=== PATIENT | male | born 1965 | race African-American/Black ===

== ENCOUNTER 2022-04-09 17:16 | Inpatient (IN) | payer OTHER, SELFPAY ==
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
[2022-04-09 17:24] VITALS: BP 124/66; BP 132/88; PULSE 84; PULSE 94; RESP 17; TEMP 36.4; O2SAT 94; O2SAT 98; BMI 29.8
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
--- NOTE | 2022-04-09 17:33 | ECG_ITS ---
Test Reason : MEDICAL CLERANCE Blood Pressure : / mmHG Vent. Rate : 093 BPM Atrial Rate : 093 BPM P-R Int : 170 ms QRS Dur : 092 ms QT Int : 356 ms P-R-T Axes : 054 043 056 degrees QTc Int : 442 ms Normal sinus rhythm Minimal voltage criteria for LVH, may be normal variant ( Sokolow-Brownlee ) Nonspecific ST abnormality ST elevation in Septal leads Abnormal ECG No previous ECGs available Referred By: Katherine Aldrich Electronically Signed By:JEROME GAMEZ MD
[2022-04-09 17:42] LABS: Glucose, Whole Blood 341 mg/dL (60-115)
[2022-04-09] MEDS: Insulin Lispro 100 UNIT/ML 3 ML VIAL 6 UNIT SUBCUT (18:03)
[2022-04-09 18:13] LABS: Appearance Urine Clear; Color Urine Yellow; Glucose Urine UA >=1000 mg/dL (Negative); Leukocyte Esterase Urine Negative (Negative); Nitrite Urine Negative (Negative); PH 5.5 (5.0-9.0); Specific Gravity - Urine >= 1.030 (1.005-1.025); UMIC TRIGGER UACC YES; Urine Blood Negative (Negative); Urine Ketones Negative (Negative); Urine Protein Negative (Neg-Trace)
[2022-04-09 18:18] LABS: Bacteria Urine None Seen (None Seen); Hyaline Casts Urine 0-2 /LPF (0-2); RBC Urine 0-2 /HPF (0-2); Squamous Epithelial Cell Urine 0-2 /HPF (0-2); WBC Urine 0-5 /HPF (0-5)
[2022-04-09 18:24] LABS: COVID-19 Test Negative (Negative)
[2022-04-09 18:26] LABS: Amphetamine Screen Urine Not Detected (Not Detect); Barbiturates, Urine Not Detected (Not Detect); Benzodiazepines Screen Urine Not Detected (Not Detect); Cannabinoid Screen Urine POSITIVE (Not Detect); Cocaine Screen Urine POSITIVE (Not Detect); Fentanyl, urine Not Detected (Not Detect); Opiate Screen Urine Not Detected (Not Detect); Phencyclidine Screen Urine Not Detected (Not Detect)
[2022-04-09 19:25] LABS: MANUAL DIFF FLAG NO
[2022-04-09 19:30] LABS: Basophils Percent Auto 0.6 % (0-2); Eosinophils Absolute Auto 0.1 X10*3/uL (0.0-0.4); Eosinophils Percent Auto 1.7 % (0-4); Hemoglobin 13.9 g/dl (14.0-18.0); Imm Gran Abs Auto 0.01 X10*3/uL (0.00-0.03); Imm Gran Pct Auto 0.2 % (0.0-0.4); Lymphocytes Absolute Auto 2.9 X10*3/uL (1.2-4.9); Lymphocytes Percent Auto 44.9 % (20-40); Mean Corpuscular HGB Conc 33.9 g/dl (31.0-36.0); Mean Corpuscular Hemoglobin 32.8 pg (27.0-33.0); Mean Corpuscular Volume 96.7 fL (80.0-98.0); Mean Platelet Volume 9.7 fL (9.4-12.4); Monocytes Absolute Auto 0.8 X10*3/uL (0.1-1.2); Neutrophils Absolute Auto 2.6 x10*3/uL (2.0-8.3); Neutrophils Percent Auto 40.6 % (45-73); Platelet Count 255 X10*3/uL (160-400); Red Blood Count 4.24 X10*6/uL (4.60-5.80); Red Cell Distribution Width 12.8 % (11.0-16.0); White Blood Count 6.4 X10*3/uL (4.8-10.8)
[2022-04-09 19:43] LABS: Alanine Aminotransferase 23 U/L (0-40); Alkaline Phosphatase 91 U/L (39-117); Anion Gap 18 (12-20); Aspartate Amino Transferase 21 U/L (5-37); Bilirubin Total 0.5 mg/dL (0.0-1.0); Blood Urea Nitrogen 20 mg/dL (9-16); Carbon Dioxide 21 mmol/L (22-29); Creatinine Clr Calc Pharmacy 67.3; Estimated Glomerular Filt Rate > 60; Ethanol < 10 mg/dL; Total Protein 7.2 g/dL (6.5-8.0)
[2022-04-09 19:49] LABS: Troponin-I High Sensitivity 6.7 ng/L (<3.5-35.0)
[2022-04-09 21:36] LABS: Albumin Level 4.3 g/dL (3.5-5.0); Calcium 8.8 mg/dL (8.4-10.2); Chloride 100 mmol/L (96-108); Glucose Random 375 mg/dL (60-115); Potassium 4.5 mmol/L (3.3-5.1); Sodium 134 mmol/L (135-145)
[2022-04-09] MEDS: traZODone HCL 50 MG TABLET PO (22:52)
[2022-04-09] MEDS: Cyclobenzaprine HCl 10 MG TABLET PO (22:52)
[2022-04-09] MEDS: Gabapentin 300 MG CAPSULE PO (22:53)
[2022-04-09] MEDS: Divalproex Sodium ER 250 MG TAB.ER.24H 1250 MG PO (22:53)
[2022-04-09 22:54] LABS: Glucose, Whole Blood 353 mg/dL (60-115)
[2022-04-09] MEDS: metFORMIN HCl ER 750 MG TAB.ER.24H PO (23:15)
[2022-04-10] MEDS: Insulin Lispro 100 UNIT/ML 3 ML VIAL 10 UNIT SUBCUT (00:01)
[2022-04-10 00:48] LABS: Glucose, Whole Blood 226 mg/dL (60-115)
[2022-04-10 01:07] VITALS: BMI 28.9
--- NOTE | 2022-04-10 02:22 | PC.ADMIT ---
patient arrived to the unit after midnight. on arrival was tired as he has received his HS medications in the ER. did allow for a brief assessment, POC to be repeated (226) then requested to go to bed. declined one time doses of folic acid and thiamine. patient was a referral from the ER. nurse to nurse, collateral information obtained prior to admission. admission to M[facility] was briefly held off until insulin administered in the ER for a POC 353. admission assessment completed with brief assessment with patient, assessment by crisis team and ER physician documentation. pt is homeless, has outpatient providers but question compliance with treatment providers as well as medications. diabetes is not well controlled. medical issues include IDDM, HTN, GERD. reported pain in knees due to arthritis. crisis assessment identified patient as experiencing A/V hallucinations. No SI. + thoughts to harm others but no specific plan or persons. did report feeling safe in the hospital environment. reports long standing use of substances including alcohol-no s/s of w/d at this time, cocaine and marijuana. treatment plan and safety tool initiated. oriented to unit.
--- NOTE | 2022-04-10 03:49 | PC.NURSE ---
medication reconciliation was completed in ER. has prescription bottles in belongings that will be stored in pharmacy.
[2022-04-10 08:00] VITALS: BP 128/73; PULSE 90; RESP 18; TEMP 36.6; O2SAT 100
[2022-04-10 09:02] LABS: Glucose, Whole Blood 303 mg/dL (60-115)
[2022-04-10] MEDS: Insulin Lispro 100 UNIT/ML 3 ML VIAL SUBCUT ×4 (09:57→21:58)
[2022-04-10] MEDS: metFORMIN HCl ER 750 MG TAB.ER.24H PO ×2 (09:58→21:57)
[2022-04-10] MEDS: Acetaminophen 325 MG TABLET 650 MG PO (09:58)
[2022-04-10] MEDS: Cyclobenzaprine HCl 10 MG TABLET PO ×3 (09:59→21:57)
[2022-04-10] MEDS: Gabapentin 300 MG CAPSULE PO ×3 (09:59→21:57)
[2022-04-10] MEDS: Multivitamin TABLET 1 TAB PO (10:00)
[2022-04-10] MEDS: Omeprazole 40 MG CAPSULE.DR PO (10:01)
[2022-04-10] MEDS: Metoprolol Succinate ER 50 MG TAB.ER.24H PO (10:01)
[2022-04-10] MEDS: lisinopriL 10 MG TABLET PO (10:01)
[2022-04-10] MEDS: Folic Acid 1 MG TABLET PO (10:01)
[2022-04-10] MEDS: Escitalopram Oxalate 10 MG TABLET PO (10:02)
[2022-04-10] MEDS: Empagliflozin 25 MG TABLET PO (10:02)
[2022-04-10] MEDS: Thiamine HCL 100 MG TABLET PO (10:02)
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
[2022-04-10 12:27] LABS: Glucose, Whole Blood 296 mg/dL (60-115)
[2022-04-10] MEDS: LORazepam 1 MG TABLET 2 MG PO (13:55)
[2022-04-10] MEDS: diphenhydrAMINE HCL 25 MG CAPSULE 50 MG PO (13:55)
[2022-04-10] MEDS: HaloperidoL 5 MG TABLET PO (13:56)
--- NOTE | 2022-04-10 14:01 | PC.NURSE ---
Pt crying with head in his hands. He reports that he was not hones honest with psychiatrist, regarding how he is feeling. He states he hearing voices telling him good and Bad things. He said in the ER voices were telling him to grab someone and that he feels like he is losing his mind. Benadryl Haldol Ativan combo given. [place] notified.
[2022-04-10 17:34] LABS: Glucose, Whole Blood 200 mg/dL (60-115)
[2022-04-10 19:25] VITALS: RESP 16
[2022-04-10] MEDS: Divalproex Sodium ER 250 MG TAB.ER.24H 1250 MG PO (21:56)
[2022-04-10] MEDS: Atorvastatin Calcium 80 MG TABLET PO (21:57)
[2022-04-10] MEDS: traZODone HCL 50 MG TABLET PO (22:03)
[2022-04-11 00:30] LABS: Glucose, Whole Blood 248 mg/dL (60-115)
--- NOTE | 2022-04-11 05:46 | PC.NURSE ---
At 0400 Nurse went into [facility]'s room to observe patient. Patient was resting comfortably with no signs of sweating or agitation. RR-16. Patient did not fidget or move on observation. Nurse did not wake patient for full CIWA assessment. If patient awakes, nurse will re-evaluate. Patient remains on CIWA protocol q4h.
[2022-04-11 08:00] VITALS: BP 143/73; PULSE 76; RESP 18; TEMP 36.6; O2SAT 98
[2022-04-11 08:46] LABS: Glucose, Whole Blood 211 mg/dL (60-115)
[2022-04-11] MEDS: Thiamine HCL 100 MG TABLET PO (09:50)
[2022-04-11] MEDS: Metoprolol Succinate ER 50 MG TAB.ER.24H PO (09:50)
[2022-04-11] MEDS: Cyclobenzaprine HCl 10 MG TABLET PO ×3 (09:51→21:21)
[2022-04-11] MEDS: Omeprazole 40 MG CAPSULE.DR PO (09:51)
[2022-04-11] MEDS: lisinopriL 10 MG TABLET PO (09:51)
[2022-04-11] MEDS: Escitalopram Oxalate 10 MG TABLET PO (09:52)
[2022-04-11] MEDS: Gabapentin 300 MG CAPSULE PO ×3 (09:53→21:15)
[2022-04-11] MEDS: metFORMIN HCl ER 750 MG TAB.ER.24H PO ×2 (09:53→21:15)
[2022-04-11] MEDS: Multivitamin TABLET 1 TAB PO (09:53)
[2022-04-11] MEDS: Empagliflozin 25 MG TABLET PO (09:54)
[2022-04-11] MEDS: Folic Acid 1 MG TABLET PO (09:54)
[2022-04-11 12:09] LABS: Glucose, Whole Blood 293 mg/dL (60-115)
[2022-04-11] MEDS: LORazepam 1 MG TABLET PO (13:08)
[2022-04-11] MEDS: ARIPiprazole 5 MG TABLET PO (13:08)
[2022-04-11] MEDS: Insulin Lispro 100 UNIT/ML 3 ML VIAL SUBCUT ×3 (13:09→21:23)
[2022-04-11 17:16] LABS: Glucose, Whole Blood 354 mg/dL (60-115)
--- NOTE | 2022-04-11 18:52 | P.PNPSI_ITS ---
Subjective Subjective Date of Service: 04/11/22 Reason For Visit: AH/HI Interim History: pt came to staff two times distressed, crying and reporting auditory hallucinations to kill people. He accepted PO haldol, benadryl and ativa with good effect. today is willing to talk more; states he ahs had auditory hallucinations but stopped telling people because nno one believed him. states he never told [facility] psychiatrist. reports seroquel was stopped because overdosed on it. he was not able to tell me when this happened. he does want meds for AH Medication Compliance: Yes Side effects from medications: No Attending Groups: No Review of Systems Acute medical concerns: Yes unstable blood sugars stared on sliding scale also on metformin and jardiance Medical Review of Systems: unchanged Review of Systems Review of Systems Yes all other systems are reviewed and are negative and Unobtainable due to mental status Mental Status Exam Mental Status Exam Narrative: In bed, able to participate in interview today but limited. breathing regular and steady, no acute distress noted; ptreports auditory hallucinations telling him to kill people. feels very distressed by these. We discussed medicaiton for psychosis. states seroqule stopped in past due to he overdosed on it- he wasunable to say hwen this happened or circumstances. denies SI now. wants help and willing to try new med- discussed abilify as has lowest potential to alter blood sugars which re already unstable Patient Appearance: Disheveled Patient Orientation: Place and Situation Level of Consciousness: Drowsy and Follows Commands Patient Behavior: Appropriate Mood Description: Anxious and Sad Affect Description: Flat Patient Cognition Impaired: No Ability to Follow Directions: Fair Speech Pattern: Clear Hallucinations: Auditory and Command Thought Process: Distracted Thought Content: positive for Preoccupation Judgement: Fair Judgement and Insight: understand and wants help/treatment Diagnostics Vital Signs (24Hr): Vital Signs - 24 hr 04/11/22 08:00 Temperature 97.8 F Pulse Rate 76 Respiratory Rate 18 Blood Pressure 143/73 H Pulse Oximetry 98 Oxygen Delivery Method Room Air BMI result Body Mass Index 28.9 Labs Results: 04/09/22 19:16 04/09/22 19:16 Labs: Laboratory Results - last 48 hr 04/09/22 04/09/22 04/10/22 19:16 22:51 00:37 Sodium 134 L Potassium 4.5 Chloride 100 POC Glucose 353 H* 226 H Random Glucose 375 H* Calcium 8.8 Albumin 4.3 04/10/22 04/10/22 04/10/22 08:55 12:13 17:23 Sodium Potassium Chloride POC Glucose 303 H 296 H 200 H Random Glucose Calcium Albumin 04/10/22 04/11/22 04/11/22 21:48 08:35 12:05 Sodium Potassium Chloride POC Glucose 248 H 211 H 293 H Random Glucose Calcium Albumin 04/11/22 17:08 Sodium Potassium Chloride POC Glucose 354 H* Random Glucose Calcium Albumin Imaging Radiology Impressions: ITS Impressions Head CT 04/09/22 18:25 IMPRESSION: Nonspecific calcification involving the melissa. Comparison with prior imaging is recommended if available. Alternatively a brain MRI without and with contrast can be obtained for better anatomic characterization. Otherwise normal CT scan of the head. Medications Medications Current Medications Acetaminophen (Acetaminophen 325 Mg Tablet) 650 mg PO Q6H PRN PRN Reason: Headache/Pain Mild Scale (1-3) Last Admin: 04/10/22 09:58 Dose: 650 mg Al Hydroxide/Mg Hydroxide (Magnesium Hydrox/Alum Hydrox 30 Ml Oral.Susp) 30 ml PO Q6H PRN PRN Reason: Heartburn/Nausea Aripiprazole (Aripiprazole 5 Mg Tablet) 5 mg PO DAILY [facility] Last Admin: 04/11/22 13:08 Dose: 5 mg Atorvastatin Calcium (Atorvastatin Calcium 80 Mg Tablet) 80 mg PO BEDTIME [facility] Last Admin: 04/10/22 21:57 Dose: 80 mg Cyclobenzaprine HCl (Cyclobenzaprine Hcl 10 Mg Tablet) 10 mg PO TID [facility] Last Admin: 04/11/22 15:03 Dose: 10 mg Diphenhydramine HCl (Diphenhydramine Hcl 25 Mg Capsule) 50 mg PO Q4H PRN PRN Reason: agitation Last Admin: 04/10/22 13:55 Dose: 50 mg Divalproex Sodium (Divalproex Sodium Er 250 Mg Tab.Er.24h) 1,250 mg PO BEDTIME [facility] Last Admin: 04/10/22 21:56 Dose: 1,250 mg Empagliflozin (Empagliflozin 25 Mg Tablet) 25 mg PO DAILY [facility] Last Admin: 04/11/22 09:54 Dose: 25 mg Escitalopram Oxalate (Escitalopram Oxalate 10 Mg Tablet) 10 mg PO DAILY [facility] Last Admin: 04/11/22 09:52 Dose: 10 mg Folic Acid (Folic Acid 1 Mg Tablet) 1 mg PO DAILY [facility] Last Admin: 04/11/22 09:54 Dose: 1 mg Gabapentin (Gabapentin 300 Mg Capsule) 300 mg PO TID [facility] Last Admin: 04/11/22 15:02 Dose: 300 mg Glucose (Glucose Gel 15 Gm Gel..Gram.) 15 gm PO Q15M PRN; Protocol PRN Reason: per Hypoglycemia Standing Ord. Haloperidol (Haloperidol 5 Mg Tablet) 5 mg PO Q4H PRN PRN Reason: agitation Last Admin: 04/10/22 13:56 Dose: 5 mg Hydroxyzine HCl (Hydroxyzine Hcl 25 Mg Tablet) 25 mg PO Q6H PRN PRN Reason: Anxiety Insulin Human Lispro (Insulin Lispro 100 Unit/Ml 3 Ml Vial) 0 unit SUBCUT [facility]; Protocol Last Admin: 04/11/22 17:48 Dose: 10 unit Lisinopril (Lisinopril 10 Mg Tablet) 10 mg PO DAILY [facility]; Protocol Last Admin: 04/11/22 09:51 Dose: 10 mg Lorazepam (Lorazepam 1 Mg Tablet) 2 mg PO Q4H PRN PRN Reason: agitation Last Admin: 04/10/22 13:55 Dose: 2 mg Lorazepam (Lorazepam 1 Mg Tablet) 2 mg PO Q2H PRN PRN Reason: CIWA 13+ Lorazepam (Lorazepam 1 Mg Tablet) 1 mg PO Q2H PRN PRN Reason: CIWA 6-12 Lorazepam (Lorazepam 1 Mg Tablet) 1 mg PO DAILY [facility] Last Admin: 04/11/22 13:08 Dose: 1 mg Magnesium Hydroxide (Milk Of Magnesia 30 Ml Oral.Susp) 30 ml PO DAILY PRN PRN Reason: Constipation Metformin HCl (Metformin Hcl Er 750 Mg Tab.Er.24h) 750 mg PO BID [facility] Last Admin: 04/11/22 09:53 Dose: 750 mg Metoprolol Succinate (Metoprolol Succinate Er 50 Mg Tab.Er.24h) 50 mg PO DAILY [facility]; Protocol Last Admin: 04/11/22 09:50 Dose: 50 mg Multivitamins/Vitamin C (Multivitamin Tablet) 1 tab PO DAILY [facility] Last Admin: 04/11/22 09:53 Dose: 1 tab Nicotine Polacrilex (Nicotine Polacrilex 2 Mg Gum) 4 mg BUCCAL Q2H PRN PRN Reason: Nicotine Cravings Omeprazole (Omeprazole 40 Mg Capsule.Dr) 40 mg PO DAILY@0630 [facility] Last Admin: 04/11/22 09:51 Dose: 40 mg Thiamine HCl (Thiamine Hcl 100 Mg Tablet) 100 mg PO DAILY [facility] Last Admin: 04/11/22 09:50 Dose: 100 mg Trazodone HCl (Trazodone Hcl 50 Mg Tablet) 50 mg PO BEDTIME [facility] Last Admin: 04/10/22 22:03 Dose: 50 mg Trazodone HCl (Trazodone Hcl 50 Mg Tablet) 50 mg PO BEDTIME PRN PRN Reason: Insomnia Allergies Allergies Allergy/AdvReac Type Severity Reaction Status Date / Time No Known Allergies Allergy Verified 04/09/22 17:32 Assessment & Plan Assessment & Plan (1) Acute psychosis: Status: Acute Code(s): F23 - Brief psychotic disorder Plan 56 year old male with acute psychosis and depression with SI and HI admitted from Ed on section 12. pt signed conditional voluntary upon admission and accepting treatment Plan: 1. start abilify 5 mg PO - titrate as tolerated 2. give 1 mg ativan with abilify daily in am and may taper as he adjusts to abilify 2. continue prn haldol, ativan and benadryl. 3. CIWA scale 4. POC QID 5.15 min checks 6. collect collateral I spent minutes with the patient and/or on the patient floor today, greater than?50% of which was spent counseling/coordinating care. Reason for contiued inpatient stay Substantial Risk for: harm to self, harm to others, inability to function and rapid decompensation
[2022-04-11 19:35] VITALS: BP 105/56; PULSE 82; RESP 16; TEMP 36.3; O2SAT 93
[2022-04-11 21:10] LABS: Glucose, Whole Blood 216 mg/dL (60-115)
[2022-04-11] MEDS: Atorvastatin Calcium 80 MG TABLET PO (21:15)
[2022-04-11] MEDS: Divalproex Sodium ER 250 MG TAB.ER.24H 1250 MG PO (21:22)
[2022-04-11] MEDS: traZODone HCL 50 MG TABLET PO (21:22)
[2022-04-12 08:46] LABS: Glucose, Whole Blood 208 mg/dL (60-115)
[2022-04-12] MEDS: Insulin Lispro 100 UNIT/ML 3 ML VIAL SUBCUT ×4 (09:05→21:21)
[2022-04-12] MEDS: Folic Acid 1 MG TABLET PO (09:06)
[2022-04-12] MEDS: Cyclobenzaprine HCl 10 MG TABLET PO ×3 (09:06→21:23)
[2022-04-12] MEDS: Multivitamin TABLET 1 TAB PO (09:06)
[2022-04-12] MEDS: Empagliflozin 25 MG TABLET PO (09:06)
[2022-04-12] MEDS: Escitalopram Oxalate 10 MG TABLET PO (09:06)
[2022-04-12] MEDS: lisinopriL 10 MG TABLET PO (09:06)
[2022-04-12] MEDS: ARIPiprazole 5 MG TABLET PO ×2 (09:06→21:24)
[2022-04-12] MEDS: metFORMIN HCl ER 750 MG TAB.ER.24H PO ×2 (09:06→21:23)
[2022-04-12] MEDS: Omeprazole 40 MG CAPSULE.DR PO (09:06)
[2022-04-12] MEDS: Gabapentin 300 MG CAPSULE PO ×3 (09:06→21:24)
[2022-04-12] MEDS: Metoprolol Succinate ER 50 MG TAB.ER.24H PO (09:07)
[2022-04-12] MEDS: Thiamine HCL 100 MG TABLET PO (09:07)
[2022-04-12] MEDS: LORazepam 1 MG TABLET PO (09:07)
[2022-04-12 09:36] VITALS: BP 138/70; PULSE 96; RESP 15; TEMP 36.8; O2SAT 96
[2022-04-12 12:30] LABS: Glucose, Whole Blood 284 mg/dL (60-115)
[2022-04-12 17:15] LABS: Glucose, Whole Blood 270 mg/dL (60-115)
[2022-04-12 21:09] LABS: Glucose, Whole Blood 359 mg/dL (60-115)
[2022-04-12] MEDS: Atorvastatin Calcium 80 MG TABLET PO (21:23)
[2022-04-12] MEDS: Divalproex Sodium ER 250 MG TAB.ER.24H 1250 MG PO (21:23)
[2022-04-12] MEDS: traZODone HCL 50 MG TABLET PO (21:24)
--- NOTE | 2022-04-12 21:27 | HO.PSYCHPN ---
Subjective Subjective Date of Service: 04/12/22 Reason For Visit: AH/HI Interim History: calm, cooperative. i'm losing my mind. angels outside my window. states he spent the past two months spending $6,000 on crack cocaine in order to avoid hearing voices. interested in changing abilify to HS. no other changes, states he is working with SW on housing. per staff, isolative. not attending groups. better but not by much, per his report. c/o AVH. slept well. on CIWA, not scoring. Mental Status Exam Mental Status Exam Narrative: adequately dressed and groomed. calm, cooperative. speech nml in rate and amount, latency. decreased tonality. thoughts linear and logical without delusions or paranoia. affect constricted, hypo-intense, non-labile. mood not assessed. +AVH, no SI/HI expressed. Diagnostics Vital Signs (24Hr): Vital Signs - 24 hr 04/12/22 09:36 Temperature 98.3 F Pulse Rate 96 Respiratory Rate 15 Blood Pressure 138/70 Pulse Oximetry 96 Oxygen Delivery Method Room Air BMI result Body Mass Index 28.9 Labs Results: 04/09/22 19:16 04/09/22 19:16 Labs: Laboratory Results - last 48 hr 04/10/22 04/11/22 04/11/22 21:48 08:35 12:05 POC Glucose 248 H 211 H 293 H 04/11/22 04/11/22 04/12/22 17:08 21:05 08:37 POC Glucose 354 H* 216 H 208 H 04/12/22 04/12/22 04/12/22 12:24 17:11 21:05 POC Glucose 284 H 270 H 359 H* Imaging Radiology Impressions: ITS Impressions Head CT 04/09/22 18:25 IMPRESSION: Nonspecific calcification involving the melissa. Comparison with prior imaging is recommended if available. Alternatively a brain MRI without and with contrast can be obtained for better anatomic characterization. Otherwise normal CT scan of the head. Medications Medications Current Medications Acetaminophen (Acetaminophen 325 Mg Tablet) 650 mg PO Q6H PRN PRN Reason: Headache/Pain Mild Scale (1-3) Last Admin: 04/10/22 09:58 Dose: 650 mg Al Hydroxide/Mg Hydroxide (Magnesium Hydrox/Alum Hydrox 30 Ml Oral.Susp) 30 ml PO Q6H PRN PRN Reason: Heartburn/Nausea Aripiprazole (Aripiprazole 5 Mg Tablet) 5 mg PO BEDTIME [facility] Last Admin: 04/12/22 21:24 Dose: 5 mg Atorvastatin Calcium (Atorvastatin Calcium 80 Mg Tablet) 80 mg PO BEDTIME [facility] Last Admin: 04/12/22 21:23 Dose: 80 mg Cyclobenzaprine HCl (Cyclobenzaprine Hcl 10 Mg Tablet) 10 mg PO TID [facility] Last Admin: 04/12/22 21:23 Dose: 10 mg Diphenhydramine HCl (Diphenhydramine Hcl 25 Mg Capsule) 50 mg PO Q4H PRN PRN Reason: agitation Last Admin: 04/10/22 13:55 Dose: 50 mg Divalproex Sodium (Divalproex Sodium Er 250 Mg Tab.Er.24h) 1,250 mg PO BEDTIME [facility] Last Admin: 04/12/22 21:23 Dose: 1,250 mg Empagliflozin (Empagliflozin 25 Mg Tablet) 25 mg PO DAILY [facility] Last Admin: 04/12/22 09:06 Dose: 25 mg Escitalopram Oxalate (Escitalopram Oxalate 10 Mg Tablet) 10 mg PO DAILY [facility] Last Admin: 04/12/22 09:06 Dose: 10 mg Folic Acid (Folic Acid 1 Mg Tablet) 1 mg PO DAILY [facility] Last Admin: 04/12/22 09:06 Dose: 1 mg Gabapentin (Gabapentin 300 Mg Capsule) 300 mg PO TID [facility] Last Admin: 04/12/22 21:24 Dose: 300 mg Glucose (Glucose Gel 15 Gm Gel..Gram.) 15 gm PO Q15M PRN; Protocol PRN Reason: per Hypoglycemia Standing Ord. Haloperidol (Haloperidol 5 Mg Tablet) 5 mg PO Q4H PRN PRN Reason: agitation Last Admin: 04/10/22 13:56 Dose: 5 mg Hydroxyzine HCl (Hydroxyzine Hcl 25 Mg Tablet) 25 mg PO Q6H PRN PRN Reason: Anxiety Insulin Human Lispro (Insulin Lispro 100 Unit/Ml 3 Ml Vial) 0 unit SUBCUT QIDACHS [facility]; Protocol Last Admin: 04/12/22 21:21 Dose: 10 unit Lisinopril (Lisinopril 10 Mg Tablet) 10 mg PO DAILY [facility]; Protocol Last Admin: 04/12/22 09:06 Dose: 10 mg Lorazepam (Lorazepam 1 Mg Tablet) 2 mg PO Q4H PRN PRN Reason: agitation Last Admin: 04/10/22 13:55 Dose: 2 mg Lorazepam (Lorazepam 1 Mg Tablet) 2 mg PO Q2H PRN PRN Reason: CIWA 13+ Lorazepam (Lorazepam 1 Mg Tablet) 1 mg PO Q2H PRN PRN Reason: CIWA 6-12 Lorazepam (Lorazepam 1 Mg Tablet) 1 mg PO DAILY [facility] Last Admin: 04/12/22 09:07 Dose: 1 mg Magnesium Hydroxide (Milk Of Magnesia 30 Ml Oral.Susp) 30 ml PO DAILY PRN PRN Reason: Constipation Metformin HCl (Metformin Hcl Er 750 Mg Tab.Er.24h) 750 mg PO BID [facility] Last Admin: 04/12/22 21:23 Dose: 750 mg Metoprolol Succinate (Metoprolol Succinate Er 50 Mg Tab.Er.24h) 50 mg PO DAILY [facility]; Protocol Last Admin: 04/12/22 09:07 Dose: 50 mg Multivitamins/Vitamin C (Multivitamin Tablet) 1 tab PO DAILY [facility] Last Admin: 04/12/22 09:06 Dose: 1 tab Nicotine Polacrilex (Nicotine Polacrilex 2 Mg Gum) 4 mg BUCCAL Q2H PRN PRN Reason: Nicotine Cravings Omeprazole (Omeprazole 40 Mg Capsule.Dr) 40 mg PO DAILY@0630 [facility] Last Admin: 04/12/22 09:06 Dose: 40 mg Thiamine HCl (Thiamine Hcl 100 Mg Tablet) 100 mg PO DAILY [facility] Last Admin: 04/12/22 09:07 Dose: 100 mg Trazodone HCl (Trazodone Hcl 50 Mg Tablet) 50 mg PO BEDTIME [facility] Last Admin: 04/12/22 21:24 Dose: 50 mg Trazodone HCl (Trazodone Hcl 50 Mg Tablet) 50 mg PO BEDTIME PRN PRN Reason: Insomnia Allergies Allergies Allergy/AdvReac Type Severity Reaction Status Date / Time No Known Allergies Allergy Verified 04/09/22 17:32 Assessment & Plan Assessment & Plan (1) Acute psychosis: Status: Acute Code(s): F23 - Brief psychotic disorder Plan 56 year old male with acute psychosis and depression with SI and HI admitted from Ed on section 12. pt signed conditional voluntary upon admission and accepting treatment Plan: 1. start abilify 5 mg PO - titrate as tolerated 2. give 1 mg ativan with abilify daily in am and may taper as he adjusts to abilify 2. continue prn haldol, ativan and benadryl. 3. CIWA scale 4. POC QID 5.15 min checks 6. collect collateral 04/12: change abilify to HS. plan to titrate up on abilify as tolerated and clinically indicated. pt is linear and logical and aware that his delusions or hallucinations are pathological. I spent ___25___ minutes with the patient and/or on the patient floor today, greater than?50% of which was spent counseling/coordinating care. Reason for contiued inpatient stay Substantial Risk for: inability to function and med/psych decompensation
[2022-04-13 08:10] VITALS: BP 136/75; PULSE 80; RESP 18; TEMP 36.6; O2SAT 98
[2022-04-13 08:45] LABS: Glucose, Whole Blood 252 mg/dL (60-115)
[2022-04-13] MEDS: metFORMIN HCl ER 750 MG TAB.ER.24H PO ×2 (10:05→21:52)
[2022-04-13] MEDS: Omeprazole 40 MG CAPSULE.DR PO (10:05)
[2022-04-13] MEDS: lisinopriL 10 MG TABLET PO (10:06)
[2022-04-13] MEDS: Empagliflozin 25 MG TABLET PO (10:06)
[2022-04-13] MEDS: LORazepam 1 MG TABLET PO (10:06)
[2022-04-13] MEDS: Thiamine HCL 100 MG TABLET PO (10:07)
[2022-04-13] MEDS: Multivitamin TABLET 1 TAB PO (10:07)
[2022-04-13] MEDS: Folic Acid 1 MG TABLET PO (10:07)
[2022-04-13] MEDS: Cyclobenzaprine HCl 10 MG TABLET PO ×3 (10:08→21:53)
[2022-04-13] MEDS: Escitalopram Oxalate 10 MG TABLET PO (10:08)
[2022-04-13] MEDS: Metoprolol Succinate ER 50 MG TAB.ER.24H PO (10:09)
[2022-04-13] MEDS: Gabapentin 300 MG CAPSULE PO ×3 (10:09→21:54)
[2022-04-13] MEDS: Insulin Lispro 100 UNIT/ML 3 ML VIAL SUBCUT ×4 (10:09→21:55)
[2022-04-13 12:36] LABS: Glucose, Whole Blood 361 mg/dL (60-115)
[2022-04-13 17:38] LABS: Glucose, Whole Blood 277 mg/dL (60-115)
[2022-04-13 20:30] VITALS: BP 150/73; PULSE 80; RESP 18; TEMP 36.2; O2SAT 99
--- NOTE | 2022-04-13 20:31 | HO.PSYCHPN ---
Subjective Subjective Date of Service: 04/13/22 Reason For Visit: AH/HI Interim History: calm, cooperative. ambulates slowly and stiffly. states he has been staying away from the windows. why? he reports he is seeing things outside. c/o disrupted sleep. agrees to increase abilify to 7 mg QHS for now. per staff, pt presents as tense, angry. states his goal here is to get housing from the hospital. Mental Status Exam Mental Status Exam Narrative: adequately dressed and groomed. calm, cooperative. speech nml in rate and amount, latency. decreased tonality. thoughts linear and logical without delusions or paranoia. affect constricted, hypo-intense, non-labile. mood not assessed. +AVH, no SI/HI expressed. Diagnostics Vital Signs (24Hr): Vital Signs - 24 hr 04/13/22 08:10 Temperature 97.8 F Pulse Rate 80 Respiratory Rate 18 Blood Pressure 136/75 Pulse Oximetry 98 Oxygen Delivery Method Room Air BMI result Body Mass Index 28.9 Labs Results: 04/09/22 19:16 04/09/22 19:16 Labs: Laboratory Results - last 48 hr 04/11/22 04/12/22 04/12/22 21:05 08:37 12:24 POC Glucose 216 H 208 H 284 H 04/12/22 04/12/22 04/13/22 17:11 21:05 08:40 POC Glucose 270 H 359 H* 252 H 04/13/22 04/13/22 12:30 17:35 POC Glucose 361 H* 277 H Imaging Radiology Impressions: ITS Impressions Head CT 04/09/22 18:25 IMPRESSION: Nonspecific calcification involving the melissa. Comparison with prior imaging is recommended if available. Alternatively a brain MRI without and with contrast can be obtained for better anatomic characterization. Otherwise normal CT scan of the head. Medications Medications Current Medications Acetaminophen (Acetaminophen 325 Mg Tablet) 650 mg PO Q6H PRN PRN Reason: Headache/Pain Mild Scale (1-3) Last Admin: 04/10/22 09:58 Dose: 650 mg Al Hydroxide/Mg Hydroxide (Magnesium Hydrox/Alum Hydrox 30 Ml Oral.Susp) 30 ml PO Q6H PRN PRN Reason: Heartburn/Nausea Aripiprazole (Aripiprazole 2 Mg Tablet) 2 mg PO BEDTIME [facility] Aripiprazole (Aripiprazole 5 Mg Tablet) 5 mg PO BEDTIME [facility] Atorvastatin Calcium (Atorvastatin Calcium 80 Mg Tablet) 80 mg PO BEDTIME [facility] Last Admin: 04/12/22 21:23 Dose: 80 mg Cyclobenzaprine HCl (Cyclobenzaprine Hcl 10 Mg Tablet) 10 mg PO TID [facility] Last Admin: 04/13/22 15:05 Dose: 10 mg Diphenhydramine HCl (Diphenhydramine Hcl 25 Mg Capsule) 50 mg PO Q4H PRN PRN Reason: agitation Last Admin: 04/10/22 13:55 Dose: 50 mg Divalproex Sodium (Divalproex Sodium Er 250 Mg Tab.Er.24h) 1,250 mg PO BEDTIME [facility] Last Admin: 04/12/22 21:23 Dose: 1,250 mg Empagliflozin (Empagliflozin 25 Mg Tablet) 25 mg PO DAILY [facility] Last Admin: 04/13/22 10:06 Dose: 25 mg Escitalopram Oxalate (Escitalopram Oxalate 10 Mg Tablet) 10 mg PO DAILY [facility] Last Admin: 04/13/22 10:08 Dose: 10 mg Folic Acid (Folic Acid 1 Mg Tablet) 1 mg PO DAILY [facility] Last Admin: 04/13/22 10:07 Dose: 1 mg Gabapentin (Gabapentin 300 Mg Capsule) 300 mg PO TID [facility] Last Admin: 04/13/22 15:06 Dose: 300 mg Glucose (Glucose Gel 15 Gm Gel..Gram.) 15 gm PO Q15M PRN; Protocol PRN Reason: per Hypoglycemia Standing Ord. Haloperidol (Haloperidol 5 Mg Tablet) 5 mg PO Q4H PRN PRN Reason: agitation Last Admin: 04/10/22 13:56 Dose: 5 mg Hydroxyzine HCl (Hydroxyzine Hcl 25 Mg Tablet) 25 mg PO Q6H PRN PRN Reason: Anxiety Insulin Human Lispro (Insulin Lispro 100 Unit/Ml 3 Ml Vial) 0 unit SUBCUT QIDACHS [facility]; Protocol Last Admin: 04/13/22 18:14 Dose: 6 unit Lisinopril (Lisinopril 10 Mg Tablet) 10 mg PO DAILY [facility]; Protocol Last Admin: 04/13/22 10:06 Dose: 10 mg Lorazepam (Lorazepam 1 Mg Tablet) 2 mg PO Q4H PRN PRN Reason: agitation Last Admin: 04/10/22 13:55 Dose: 2 mg Lorazepam (Lorazepam 1 Mg Tablet) 2 mg PO Q2H PRN PRN Reason: CIWA 13+ Lorazepam (Lorazepam 1 Mg Tablet) 1 mg PO Q2H PRN PRN Reason: CIWA 6-12 Lorazepam (Lorazepam 1 Mg Tablet) 1 mg PO DAILY [facility] Last Admin: 04/13/22 10:06 Dose: 1 mg Magnesium Hydroxide (Milk Of Magnesia 30 Ml Oral.Susp) 30 ml PO DAILY PRN PRN Reason: Constipation Metformin HCl (Metformin Hcl Er 750 Mg Tab.Er.24h) 750 mg PO BID [facility] Last Admin: 04/13/22 10:05 Dose: 750 mg Metoprolol Succinate (Metoprolol Succinate Er 50 Mg Tab.Er.24h) 50 mg PO DAILY [facility]; Protocol Last Admin: 04/13/22 10:09 Dose: 50 mg Multivitamins/Vitamin C (Multivitamin Tablet) 1 tab PO DAILY [facility] Last Admin: 04/13/22 10:07 Dose: 1 tab Nicotine Polacrilex (Nicotine Polacrilex 2 Mg Gum) 4 mg BUCCAL Q2H PRN PRN Reason: Nicotine Cravings Omeprazole (Omeprazole 40 Mg Capsule.Dr) 40 mg PO DAILY@0630 [facility] Last Admin: 04/13/22 10:05 Dose: 40 mg Thiamine HCl (Thiamine Hcl 100 Mg Tablet) 100 mg PO DAILY [facility] Last Admin: 04/13/22 10:07 Dose: 100 mg Trazodone HCl (Trazodone Hcl 50 Mg Tablet) 50 mg PO BEDTIME [facility] Last Admin: 04/12/22 21:24 Dose: 50 mg Trazodone HCl (Trazodone Hcl 50 Mg Tablet) 50 mg PO BEDTIME PRN PRN Reason: Insomnia Allergies Allergies Allergy/AdvReac Type Severity Reaction Status Date / Time No Known Allergies Allergy Verified 04/09/22 17:32 Assessment & Plan Assessment & Plan (1) Acute psychosis: Status: Acute Code(s): F23 - Brief psychotic disorder Plan 56 year old male with acute psychosis and depression with SI and HI admitted from [facility] on section 12. pt signed conditional voluntary upon admission and accepting treatment Plan: 1. start abilify 5 mg PO - titrate as tolerated 2. give 1 mg ativan with abilify daily in am and may taper as he adjusts to abilify 2. continue prn haldol, ativan and benadryl. 3. CIWA scale 4. POC QID 5.15 min checks 6. collect collateral 04/12: change abilify to HS. plan to titrate up on abilify as tolerated and clinically indicated. pt is linear and logical and aware that his delusions or hallucinations are pathological. 04/13: reporting seeing things outside. increase abilify to 7 mg QHS. reported to staff his goal is to get housing from the hospital. I spent ___20___ minutes with the patient and/or on the patient floor today, greater than?50% of which was spent counseling/coordinating care. Reason for contiued inpatient stay Substantial Risk for: harm to self, inability to function and rapid decompensation
[2022-04-13 21:43] LABS: Glucose, Whole Blood 323 mg/dL (60-115)
[2022-04-13] MEDS: Atorvastatin Calcium 80 MG TABLET PO (21:53)
[2022-04-13] MEDS: ARIPiprazole 5 MG TABLET PO (21:53)
[2022-04-13] MEDS: traZODone HCL 50 MG TABLET PO (21:53)
[2022-04-13] MEDS: ARIPiprazole 2 MG TABLET PO (21:54)
[2022-04-13] MEDS: Divalproex Sodium ER 250 MG TAB.ER.24H 1250 MG PO (21:55)
--- NOTE | 2022-04-14 00:09 | PC.NURSE ---
AT 0000, patient resting in bed asleep. Patient rr-16. No signs of distress. Nurse did not awake patient for full CIWA assessment. Nurse will continue to monitor.
--- NOTE | 2022-04-14 03:54 | PC.NURSE ---
Waylon has not been scoring on his CIWA. Observed patient, no signs of distress. RR-16. Nurse will continue to monitor.
[2022-04-14 08:15] VITALS: BP 117/71; PULSE 82; RESP 18; TEMP 36.6; O2SAT 99
[2022-04-14 08:55] LABS: Glucose, Whole Blood 252 mg/dL (60-115)
[2022-04-14] MEDS: Insulin Lispro 100 UNIT/ML 3 ML VIAL SUBCUT ×4 (09:36→20:52)
[2022-04-14] MEDS: Omeprazole 40 MG CAPSULE.DR PO (09:37)
[2022-04-14] MEDS: Folic Acid 1 MG TABLET PO (09:37)
[2022-04-14] MEDS: Metoprolol Succinate ER 50 MG TAB.ER.24H PO (09:37)
[2022-04-14] MEDS: LORazepam 1 MG TABLET PO (09:37)
[2022-04-14] MEDS: Cyclobenzaprine HCl 10 MG TABLET PO ×3 (09:38→20:28)
[2022-04-14] MEDS: Escitalopram Oxalate 10 MG TABLET PO (09:38)
[2022-04-14] MEDS: lisinopriL 10 MG TABLET PO (09:38)
[2022-04-14] MEDS: Empagliflozin 25 MG TABLET PO (09:38)
[2022-04-14] MEDS: Thiamine HCL 100 MG TABLET PO (09:39)
[2022-04-14] MEDS: Gabapentin 300 MG CAPSULE PO ×3 (09:39→20:30)
[2022-04-14] MEDS: Multivitamin TABLET 1 TAB PO (09:39)
[2022-04-14] MEDS: metFORMIN HCl ER 750 MG TAB.ER.24H PO ×2 (09:40→20:29)
[2022-04-14 12:51] LABS: Glucose, Whole Blood 434 mg/dL (60-115)
--- NOTE | 2022-04-14 15:54 | P.PNPSI_ITS ---
Subjective Subjective Date of Service: 04/14/22 Reason For Visit: AH/HI Interim History: calm, cooperative. seen in his bedroom late morning. pt reports he is feeling much better, no CAH since last night. attributes his recent psychotic Sx to the lingering effects of his month-long cocaine binge, saying he hadn't slept to speak of for 30 days and he has been catching up here and was having strange experiences because he was tired. denies SI/HI/AVH currently. per staff, yesterday dep, CAH to hurt people. active and appropriate in the afternoon. irritable. eating and sleeping well. Mental Status Exam Mental Status Exam Narrative: adequately dressed and groomed. calm, cooperative. speech nml in rate and amount, latency. decreased tonality. thoughts linear and logical without delusions or paranoia. affect constricted, hypo-intense, non-labile. mood not assessed. no SI/HI/AVH. Diagnostics Vital Signs (24Hr): Vital Signs - 24 hr 04/13/22 20:30 04/14/22 08:15 Temperature 97.2 F 97.9 F Pulse Rate 80 82 Respiratory Rate 18 18 Blood Pressure 150/73 H 117/71 Pulse Oximetry 99 99 Oxygen Delivery Method Room Air Room Air BMI result Body Mass Index 28.9 Labs Results: 04/09/22 19:16 04/09/22 19:16 Labs: Laboratory Results - last 48 hr 04/12/22 04/12/22 04/13/22 17:11 21:05 08:40 POC Glucose 270 H 359 H* 252 H 04/13/22 04/13/22 04/13/22 12:30 17:35 21:38 POC Glucose 361 H* 277 H 323 H 04/14/22 04/14/22 08:48 12:03 POC Glucose 252 H 434 H* Imaging Radiology Impressions: ITS Impressions Head CT 04/09/22 18:25 IMPRESSION: Nonspecific calcification involving the melissa. Comparison with prior imaging is recommended if available. Alternatively a brain MRI without and with contrast can be obtained for better anatomic characterization. Otherwise normal CT scan of the head. Medications Medications Current Medications Acetaminophen (Acetaminophen 325 Mg Tablet) 650 mg PO Q6H PRN PRN Reason: Headache/Pain Mild Scale (1-3) Last Admin: 04/10/22 09:58 Dose: 650 mg Al Hydroxide/Mg Hydroxide (Magnesium Hydrox/Alum Hydrox 30 Ml Oral.Susp) 30 ml PO Q6H PRN PRN Reason: Heartburn/Nausea Aripiprazole (Aripiprazole 2 Mg Tablet) 2 mg PO BEDTIME [facility] Last Admin: 04/13/22 21:54 Dose: 2 mg Aripiprazole (Aripiprazole 5 Mg Tablet) 5 mg PO BEDTIME [facility] Last Admin: 04/13/22 21:53 Dose: 5 mg Atorvastatin Calcium (Atorvastatin Calcium 80 Mg Tablet) 80 mg PO BEDTIME [facility] Last Admin: 04/13/22 21:53 Dose: 80 mg Cyclobenzaprine HCl (Cyclobenzaprine Hcl 10 Mg Tablet) 10 mg PO TID [facility] Last Admin: 04/14/22 14:24 Dose: 10 mg Diphenhydramine HCl (Diphenhydramine Hcl 25 Mg Capsule) 50 mg PO Q4H PRN PRN Reason: agitation Last Admin: 04/10/22 13:55 Dose: 50 mg Divalproex Sodium (Divalproex Sodium Er 250 Mg Tab.Er.24h) 1,250 mg PO BEDTIME [facility] Last Admin: 04/13/22 21:55 Dose: 1,250 mg Empagliflozin (Empagliflozin 25 Mg Tablet) 25 mg PO DAILY [facility] Last Admin: 04/14/22 09:38 Dose: 25 mg Escitalopram Oxalate (Escitalopram Oxalate 10 Mg Tablet) 10 mg PO DAILY [facility] Last Admin: 04/14/22 09:38 Dose: 10 mg Folic Acid (Folic Acid 1 Mg Tablet) 1 mg PO DAILY [facility] Last Admin: 04/14/22 09:37 Dose: 1 mg Gabapentin (Gabapentin 300 Mg Capsule) 300 mg PO TID [facility] Last Admin: 04/14/22 14:24 Dose: 300 mg Glucose (Glucose Gel 15 Gm Gel..Gram.) 15 gm PO Q15M PRN; Protocol PRN Reason: per Hypoglycemia Standing Ord. Haloperidol (Haloperidol 5 Mg Tablet) 5 mg PO Q4H PRN PRN Reason: agitation Last Admin: 04/10/22 13:56 Dose: 5 mg Hydroxyzine HCl (Hydroxyzine Hcl 25 Mg Tablet) 25 mg PO Q6H PRN PRN Reason: Anxiety Insulin Human Lispro (Insulin Lispro 100 Unit/Ml 3 Ml Vial) 0 unit SUBCUT QIDACHS [facility]; Protocol Last Admin: 04/14/22 12:57 Dose: 10 unit Lisinopril (Lisinopril 10 Mg Tablet) 10 mg PO DAILY [facility]; Protocol Last Admin: 04/14/22 09:38 Dose: 10 mg Lorazepam (Lorazepam 1 Mg Tablet) 2 mg PO Q4H PRN PRN Reason: agitation Last Admin: 04/10/22 13:55 Dose: 2 mg Lorazepam (Lorazepam 1 Mg Tablet) 2 mg PO Q2H PRN PRN Reason: CIWA 13+ Lorazepam (Lorazepam 1 Mg Tablet) 1 mg PO Q2H PRN PRN Reason: CIWA 6-12 Lorazepam (Lorazepam 1 Mg Tablet) 1 mg PO DAILY [facility] Last Admin: 04/14/22 09:37 Dose: 1 mg Magnesium Hydroxide (Milk Of Magnesia 30 Ml Oral.Susp) 30 ml PO DAILY PRN PRN Reason: Constipation Metformin HCl (Metformin Hcl Er 750 Mg Tab.Er.24h) 750 mg PO BID [facility] Last Admin: 04/14/22 09:40 Dose: 750 mg Metoprolol Succinate (Metoprolol Succinate Er 50 Mg Tab.Er.24h) 50 mg PO DAILY [facility]; Protocol Last Admin: 04/14/22 09:37 Dose: 50 mg Multivitamins/Vitamin C (Multivitamin Tablet) 1 tab PO DAILY [facility] Last Admin: 04/14/22 09:39 Dose: 1 tab Nicotine Polacrilex (Nicotine Polacrilex 2 Mg Gum) 4 mg BUCCAL Q2H PRN PRN Reason: Nicotine Cravings Omeprazole (Omeprazole 40 Mg Capsule.Dr) 40 mg PO DAILY@0630 [facility] Last Admin: 04/14/22 09:37 Dose: 40 mg Thiamine HCl (Thiamine Hcl 100 Mg Tablet) 100 mg PO DAILY [facility] Last Admin: 04/14/22 09:39 Dose: 100 mg Trazodone HCl (Trazodone Hcl 50 Mg Tablet) 50 mg PO BEDTIME [facility] Last Admin: 04/13/22 21:53 Dose: 50 mg Trazodone HCl (Trazodone Hcl 50 Mg Tablet) 50 mg PO BEDTIME PRN PRN Reason: Insomnia Allergies Allergies Allergy/AdvReac Type Severity Reaction Status Date / Time No Known Allergies Allergy Verified 04/09/22 17:32 Assessment & Plan Assessment & Plan (1) Acute psychosis: Status: Acute Code(s): F23 - Brief psychotic disorder Plan 56 year old male with acute psychosis and depression with SI and HI admitted from [facility] on section 12. pt signed conditional voluntary upon admission and accepting treatment Plan: 1. start abilify 5 mg PO - titrate as tolerated 2. give 1 mg ativan with abilify daily in am and may taper as he adjusts to abilify 2. continue prn haldol, ativan and benadryl. 3. CIWA scale 4. POC QID 5.15 min checks 6. collect collateral 04/12: change abilify to HS. plan to titrate up on abilify as tolerated and clinically indicated. pt is linear and logical and aware that his delusions or hallucinations are pathological. 04/13: reporting seeing things outside. increase abilify to 7 mg QHS. reported to staff his goal is to get housing from the hospital. 04/14: AVH resolving/resolved as of today. attributed to month-long cocaine binge and time to recover. [facility]. continue current mgmt. I spent ___25___ minutes with the patient and/or on the patient floor today, greater than?50% of which was spent counseling/coordinating care. Reason for contiued inpatient stay Substantial Risk for: inability to function and rapid decompensation
[2022-04-14 17:12] LABS: Glucose, Whole Blood 332 mg/dL (60-115)
[2022-04-14 18:00] VITALS: BP 127/71; PULSE 83; RESP 16; TEMP 36.3; O2SAT 98
[2022-04-14] MEDS: Divalproex Sodium ER 250 MG TAB.ER.24H 1250 MG PO (20:28)
[2022-04-14] MEDS: Atorvastatin Calcium 80 MG TABLET PO (20:29)
[2022-04-14] MEDS: traZODone HCL 50 MG TABLET PO (20:29)
[2022-04-14] MEDS: ARIPiprazole 2 MG TABLET PO (20:29)
[2022-04-14] MEDS: ARIPiprazole 5 MG TABLET PO (20:29)
[2022-04-14 20:44] LABS: Glucose, Whole Blood 269 mg/dL (60-115)
--- NOTE | 2022-04-15 04:25 | PC.NURSE ---
At 0400, patient appears to be resting in bed with no signs of discomfort. Patient has not been scoring on earlier CIWA assessments. Nurse did not wake patient for full CIWA, but will continue to monitor.
[2022-04-15 07:00] VITALS: BMI 27.6
[2022-04-15 08:01] VITALS: BP 124/71; PULSE 81; RESP 16; TEMP 36.4; O2SAT 98
[2022-04-15 08:24] LABS: Glucose, Whole Blood 174 mg/dL (60-115)
[2022-04-15] MEDS: Insulin Lispro 100 UNIT/ML 3 ML VIAL SUBCUT ×3 (09:16→17:17)
[2022-04-15] MEDS: LORazepam 1 MG TABLET PO (09:17)
[2022-04-15] MEDS: metFORMIN HCl ER 750 MG TAB.ER.24H PO ×2 (09:17→20:19)
[2022-04-15] MEDS: lisinopriL 10 MG TABLET PO (09:17)
[2022-04-15] MEDS: Cyclobenzaprine HCl 10 MG TABLET PO ×3 (09:17→20:20)
[2022-04-15] MEDS: Folic Acid 1 MG TABLET PO (09:17)
[2022-04-15] MEDS: Escitalopram Oxalate 10 MG TABLET PO (09:17)
[2022-04-15] MEDS: Multivitamin TABLET 1 TAB PO (09:17)
[2022-04-15] MEDS: Metoprolol Succinate ER 50 MG TAB.ER.24H PO (09:18)
[2022-04-15] MEDS: Gabapentin 300 MG CAPSULE PO ×3 (09:18→20:19)
[2022-04-15] MEDS: Empagliflozin 25 MG TABLET PO (09:18)
[2022-04-15] MEDS: Omeprazole 40 MG CAPSULE.DR PO (09:18)
[2022-04-15] MEDS: Thiamine HCL 100 MG TABLET PO (09:18)
[2022-04-15 13:21] LABS: Glucose, Whole Blood 222 mg/dL (60-115)
--- NOTE | 2022-04-15 15:22 | P.PNPSI_ITS ---
Subjective Subjective Date of Service: 04/15/22 Reason For Visit: AH/HI Interim History: calm, cooperative. somewhat irritable at length and complication of referral process to [facility], saying he has been to the [facility] more than once previously and they are familiar with his behaviors and capabilities. considering discharge today versus continuing to wait for acceptance by [facility]. 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. per staff, sen by PT re knee brace, and it was recommended he wear it. flat/anxious. denies Sx. feeling safe. sleeping well. med and meal compliant. Mental Status Exam Mental Status Exam Narrative: adequately dressed and groomed. calm, cooperative. speech nml in rate and amount, latency. decreased tonality. thoughts linear and logical without del usions or paranoia. affect constricted, normo-intense, non-labile. mood not assessed. no SI/HI/AVH. Diagnostics Vital Signs (24Hr): Vital Signs - 24 hr 04/14/22 18:00 04/15/22 08:01 Temperature 97.4 F 97.6 F Pulse Rate 83 81 Respiratory Rate 16 16 Blood Pressure 127/71 124/71 Pulse Oximetry 98 98 Oxygen Delivery Method Room Air Room Air BMI result Body Mass Index 27.6 Labs Results: 04/09/22 19:16 04/09/22 19:16 Labs: Laboratory Results - last 48 hr 04/13/22 04/13/22 04/14/22 17:35 21:38 08:48 POC Glucose 277 H 323 H 252 H 04/14/22 04/14/22 04/14/22 12:03 17:06 20:40 POC Glucose 434 H* 332 H 269 H 04/15/22 04/15/22 08:17 13:09 POC Glucose 174 H 222 H Imaging Radiology Impressions: ITS Impressions Head CT 04/09/22 18:25 IMPRESSION: Nonspecific calcification involving the melissa. Comparison with prior imaging is recommended if available. Alternatively a brain MRI without and with contrast can be obtained for better anatomic characterization. Otherwise normal CT scan of the head. Medications Medications Current Medications Acetaminophen (Acetaminophen 325 Mg Tablet) 650 mg PO Q6H PRN PRN Reason: Headache/Pain Mild Scale (1-3) Last Admin: 04/10/22 09:58 Dose: 650 mg Al Hydroxide/Mg Hydroxide (Magnesium Hydrox/Alum Hydrox 30 Ml Oral.Susp) 30 ml PO Q6H PRN PRN Reason: Heartburn/Nausea Aripiprazole (Aripiprazole 2 Mg Tablet) 2 mg PO BEDTIME [facility] Last Admin: 04/14/22 20:29 Dose: 2 mg Aripiprazole (Aripiprazole 5 Mg Tablet) 5 mg PO BEDTIME [facility] Last Admin: 04/14/22 20:29 Dose: 5 mg Atorvastatin Calcium (Atorvastatin Calcium 80 Mg Tablet) 80 mg PO BEDTIME [facility] Last Admin: 04/14/22 20:29 Dose: 80 mg Cyclobenzaprine HCl (Cyclobenzaprine Hcl 10 Mg Tablet) 10 mg PO TID [facility] Last Admin: 04/15/22 14:16 Dose: 10 mg Diphenhydramine HCl (Diphenhydramine Hcl 25 Mg Capsule) 50 mg PO Q4H PRN PRN Reason: agitation Last Admin: 04/10/22 13:55 Dose: 50 mg Divalproex Sodium (Divalproex Sodium Er 250 Mg Tab.Er.24h) 1,250 mg PO BEDTIME [facility] Last Admin: 04/14/22 20:28 Dose: 1,250 mg Empagliflozin (Empagliflozin 25 Mg Tablet) 25 mg PO DAILY [facility] Last Admin: 04/15/22 09:18 Dose: 25 mg Escitalopram Oxalate (Escitalopram Oxalate 10 Mg Tablet) 10 mg PO DAILY [facility] Last Admin: 04/15/22 09:17 Dose: 10 mg Folic Acid (Folic Acid 1 Mg Tablet) 1 mg PO DAILY [facility] Last Admin: 04/15/22 09:17 Dose: 1 mg Gabapentin (Gabapentin 300 Mg Capsule) 300 mg PO TID [facility] Last Admin: 04/15/22 14:16 Dose: 300 mg Glucose (Glucose Gel 15 Gm Gel..Gram.) 15 gm PO Q15M PRN; Protocol PRN Reason: per Hypoglycemia Standing Ord. Haloperidol (Haloperidol 5 Mg Tablet) 5 mg PO Q4H PRN PRN Reason: agitation Last Admin: 04/10/22 13:56 Dose: 5 mg Hydroxyzine HCl (Hydroxyzine Hcl 25 Mg Tablet) 25 mg PO Q6H PRN PRN Reason: Anxiety Insulin Human Lispro (Insulin Lispro 100 Unit/Ml 3 Ml Vial) 0 unit SUBCUT QIDACHS [facility]; Protocol Last Admin: 04/15/22 13:27 Dose: 4 unit Lisinopril (Lisinopril 10 Mg Tablet) 10 mg PO DAILY [facility]; Protocol Last Admin: 04/15/22 09:17 Dose: 10 mg Magnesium Hydroxide (Milk Of Magnesia 30 Ml Oral.Susp) 30 ml PO DAILY PRN PRN Reason: Constipation Metformin HCl (Metformin Hcl Er 750 Mg Tab.Er.24h) 750 mg PO BID [facility] Last Admin: 04/15/22 09:17 Dose: 750 mg Metoprolol Succinate (Metoprolol Succinate Er 50 Mg Tab.Er.24h) 50 mg PO DAILY [facility]; Protocol Last Admin: 04/15/22 09:18 Dose: 50 mg Multivitamins/Vitamin C (Multivitamin Tablet) 1 tab PO DAILY [facility] Last Admin: 04/15/22 09:17 Dose: 1 tab Nicotine Polacrilex (Nicotine Polacrilex 2 Mg Gum) 4 mg BUCCAL Q2H PRN PRN Reason: Nicotine Cravings Omeprazole (Omeprazole 40 Mg Capsule.Dr) 40 mg PO DAILY@0630 [facility] Last Admin: 04/15/22 09:18 Dose: 40 mg Thiamine HCl (Thiamine Hcl 100 Mg Tablet) 100 mg PO DAILY [facility] Last Admin: 04/15/22 09:18 Dose: 100 mg Trazodone HCl (Trazodone Hcl 50 Mg Tablet) 50 mg PO BEDTIME [facility] Last Admin: 04/14/22 20:29 Dose: 50 mg Trazodone HCl (Trazodone Hcl 50 Mg Tablet) 50 mg PO BEDTIME PRN PRN Reason: Insomnia Allergies Allergies Allergy/AdvReac Type Severity Reaction Status Date / Time No Known Allergies Allergy Verified 04/09/22 17:32 Assessment & Plan Assessment & Plan (1) Acute psychosis: Status: Acute Code(s): F23 - Brief psychotic disorder Plan 56 year old male with acute psychosis and depression with SI and HI admitted from [facility] on section 12. pt signed conditional voluntary upon admission and accepting treatment Plan: 1. start abilify 5 mg PO - titrate as tolerated 2. give 1 mg ativan with abilify daily in am and may taper as he adjusts to abilify 2. continue prn haldol, ativan and benadryl. 3. CIWA scale 4. POC QID 5.15 min checks 6. collect collateral 04/12: change abilify to HS. plan to titrate up on abilify as tolerated and clinically indicated. pt is linear and logical and aware that his delusions or hallucinations are pathological. 04/13: reporting seeing things outside. increase abilify to 7 mg QHS. reported to staff his goal is to get housing from the hospital. 04/14: AVH resolving/resolved as of today. attributed to month-long cocaine binge and time to recover. may have bed at [facility]. continue current mgmt. 04/15: continues improved. no safety concerns, no psychotic Sx. discussion with [facility] continues. I spent ___25___ minutes with the patient and/or on the patient floor today, greater than?50% of which was spent counseling/coordinating care. Reason for contiued inpatient stay Substantial Risk for: inability to function and rapid decompensation
[2022-04-15 17:12] LABS: Glucose, Whole Blood 189 mg/dL (60-115)
[2022-04-15 19:10] VITALS: BP 153/67; PULSE 93; RESP 16; TEMP 36.4; O2SAT 96
[2022-04-15] MEDS: ARIPiprazole 5 MG TABLET PO (20:19)
[2022-04-15] MEDS: Divalproex Sodium ER 250 MG TAB.ER.24H 1250 MG PO (20:19)
[2022-04-15] MEDS: Atorvastatin Calcium 80 MG TABLET PO (20:19)
[2022-04-15] MEDS: Prazosin HCL 1 MG CAPSULE PO (20:20)
[2022-04-15] MEDS: traZODone HCL 50 MG TABLET PO (20:20)
[2022-04-15] MEDS: ARIPiprazole 2 MG TABLET PO (20:20)
[2022-04-16 06:00] VITALS: BP 127/72; PULSE 80; RESP 18; TEMP 36.4; O2SAT 99
[2022-04-16 08:28] LABS: Glucose, Whole Blood 225 mg/dL (60-115)
[2022-04-16] MEDS: metFORMIN HCl ER 750 MG TAB.ER.24H PO (08:33)
[2022-04-16] MEDS: lisinopriL 10 MG TABLET PO (08:33)
[2022-04-16] MEDS: Metoprolol Succinate ER 50 MG TAB.ER.24H PO (08:33)
[2022-04-16] MEDS: Omeprazole 40 MG CAPSULE.DR PO (08:33)
[2022-04-16] MEDS: Insulin Lispro 100 UNIT/ML 3 ML VIAL SUBCUT ×4 (08:33→22:30)
[2022-04-16] MEDS: Escitalopram Oxalate 10 MG TABLET PO (08:34)
[2022-04-16] MEDS: Cyclobenzaprine HCl 10 MG TABLET PO ×2 (08:34→14:06)
[2022-04-16] MEDS: Gabapentin 300 MG CAPSULE PO ×2 (08:34→14:06)
[2022-04-16] MEDS: Thiamine HCL 100 MG TABLET PO (08:34)
[2022-04-16] MEDS: Folic Acid 1 MG TABLET PO (08:34)
[2022-04-16] MEDS: Multivitamin TABLET 1 TAB PO (08:34)
[2022-04-16] MEDS: Empagliflozin 25 MG TABLET PO (08:34)
[2022-04-16 09:21] LABS: Creatinine Clr Calc Pharmacy 83.5; Estimated Glomerular Filt Rate > 60
[2022-04-16 12:21] LABS: Glucose, Whole Blood 373 mg/dL (60-115)
--- NOTE | 2022-04-16 13:58 | P.PNPSI_ITS ---
Subjective Subjective Date of Service: 04/16/22 Reason For Visit: AH/HI Interim History: calm, cooperative. relentlessly negative, help-rejecting. awaiting word from [facility] on possibly going there next week. ambivalent, without psychiatric complaints currently. per staff, pleasant in morning 1:1. sleeping well. anxious. anoon - denies anxiety, depression. reports feeling safe. using knee brace. Mental Status Exam Mental Status Exam Narrative: adequately dressed and groomed. calm, cooperative. speech nml in rate and amount, latency. decreased tonality. thoughts linear and logical without delusions or paranoia. affect constricted, hyper-intense, non-labile. mood not assessed. no SI/HI/AVH expressed. Diagnostics Vital Signs (24Hr): Vital Signs - 24 hr 04/15/22 19:10 04/16/22 06:00 Temperature 97.6 F 97.6 F Pulse Rate 93 80 Respiratory Rate 16 18 Blood Pressure 153/67 H 127/72 Pulse Oximetry 96 99 Oxygen Delivery Method Room Air Room Air BMI result Body Mass Index 27.6 Labs Results: 04/09/22 19:16 04/16/22 08:30 Labs: Laboratory Results - last 48 hr 04/14/22 04/14/22 04/15/22 17:06 20:40 08:17 Creatinine Estim Creat Clear Calc Estimated GFR POC Glucose 332 H 269 H 174 H 04/15/22 04/15/22 04/16/22 13:09 17:08 08:23 Creatinine Estim Creat Clear Calc Estimated GFR POC Glucose 222 H 189 H 225 H 04/16/22 04/16/22 08:30 12:17 Creatinine 1.02 Estim Creat Clear Calc 83.5 Estimated GFR > 60 POC Glucose 373 H* Imaging Radiology Impressions: ITS Impressions Head CT 04/09/22 18:25 IMPRESSION: Nonspecific calcification involving the melissa. Comparison with prior imaging is recommended if available. Alternatively a brain MRI without and with contrast can be obtained for better anatomic characterization. Otherwise normal CT scan of the head. Medications Medications Current Medications Acetaminophen (Acetaminophen 325 Mg Tablet) 650 mg PO Q6H PRN PRN Reason: Headache/Pain Mild Scale (1-3) Last Admin: 04/10/22 09:58 Dose: 650 mg Al Hydroxide/Mg Hydroxide (Magnesium Hydrox/Alum Hydrox 30 Ml Oral.Susp) 30 ml PO Q6H PRN PRN Reason: Heartburn/Nausea Aripiprazole (Aripiprazole 2 Mg Tablet) 2 mg PO BEDTIME [facility] Last Admin: 04/15/22 20:20 Dose: 2 mg Aripiprazole (Aripiprazole 5 Mg Tablet) 5 mg PO BEDTIME [facility] Last Admin: 04/15/22 20:19 Dose: 5 mg Atorvastatin Calcium (Atorvastatin Calcium 80 Mg Tablet) 80 mg PO BEDTIME [facility] Last Admin: 04/15/22 20:19 Dose: 80 mg Cyclobenzaprine HCl (Cyclobenzaprine Hcl 10 Mg Tablet) 10 mg PO TID [facility] Last Admin: 04/16/22 08:34 Dose: 10 mg Diphenhydramine HCl (Diphenhydramine Hcl 25 Mg Capsule) 50 mg PO Q4H PRN PRN Reason: agitation Last Admin: 04/10/22 13:55 Dose: 50 mg Divalproex Sodium (Divalproex Sodium Er 250 Mg Tab.Er.24h) 1,250 mg PO BEDTIME [facility] Last Admin: 04/15/22 20:19 Dose: 1,250 mg Empagliflozin (Empagliflozin 25 Mg Tablet) 25 mg PO DAILY [facility] Last Admin: 04/16/22 08:34 Dose: 25 mg Escitalopram Oxalate (Escitalopram Oxalate 10 Mg Tablet) 10 mg PO DAILY [facility] Last Admin: 04/16/22 08:34 Dose: 10 mg Folic Acid (Folic Acid 1 Mg Tablet) 1 mg PO DAILY [facility] Last Admin: 04/16/22 08:34 Dose: 1 mg Gabapentin (Gabapentin 300 Mg Capsule) 300 mg PO TID [facility] Last Admin: 04/16/22 08:34 Dose: 300 mg Glucose (Glucose Gel 15 Gm Gel..Gram.) 15 gm PO Q15M PRN; Protocol PRN Reason: per Hypoglycemia Standing Ord. Haloperidol (Haloperidol 5 Mg Tablet) 5 mg PO Q4H PRN PRN Reason: agitation Last Admin: 04/10/22 13:56 Dose: 5 mg Hydroxyzine HCl (Hydroxyzine Hcl 25 Mg Tablet) 25 mg PO Q6H PRN PRN Reason: Anxiety Insulin Human Lispro (Insulin Lispro 100 Unit/Ml 3 Ml Vial) 0 unit SUBCUT Q IDACHS [facility]; Protocol Last Admin: 04/16/22 08:33 Dose: 4 unit Lisinopril (Lisinopril 10 Mg Tablet) 10 mg PO DAILY [facility]; Protocol Last Admin: 04/16/22 08:33 Dose: 10 mg Magnesium Hydroxide (Milk Of Magnesia 30 Ml Oral.Susp) 30 ml PO DAILY PRN PRN Reason: Constipation Metformin HCl (Metformin Hcl Er 750 Mg Tab.Er.24h) 750 mg PO BID [facility] Last Admin: 04/16/22 08:33 Dose: 750 mg Metoprolol Succinate (Metoprolol Succinate Er 50 Mg Tab.Er.24h) 50 mg PO DAILY [facility]; Protocol Last Admin: 04/16/22 08:33 Dose: 50 mg Multivitamins/Vitamin C (Multivitamin Tablet) 1 tab PO DAILY [facility] Last Admin: 04/16/22 08:34 Dose: 1 tab Nicotine Polacrilex (Nicotine Polacrilex 2 Mg Gum) 4 mg BUCCAL Q2H PRN PRN Reason: Nicotine Cravings Omeprazole (Omeprazole 40 Mg Capsule.Dr) 40 mg PO DAILY@0630 [facility] Last Admin: 04/16/22 08:33 Dose: 40 mg Prazosin HCl (Prazosin Hcl 1 Mg Capsule) 1 mg PO BEDTIME [facility]; Protocol Last Admin: 04/15/22 20:20 Dose: 1 mg Thiamine HCl (Thiamine Hcl 100 Mg Tablet) 100 mg PO DAILY [facility] Last Admin: 04/16/22 08:34 Dose: 100 mg Trazodone HCl (Trazodone Hcl 50 Mg Tablet) 50 mg PO BEDTIME [facility] Last Admin: 04/15/22 20:20 Dose: 50 mg Trazodone HCl (Trazodone Hcl 50 Mg Tablet) 50 mg PO BEDTIME PRN PRN Reason: Insomnia Allergies Allergies Allergy/AdvReac Type Severity Reaction Status Date / Time No Known Allergies Allergy Verified 04/09/22 17:32 Assessment & Plan Assessment & Plan (1) Acute psychosis: Status: Acute Code(s): F23 - Brief psychotic disorder Plan 56 year old male with acute psychosis and depression with SI and HI admitted from [facility] on section 12. pt signed conditional voluntary upon admission and accepting treatment Plan: 1. start abilify 5 mg PO - titrate as tolerated 2. give 1 mg ativan with abilify daily in am and may taper as he adjusts to abilify 2. continue prn haldol, ativan and benadryl. 3. CIWA scale 4. POC QID 5.15 min checks 6. collect collateral 04/12: change abilify to HS. plan to titrate up on abilify as tolerated and clinically indicated. pt is linear and logical and aware that his delusions or hallucinations are pathological. 04/13: reporting seeing things outside. increase abilify to 7 mg QHS. reported to staff his goal is to get housing from the hospital. 04/14: AVH resolving/resolved as of today. attributed to month-long cocaine binge and time to recover. may have bed at [facility]. continue current mgmt. 04/15: continues improved. no safety concerns, no psychotic Sx. discussion with [facility] continues. 04/16: continues improved. no safety concerns. continue current mgmt. I spent __25____ minutes with the patient and/or on the patient floor today, greater than?50% of which was spent counseling/coordinating care. Reason for contiued inpatient stay Substantial Risk for: inability to function and rapid decompensation
--- NOTE | 2022-04-16 15:32 | PM.EVENT ---
Event Note Date of Service: 04/16/22 Event Note: Metformin increased to 1000 bid, SSI parameters increased
[2022-04-16 17:51] LABS: Glucose, Whole Blood 154 mg/dL (60-115)
[2022-04-16 22:30] VITALS: BP 144/75; PULSE 84; RESP 18; TEMP 36.7; O2SAT 96
[2022-04-16 22:33] LABS: Glucose, Whole Blood 252 mg/dL (60-115)
[2022-04-17 08:30] VITALS: BP 129/77; PULSE 77; RESP 20; TEMP 36.2; O2SAT 99
[2022-04-17 08:34] LABS: Glucose, Whole Blood 199 mg/dL (60-115)
[2022-04-17] MEDS: Cyclobenzaprine HCl 10 MG TABLET PO ×3 (08:36→21:45)
[2022-04-17] MEDS: Escitalopram Oxalate 10 MG TABLET PO (08:37)
[2022-04-17] MEDS: Gabapentin 300 MG CAPSULE PO ×3 (08:37→21:45)
[2022-04-17] MEDS: metFORMIN HCl ER 500 MG TAB.ER.24H 1000 MG PO ×2 (08:37→21:45)
[2022-04-17] MEDS: Multivitamin TABLET 1 TAB PO (08:38)
[2022-04-17] MEDS: Empagliflozin 25 MG TABLET PO (08:38)
[2022-04-17] MEDS: Omeprazole 40 MG CAPSULE.DR PO (08:38)
[2022-04-17] MEDS: Folic Acid 1 MG TABLET PO (08:38)
[2022-04-17] MEDS: Metoprolol Succinate ER 50 MG TAB.ER.24H PO (08:38)
[2022-04-17] MEDS: Thiamine HCL 100 MG TABLET PO (08:38)
[2022-04-17] MEDS: lisinopriL 10 MG TABLET PO (08:39)
[2022-04-17] MEDS: Insulin Lispro 100 UNIT/ML 3 ML VIAL SUBCUT ×4 (09:22→21:44)
[2022-04-17 12:46] LABS: Glucose, Whole Blood 223 mg/dL (60-115)
--- NOTE | 2022-04-17 17:29 | HO.PSYCHPN ---
Subjective Subjective Date of Service: 04/17/22 Reason For Visit: AH/HI Interim History: calm, cooperative. inquisitive re his medications and what they are for. full medications list reviewed and each med discussed in detail. pt expresses gratitude and says he would like to try to come off of some medications and plans further discussion with his outpt provider. he declined to make any changes today. he states he declined medication last night bcse of his desire to depend less on medications, but then he tossed and turned for 3 hours, so he plans to take them tonight. otherwise reports he is feeling generally well. per staff, flippant re drug use. pleasant with peers. sleeping well. anxiety re going to [facility]. reported CAH to harm others. no SI/HI. refused meds last night. Mental Status Exam Mental Status Exam Narrative: adequately dressed and groomed. calm, cooperative. speech nml in rate and amount, latency, tonality. thoughts linear and logical without delusions or paranoia. affect more flexible, normo-intense, non-labile. mood improved. no SI/HI/AVH expressed. Diagnostics Vital Signs (24Hr): Vital Signs - 24 hr 04/16/22 22:30 04/17/22 08:30 Temperature 98.1 F 97.2 F Pulse Rate 84 77 Respiratory Rate 18 20 Blood Pressure 144/75 H 129/77 Pulse Oximetry 96 99 Oxygen Delivery Method Room Air Room Air BMI result Body Mass Index 27.6 Labs Results: 04/09/22 19:16 04/16/22 08:30 Labs: Laboratory Results - last 48 hr 04/16/22 04/16/22 04/16/22 08:23 08:30 12:17 Creatinine 1.02 Estim Creat Clear Calc 83.5 Estimated GFR > 60 POC Glucose 225 H 373 H* 04/16/22 04/16/22 04/17/22 17:43 22:26 08:28 Creatinine Estim Creat Clear Calc Estimated GFR POC Glucose 154 H 252 H 199 H 04/17/22 12:42 Creatinine Estim Creat Clear Calc Estimated GFR POC Glucose 223 H Imaging Radiology Impressions: ITS Impressions Head CT 04/09/22 18:25 IMPRESSION: Nonspecific calcification involving the melissa. Comparison with prior imaging is recommended if available. Alternatively a brain MRI without and with contrast can be obtained for better anatomic characterization. Otherwise normal CT scan of the head. Medications Medications Current Medications Acetaminophen (Acetaminophen 325 Mg Tablet) 650 mg PO Q6H PRN PRN Reason: Headache/Pain Mild Scale (1-3) Last Admin: 04/10/22 09:58 Dose: 650 mg Al Hydroxide/Mg Hydroxide (Magnesium Hydrox/Alum Hydrox 30 Ml Oral.Susp) 30 ml PO Q6H PRN PRN Reason: Heartburn/Nausea Aripiprazole (Aripiprazole 2 Mg Tablet) 2 mg PO BEDTIME [facility] Last Admin: 04/16/22 22:30 Dose: Not Given Aripiprazole (Aripiprazole 5 Mg Tablet) 5 mg PO BEDTIME [facility] Last Admin: 04/16/22 22:30 Dose: Not Given Atorvastatin Calcium (Atorvastatin Calcium 80 Mg Tablet) 80 mg PO BEDTIME [facility] Last Admin: 04/16/22 22:30 Dose: Not Given Cyclobenzaprine HCl (Cyclobenzaprine Hcl 10 Mg Tablet) 10 mg PO TID [facility] Last Admin: 04/17/22 14:56 Dose: 10 mg Diphenhydramine HCl (Diphenhydramine Hcl 25 Mg Capsule) 50 mg PO Q4H PRN PRN Reason: agitation Last Admin: 04/10/22 13:55 Dose: 50 mg Divalproex Sodium (Divalproex Sodium Er 250 Mg Tab.Er.24h) 1,250 mg PO BEDTIME [facility] Last Admin: 04/16/22 22:30 Dose: Not Given Empagliflozin (Empagliflozin 25 Mg Tablet) 25 mg PO DAILY [facility] Last Admin: 04/17/22 08:38 Dose: 25 mg Escitalopram Oxalate (Escitalopram Oxalate 10 Mg Tablet) 10 mg PO DAILY [facility] Last Admin: 04/17/22 08:37 Dose: 10 mg Folic Acid (Folic Acid 1 Mg Tablet) 1 mg PO DAILY [facility] Last Admin: 04/17/22 08:38 Dose: 1 mg Gabapentin (Gabapentin 300 Mg Capsule) 300 mg PO TID [facility] Last Admin: 04/17/22 14:56 Dose: 300 mg Glucose (Glucose Gel 15 Gm Gel..Gram.) 15 gm PO Q15M PRN; Protocol PRN Reason: per Hypoglycemia Standing Ord. Haloperidol (Haloperidol 5 Mg Tablet) 5 mg PO Q4H PRN PRN Reason: agitation Last Admin: 04/10/22 13:56 Dose: 5 mg Hydroxyzine HCl (Hydroxyzine Hcl 25 Mg Tablet) 25 mg PO Q6H PRN PRN Reason: Anxiety Insulin Human Lispro (Insulin Lispro 100 Unit/Ml 3 Ml Vial) 0 unit SUBCUT QIDACHS [facility]; Protocol Last Admin: 04/17/22 13:11 Dose: 5 unit Lisinopril (Lisinopril 10 Mg Tablet) 10 mg PO DAILY [facility]; Protocol Last Admin: 04/17/22 08:39 Dose: 10 mg Magnesium Hydroxide (Milk Of Magnesia 30 Ml Oral.Susp) 30 ml PO DAILY PRN PRN Reason: Constipation Metformin HCl (Metformin Hcl Er 500 Mg Tab.Er.24h) 1,000 mg PO BID [facility] Last Admin: 04/17/22 08:37 Dose: 1,000 mg Metoprolol Succinate (Metoprolol Succinate Er 50 Mg Tab.Er.24h) 50 mg PO DAILY [facility]; Protocol Last Admin: 04/17/22 08:38 Dose: 50 mg Multivitamins/Vitamin C (Multivitamin Tablet) 1 tab PO DAILY [facility] Last Admin: 04/17/22 08:38 Dose: 1 tab Nicotine Polacrilex (Nicotine Polacrilex 2 Mg Gum) 4 mg BUCCAL Q2H PRN PRN Reason: Nicotine Cravings Omeprazole (Omeprazole 40 Mg Capsule.Dr) 40 mg PO DAILY@0630 [facility] Last Admin: 04/17/22 08:38 Dose: 40 mg Prazosin HCl (Prazosin Hcl 1 Mg Capsule) 1 mg PO BEDTIME [facility]; Protocol Last Admin: 04/16/22 22:36 Dose: Not Given Thiamine HCl (Thiamine Hcl 100 Mg Tablet) 100 mg PO DAILY [facility] Last Admin: 04/17/22 08:38 Dose: 100 mg Trazodone HCl (Trazodone Hcl 50 Mg Tablet) 50 mg PO BEDTIME [facility] Last Admin: 04/16/22 22:30 Dose: Not Given Trazodone HCl (Trazodone Hcl 50 Mg Tablet) 50 mg PO BEDTIME PRN PRN Reason: Insomnia Allergies Allergies Allergy/AdvReac Type Severity Reaction Status Date / Time No Known Allergies Allergy Verified 04/09/22 17:32 Assessment & Plan Assessment & Plan (1) Acute psychosis: Status: Acute Code(s): F23 - Brief psychotic disorder Plan 56 year old male with acute psychosis and depression with SI and HI admitted from [facility] on section 12. pt signed conditional voluntary upon admission and accepting treatment Plan: 1. start abilify 5 mg PO - titrate as tolerated 2. give 1 mg ativan with abilify daily in am and may taper as he adjusts to abilify 2. continue prn haldol, ativan and benadryl. 3. CIWA scale 4. POC QID 5.15 min checks 6. collect collateral 04/12: change abilify to HS. plan to titrate up on abilify as tolerated and clinically indicated. pt is linear and logical and aware that his delusions or hallucinations are pathological. 04/13: reporting seeing things outside. increase abilify to 7 mg QHS. reported to staff his goal is to get housing from the hospital. 04/14: AVH resolving/resolved as of today. attributed to month-long cocaine binge and time to recover. may have bed at [facility]. continue current mgmt. 04/15: continues improved. no safety concerns, no psychotic Sx. discussion with [facility] continues. 04/16: continues improved. no safety concerns. continue current mgmt. 04/17: continues improved. no safety concerns. continue current mgmt. I spent ___25___ minutes with the patient and/or on the patient floor today, greater than?50% of which was spent counseling/coordinating care. Patient educated on: medication risk/benefits Reason for contiued inpatient stay Substantial Risk for: inability to function and med/psych decompensation
[2022-04-17 17:32] LABS: Glucose, Whole Blood 353 mg/dL (60-115)
--- NOTE | 2022-04-17 19:35 | PM.EVENT ---
Event Note Date of Service: 04/17/22 Event Note: Patient reports using 40 units of Lantus twice daily at home and Humalog 25 units 3 times daily with meals. Does have a history of hypoglycemia. Would recommend initiating Lantus at 15 units twice daily and continue Humalog on sliding scale as well as metformin 1000 mg twice daily and Jardiance 25 mg daily. Recommend diabetic diet. Can titrate Lantus as appropriate for hyperglycemia but recommend monitoring for hypoglycemia with POC glucose. D50 and glucose gel prn for hypoglycemia per protocol.
[2022-04-17 21:36] VITALS: BP 128/63; PULSE 82; RESP 18; TEMP 36.3; O2SAT 96
[2022-04-17 21:43] LABS: Glucose, Whole Blood 426 mg/dL (60-115)
[2022-04-17] MEDS: Insulin Glargine,Hum.rec.anlog 100 UNIT/ML 10 ML VIAL 15 UNIT SUBCUT (21:44)
[2022-04-17] MEDS: Atorvastatin Calcium 80 MG TABLET PO (21:45)
[2022-04-17] MEDS: ARIPiprazole 5 MG TABLET PO (21:45)
[2022-04-17] MEDS: Divalproex Sodium ER 250 MG TAB.ER.24H 1250 MG PO (21:45)
[2022-04-17] MEDS: ARIPiprazole 2 MG TABLET PO (21:46)
[2022-04-17] MEDS: Prazosin HCL 1 MG CAPSULE PO ×2 (21:46→21:51)
[2022-04-17] MEDS: traZODone HCL 50 MG TABLET PO (21:46)
[2022-04-18 08:20] VITALS: BP 117/74; PULSE 77; RESP 18; TEMP 36.5; O2SAT 97
[2022-04-18] MEDS: metFORMIN HCl ER 500 MG TAB.ER.24H 1000 MG PO ×2 (08:31→22:11)
[2022-04-18 08:32] LABS: Glucose, Whole Blood 182 mg/dL (60-115)
[2022-04-18] MEDS: Multivitamin TABLET 1 TAB PO (08:32)
[2022-04-18] MEDS: Folic Acid 1 MG TABLET PO (08:32)
[2022-04-18] MEDS: Metoprolol Succinate ER 50 MG TAB.ER.24H PO (08:32)
[2022-04-18] MEDS: Escitalopram Oxalate 10 MG TABLET PO (08:33)
[2022-04-18] MEDS: Thiamine HCL 100 MG TABLET PO (08:33)
[2022-04-18] MEDS: lisinopriL 10 MG TABLET PO (08:34)
[2022-04-18] MEDS: Empagliflozin 25 MG TABLET PO (08:34)
[2022-04-18] MEDS: Omeprazole 40 MG CAPSULE.DR PO (08:34)
[2022-04-18] MEDS: Cyclobenzaprine HCl 10 MG TABLET PO ×3 (08:34→22:11)
[2022-04-18] MEDS: Gabapentin 300 MG CAPSULE PO ×3 (08:35→22:12)
[2022-04-18] MEDS: Insulin Lispro 100 UNIT/ML 3 ML VIAL SUBCUT ×3 (10:03→18:39)
[2022-04-18] MEDS: Insulin Glargine,Hum.rec.anlog 100 UNIT/ML 10 ML VIAL 15 UNIT SUBCUT ×2 (10:04→22:09)
[2022-04-18 12:17] LABS: Glucose, Whole Blood 306 mg/dL (60-115)
[2022-04-18 17:13] LABS: Glucose, Whole Blood 257 mg/dL (60-115)
--- NOTE | 2022-04-18 17:54 | P.PNPSI_ITS ---
Subjective Subjective Date of Service: 04/18/22 Reason For Visit: AH/HI Interim History: calm, cooperative. chatty today. expresses strong desire to [facility], seems to say he has had a negative attitude about it to keep his hopes under control and to not get disappointed. i really want to get into this program. i'm going to if i go out there. happy he picked up on the wrong lantus dose and got it corrected. spoke with his mother yesterday. per staff, visible. took HS meds last night. Mental Status Exam Mental Status Exam Narrative: adequately dressed and groomed. calm, cooperative. speech nml in rate, incr amount. nml latency, tonality. thoughts linear and logical without delusions or paranoia. affect more flexible, normo-intense, non-labile. mood doing great. no SI/HI/AVH expressed. Diagnostics Vital Signs (24Hr): Vital Signs - 24 hr 04/17/22 21:36 04/18/22 08:20 Temperature 97.3 F 97.7 F Pulse Rate 82 77 Respiratory Rate 18 18 Blood Pressure 128/63 117/74 Pulse Oximetry 96 97 Oxygen Delivery Method Room Air Room Air BMI result Body Mass Index 27.6 Labs Results: 04/09/22 19:16 04/16/22 08:30 Labs: Laboratory Results - last 48 hr 04/16/22 04/17/22 04/17/22 22:26 08:28 12:42 POC Glucose 252 H 199 H 223 H 04/17/22 04/17/22 04/18/22 17:24 21:30 08:27 POC Glucose 353 H* 426 H* 182 H 04/18/22 04/18/22 12:13 17:09 POC Glucose 306 H 257 H Imaging Radiology Impressions: ITS Impressions Head CT 04/09/22 18:25 IMPRESSION: Nonspecific calcification involving the melissa. Comparison with prior imaging is recommended if available. Alternatively a brain MRI without and with contrast can be obtained for better anatomic characterization. Otherwise normal CT scan of the head. Medications Medications Current Medications Acetaminophen (Acetaminophen 325 Mg Tablet) 650 mg PO Q6H PRN PRN Reason: Headache/Pain Mild Scale (1-3) Last Admin: 04/10/22 09:58 Dose: 650 mg Al Hydroxide/Mg Hydroxide (Magnesium Hydrox/Alum Hydrox 30 Ml Oral.Susp) 30 ml PO Q6H PRN PRN Reason: Heartburn/Nausea Aripiprazole (Aripiprazole 2 Mg Tablet) 2 mg PO BEDTIME [facility] Last Admin: 04/17/22 21:46 Dose: 2 mg Aripiprazole (Aripiprazole 5 Mg Tablet) 5 mg PO BEDTIME [facility] Last Admin: 04/17/22 21:45 Dose: 5 mg Atorvastatin Calcium (Atorvastatin Calcium 80 Mg Tablet) 80 mg PO BEDTIME [facility] Last Admin: 04/17/22 21:45 Dose: 80 mg Cyclobenzaprine HCl (Cyclobenzaprine Hcl 10 Mg Tablet) 10 mg PO TID [facility] Last Admin: 04/18/22 15:25 Dose: 10 mg Dextrose (Dextrose 50 % 25 Gm/50 Ml Syringe) 25 gm IVPUSH Q15M PRN; Protocol PRN Reason: per Hypoglycemia Standing Ord. Diphenhydramine HCl (Diphenhydramine Hcl 25 Mg Capsule) 50 mg PO Q4H PRN PRN Reason: agitation Last Admin: 04/10/22 13:55 Dose: 50 mg Divalproex Sodium (Divalproex Sodium Er 250 Mg Tab.Er.24h) 1,250 mg PO BEDTIME [facility] Last Admin: 04/17/22 21:45 Dose: 1,250 mg Empagliflozin (Empagliflozin 25 Mg Tablet) 25 mg PO DAILY [facility] Last Admin: 04/18/22 08:34 Dose: 25 mg Escitalopram Oxalate (Escitalopram Oxalate 10 Mg Tablet) 10 mg PO DAILY [facility] Last Admin: 04/18/22 08:33 Dose: 10 mg Folic Acid (Folic Acid 1 Mg Tablet) 1 mg PO DAILY [facility] Last Admin: 04/18/22 08:32 Dose: 1 mg Gabapentin (Gabapentin 300 Mg Capsule) 300 mg PO TID [facility] Last Admin: 04/18/22 15:25 Dose: 300 mg Glucose (Glucose Gel 15 Gm Gel..Gram.) 15 gm PO Q15M PRN; Protocol PRN Reason: per Hypoglycemia Standing Ord. Glucose (Glucose Gel 15 Gm Gel..Gram.) 15 gm PO Q15M PRN; Protocol PRN Reason: per Hypoglycemia Standing Ord. Haloperidol (Haloperidol 5 Mg Tablet) 5 mg PO Q4H PRN PRN Reason: agitation Last Admin: 04/10/22 13:56 Dose: 5 mg Hydroxyzine HCl (Hydroxyzine Hcl 25 Mg Tablet) 25 mg PO Q6H PRN PRN Reason: Anxiety Insulin Glargine (Insulin Glargine,Hum.Rec.Anlog 100 Unit/Ml 10 Ml Vial) 15 unit SUBCUT BID@0830,2029 [facility] Last Admin: 04/18/22 10:04 Dose: 15 unit Insulin Human Lispro (Insulin Lispro 100 Unit/Ml 3 Ml Vial) 0 unit SUBCUT QIDACHS [facility]; Protocol Last Admin: 04/18/22 13:57 Dose: 10 unit Lisinopril (Lisinopril 10 Mg Tablet) 10 mg PO DAILY [facility]; Protocol Last Admin: 04/18/22 08:34 Dose: 10 mg Magnesium Hydroxide (Milk Of Magnesia 30 Ml Oral.Susp) 30 ml PO DAILY PRN PRN Reason: Constipation Metformin HCl (Metformin Hcl Er 500 Mg Tab.Er.24h) 1,000 mg PO BID [facility] Last Admin: 04/18/22 08:31 Dose: 1,000 mg Metoprolol Succinate (Metoprolol Succinate Er 50 Mg Tab.Er.24h) 50 mg PO DAILY [facility]; Protocol Last Admin: 04/18/22 08:32 Dose: 50 mg Multivitamins/Vitamin C (Multivitamin Tablet) 1 tab PO DAILY [facility] Last Admin: 04/18/22 08:32 Dose: 1 tab Nicotine Polacrilex (Nicotine Polacrilex 2 Mg Gum) 4 mg BUCCAL Q2H PRN PRN Reason: Nicotine Cravings Omeprazole (Omeprazole 40 Mg Capsule.Dr) 40 mg PO DAILY@0630 [facility] Last Admin: 04/18/22 08:34 Dose: 40 mg Prazosin HCl (Prazosin Hcl 1 Mg Capsule) 1 mg PO BEDTIME [facility]; Protocol Last Admin: 04/17/22 21:51 Dose: 1 mg Thiamine HCl (Thiamine Hcl 100 Mg Tablet) 100 mg PO DAILY [facility] Last Admin: 04/18/22 08:33 Dose: 100 mg Trazodone HCl (Trazodone Hcl 50 Mg Tablet) 50 mg PO BEDTIME [facility] Last Admin: 04/17/22 21:46 Dose: 50 mg Trazodone HCl (Trazodone Hcl 50 Mg Tablet) 50 mg PO BEDTIME PRN PRN Reason: Insomnia Allergies Allergies Allergy/AdvReac Type Severity Reaction Status Date / Time No Known Allergies Allergy Verified 04/09/22 17:32 Assessment & Plan Assessment & Plan (1) Acute psychosis: Status: Acute Code(s): F23 - Brief psychotic disorder Plan 56 year old male with acute psychosis and depression with SI and HI admitted from [facility] on section 12. pt signed conditional voluntary upon admission and accepting treatment Plan: 1. start abilify 5 mg PO - titrate as tolerated 2. give 1 mg ativan with abilify daily in am and may taper as he adjusts to abilify 2. continue prn haldol, ativan and benadryl. 3. CIWA scale 4. POC QID 5.15 min checks 6. collect collateral 04/12: change abilify to HS. plan to titrate up on abilify as tolerated and clinically indicated. pt is linear and logical and aware that his delusions or hallucinations are pathological. 04/13: reporting seeing things outside. increase abilify to 7 mg QHS. reported to staff his goal is to get housing from the hospital. 04/14: AVH resolving/resolved as of today. attributed to month-long cocaine binge and time to recover. may have bed at [facility]. continue current mgmt. 04/15: continues improved. no safety concerns, no psychotic Sx. discussion with [facility] continues. 04/16: continues improved. no safety concerns. continue current mgmt. 04/17: continues improved. no safety concerns. continue current mgmt. 04/18: continues improved. no safety concerns. continue current mgmt. more positive affect and hopefulness displayed today. I spent ___25___ minutes with the patient and/or on the patient floor today, greater than?50% of which was spent counseling/coordinating care. Reason for contiued inpatient stay Substantial Risk for: inability to function and med/psych decompensation
[2022-04-18 18:00] VITALS: BP 128/68; PULSE 92; RESP 16; TEMP 36.6; O2SAT 98
[2022-04-18 21:41] LABS: Glucose, Whole Blood 358 mg/dL (60-115)
[2022-04-18] MEDS: ARIPiprazole 2 MG TABLET PO (22:11)
[2022-04-18] MEDS: Prazosin HCL 1 MG CAPSULE PO (22:11)
[2022-04-18] MEDS: ARIPiprazole 5 MG TABLET PO (22:12)
[2022-04-18] MEDS: Divalproex Sodium ER 250 MG TAB.ER.24H 1250 MG PO (22:12)
[2022-04-18] MEDS: Atorvastatin Calcium 80 MG TABLET PO (22:12)
[2022-04-18] MEDS: traZODone HCL 50 MG TABLET PO (22:15)
[2022-04-19] MEDS: Gabapentin 300 MG CAPSULE PO (07:59)
[2022-04-19] MEDS: Metoprolol Succinate ER 50 MG TAB.ER.24H PO (07:59)
[2022-04-19] MEDS: metFORMIN HCl ER 500 MG TAB.ER.24H 1000 MG PO (07:59)
[2022-04-19] MEDS: Multivitamin TABLET 1 TAB PO (07:59)
[2022-04-19 08:00] VITALS: BP 136/73; PULSE 90; RESP 17; TEMP 36.2; O2SAT 95
[2022-04-19] MEDS: Cyclobenzaprine HCl 10 MG TABLET PO (08:00)
[2022-04-19] MEDS: Thiamine HCL 100 MG TABLET PO (08:00)
[2022-04-19] MEDS: Omeprazole 40 MG CAPSULE.DR PO (08:00)
[2022-04-19] MEDS: Escitalopram Oxalate 10 MG TABLET PO (08:00)
[2022-04-19] MEDS: Folic Acid 1 MG TABLET PO (08:00)
[2022-04-19] MEDS: Empagliflozin 25 MG TABLET PO (08:01)
[2022-04-19] MEDS: lisinopriL 10 MG TABLET PO (08:01)
[2022-04-19 09:12] LABS: Glucose, Whole Blood 210 mg/dL (60-115)
[2022-04-19] MEDS: Insulin Lispro 100 UNIT/ML 3 ML VIAL SUBCUT (09:15)
[2022-04-19] MEDS: Insulin Glargine,Hum.rec.anlog 100 UNIT/ML 10 ML VIAL 15 UNIT SUBCUT (09:15)
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
--- NOTE | 2022-04-19 12:57 | PC.NURSE ---
Patient is alert and oriented x4. Patient denies SI/HI/AH/VH. Patient reports that he is looking forward to going to the [facility]. Patient denies acute complaints at this time.
== END 2022-04-19 12:51 | disposition home or self-care (01) | DRG 751 ==
LOC: HO.ED 18:50 → HO.PADLT16 04-10 00:02
PROVIDERS: Nurse Practitioner Family; Admitting Provider Psychiatry & Neurology Psychiatry; Emergency Provider Student in an Organized Health Care Education/Training Program; Visit Provider Psychiatry & Neurology Psychiatry
DX: F23 Brief psychotic disorder (principal); R45.850 Homicidal ideations; R45.851 Suicidal ideations; F43.10 Post-traumatic stress disorder, unspecified; I10 Essential (primary) hypertension; K21.9 Gastro-esophageal reflux disease without esophagitis; E11.9 Type 2 diabetes mellitus without complications; F17.210 Nicotine dependence, cigarettes, uncomplicated; Z20.822 Contact with and (suspected) exposure to COVID-19; Z91.14 Patient's other noncompliance with medication regimen; Z71.6 Tobacco abuse counseling; Z79.84 Long term (current) use of oral hypoglycemic drugs; Z79.899 Other long term (current) drug therapy
CPT/HCPCS: 36415; 70450; 80053; 80307; 81001; 82077; 82565; 82947; 84484; 85025; 87635; 90792; 93005; 97161; 99285

== ENCOUNTER 2022-05-13 19:44 | Inpatient (IN) | payer OTHER, SELFPAY ==
--- NOTE | ~2022-05-13 | CT_ITS ---
EXAMINATION: CT HEAD WITHOUT CONTRAST CLINICAL INFORMATION: Head, right temporal area. Acute mental status change COMPARISON: Head CT 04/09/2022 TECHNIQUE: Imaging was performed from the skull base to vertex without intravenous administration of contrast. This CT examination was performed using dose optimization techniques as appropriate, variously including the following: *Automated exposure control *Adjustment of mA and/or kV according to patient size (this includes techniques or standardized protocols for targeted exams where dose is matched to indication/reason for exam; i.e. extremities or head) *Use of iterative reconstruction technique Total exam dose length product: 832 mGy-cm FINDINGS: No intra or extra-axial fluid collection, hemorrhage, or mass. No ventriculomegaly. No midline shift or herniation. Basal cisterns are patent. Altman-white matter differentiation is maintained. No territorial encephalomalacia. Unchanged curvilinear calcifications in the melissa, nonspecific. No significant volume loss. There is no abnormal attenuation within the brain parenchyma. No calvarial fracture or soft tissue abnormality. The mastoid air cells and visualized portions of the paranasal sinuses are well aerated. CT/CT head/brain wo IV con IMPRESSION: 1. No acute intracranial pathology. 2. Unchanged curvilinear calcification of the melissa, nonspecific possibly due to underlying vascular anomaly. Consider nonemergent brain MRI as previously suggested in the absence of earlier priors.
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
[2022-05-13 20:15] LABS: Glucose, Whole Blood 498 mg/dL (60-115)
[2022-05-13 20:18] VITALS: BP 134/65; BP 150/80; PULSE 100; PULSE 90; RESP 20; TEMP 36.9; O2SAT 96; BMI 27.0
[2022-05-13 21:16] LABS: MANUAL DIFF FLAG NO
[2022-05-13] MEDS: 0.9 % Sodium Chloride 1,000 ML 999 ML IVCONT ×2 (21:16→23:38)
[2022-05-13 21:20] LABS: Basophils Percent Auto 0.6 % (0-2); Eosinophils Absolute Auto 0.1 X10*3/uL (0.0-0.4); Eosinophils Percent Auto 1.3 % (0-4); Hematocrit 39.9 % (42.0-52.0); Hemoglobin 13.8 g/dl (14.0-18.0); Imm Gran Abs Auto 0.01 X10*3/uL (0.00-0.03); Imm Gran Pct Auto 0.1 % (0.0-0.4); Lymphocytes Absolute Auto 3.2 X10*3/uL (1.2-4.9); Mean Corpuscular HGB Conc 34.6 g/dl (31.0-36.0); Mean Corpuscular Hemoglobin 33.2 pg (27.0-33.0); Mean Corpuscular Volume 95.9 fL (80.0-98.0); Mean Platelet Volume 9.4 fL (9.4-12.4); Monocytes Absolute Auto 0.4 X10*3/uL (0.1-1.2); Monocytes Percent Auto 5.7 % (2-11); Neutrophils Absolute Auto 3.1 x10*3/uL (2.0-8.3); Neutrophils Percent Auto 45.3 % (45-73); Platelet Count 340 X10*3/uL (160-400); Red Blood Count 4.16 X10*6/uL (4.60-5.80); Red Cell Distribution Width 12.7 % (11.0-16.0); White Blood Count 6.9 X10*3/uL (4.8-10.8)
[2022-05-13] MEDS: Insulin Glargine,Hum.rec.anlog 100 UNIT/ML 10 ML VIAL 20 UNIT SUBCUT (21:22)
[2022-05-13] MEDS: Insulin Lispro 100 UNIT/ML 3 ML VIAL 10 UNIT SUBCUT (21:22)
[2022-05-13 21:34] LABS: Ethanol < 10 mg/dL
[2022-05-13 21:45] LABS: Anion Gap 17 (12-20); Blood Urea Nitrogen 17 mg/dL (9-16); Carbon Dioxide 24 mmol/L (22-29); Chloride 98 mmol/L (96-108); Creatinine Clr Calc Pharmacy 46.3; Estimated Glomerular Filt Rate 42; Glucose Random 465 mg/dL (60-115); Potassium 4.8 mmol/L (3.3-5.1); Sodium 134 mmol/L (135-145)
--- OUTSIDE RECORDS SUMMARY | 2022-05-13 21:45 | XMS_ITS | Continuity of Care Document ---
:1965 Author Organization [facility] Address [address] [place] [address]- Care Team Providers Name Role Phone Avani Duarte Primary Care Physician Encounter [facility] [place] Date(s): 12/23/21 - 01/22/22 [facility] [address] [place] [id number] Allergies, Adverse Reactions, Alerts Substance Reaction Severity Status Bee Stings anaphalyxis Active Immunizations Given and Recorded Vaccine Date Status Refusal Reason influenza virus vaccine, inactivated 04/13/21 Given zoster vaccine, inactivated 12/25/20 Recorded SARS-CoV-2 (COVID-19) Ad26 vaccine 12/01/20 Recorded pneumococcal 23-valent vaccine 01/10/19 Recorded tetanus/diphtheria/pertussis, acel(Tdap) 01/10/19 Recorde d hepatitis B adult vaccine 10/12/16 Recorded hepatitis B adult vaccine 05/17/16 Recorded hepatitis B adult vaccine 04/15/16 Recorded Hepatitis A Adult Vaccine 10/12/16 Recorded Hepatitis A Adult Vaccine 04/15/16 Recorded tetanus-diphtheria toxoids (Td) 04/10/16 Recorded Measles/Mumps/Rubella Virus Vaccine 04/08/16 Recorded Not Given Vaccine Date Status Refusal Reason influenza virus vaccine, inactivated1 05/02/20 Not Given Patient Refuses SARS-CoV-2 mRNA ([id number]) 01/15/22 Not Given Parent Or Guardian Refuses vax 1Result Comment: pt does not ever get flu shot Medications Alcohol Wipes See Instructions, # 90 each, Maintenance, Any, 04/14/21 10:22:00 EST, Supply, 172, cm, 04/14/21 5:19:00 EST, Height, 80, kg, 04/13/21 0:09:00 EST, Dry Weight Start Date: 04/14/21 Status: Orderedaspirin 81 mg oral delayed release tablet 81 mg, By Mouth, Daily, # 30 tablet, Refills 0, Tot. Refills 0, Maintenance, 08/10/21 12:02:00 EST, Route to Pharmacy Electronically, [facility], Partial fill upon patient request if the prescription is for a schedule II opioid drug., 17... Start Date: 08/10/21 Stop Date: 09/09/21 Status: Orderedatorvastatin 80 mg oral tablet 1 tablet = 80 mg, By Mouth, Daily at bedtime, # 30 tablet, 0 Refills, Maintenance, 04/14/21 10:20:00EST, Tablet, [facility] 3, Partial fill upon patient request if the prescription is for a schedule II opioid drug., 172, cm, 04/14/21 5:19... Start Date: 04/14/21 Status: OrderedcarBAMazepine 200 mg oral tablet 200 mg, 1, tablet, By Mouth, 2 times a day, TAKE 1 TABLET BY MOUTH TWICE A DAY Start Date: 12/07/21 Status: Orderedcitalopram 20 mg oral tablet 1 tablet = 20 mg, By Mouth, Daily, # 30 tablet, 0 Refills, Maintenance, 01/19/22 9:34:00 EDT, Tablet, Partial fill upon patient request if the prescription is for a schedule II opioid drug. Start Date: 01/19/22 Status: Orderedcyclobenzaprine 10 mg oral tablet 10 mg, 1, tablet, By Mouth, 3 times a day, PRN, # 30 tablet, Refills 0, Maintenance, for spasm, 01/19/22 9:34:00 EDT, Partial fill upon patient request if the prescription is for a schedule II opioid drug. Start Date: 01/19/22 Status: Ordereddivalproex sodium 250 mg oral tablet, extended release 5 tablet = 1,250 mg, By Mouth, Daily at bedtime, # 150 tablet, 0 Refills, Maintenance, 07/21/21 11:19:00 EST, ER Tablet, [facility] 3, Partial fill upon patient request if the prescription is for a schedule II opioid drug., 173, cm, ... Start Date: 07/21/21 Status: OrderedFreestyle lite test strips Freestyle lite test strips, See Instructions, # 100 each, Refills 4, Tot. Refills 4, Maintenance, Used to check BG 3x/day DX E11.9, 08/26/21 9:32:00 EDT, Supply, 174, cm, 08/10/21 14:00:00 EST, Height,77.4, kg, 08/06/21 0:55:00 EST, Dry Weight Start Date: 08/26/21 Status: Orderedgabapentin 300 mg oral capsule 300 mg, 1, capsule, By Mouth, 3 times a day, PRN, Refills 0, Maintenance, Pain , Moderate, 04/12/21 21:03:00 EST, Partial fill upon patient request if the prescription is for a schedule II opioid drug. Start Date: 04/12/21 Status: OrderedGlucose Monitor See Instructions, # 1 each, Maintenance, Any model, 04/14/21 10:22:00 EST, Supply, 172, cm, :19:00 EST, Height, 80, kg, 04/13/21 0:09:00 EST, Dry Weight Start Date: 04/14/21 Status: OrderedGlucose Test Strips See Instructions, # 90 each, Maintenance, Freestyle if possible, 04/14/21 10:22:00 EST, Supply, 172,cm, 04/14/21 5:19:00 EST, Height, 80, kg, 04/13/21 0:09:00 EST, Dry Weight Start Date: 04/14/21 Status: OrderedInsulin Glargine Inj = 30 units, Subcutaneous Injection, 2 times a day, 0 Refills, Maintenance, 01/11/22 9:00:00 EDT, Injection, Partial fill upon patient request if the prescription is for a schedule II opioid drug. Start Date: 01/11/22 Status: OrderedInsulin Lispro = 25 units, Subcutaneous Injection, 3 times a day before meals, 0 Refills, Maintenance, 01/11/22 9:00:00 EDT, Injection, Partial fill upon patient request if the prescription is for a schedule II opioid drug. Start Date: 01/11/22 Status: OrderedInsulin Syringes See Instructions, # 90 each, Maintenance, Freestyle if possible, 04/14/21 10:22:00 EST, Supply, 172,cm, 04/14/21 5:19:00 EST, Height, 80, kg, 04/13/21 0:09:00 EST, Dry Weight Start Date: 04/14/21 Status: OrderedJardiance 25 mg oral tablet 1 tablet = 25 mg, By Mouth, Daily in AM, # 30 tablet, 6 Refills, Maintenance, 08/27/21 10:53:00 EDT,Tablet, [facility], Partial fill upon patient request if the prescription is for a schedule II opioid drug., 174, cm, 08/27/21 10:40:00... Start Date: 08/27/21 Stop Date: 03/25/22 Status: OrderedLancets See Instructions, # 90 each, Maintenance, Any, 04/14/21 10:22:00 EST, Supply, 172, cm, 04/14/21 5:19:00 EST, Height, 80, kg, 04/13/21 0:09:00 EST, Dry Weight Start Date: 04/14/21 Status: Orderedlisinopril 10 mg oral tablet 10 mg, 1, tablet, By Mouth, Daily, # 30 tablet, Refills 0, Tot. Refills 0, Maintenance, 04/14/21 10:21:00 EST, Route to Pharmacy Electronically, [facility], Partial fill upon patient request if the prescription is for a schedule II opioi... Start Date: 04/14/21 Status: OrderedmetFORMIN 750 mg oral tablet, extended release 1 tablet = 750 mg, By Mouth, 2 times a day, # 60 tablet, 0 Refills, Maintenance, 04/14/21 10:21:00 EST, ER Tablet, [facility], Partial fill upon patient request if the prescription is fora schedule II opioid drug., 172, cm, 04/14/21 5:1... Start Date: 04/14/21 Status: Orderedmetoprolol succinate 50 mg oral capsule, extended release 1 capsule = 50 mg, By Mouth, Daily, # 30 capsule, 0 Refills, Maintenance, 12/31/21 23:10:00 EDT, ER Capsule, Partial fill upon patient request if the prescription is for a schedule II opioid drug. Start Date: 12/31/21 Status: Orderedmultivitamin with minerals Multiple Vitamins with Minerals oral capsule 1 tablet, By Mouth, Daily, # 30 tablet, 0 Refills, Maintenance, 07/21/21 11:19:00 EST, Capsule, [facility], Partial fill upon patient request if the prescription is for a schedule II opioid drug., 1 tablet By Mouth Daily, 173, cm, ... Start Date: 07/21/21 Status: Orderedomeprazole 40 mg oral enteric coated capsule 1 capsule = 40 mg, By Mouth, Daily, Maintenance, 04/13/21 17:12:00 EST, EC Capsule Start Date: 04/13/21 Status: OrderedPen needles 31x4 mm Pen needles 31x4 mm, See Instructions, # 200 each, Refills 6, Tot. Refills 6, Maintenance, Please dispense pen needles to be used6 times a day , 30 days supply, 12/23/21 12:47:00 EDT, Supply, 174, cm, 08/27/21 10:40:00 EDT, Height, 77.4, kg, 08/06/21... Start Date: 12/23/21 Status: Orderedprazosin 1 mg oral capsule 1 mg, 1, capsule, By Mouth, Daily at bedtime, # 30 tablet, Refills 0, Maintenance, 12/07/21 10:51:00EDT, Partial fill upon patient request if the prescription is for a schedule II opioid drug. Start Date: 12/07/21 Status: OrderedSEROquel 50 mg oral tablet 1 tablet = 50 mg, By Mouth, Daily at bedtime, PRN Other, Take 1 tablet as needed for anxiety or insomnia, # 1 tablet, 0 Refills, Maintenance, 08/10/21 10:53:00 EST, Tablet, [facility], Partial fill upon patient request if the prescriptio... Start Date: 08/10/21 Stop Date: 09/09/21 Status: Orderedthiamine 100 mg oral tablet 100 mg, 1, tablet, By Mouth, Daily, # 30 tablet, Refills 0, Tot. Refills 0, Maintenance, 07/21/21 11:19:00 EST, Route to Pharmacy Electronically, [facility], Partial fill upon patient request if the prescription is for a schedule II opio... Start Date: 07/21/21 Status: OrderedtraZODone 50 mg oral tablet 50 mg, 1, tablet, By Mouth, Daily at bedtime, PRN, # 30 tablet, Refills 0, Tot. Refills 0, Maintenance, Insomnia, 07/21/21 11:20:00 EST, Route to Pharmacy Electronically, [facility], Partial fill upon patient request if the prescription... Start Date: 07/21/21 Status: OrderedTrelegy Ellipta 200 mcg-62.5 mcg-25 mcg/inh inhalation powder 1 puffs, Inhalation, Daily, at the same time every day, # 1 each, 0 Refills, Maintenance, 04/14/21 10:19:00 EST, Powder, [facility], Partial fill upon patient request if the prescription is for a schedule II opioid drug., 1 puffs Inhalat... Start Date: 04/14/21 Status: Ordered Problem List Condition Effective Dates Status Health Status Informant CVA (cerebrovascular Active accident)(Confirmed) CAD (coronary artery Active disease)(Confirmed) HTN (hypertension)(Confirmed) Active Polysubstance abuse(Confirmed) Active Type 2 diabetes mellitus(Confirmed) Active Social History Social History Type Response Smoking Status Smoker, current status unkno wn entered on: 07/31/21 Sex
--- OUTSIDE RECORDS SUMMARY | 2022-05-13 21:45 | XMS_ITS | Continuity of Care Document ---
:1965 Author Organization [facility] Address [address] [place] [id number]- Care Team Providers Name Role Phone Mike Lees NP [id number] Date(s): 07/09/19 - 07/19/19 [facility] [address] [address] Attending Physician: Barbara Zacarias Admitting Physician: Barbara Zacarias Referring Physician: AdmtrBarbara Allergies, Adverse Reactions, Alerts Substance Reaction Severity Status Bee Stings anaphalyxis Active Medications Percocet-5/325 325 mg-5 mg oral tablet See Instructions, 1-2 tablet By Mouth Every 4 hours, # 30 tablet, 0 Refills Start Date: 01/11/09 Stop Date: 01/18/09 Status: Ordered
--- OUTSIDE RECORDS SUMMARY | 2022-05-13 21:45 | XMS_ITS | Continuity of Care Document ---
:1965 Author Organization [facility] Address [address] [place] [address]- Care Team Providers Name Role Phone Avani Duarte Primary Care Physician Encounter [facility] Date(s): 02/23/22 - 03/25/22 [facility] [address] [place] [id number] Attending Physician: AdmBarbara valenzueal Admitting Physician: Admtr, Barbara Referring Physician: Admtr, Ar8 Allergies, Adverse Reactions, Alerts Substance Reaction Severity Status Bee Stings anaphalyxis Active Immunizations Given and Recorded Vaccine Date Status Refusal Reason SARS-CoV-2 mRNA ([id number]) vax 11/11/21 Recorde d influenza virus vaccine, inactivated 04/13/21 Given zoster [...] Not Given Vaccine Date Status Refusal Reason SARS-CoV-2 mRNA ([id number]) 01/15/22 Not Given Parent Or Guardian Refuses vax influenza virus vaccine, inactivated1 05/02/20 Not Given Patient Refuses 1Result Comment: pt does not ever get flu shot Medications Alcohol Wipes See Instructions, # 90 each, Maintenance, Any, 04/14/21 10:22:00 EST, Supply, 172, cm, 04/14/21 5:19:00 EST, Height, 80, kg, 04/13/21 0:09:00 EST, Dry Weight Start Date: 04/14/21 Status: Orderedaspirin 81 mg oral delayed release tablet 81 mg, By Mouth, Daily, # 30 tablet, Refills 0, Tot. Refills 0, Maintenance, 02/09/22 9:53:00 EDT, Route to Pharmacy Electronically, [facility], Partial fill upon patient request if the prescription is for a schedule II opioid drug., 173... Start Date: 02/09/22 Stop Date: 03/11/22 Status: Orderedatorvastatin 80 mg oral tablet 1 tablet = 80 mg, By Mouth, Daily at bedtime, # 30 tablet, 0 Refills, Maintenance, 02/09/22 9:53:00 EDT, [facility], Partial fill upon patient request if the prescription is for aschedule II opioid drug., 173, cm, 02/08/22 19:40... Start Date: 02/09/22 Status: Orderedcitalopram 20 mg oral tablet 1 tablet = 20 mg, By Mouth, Daily, # 30 tablet, 0 Refills, Maintenance, 02/09/22 9:53:00 EDT, Tablet, [facility], Partial fill upon patient request if the prescription is for a schedule II opioid drug., 173, cm, 02/08/22 19:40:00 EDT, He... Start Date: 02/09/22 Status: Orderedcyclobenzaprine 10 mg oral tablet 10 mg, 1, tablet, By Mouth, 3 times a day, PRN, # 30 tablet, Refills 1, Tot. Refills 1, Maintenance,for spasm, 02/09/22 9:53:00 EDT, Route to Pharmacy Electronically, [facility], Partialfill upon patient request if the prescription is... Start Date: 02/09/22 Status: Ordereddivalproex sodium 250 mg oral tablet, extended release 5 tablet = 1,250 mg, By Mouth, Daily at bedtime, # 150 tablet, 0 Refills, Maintenance, 02/09/22 9:54:00 EDT, ER Tablet, [facility] 3, Partial fill upon patient request if the prescription is for a schedule II opioid drug., 173, cm, ... Start Date: 02/09/22 Status: Orderedfolic acid 1 mg oral tablet 1 mg, 1, tablet, By Mouth, Daily, # 30 tablet, Refills 0, Tot. Refills 0, Maintenance, 02/09/22 9:54:00 EDT, Route to Pharmacy Electronically, [facility] 3, Partial fill upon patient request if the prescription is for a schedule II opioid... Start Date: 02/09/22 Status: OrderedFreestyle lite test strips Freestyle lite test strips, See Instructions, # 150 each, Refills 11, Tot. Refills 11, Maintenance, Used to check BG 4x/day DX E11.9, 30 day supply, 02/24/22 12:19:00 EDT, Supply, 173, cm, 02/23/22 8:56:00 EDT, Height, 89.2, kg, 02/04/22 16:08:00 ED... Start Date: 02/24/22 Status: Orderedgabapentin 300 mg oral capsule 300 mg, 1, capsule, By Mouth, 3 times a day, # 90 capsule, Refills 0, Tot. Refills 0, Maintenance, 02/09/22 9:54:00 EDT, Route to Pharmacy Electronically, [facility] 3, Partial fill upon patient request if the prescription is for a schedul... Start Date: 02/09/22 Status: OrderedGlucose Monitor See Instructions, # 1 each, Maintenance, Any model, 04/14/21 10:22:00 EST, Supply, 172, cm, :19:00 EST, Height, 80, kg, 04/13/21 0:09:00 EST, Dry Weight Start Date: 04/14/21 Status: OrderedGlucose Test Strips See Instructions, # 90 each, Maintenance, Freestyle if possible, 04/14/21 10:22:00 EST, Supply, 172,cm, 04/14/21 5:19:00 EST, Height, 80, kg, 04/13/21 0:09:00 EST, Dry Weight Start Date: 04/14/21 Status: Orderedinsulin glargine 100 u/ml subcutaneous solution = 34 units, Subcutaneous Injection, 2 times a day, # 10 mL, 0 Refills, Maintenance, 02/09/22 9:54:00EDT, Injection, [facility], Partial fill upon patient request if the prescription is for a schedule II opioid drug., 173, cm, 02/08/22 1... Start Date: 02/09/22 Status: OrderedInsulin Syringes See Instructions, # 90 each, Maintenance, Freestyle if possible, 04/14/21 10:22:00 EST, Supply, 172,cm, 04/14/21 5:19:00 EST, Height, 80, kg, 04/13/21 0:09:00 EST, Dry Weight Start Date: 04/14/21 Status: OrderedJardiance 25 mg oral tablet 1 tablet = 25 mg, By Mouth, Daily in AM, # 30 tablet, 11 Refills, Maintenance, 02/23/22 9:24:00 EDT,Tablet, [facility], Partial fill upon patient request if the prescription is for a schedule II opioid drug., 173, cm, 02/23/22 8:56:00 E... Start Date: 02/23/22 Stop Date: 02/18/23 Status: OrderedLancets See Instructions, # 90 each, Maintenance, Any, 04/14/21 10:22:00 EST, Supply, 172, cm, 04/14/21 5:19:00 EST, Height, 80, kg, 04/13/21 0:09:00 EST, Dry Weight Start Date: 04/14/21 Status: Orderedlisinopril 10 mg oral tablet 10 mg, 1, tablet, By Mouth, Daily, # 30 tablet, Refills 0, Tot. Refills 0, Maintenance, 02/09/22 9:54:00 EDT, Route to Pharmacy Electronically, [facility], Partial fill upon patient request if the prescription is for a schedule II opioid... Start Date: 02/09/22 Status: OrderedmetFORMIN 500 mg oral tablet 2 tablet = 1,000 mg, By Mouth, 2 times a day, # 120 tablet, 0 Refills, Maintenance, 02/09/22 9:54:00EDT, Tablet, [facility], Partial fill upon patient request if the prescription is for a schedule II opioid drug., 173, cm, 02/08/22 19:4... Start Date: 02/09/22 Status: Orderedmetoprolol 50 mg oral tablet, extended release 50 mg, 1, tablet, By Mouth, Daily, # 30 tablet, Refills 0, Tot. Refills 0, Maintenance, 02/09/22 9:54:00 EDT, Route to Pharmacy Electronically, [facility], Partial fill upon patient request if the prescription is for a schedule II opioid... Start Date: 02/09/22 Status: Orderedmultivitamin with minerals Multiple Vitamins with Minerals oral capsule 1 tablet, By Mouth, Daily, # 30 tablet, 0 Refills, Maintenance, 02/09/22 9:56:00 EDT, Capsule, [facility], Partial fill upon patient request if the prescription is for a schedule II opioid drug., 1 tablet By Mouth Daily, 173, cm, ... Start Date: 02/09/22 Status: OrderedNicoderm C-Q Clear 21 mg/24 hr transdermal film, extended release 1 patch, Topically, Daily, # 30 patch, 0 Refills, Maintenance, 02/09/22 9:55:00 EDT, Patch, [facility], Partial fill upon patient request if the prescription is for a schedule II opioid drug., 173, cm, 02/08/22 19:40:00 EDT, Height, 89.2... Start Date: 02/09/22 Status: Orderednicotine 4 mg oral transmucosal gum = 4 mg, Chew, Every hour, PRN Other, Nicotine Withdrawal Symptoms (NOT to exceed 24 pieces per day),# 160 each, 0 Refills, Maintenance, 02/09/22 9:55:00 EDT, [facility]um, [facility], Partial fill upon patient request if the prescription is for... Start Date: 02/09/22 Status: Orderedomeprazole 40 mg oral enteric coated capsule 1 capsule = 40 mg, By Mouth, Daily, # 30 capsule, 0 Refills, Maintenance, 02/09/22 9:53:00 EDT, Suspension, [facility], Partial fill upon patient request if the prescription is for a schedule II opioid drug., 173, cm, 02/08/22 19:40:00 E... Start Date: 02/09/22 Status: OrderedPen needles 31x4 mm Pen needles [...] By Mouth, Daily at bedtime, # 30 capsule, Refills 0, Tot. Refills 0, Maintenance, 02/09/22 9:54:00 EDT, Route to Pharmacy Electronically, [facility], Partial fill upon patient request if the prescription is for a schedu... Start Date: 02/09/22 Status: Orderedpyridoxine 50 mg oral tablet 50 mg, 1, tablet, By Mouth, Daily, # 30 tablet, Refills 0, Tot. Refills 0, Maintenance, 02/09/22 9:54:00 EDT, Route to Pharmacy Electronically, [facility], Partial fill upon patient request if the prescription is for a schedule II opioid... Start Date: 02/09/22 Status: Orderedthiamine 100 mg oral tablet 100 mg, 1, tablet, By Mouth, Daily, # 30 tablet, Refills 0, Tot. Refills 0, Maintenance, 02/09/22 9:54:00 EDT, Route to Pharmacy Electronically, [facility], Partial fill upon patient request if the prescription is for a schedule II opioi... Start Date: 02/09/22 Status: OrderedtraZODone 50 mg oral tablet 50 mg, 1, tablet, By Mouth, Daily at bedtime, # 30 tablet, Refills 0, Tot. Refills 0, Maintenance, 02/09/22 9:55:00 EDT, [facility], Partial fill upon patient request if the prescription is for a schedul... Start Date: 02/09/22 Status: OrderedTrelegy Ellipta 200 mcg-62.5 mcg-25 mcg/inh inhalation powder 1 puffs, Inhalation, Daily, at the same time every day, # 1 each, 0 Refills, Maintenance, 02/09/22 9:56:00 EDT, Powder, [facility], Partial fill upon patient request if the prescription is for a schedule II opioid drug., 1 puffs Inhalati... Start Date: 02/09/22 Status: Ordered Problem List Condition Confirmation Course Effective Dates Status Health I nformant Status CVA (cerebrovascular Confirmed Active accident) CAD (coronary artery Confirmed Active disease) HTN (hypertension) Confirmed Active Polysubstance abuse Confirmed Active Type 2 diabetes Confirmed Active mellitus Social History Social History Type Response Smoking Status 10 or more cigarettes (1/2 p ack or more)/day in last 30 days; Interested in cessation: No; Patient wants NRT during admission Yes entered on: 02/04/22 Sex Patient Care team information PersonnelName: Avani Duarte Address: Address: [address] [place] [address]
--- OUTSIDE RECORDS SUMMARY | 2022-05-13 21:45 | XMS_ITS | Continuity of Care Document ---
:1965 Author Organization [facility] Address [address] [place] [address]- Care Team Providers Name Role Phone Avani Duarte Primary Care Physician Encounter [facility] [place] Date(s): 03/26/22 - 03/26/[address] [address]- Discharge Disposition: A-D/C Home Attending Physician: Oanh Ayala MD Admitting Physician: Oanh Ayala MD Referring Physician: Not on Staff, Referring MD Allergies, Adverse Reactions, Alerts Substance Reaction Severity Status Bee Stings anaphalyxis Active Immunizations Given and Recorded Vaccine Date Status Refusal Reason SARS-CoV-2 mRNA ([id number]) vax 11/11/21 Recorde d influenza virus vaccine, [...] Vaccine Date Status Refusal Reason SARS-CoV-2 mRNA ([id number]) 01/15/22 Not Given Parent Or Guardian Refuses [...] 02/09/22 9:53:00 EDT, Route to Pharmacy Electronically, [facility], Partial fill upon patient request if the prescription is for a schedule II opioid drug., 173... Start Date: 02/09/22 Stop Date: 03/11/22 Status: Orderedatorvastatin 80 mg oral tablet 1 tablet = 80 mg, By Mouth, Daily at bedtime, # 30 tablet, 0 Refills, Maintenance, 02/09/22 9:53:00 EDT, Tablet, [facility], Partial fill upon patient request if the prescription is for aschedule II opioid drug., 173, cm, 02/08/22 19:40... Start Date: 02/09/22 Status: Orderedcitalopram 20 mg oral tablet 1 tablet = 20 mg, By Mouth, Daily, # 30 tablet, 0 Refills, Maintenance, 02/09/22 9:53:00 EDT, Tablet, [facility], Partial fill upon patient request if the prescription is for a schedule II opioid drug., 173, cm, 02/08/22 19:40:00 EDT, He... Start Date: 02/09/22 Status: Orderedcyclobenzaprine 10 mg oral tablet 10 mg, 1, tablet, By Mouth, 3 times a day, PRN, # 30 tablet, Refills 1, Tot. Refills 1, Maintenance,for spasm, 02/09/22 9:53:00 EDT, Route to Pharmacy Electronically, [facility], Partialfill upon patient request if the prescription is... Start Date: 02/09/22 Status: Ordereddivalproex sodium 250 mg oral tablet, extended release 5 tablet = 1,250 mg, By Mouth, Daily at bedtime, # 150 tablet, 0 Refills, Maintenance, 02/09/22 9:54:00 EDT, ER Tablet, [facility], Partial fill upon patient request if the prescription is for a schedule II opioid drug., 173, cm, ... Start Date: 02/09/22 Status: Orderedfolic acid 1 mg oral tablet 1 mg, 1, tablet, By Mouth, Daily, # 30 tablet, Refills 0, Tot. Refills 0, Maintenance, 02/09/22 9:54:00 EDT, Route to Pharmacy Electronically, [facility], Partial fill upon patient request [...] 9:54:00 EDT, Route to Pharmacy Electronically, [facility], Partial fill upon patient request [...] mL, 0 Refills, Maintenance, 02/09/22 9:54:00EDT, Injection, [facility], Partial fill upon patient request [...] 11 Refills, Maintenance, 02/23/22 9:24:00 EDT,Tablet, [facility], Partial fill upon patient request if [...] 9:54:00 EDT, Route to Pharmacy Electronically, [facility], Partial fill upon patient request if the prescription is for a schedule II opioid... Start Date: 02/09/22 Status: OrderedmetFORMIN 500 mg oral tablet 2 tablet = 1,000 mg, By Mouth, 2 times a day, # 120 tablet, 0 Refills, Maintenance, 02/09/22 9:54:00EDT, Tablet, [facility], Partial fill upon patient request if the prescription is for a schedule II opioid drug., 173, cm, 02/08/22 19:4... Start Date: 02/09/22 Status: Orderedmetoprolol 50 mg oral tablet, extended release 50 mg, 1, tablet, By Mouth, Daily, # 30 tablet, Refills 0, Tot. Refills 0, Maintenance, 02/09/22 9:54:00 EDT, Route to Pharmacy Electronically, [facility], Partial fill upon patient request if the prescription is for a schedule II opioid... Start Date: 02/09/22 Status: Orderedmultivitamin with minerals Multiple Vitamins with Minerals oral capsule 1 tablet, By Mouth, Daily, # 30 tablet, 0 Refills, Maintenance, 02/09/22 9:56:00 EDT, Capsule, [facility], Partial fill upon patient request if the prescription is for a schedule II opioid drug., 1 tablet By Mouth Daily, 173, cm, ... Start Date: 02/09/22 Status: OrderedNicoderm C-Q Clear 21 mg/24 hr transdermal film, extended release 1 patch, Topically, Daily, # 30 patch, 0 Refills, Maintenance, 02/09/22 9:55:00 EDT, Patch, [facility], Partial fill upon patient request if the prescription is for a schedule II opioid drug., 173, cm, 02/08/22 19:40:00 EDT, Height, 89.2... Start Date: 02/09/22 Status: Orderednicotine 4 mg oral transmucosal gum = 4 mg, Chew, Every hour, PRN Other, Nicotine Withdrawal Symptoms (NOT to exceed 24 pieces per day),# 160 each, 0 Refills, Maintenance, 02/09/22 9:55:00 EDT, Gum, [facility], Partial fill upon patient request if the prescription is for... Start Date: 02/09/22 Status: Orderedomeprazole 40 mg oral enteric coated capsule 1 capsule = 40 mg, By Mouth, Daily, # 30 capsule, 0 Refills, Maintenance, 02/09/22 9:53:00 EDT, Suspension, [facility], Partial fill upon patient request if [...] 9:54:00 EDT, Route to Pharmacy Electronically, [facility], Partial fill upon patient request if the prescription is for a schedu... Start Date: 02/09/22 Status: Orderedpyridoxine 50 mg oral tablet 50 mg, 1, tablet, By Mouth, Daily, # 30 tablet, Refills 0, Tot. Refills 0, Maintenance, 02/09/22 9:54:00 EDT, Route to Pharmacy Electronically, [facility], Partial fill upon patient request if the prescription is for a schedule II opioid... Start Date: 02/09/22 Status: Orderedthiamine 100 mg oral tablet 100 mg, 1, tablet, By Mouth, Daily, # 30 tablet, Refills 0, Tot. Refills 0, Maintenance, 02/09/22 9:54:00 EDT, Route to Pharmacy Electronically, [facility], Partial fill upon patient request if the prescription is for a schedule II opioi... Start Date: 02/09/22 Status: OrderedtraZODone 50 mg oral tablet 50 mg, 1, tablet, By Mouth, Daily at bedtime, # 30 tablet, Refills 0, Tot. Refills 0, Maintenance, 02/09/22 9:55:00 EDT, Route to Pharmacy Electronically, [facility], Partial fill upon patient request if the prescription is for a schedul... Start Date: 02/09/22 Status: OrderedTrelegy Ellipta 200 mcg-62.5 mcg-25 mcg/inh inhalation powder 1 puffs, Inhalation, Daily, at the same time every day, # 1 each, 0 Refills, Maintenance, 02/09/22 9:56:00 EDT, Powder, [facility], Partial fill upon patient request if the prescription is for a schedule II opioid drug., 1 puffs Inhalati... Start Date: 02/09/22 Status: Ordered Problem List Condition Confirmation Course Effective Dates Status Health I nformant Status CVA (cerebrovascular Confirmed Active accident) CAD (coronary artery Confirmed Active disease) HTN (hypertension) Confirmed Active Polysubstance abuse Confirmed Active Type 2 diabetes Confirmed Active mellitus Vital Signs Most recent to oldest 1 2 3 [Reference Range]: Height 172 cm 172 cm (03/26/22 6:09 PM) (03/26/22 12:30 PM) Weight 81.7 kg 81.7 kg (03/26/22 6:09 PM) (03/26/22 12:30 PM) Oxygen Saturation [94-100 97 % 96 % 99 % %] (03/26/22 6:09 PM) (03/26/22 1:30 PM) (03/26/22 12:30 PM) Pulse Rate [55-90 bpm] 64 bpm 74 bpm 77 bpm (03/26/22 6:09 PM) (03/26/22 1:30 PM) (03/26/22 12:30 PM) Body Mass Index [18.5-24.99 27.62 kg/m2 27.62 kg/m2 kg/m2] *H* *H* (03/26/22 6:09 PM) (03/26/22 12:30 PM) Blood Pressure 122/71 mm Hg 117/67 mm Hg 125/88 mm Hg [90-138/55-84 mm Hg] (03/26/22 6:09 PM) (03/26/22 1:30 PM) (03/07 06/27 12:30 PM) Respiratory Rate [16-30 16 br/min 18 br/min 16 br/mi n br/min] (03/26/22 6:09 PM) (03/26/22 1:30 PM) (03/26/22 12:30 PM) Temperature [96.8-100.4 98.1 DegF 98.7 DegF 97.3 Deg F DegF] (03/26/22 6:09 PM) (03/26/22 1:30 PM) (03/26/22 12:30 PM) Mode of Delivery (Oxygen) Room air Room air Room a ir (03/26/22 6:09 PM) (03/26/22 1:30 PM) (03/26/22 12:30 PM) Blood pressure sites Arm, right (03/26/22 12:30 PM) Temperature Route Oral Oral Oral (03/26/22 6:09 PM) (03/26/22 1:30 PM) (03/26/22 12:30 PM) Weight Obtained Via Standing scale (03/26/22 12:30 PM) Social History Social History Type Response Smoking Status 10 or more cigarettes (1/2 p ack or more)/day in last 30 days; Interested in cessation: No; Patient wants NRT during admission Yes entered on: 02/04/22 Sex Patient Care team information PersonnelName: Avani Duarte Address: Address: [address] [place] [address]
--- OUTSIDE RECORDS SUMMARY | 2022-05-13 21:45 | XMS_ITS | Continuity of Care Document ---
:1965 Author Organization [facility] Address [address] [place] [address]- Care Team Providers Name Role Phone Avani Duarte Primary Care Physician Encounter [facility] Date(s): 05/08/22 - 05/09/[address] [address]- Discharge Disposition: A-D/C Home Attending Physician: Jazmyne Garrison MD Admitting Physician: Jazmyne Garrison MD Referring Physician: Not on Staff, Referring MD Allergies, Adverse Reactions, Alerts Substance Reaction Severity Status Bee Stings anaphalyxis Active Immunizations Given and Recorded Vaccine Date Status Refusal Reason SARS-CoV-2 mRNA ([id number]) vax 11/11/21 Recorde d influenza virus vaccine, [...] Vaccine Date Status Refusal Reason SARS-CoV-2 mRNA ([id number]) 01/15/22 Not Given Parent Or Guardian Refuses [...] 02/09/22 9:53:00 EDT, Route to Pharmacy Electronically, [facility], Partial fill upon patient request if the prescription is for a schedule II opioid drug., 173... Start Date: 02/09/22 Stop Date: 03/11/22 Status: Orderedatorvastatin 80 mg oral tablet 1 tablet = 80 mg, By Mouth, Daily at bedtime, # 30 tablet, 0 Refills, Maintenance, 02/09/22 9:53:00 EDT, Tablet, [facility], Partial fill upon patient request if the prescription is for aschedule II opioid drug., 173, cm, 02/08/22 19:40... Start Date: 02/09/22 Status: Orderedatorvastatin 80 mg oral tablet 1 tablet = 80 mg, By Mouth, Daily at bedtime, # 30 tablet, 5 Refills, Maintenance, 05/06/22 6:02:00 EST, Tablet, [facility], Partial fill upon patient request if the prescription is for aschedule II opioid drug., 172, cm, 03/26/22 18:09... Start Date: 05/06/22 Status: Orderedcitalopram 20 mg oral tablet 1 tablet = 20 mg, By Mouth, Daily, # 30 tablet, 0 Refills, Maintenance, 02/09/22 9:53:00 EDT, Tablet, [facility], Partial fill upon patient request if the prescription is for a schedule II opioid drug., 173, cm, 02/08/22 19:40:00 EDT, He... Start Date: 02/09/22 Status: Orderedcitalopram 20 mg oral tablet 20 mg, 1, tablet, By Mouth, Daily, # 30 tablet, Refills 0, Tot. Refills 0, Maintenance, 05/06/22 6:03:00 EST, Route to Pharmacy Electronically, [facility], Partial fill upon patient request if the prescription is for a schedule II opioid... Start Date: 05/06/22 Status: Orderedcyclobenzaprine 10 mg oral tablet 10 mg, 1, tablet, By Mouth, 3 times a day, PRN, # 30 tablet, Refills 1, Tot. Refills 1, Maintenance,for spasm, 02/09/22 9:53:00 EDT, Route to Pharmacy Electronically, [facility], Partialfill upon patient request if the prescription is... Start Date: 02/09/22 Status: Ordereddivalproex sodium 250 mg oral tablet, extended release 5 tablet = 1,250 mg, By Mouth, Daily at bedtime, # 150 tablet, 0 Refills, Maintenance, 02/09/22 9:54:00 EDT, ER Tablet, [facility], Partial fill upon patient request if the prescription is for a schedule II opioid drug., 173, cm, ... Start Date: 02/09/22 Status: Ordereddivalproex sodium 250 mg oral tablet, extended release 5 tablet = 1,250 mg, By Mouth, Daily at bedtime, # 150 tablet, 0 Refills, Maintenance, 05/06/22 6:03:00 EST, ER Tablet, [facility], Partial fill upon patient request if the prescription is for a schedule II opioid drug., 172, cm, 2... Start Date: 05/06/22 Stop Date: 06/05/22 Status: Orderedfolic acid 1 mg oral tablet 1 mg, 1, tablet, By Mouth, Daily, # 30 tablet, Refills 0, Tot. Refills 0, Maintenance, 02/09/22 9:54:00 EDT, Route to Pharmacy Electronically, [facility], Partial fill upon patient [...] 02/09/22 9:54:00 EDT, Route to Pharmacy Electronically, [facility], Partial fill upon patient request if the prescription is for a schedul... Start Date: 02/09/22 Status: Orderedgabapentin 300 mg oral capsule 300 mg, 1, capsule, By Mouth, 3 times a day, # 90 capsule, Refills 5, Tot. Refills 5, Maintenance, 05/06/22 6:04:00 EST, Route to Pharmacy Electronically, [facility], Partial fill upon patient request if the prescription is for a schedul... Start Date: 05/06/22 Status: OrderedGlucose Monitor See Instructions, # 1 [...] mL, 0 Refills, Maintenance, 02/09/22 9:54:00EDT, Injection, [facility], Partial fill upon [...] tablet, 11 Refills, Maintenance, 02/23/22 9:24:00 EDT,Tablet, [facility], Partial fill upon [...] 02/09/22 9:54:00 EDT, Route to Pharmacy Electronically, [facility], Partial fill upon patient request if the prescription is for a schedule II opioid... Start Date: 02/09/22 Status: Orderedlisinopril 10 mg oral tablet 10 mg, 1, tablet, By Mouth, Daily at bedtime, # 30 tablet, Refills 0, Tot. Refills 0, Maintenance, 05/06/22 6:05:00 EST, Route to Pharmacy Electronically, [facility], Partial fill upon patient request if the prescription is for a schedul... Start Date: 05/06/22 Status: OrderedmetFORMIN 500 mg oral tablet 2 tablet = 1,000 mg, By Mouth, 2 times a day, # 120 tablet, 0 Refills, Maintenance, 02/09/22 9:54:00EDT, Tablet, [facility], Partial fill upon patient request if the prescription is for a schedule II opioid drug., 173, cm, 02/08/22 19:4... Start Date: 02/09/22 Status: Orderedmetoprolol 50 mg oral tablet, extended release 50 mg, 1, tablet, By Mouth, Daily, # 30 tablet, Refills 0, Tot. Refills 0, Maintenance, 02/09/22 9:54:00 EDT, Route to Pharmacy Electronically, [facility], Partial fill upon patient request if the prescription is for a schedule II opioid... Start Date: 02/09/22 Status: Orderedmetoprolol 50 mg oral tablet, extended release 50 mg, 1, tablet, By Mouth, Daily, # 30 tablet, Refills 0, Tot. Refills 0, Maintenance, 05/06/22 6:05:00 EST, Route to Pharmacy Electronically, [facility], Partial fill upon patient request if the prescription is for a schedule II opioid... Start Date: 05/06/22 Status: Orderedmultivitamin with minerals Multiple Vitamins with Minerals oral capsule 1 tablet, By Mouth, Daily, # 30 tablet, 0 Refills, Maintenance, 02/09/22 9:56:00 EDT, Capsule, [facility], Partial fill upon patient request if the prescription is for a schedule II opioid drug., 1 tablet By Mouth Daily, 173, cm, 2... Start Date: 02/09/22 Status: OrderedNicoderm C-Q Clear 21 mg/24 hr transdermal film, extended release 1 patch, Topically, Daily, # 30 patch, 0 Refills, Maintenance, 02/09/22 9:55:00 EDT, Patch, [facility], Partial fill upon patient request if the prescription is for a schedule II opioid drug., 173, cm, 02/08/22 19:40:00 EDT, Height, 89.2... Start Date: 02/09/22 Status: Orderednicotine 4 mg oral transmucosal gum = 4 mg, Chew, Every hour, PRN Other, Nicotine Withdrawal Symptoms (NOT to exceed 24 pieces per day),# 160 each, 0 Refills, Maintenance, 02/09/22 9:55:00 EDT, [facility] Partial fill upon patient request if the prescription is for... Start Date: 02/09/22 Status: Orderedomeprazole 40 mg oral enteric coated capsule 1 capsule = 40 mg, By Mouth, Daily, # 30 capsule, 0 Refills, Maintenance, 02/09/22 9:53:00 EDT, Suspension, [facility], Partial fill upon patient request if the prescription is for a schedule II opioid drug., 173, cm, 02/08/22 19:40:00 E... Start Date: 02/09/22 Status: Orderedpantoprazole 20 mg oral delayed release tablet 1 tablet = 20 mg, By Mouth, Daily, # 30 tablet, 0 Refills, Maintenance, 05/06/22 6:06:00 EST, CR Tablet, 172, cm, 03/26/22 18:09:00 EDT, Height, 89.2, kg, 02/04/22 16:08:00 EDT, Dry Weight Start Date: 05/06/22 Status: OrderedPen needles 31x4 mm Pen needles [...] 02/09/22 9:54:00 EDT, Route to Pharmacy Electronically, [facility], Partial fill upon patient request if the prescription is for a schedu... Start Date: 02/09/22 Status: Orderedpyridoxine 50 mg oral tablet 50 mg, 1, tablet, By Mouth, Daily, # 30 tablet, Refills 0, Tot. Refills 0, Maintenance, 02/09/22 9:54:00 EDT, Route to Pharmacy Electronically, [facility], Partial fill upon patient request if the prescription is for a schedule II opioid... Start Date: 02/09/22 Status: Orderedthiamine 100 mg oral tablet 100 mg, 1, tablet, By Mouth, Daily, # 30 tablet, Refills 0, Tot. Refills 0, Maintenance, 02/09/22 9:54:00 EDT, Route to Pharmacy Electronically, [facility], Partial fill upon patient request if the prescription is for a schedule II opioi... Start Date: 02/09/22 Status: OrderedtraZODone 50 mg oral tablet 50 mg, 1, tablet, By Mouth, Daily at bedtime, # 30 tablet, Refills 0, Tot. Refills 0, Maintenance, 02/09/22 9:55:00 EDT, Route to Pharmacy Electronically, [facility], Partial fill upon patient request if the prescription is for a schedul... Start Date: 02/09/22 Status: OrderedtraZODone 50 mg oral tablet 50 mg, 1, tablet, By Mouth, Daily at bedtime, # 30 tablet, Refills 0, Tot. Refills 0, Maintenance, 05/06/22 6:06:00 EST, Route to Pharmacy Electronically, [facility], Partial fill upon patient request if the prescription is for a schedul... Start Date: 05/06/22 Status: OrderedTrelegy Ellipta 200 mcg-62.5 mcg-25 mcg/inh inhalation powder 1 puffs, Inhalation, Daily, at the same time every day, # 1 each, 0 Refills, Maintenance, 02/09/22 9:56:00 EDT, Powder, [facility], Partial fill upon patient request if the prescription is for a schedule II opioid drug., 1 puffs Inhalati... Start Date: 02/09/22 Status: Ordered Problem List Condition Confirmation Course Effective Dates Status Health I nformant Status CVA (cerebrovascular Confirmed Active accident) CAD (coronary artery Confirmed Active disease) HTN (hypertension) Confirmed Active Polysubstance abuse Confirmed Active Type 2 diabetes Confirmed Active mellitus Results Radiology Reports Exam Date Time Procedure Performing Provider Status 05/09/22 1:[address] Lumbar Spine W/ Contrast Auth (Verified) Notes:(CT Lumbar Spine W/ Contrast) Reason For Exam: Spine fracture, lumbar, traumatic;Other:RESULT: CT Lumbar Spine W/ Contrast CT Chest W/ Contrast, CT Abd/Pelvis W/ IV Contrast Only, CT Thoracic Spine W/ Contrast, CT Lumbar Spine W/ Contrast INDICATION: Reason: Chest trauma, blunt; Clinical Question(s): Aortic hilar injury Other: TECHNIQUE: Helical CT scan of the chest, abdomen, and pelvis with IV contrast, formatted in 3 planes. The original dataset was reconstructed with a small field of view around the thoracic and lumbar spine utilizing soft tissue and bone algorithm reconstructions in 3 planes. 100 cc of Omnipaque 350 wasadministered intravenously. This study was performed without oral contrast. Weight-based protocol was performed using automatic exposure control. Weight-based protocol using automatic tube modulation was used to optimize exposure parameters. CTDIvol Body: 9.00 mGy, DLP Body: 614 mGy*cm. COMPARISON: None FINDINGS: Trachea and Airways: Patent without evidence of tracheal or endobronchial lesion. Lungs and Pleura: There are dependent subsegmental atelectatic changes in the lungs. There are extensive subpleural blebs in the upper symphysis is slightly right lung field. Thoracic aorta: No evidence of aortic injury or aneurysm. Mediastinum and Lymph nodes: There are mild coronary artery calcifications. The heart is within normal limits in size. There is no evidence of mediastinal or hilar adenopathy. There is no evidence of a mediastinal mass or hematoma. Chest wall and Soft tissues: Unremarkable. Liver: There is a subcentimeter calcification in the lateral right lobe of the liver compatible witha granuloma. Gallbladder: Cholelithiasis without acute cholecystitis. Bile ducts: No biliary ductal dilation. Spleen: Unremarkable. Pancreas: Unremarkable. Adrenal Glands: Unremarkable. Kidneys and Ureters: Unremarkable. Bladder: Mildly distended. Stomach, Small Bowel, and Large Bowel: Unremarkable. Appendix: Normal appendix. Omentum, peritoneum and mesentery: There is no evidence of free air or free fluid in the abdomen or pelvis. Discussed Lymph nodes: No pathologically enlarged lymph nodes. Abdominal blood Vessels: Moderate atherosclerotic vascular calcification. No aortic aneurysm. Abdominal wall: Moderate fat-containing umbilical hernia. Pelvic Organs: Unremarkable. Bones: No acute fracture. Minimal degenerative changes of the spine. IMPRESSION: 1. No evidence of aortic injury, hemorrhage, free air nor solid organ injury. 2. No evidence of acute bony fracture or dislocation. 3. Incidental findings as above. Results were relayed via [employer] by Dr. Blanco to Yaron MEREDITH on 05/09/2022 1:52 AM . Wet read provided via [facility] by Dr. Blanco on 05/09/2022 1:52 AM. I have personally reviewed the images and I agree with this report. WSN: [id number] Ordering Physician: Yaron Newton Dictated By: Paolo Blanco DO Dictated Date/Time: 05/09/22 7:32 am Reviewed By: Eloise Forrester MD Signed By: Eloise Forrester MD Signed Date/Time: 05/09/22 7:37 am Transcribed By: JASON Transcribed Date/Time: 05/09/22 2:34 am Exam Date Time Procedure Performing Provider Status 05/09/22 1:[address] Thoracic Spine W/ Contrast Au th (Verified) Notes:(CT Thoracic Spine W/ Contrast) Reason For Exam: Spine fracture, thoracic, traumatic;Other:RESULT: CT Thoracic Spine W/ Contrast CT Chest W/ Contrast, CT Abd/Pelvis W/ IV Contrast Only, CT Thoracic Spine W/ Contrast, CT Lumbar Spine W/ Contrast INDICATION: Reason: Chest trauma, blunt; Clinical Question(s): Aortic hilar injury Other: TECHNIQUE: Helical CT scan of the chest, abdomen, and pelvis with IV contrast, formatted in 3 planes. The original dataset was reconstructed with a small field of view around the thoracic and lumbar spine utilizing soft tissue and bone algorithm reconstructions in 3 planes. 100 cc of Omnipaque 350 wasadministered intravenously. This study was performed without oral contrast. Weight-based protocol was performed using automatic exposure control. Weight-based protocol using automatic tube modulation was used to optimize exposure parameters. CTDIvol Body: 9.00 mGy, DLP Body: 614 mGy*cm. COMPARISON: None FINDINGS: Trachea and Airways: Patent without evidence of tracheal or endobronchial lesion. Lungs and Pleura: There are dependent subsegmental atelectatic changes in the lungs. There are extensive subpleural blebs in the upper symphysis is slightly right lung field. Thoracic aorta: No evidence of aortic injury or aneurysm. Mediastinum and Lymph nodes: There are mild coronary artery calcifications. The heart is within normal limits in size. There is no evidence of mediastinal or hilar adenopathy. There is no evidence of a mediastinal mass or hematoma. Chest wall and Soft tissues: Unremarkable. Liver: There is a subcentimeter calcification in the lateral right lobe of the liver compatible witha granuloma. Gallbladder: Cholelithiasis without acute cholecystitis. Bile ducts: No biliary ductal dilation. Spleen: Unremarkable. Pancreas: Unremarkable. Adrenal Glands: Unremarkable. Kidneys and Ureters: Unremarkable. Bladder: Mildly distended. Stomach, Small Bowel, and Large Bowel: Unremarkable. Appendix: Normal appendix. Omentum, peritoneum and mesentery: There is no evidence of free air or free fluid in the abdomen or pelvis. Discussed Lymph nodes: No pathologically enlarged lymph nodes. Abdominal blood Vessels: Moderate atherosclerotic vascular calcification. No aortic aneurysm. Abdominal wall: Moderate fat-containing umbilical hernia. Pelvic Organs: Unremarkable. Bones: No acute fracture. Minimal degenerative changes of the spine. IMPRESSION: 1. No evidence of aortic injury, hemorrhage, free air nor solid organ injury. 2. No evidence of acute bony fracture or dislocation. 3. Incidental findings as above. Results were relayed via [employer] by Dr. Blanco to Yaron MEREDITH on 05/09/2022 1:52 AM . Wet read provided via [facility] by Dr. Blanco on 05/09/2022 1:52 AM. I have personally reviewed the images and I agree with this report. WSN: [id number] Ordering Physician: Yaron Newton Dictated By: Paolo Blanco DO Dictated Date/Time: 05/09/22 7:32 am Reviewed By: Eloise Forrester MD Signed By: Eloise Forrester MD Signed Date/Time: 05/09/22 7:37 am Transcribed By: JASON Transcribed Date/Time: 05/09/22 2:34 am Exam Date Time Procedure Performing Provider Status 05/09/22 1:[address] Abd/Pelvis W/ IV Contrast Only Auth (Verified) Notes:(CT Abd/Pelvis W/ IV Contrast Only) Reason For Exam: Abd trauma, blunt;Other:RESULT: CT Abd/Pelvis W/ IV Contrast Only CT Chest W/ Contrast, CT Abd/Pelvis W/ IV Contrast Only, CT Thoracic Spine W/ Contrast, CT Lumbar Spine W/ Contrast INDICATION: Reason: Chest trauma, blunt; Clinical Question(s): Aortic hilar injury Other: TECHNIQUE: Helical CT scan of the chest, abdomen, and pelvis with IV contrast, formatted in 3 planes. The original dataset was reconstructed with a small field of view around the thoracic and lumbar spine utilizing soft tissue and bone algorithm reconstructions in 3 planes. 100 cc of Omnipaque 350 wasadministered intravenously. This study was performed without oral contrast. Weight-based protocol was performed using automatic exposure control. Weight-based protocol using automatic tube modulation was used to optimize exposure parameters. CTDIvol Body: 9.00 mGy, DLP Body: 614 mGy*cm. COMPARISON: None FINDINGS: Trachea and Airways: Patent without evidence of tracheal or endobronchial lesion. Lungs and Pleura: There are dependent subsegmental atelectatic changes in the lungs. There are extensive subpleural blebs in the upper symphysis is slightly right lung field. Thoracic aorta: No evidence of aortic injury or aneurysm. Mediastinum and Lymph nodes: There are mild coronary artery calcifications. The heart is within normal limits in size. There is no evidence of mediastinal or hilar adenopathy. There is no evidence of a mediastinal mass or hematoma. Chest wall and Soft tissues: Unremarkable. Liver: There is a subcentimeter calcification in the lateral right lobe of the liver compatible witha granuloma. Gallbladder: Cholelithiasis without acute cholecystitis. Bile ducts: No biliary ductal dilation. Spleen: Unremarkable. Pancreas: Unremarkable. Adrenal Glands: Unremarkable. Kidneys and Ureters: Unremarkable. Bladder: Mildly distended. Stomach, Small Bowel, and Large Bowel: Unremarkable. Appendix: Normal appendix. Omentum, peritoneum and mesentery: There is no evidence of free air or free fluid in the abdomen or pelvis. Discussed Lymph nodes: No pathologically enlarged lymph nodes. Abdominal blood Vessels: Moderate atherosclerotic vascular calcification. No aortic aneurysm. Abdominal wall: Moderate fat-containing umbilical hernia. Pelvic Organs: Unremarkable. Bones: No acute fracture. Minimal degenerative changes of the spine. IMPRESSION: 1. No evidence of aortic injury, hemorrhage, free air nor solid organ injury. 2. No evidence of acute bony fracture or dislocation. 3. Incidental findings as above. Results were relayed via [employer] by Dr. Blanco to Yaron MEREDITH on 05/09/2022 1:52 AM . Wet read provided via [facility] by Dr. Blanco on 05/09/2022 1:52 AM. I have personally reviewed the images and I agree with this report. WSN: [id number] Ordering Physician: Yaron Newton Dictated By: Paolo Blanco DO Dictated Date/Time: 05/09/22 7:32 am Reviewed By: Eloise Forrester MD Signed By: Eloise Forrester MD Signed Date/Time: 05/09/22 7:37 am Transcribed By: JASON Transcribed Date/Time: 05/09/22 2:34 am Exam Date Time Procedure Performing Provider Status 05/09/22 1:[address] Chest W/ Contrast Auth (Verif ied) Notes:(CT Chest W/ Contrast) Reason For Exam: Chest trauma, blunt;Other:RESULT: CT Chest W/ Contrast CT Chest W/ Contrast, CT Abd/Pelvis W/ IV Contrast Only, CT Thoracic Spine W/ Contrast, CT Lumbar Spine W/ Contrast INDICATION: Reason: Chest trauma, blunt; Clinical Question(s): Aortic hilar injury Other: TECHNIQUE: Helical CT scan of the chest, abdomen, and pelvis with IV contrast, formatted in 3 planes. The original dataset was reconstructed with a small field of view around the thoracic and lumbar spine utilizing soft tissue and bone algorithm reconstructions in 3 planes. 100 cc of Omnipaque 350 wasadministered intravenously. This study was performed without oral contrast. Weight-based protocol was performed using automatic exposure control. Weight-based protocol using automatic tube modulation was used to optimize exposure parameters. CTDIvol Body: 9.00 mGy, DLP Body: 614 mGy*cm. COMPARISON: None FINDINGS: Trachea and Airways: Patent without evidence of tracheal or endobronchial lesion. Lungs and Pleura: There are dependent subsegmental atelectatic changes in the lungs. There are extensive subpleural blebs in the upper symphysis is slightly right lung field. Thoracic aorta: No evidence of aortic injury or aneurysm. Mediastinum and Lymph nodes: There are mild coronary artery calcifications. The heart is within normal limits in size. There is no evidence of mediastinal or hilar adenopathy. There is no evidence of a mediastinal mass or hematoma. Chest wall and Soft tissues: Unremarkable. Liver: There is a subcentimeter calcification in the lateral right lobe of the liver compatible witha granuloma. Gallbladder: Cholelithiasis without acute cholecystitis. Bile ducts: No biliary ductal dilation. Spleen: Unremarkable. Pancreas: Unremarkable. Adrenal Glands: Unremarkable. Kidneys and Ureters: Unremarkable. Bladder: Mildly distended. Stomach, Small Bowel, and Large Bowel: Unremarkable. Appendix: Normal appendix. Omentum, peritoneum and mesentery: There is no evidence of free air or free fluid in the abdomen or pelvis. Discussed Lymph nodes: No pathologically enlarged lymph nodes. Abdominal blood Vessels: Moderate atherosclerotic vascular calcification. No aortic aneurysm. Abdominal wall: Moderate fat-containing umbilical hernia. Pelvic Organs: Unremarkable. Bones: No acute fracture. Minimal degenerative changes of the spine. IMPRESSION: 1. No evidence of aortic injury, hemorrhage, free air nor solid organ injury. 2. No evidence of acute bony fracture or dislocation. 3. Incidental findings as above. Results were relayed via [facility] by Dr. Blanco to Yaron MEREDITH on 05/09/2022 1:52 AM . Wet read provided via [facility] by Dr. Blanco on 05/09/2022 1:52 AM. I have personally reviewed the images and I agree with this report. WSN: [id number] Ordering Physician: Yaron Newton Dictated By: Paolo Blanco DO Dictated Date/Time: 05/09/22 7:32 am Reviewed By: Eloise Forrester MD Signed By: Eloise Forrester MD Signed Date/Time: 05/09/22 7:37 am Transcribed By: JASON Transcribed Date/Time: 05/09/22 2:34 am Exam Date Time Procedure Performing Provider Status 05/09/22 1:[address] Maxilloface W/O Contrast Auth (Verified) Notes:(CT Maxilloface W/O Contrast) Reason For Exam: TraumaRESULT: CT Maxilloface W/O Contrast CT Head/Brain W/O Contrast, CT Cervical Spine W/O Contrast, CT Maxilloface W/O Contrast Reason: Fall, facial trauma; Clinical Question(s): Hematoma COMPARISON: CT head 01/10/2022 TECHNIQUE: Incremental CT scan through the head and spiral CT through the face and cervical spine without contrast, formatted in multiple planes. The cervical and facial portions of the exam were performed with automatic exposure control. CTDIvol Body: 10.00 mGy, DLP Body: 315 mGy*cm. CTDIvol Head: 39.40 mGy, DLP Head: 671 mGy*cm. FINDINGS: [employer] View Findings, Lines and Tubes: None. HEAD: BRAIN and EXTRA-AXIAL SPACES: No parenchymal hemorrhage, midline shift or mass effect. Altman-white matter differentiation is well preserved. No acute infarct. Negative insular ribbon sign. Atherosclerotic vascular calcification of the carotid arteries but negative hyperdense vessel sign. Ventricles, sulci and basilar cisterns are normal. Mild periventricular and subcortical low-density white matter changes. No subarachnoid hemorrhage, subdural or epidural collections. CALVARIUM, SKULL BASE AND SOFT TISSUES: No fractures or suspicious bony lesions. Extensive mucosal thickening of the maxillary sinuses and ethmoid air cells. Visualized orbits and globes are intact. No significant extracranial soft tissue injury. CERVICAL SPINE: CERVICO-OCCIPITAL JUNCTION: Intact. ODONTOID PROCESS: Intact. SPINE: No fracture or malalignment. Mild facet arthropathy. OTHER BONES: The portions of the clavicles, scapulas and upper ribs included on the exam subpleural blebs at the imaged right lung apex. SOFT TISSUES AND LUNG APICES: No pneumothorax. MAXILLOFACIAL: Paranasal sinuses: No fracture Zygomatic arches: No fracture Pterygoid plates. No fracture Mandible: No fracture Orbits: No fracture. No orbital injury. IMPRESSION: 1. No acute intracranial abnormality. 2. No evidence of acute cervical spine or maxillofacial fracture. 3. No significant soft tissue hematoma. Wet read provided via [facility] by Dr. Blanco on 05/09/2022 1:42 AM. I have personally reviewed the images and I agree with this report. WSN: [id number] Ordering Physician: Yaron Newton Dictated By: Paolo Blanco DO Dictated Date/Time: 05/09/22 7:10 am Reviewed By: Eloise Forrester MD Signed By: Eloise Forrester MD Signed Date/Time: 05/09/22 7:15 am Transcribed By: JASON Transcribed Date/Time: 05/09/22 2:33 am Exam Date Time Procedure Performing Provider Status 05/09/22 1:[address] Cervical Spine W/O Contrast A [facility] (Verified) Notes:(CT Cervical Spine W/O Contrast) Reason For Exam: Neck trauma, dangerous injury mechanism;Other:RESULT: CT Cervical Spine W/O Contrast CT Head/Brain W/O Contrast, CT Cervical Spine W/O Contrast, CT Maxilloface W/O Contrast Reason: Fall, facial trauma; Clinical Question(s): Hematoma COMPARISON: CT head 01/10/2022 TECHNIQUE: Incremental CT scan through the head and spiral CT through the face and cervical spine without contrast, formatted in multiple planes. The cervical and facial portions of the exam were performed with automatic exposure control. CTDIvol Body: 10.00 mGy, DLP Body: 315 mGy*cm. CTDIvol Head: 39.40 mGy, DLP Head: 671 mGy*cm. FINDINGS: Jet Mechanic View Findings, Lines and Tubes: None. HEAD: BRAIN and EXTRA-AXIAL SPACES: No parenchymal hemorrhage, midline shift or mass effect. Altman-white matter differentiation is well preserved. No acute infarct. Negative insular ribbon sign. Atherosclerotic vascular calcification of the carotid arteries but negative hyperdense vessel sign. Ventricles, sulci and basilar cisterns are normal. Mild periventricular and subcortical low-density white matter changes. No subarachnoid hemorrhage, subdural or epidural collections. CALVARIUM, SKULL BASE AND SOFT TISSUES: No fractures or suspicious bony lesions. Extensive mucosal thickening of the maxillary sinuses and ethmoid air cells. Visualized orbits and globes are intact. No significant extracranial soft tissue injury. CERVICAL SPINE: CERVICO-OCCIPITAL JUNCTION: Intact. ODONTOID PROCESS: Intact. SPINE: No fracture or malalignment. Mild facet arthropathy. OTHER BONES: The portions of the clavicles, scapulas and upper ribs included on the exam subpleural blebs at the imaged right lung apex. SOFT TISSUES AND LUNG APICES: No pneumothorax. MAXILLOFACIAL: Paranasal sinuses: No fracture Zygomatic arches: No fracture Pterygoid plates. No fracture Mandible: No fracture Orbits: No fracture. No orbital injury. IMPRESSION: 1. No acute intracranial abnormality. 2. No evidence of acute cervical spine or maxillofacial fracture. 3. No significant soft tissue hematoma. Wet read provided via [facility] by Dr. Blanco on 05/09/2022 1:42 AM. I have personally reviewed the images and I agree with this report. WSN: [id number] Ordering Physician: Yaron Newton Dictated By: Paolo Blanco DO Dictated Date/Time: 05/09/22 7:10 am Reviewed By: Eloise Forrester MD Signed By: Eloise Forrester MD Signed Date/Time: 05/09/22 7:15 am Transcribed By: JASON Transcribed Date/Time: 05/09/22 2:33 am Exam Date Time Procedure Performing Provider Status 05/09/22 1:[address] Head/Brain W/O Contrast Auth (Verified) Notes:(CT Head/Brain W/O Contrast) Reason For Exam: TraumaRESULT: CT Head/Brain W/O Contrast CT Head/Brain W/O Contrast, CT Cervical Spine W/O Contrast, CT Maxilloface W/O Contrast Reason: Fall, facial trauma; Clinical Question(s): Hematoma COMPARISON: CT head 01/10/2022 TECHNIQUE: Incremental CT scan through the head and spiral CT through the face and cervical spine without contrast, formatted in multiple planes. The cervical and facial portions of the exam were performed with automatic exposure control. CTDIvol Body: 10.00 mGy, DLP Body: 315 mGy*cm. CTDIvol Head: 39.40 mGy, DLP Head: 671 mGy*cm. FINDINGS: Jet Mechanic View Findings, Lines and Tubes: None. HEAD: BRAIN and EXTRA-AXIAL SPACES: No parenchymal hemorrhage, midline shift or mass effect. Altman-white matter differentiation is well preserved. No acute infarct. Negative insular ribbon sign. Atherosclerotic vascular calcification of the carotid arteries but negative hyperdense vessel sign. Ventricles, sulci and basilar cisterns are normal. Mild periventricular and subcortical low-density white matter changes. No subarachnoid hemorrhage, subdural or epidural collections. CALVARIUM, SKULL BASE AND SOFT TISSUES: No fractures or suspicious bony lesions. Extensive mucosal thickening of the maxillary sinuses and ethmoid air cells. Visualized orbits and globes are intact. No significant extracranial soft tissue injury. CERVICAL SPINE: CERVICO-OCCIPITAL JUNCTION: Intact. ODONTOID PROCESS: Intact. SPINE: No fracture or malalignment. Mild facet arthropathy. OTHER BONES: The portions of the clavicles, scapulas and upper ribs included on the exam subpleural blebs at the imaged right lung apex. SOFT TISSUES AND LUNG APICES: No pneumothorax. MAXILLOFACIAL: Paranasal sinuses: No fracture Zygomatic arches: No fracture Pterygoid plates. No fracture Mandible: No fracture Orbits: No fracture. No orbital injury. IMPRESSION: 1. No acute intracranial abnormality. 2. No evidence of acute cervical spine or maxillofacial fracture. 3. No significant soft tissue hematoma. Wet read provided via [facility] by Dr. Blanco on 05/09/2022 1:42 AM. I have personally reviewed the images and I agree with this report. WSN: [id number] Ordering Physician: Yaron Newton Dictated By: Paolo Blanco DO Dictated Date/Time: 05/09/22 7:10 am Reviewed By: Eloise Forrester MD Signed By: Eloise Forrester MD Signed Date/Time: 05/09/22 7:15 am Transcribed By: JASON Transcribed Date/Time: 05/09/22 2:33 am Vital Signs Most recent to oldest 1 2 3 [Reference Range]: Oxygen Saturation [94-100 %] 100 % 96 % 90 % (05/09/22 5:42 AM) (05/09/22 2:48 AM) *L* (05/09/22 12:36 A M) Pulse Rate [55-90 bpm] 88 bpm 78 bpm 85 bpm (05/09/22 5:42 AM) (05/09/22 2:48 AM) (05/09/22 12: 36 AM) Blood Pressure [90-138/55-84 124/45 mm Hg 128/73 mm Hg 128 /69 mm Hg mm Hg] (05/09/22 5:42 AM) (05/09/22 2:48 AM) (05/09/22 12: 36 AM) Respiratory Rate [16-30 16 br/min 16 br/min 21 br/mi n br/min] (05/09/22 5:42 AM) (05/09/22 2:48 AM) (05/09/22 12: 36 AM) Mode of Delivery (Oxygen) Room air Room air Room a ir (05/09/22 5:42 AM) (05/09/22 2:48 AM) (05/09/22 12: 36 AM) Blood pressure sites Arm, right Arm, right Arm, right (05/09/22 5:42 AM) (05/09/22 2:48 AM) (05/09/22 12: 36 AM) Social History Social History Type Response Smoking Status 10 or more cigarettes (1/2 p ack or more)/day in last 30 days; Interested in cessation: No; Patient wants NRT during admission Yes entered on: 02/04/22 Sex EKG study Event Display: ECG 12-Lead Authored Date: Please click on pdf link to open report Event Display: ECG 12-Lead Authored Date: Ventricular Rate: 84 BPM Atrial Rate: 84 BPM P-R Interval: 178 ms QRS Duration: 98 ms Q-T Interval: 376 ms QTC Calculation(Bazett): 444 ms P [place]: 56 degrees R [place]: 8 degrees T [place]: 52 degrees Normal sinus rhythm Normal ECG When compared with ECG of 05-MAY-2022 02:50, No significant change was found Confirmed by ALIYA JACKSON MD ([id number]) on 05/09/2022 8:03:38 AM Sherman: ALIYA JACKSON MD, Drew Holland: PERFORM Event Display: Patient Education Leaflets Authored Date: After a Fall ?? [id number] After a Fall You have had a fall today. That means that you slipped, tripped, or lost your balance. If your fallhad been because of fainting or a seizure,??you might need other??tests. It is normal to feel sore and tight in your muscles and back the next day, and not just the musclesyou injured. Remember, all the parts of your body are connected, so while one area hurts now, the next day another may hurt. Also, when you injure yourself, it causes inflammation. This then causes themuscles to tighten up and hurt more. After the initial worsening, it should slowly improve over the next few days. Tell your healthcare provider if you have more severe pain. Even without a definite head injury, you can still get a concussion from your head suddenly jerkingforward, backward, or sideways when you fall. Concussions and even bleeding can still happen, especially if you have had a recent injury or take blood thinner medicine. It is not unusual to have a mildheadache and feel tired and even nauseous or dizzy.?? Home care ??? Rest today and go back to your normal activities when you are feeling back to normal.??? If you were injured during the fall, follow the advice from your healthcare provider about how to care for your injury. ??? At first, don't try to stretch out the sore spots. If there is a strain, stretching may make it worse. Massage may help relax the muscles without stretching them. ??? Use an ice pack or cold compress on and off at the sore spots 10 to 20 minutes at a time, as often as you feel comfortable. This may help reduce the inflammation, swelling, and pain. ??? Know that if you have any scrapes (abrasions), they often heal within??10 days. Keep the scrapes clean while they start to heal. But an infection may happen even with correct care. So watch for early signs of infection (suchas warmth, redness, or swelling). ?? Medicines ??? Talk with your healthcare provider before taking new medicines, especially if you have other health problems or are taking other medicines. ??? If you need anything for pain, use acetaminophen or ibuprofen, unless you were given a different pain medicine to use.??Talk with your healthcare provider before using these medicines if you: o Have chronic liver or kidney disease o Ever had a stomach ulcer or??gastrointestinal bleeding o Are taking blood- thinner medicines ??? Be careful if you are given prescription pain medicines, narcotics, or medicine for muscle spasm. They can make you sleepy and dizzy. And they can affect your coordination, reflexes, and judgment. Don't drive or do work where you can hurt yourself when taking them. ?? Fall prevention ??? Fix, remove, or replace anything that caused your fall. ??? Make your home safeby keeping walkways clear of objects you may trip over. ??? Use nonslip pads under rugs. Don't use small??area rugs or throw rugs. ??? Don't walk in poorly lit areas. ??? Don't stand on chairs or wobbly ladders. ??? Be careful when reaching overhead or looking upward. This position can cause a loss ofbalance. ??? Be sure your shoes fit correctly, have nonslip bottoms, and are in good condition. ??? Be careful when going up and down curbs, and walking on uneven sidewalks. ??? If your balance is poor, think about using a cane or walker. ??? Stay as active as you can. Balance, flexibility, strength, and endurance all come from exercise. They all play a role in preventing falls. ??? If you have pets,know where they are before you stand up or walk so you don't trip over them. ??? Limit alcohol intake. Alcohol can cause balance problems and increase the risk for falls. ??? Use night lights. ??? Haveyour eyes tested to be sure you are seeing well, even if you already wear glasses.? Follow-up Follow up with your healthcare provider, or as advised. If X-rays or CT scans were done, you will be told if there is a change in the reading, especially if it affects treatment. ?? Call 911 Call 911 if any of these happen: ??? Trouble breathing ??? Confusion ??? Trouble waking up ??? Fainting or loss of consciousness ??? Fast or very slow heart rate ??? Seizure ??? Trouble with speech orvision, weakness of an arm or leg ??? Trouble walking or talking, loss of balance, numbness or weakness in one side of your body, or facial droop ?? When to get medical advice Call your healthcare provider right away if any of these happen: ??? Repeated falls, including falls that don't seem to happen for no reason ??? Dizziness ??? Severe headache ??? Blood in vomit or stools (look black or red in color) ?? Last Reviewed Date: 2019 ?? 7180-2157 [employer]. All rights reserved. This information is not intended as a substitute for professional medical care. Always follow your healthcare professional's instructions. ?? CT Maxillofacial region WO contrast [facility] , [facility] S: TRANSCRIBE Paolo Blanco DO: MEHDI Forrester MD, [facility] O: VERIFY Event Display: Result: Authored Date: [id number] CT Head/Brain W/O Contrast, CT Cervical Spine W/O Contrast, CT Maxilloface W/O Contrast Reason: Fall, facial trauma; Clinical Question(s): Hematoma COMPARISON: CT head 01/10/2022 TECHNIQUE: Incremental CT scan through the head and spiral CT through the face and cervical spine without contrast, formatted in multiple planes. The cervical and facial portions of the exam were performed with automatic exposure control. CTDIvol Body: 10.00 mGy, DLP Body: 315 mGy*cm. CTDIvol Head: 39.40 mGy, DLP Head: 671 mGy*cm. FINDINGS: Jet Mechanic View Findings, Lines and Tubes: None. HEAD: BRAIN and EXTRA-AXIAL SPACES: No parenchymal hemorrhage, midline shift or mass effect. Altman-white matter differentiation is well preserved. No acute infarct. Negative insular ribbon sign. Atherosclerotic vascular calcification of the carotid arteries but negative hyperdense vessel sign. Ventricles, sulci and basilar cisterns are normal. Mild periventricular and subcortical low-density white matter changes. No subarachnoid hemorrhage, subdural or epidural collections. CALVARIUM, SKULL BASE AND SOFT TISSUES: No fractures or suspicious bony lesions. Extensive mucosal thickening of the maxillary sinuses and ethmoid air cells. Visualized orbits and globes are intact. No significant extracranial soft tissue injury. CERVICAL SPINE: CERVICO-OCCIPITAL JUNCTION: Intact. ODONTOID PROCESS: Intact. SPINE: No fracture or malalignment. Mild facet arthropathy. OTHER BONES: The portions of the clavicles, scapulas and upper ribs included on the exam subpleural blebs at the imaged right lung apex. SOFT TISSUES AND LUNG APICES: No pneumothorax. MAXILLOFACIAL: Paranasal sinuses: No fracture Zygomatic arches: No fracture Pterygoid plates. No fracture Mandible: No fracture Orbits: No fracture. No orbital injury. IMPRESSION: 1. No acute intracranial abnormality. 2. No evidence of acute cervical spine or maxillofacial fracture. 3. No significant soft tissue hematoma. Wet read provided via CIS by Dr. Blanco on 05/09/2022 1:42 AM. I have personally reviewed the images and I agree with this report. WSN: [id number] Ordering Physician: Yaron Newton Dictated By: Paolo Blanco DO Dictated Date/Time: 05/09/22 7:10 am Reviewed By: Eloise Forrester MD Signed By: Eloise Forrester MD Signed Date/Time: 05/09/22 7:15 am Transcribed By: JASON Transcribed Date/Time: 05/09/22 2:[address] Cervical spine WO contrast [facility] , [facility] S: TRANSCRIBE Paolo Blanco DO: SIGN Eloise Forrester MD: VERIFY Event Display: Result: Authored Date: [id number] CT Head/Brain W/O Contrast, CT Cervical Spine W/O Contrast, CT Maxilloface W/O Contrast Reason: Fall, facial trauma; Clinical Question(s): Hematoma COMPARISON: CT head 01/10/2022 TECHNIQUE: Incremental CT scan through the head and spiral CT through the face and cervical spine without contrast, formatted in multiple planes. The cervical and facial portions of the exam were performed with automatic exposure control. CTDIvol Body: 10.00 mGy, DLP Body: 315 mGy*cm. CTDIvol Head: 39.40 mGy, DLP Head: 671 mGy*cm. FINDINGS: Jet Mechanic View Findings, Lines and Tubes: None. HEAD: BRAIN and EXTRA-AXIAL SPACES: No parenchymal hemorrhage, midline shift or mass effect. Altman-white matter differentiation is well preserved. No acute infarct. Negative insular ribbon sign. Atherosclerotic vascular calcification of the carotid arteries but negative hyperdense vessel sign. Ventricles, sulci and basilar cisterns are normal. Mild periventricular and subcortical low-density white matter changes. No subarachnoid hemorrhage, subdural or epidural collections. CALVARIUM, SKULL BASE AND SOFT TISSUES: No fractures or suspicious bony lesions. Extensive mucosal thickening of the maxillary sinuses and ethmoid air cells. Visualized orbits and globes are intact. No significant extracranial soft tissue injury. CERVICAL SPINE: CERVICO-OCCIPITAL JUNCTION: Intact. ODONTOID PROCESS: Intact. SPINE: No fracture or malalignment. Mild facet arthropathy. OTHER BONES: The portions of the clavicles, scapulas and upper ribs included on the exam subpleural blebs at the imaged right lung apex. SOFT TISSUES AND LUNG APICES: No pneumothorax. MAXILLOFACIAL: Paranasal sinuses: No fracture Zygomatic arches: No fracture Pterygoid plates. No fracture Mandible: No fracture Orbits: No fracture. No orbital injury. IMPRESSION: 1. No acute intracranial abnormality. 2. No evidence of acute cervical spine or maxillofacial fracture. 3. No significant soft tissue hematoma. Wet read provided via CIS by Dr. Blanco on 05/09/2022 1:42 AM. I have personally reviewed the images and I agree with this report. WSN: [id number] Ordering Physician: Yaron Newton Dictated By: Paolo Blanco DO Dictated Date/Time: 05/09/22 7:10 am Reviewed By: Eloise Forrester MD Signed By: Eloise Forrester MD Signed Date/Time: 05/09/22 7:15 am Transcribed By: JASON Transcribed Date/Time: 05/09/22 2:[address] Head WO contrast [facility] , [facility] S: TRANSCRIBE Paolo Blanco DO: Eloise Castaneda MD O: VERIFY Event Display: Result: Authored Date: [id number] CT Head/Brain W/O Contrast, CT Cervical Spine W/O Contrast, CT Maxilloface W/O Contrast Reason: Fall, facial trauma; Clinical Question(s): Hematoma COMPARISON: CT head 01/10/2022 TECHNIQUE: Incremental CT scan through the head and spiral CT through the face and cervical spine without contrast, formatted in multiple planes. The cervical and facial portions of the exam were performed with automatic exposure control. CTDIvol Body: 10.00 mGy, DLP Body: 315 mGy*cm. CTDIvol Head: 39.40 mGy, DLP Head: 671 mGy*cm. FINDINGS: Jet Mechanic View Findings, Lines and Tubes: None. HEAD: BRAIN and EXTRA-AXIAL SPACES: No parenchymal hemorrhage, midline shift or mass effect. Altman-white matter differentiation is well preserved. No acute infarct. Negative insular ribbon sign. Atherosclerotic vascular calcification of the carotid arteries but negative hyperdense vessel sign. Ventricles, sulci and basilar cisterns are normal. Mild periventricular and subcortical low-density white matter changes. No subarachnoid hemorrhage, subdural or epidural collections. CALVARIUM, SKULL BASE AND SOFT TISSUES: No fractures or suspicious bony lesions. Extensive mucosal thickening of the maxillary sinuses and ethmoid air cells. Visualized orbits and globes are intact. No significant extracranial soft tissue injury. CERVICAL SPINE: CERVICO-OCCIPITAL JUNCTION: Intact. ODONTOID PROCESS: Intact. SPINE: No fracture or malalignment. Mild facet arthropathy. OTHER BONES: The portions of the clavicles, scapulas and upper ribs included on the exam subpleural blebs at the imaged right lung apex. SOFT TISSUES AND LUNG APICES: No pneumothorax. MAXILLOFACIAL: Paranasal sinuses: No fracture Zygomatic arches: No fracture Pterygoid plates. No fracture Mandible: No fracture Orbits: No fracture. No orbital injury. IMPRESSION: 1. No acute intracranial abnormality. 2. No evidence of acute cervical spine or maxillofacial fracture. 3. No significant soft tissue hematoma. Wet read provided via CIS by Dr. Blanco on 05/09/2022 1:42 AM. I have personally reviewed the images and I agree with this report. WSN: [id number] Ordering Physician: Yaron Newton Dictated By: Paolo Blanco DO Dictated Date/Time: 05/09/22 7:10 am Reviewed By: Eloise Forrester MD Signed By: Eloise Forrester MD Signed Date/Time: 05/09/22 7:15 am Transcribed By: JASON Transcribed Date/Time: 05/09/22 2:[address] Lumbar spine W contrast IV [facility] , [facility]IS S: TRANSCRIBE Paolo Blanco DO: SIGN Eloise Forrester MD: VERIFY Event Display: Result: Authored Date: [id number] CT Chest W/ Contrast, CT Abd/Pelvis W/ IV Contrast Only, CT Thoracic Spine W/ Contrast, CT Lumbar Spine W/ Contrast INDICATION: Reason: Chest trauma, blunt; Clinical Question(s): Aortic hilar injury Other: TECHNIQUE: Helical CT scan of the chest, abdomen, and pelvis with IV contrast, formatted in 3 planes. The original dataset was reconstructed with a small field of view around the thoracic and lumbar spine utilizing soft tissue and bone algorithm reconstructions in 3 planes. 100 cc of Omnipaque 350 wasadministered intravenously. This study was performed without oral contrast. Weight-based protocol was performed using automatic exposure control. Weight-based protocol using automatic tube modulation was used to optimize exposure parameters. CTDIvol Body: 9.00 mGy, DLP Body: 614 mGy*cm. COMPARISON: None FINDINGS: Trachea and Airways: Patent without evidence of tracheal or endobronchial lesion. Lungs and Pleura: There are dependent subsegmental atelectatic changes in the lungs. There are extensive subpleural blebs in the upper symphysis is slightly right lung field. Thoracic aorta: No evidence of aortic injury or aneurysm. Mediastinum and Lymph nodes: There are mild coronary artery calcifications. The heart is within normal limits in size. There is no evidence of mediastinal or hilar adenopathy. There is no evidence of a mediastinal mass or hematoma. Chest wall and Soft tissues: Unremarkable. Liver: There is a subcentimeter calcification in the lateral right lobe of the liver compatible witha granuloma. Gallbladder: Cholelithiasis without acute cholecystitis. Bile ducts: No biliary ductal dilation. Spleen: Unremarkable. Pancreas: Unremarkable. Adrenal Glands: Unremarkable. Kidneys and Ureters: Unremarkable. Bladder: Mildly distended. Stomach, Small Bowel, and Large Bowel: Unremarkable. Appendix: Normal appendix. Omentum, peritoneum and mesentery: There is no evidence of free air or free fluid in the abdomen or pelvis. Discussed Lymph nodes: No pathologically enlarged lymph nodes. Abdominal blood Vessels: Moderate atherosclerotic vascular calcification. No aortic aneurysm. Abdominal wall: Moderate fat-containing umbilical hernia. Pelvic Organs: Unremarkable. Bones: No acute fracture. Minimal degenerative changes of the spine. IMPRESSION: 1. No evidence of aortic injury, hemorrhage, free air nor solid organ injury. 2. No evidence of acute bony fracture or dislocation. 3. Incidental findings as above. Results were relayed via [facility] by Dr. Blanco to Yaron MEREDITH on 05/09/2022 1:52 AM . Wet read provided via CIS by Dr. Blanco on 05/09/2022 1:52 AM. I have personally reviewed the images and I agree with this report. WSN: [id number] Ordering Physician: Yaron Newton Dictated By: Paolo Blanco DO Dictated Date/Time: 05/09/22 7:32 am Reviewed By: Eloise Forrester MD Signed By: Eloise Forrester MD Signed Date/Time: 05/09/22 7:37 am Transcribed By: JASON Transcribed Date/Time: 05/09/22 2:[address] Thoracic spine W contrast [facility] , [facility] S: TRANSCRIBE Paolo Blanco DO: SIGN Eloise Forrester MD O: VERIFY Event Display: Result: Authored Date: [id number] CT Chest W/ Contrast, CT Abd/Pelvis W/ IV Contrast Only, CT Thoracic Spine W/ Contrast, CT Lumbar Spine W/ Contrast INDICATION: Reason: Chest trauma, blunt; Clinical Question(s): Aortic hilar injury Other: TECHNIQUE: Helical CT scan of the chest, abdomen, and pelvis with IV contrast, formatted in 3 planes. The original dataset was reconstructed with a small field of view around the thoracic and lumbar spine utilizing soft tissue and bone algorithm reconstructions in 3 planes. 100 cc of Omnipaque 350 wasadministered intravenously. This study was performed without oral contrast. Weight-based protocol was performed using automatic exposure control. Weight-based protocol using automatic tube modulation was used to optimize exposure parameters. CTDIvol Body: 9.00 mGy, DLP Body: 614 mGy*cm. COMPARISON: None FINDINGS: Trachea and Airways: Patent without evidence of tracheal or endobronchial lesion. Lungs and Pleura: There are dependent subsegmental atelectatic changes in the lungs. There are extensive subpleural blebs in the upper symphysis is slightly right lung field. Thoracic aorta: No evidence of aortic injury or aneurysm. Mediastinum and Lymph nodes: There are mild coronary artery calcifications. The heart is within normal limits in size. There is no evidence of mediastinal or hilar adenopathy. There is no evidence of a mediastinal mass or hematoma. Chest wall and Soft tissues: Unremarkable. Liver: There is a subcentimeter calcification in the lateral right lobe of the liver compatible witha granuloma. Gallbladder: Cholelithiasis without acute cholecystitis. Bile ducts: No biliary ductal dilation. Spleen: Unremarkable. Pancreas: Unremarkable. Adrenal Glands: Unremarkable. Kidneys and Ureters: Unremarkable. Bladder: Mildly distended. Stomach, Small Bowel, and Large Bowel: Unremarkable. Appendix: Normal appendix. Omentum, peritoneum and mesentery: There is no evidence of free air or free fluid in the abdomen or pelvis. Discussed Lymph nodes: No pathologically enlarged lymph nodes. Abdominal blood Vessels: Moderate atherosclerotic vascular calcification. No aortic aneurysm. Abdominal wall: Moderate fat-containing umbilical hernia. Pelvic Organs: Unremarkable. Bones: No acute fracture. Minimal degenerative changes of the spine. IMPRESSION: 1. No evidence of aortic injury, hemorrhage, free air nor solid organ injury. 2. No evidence of acute bony fracture or dislocation. 3. Incidental findings as above. Results were relayed via CORTEXT by Dr. Blanco to Yaron MEREDITH on 05/09/2022 1:52 AM . Wet read provided via CIS by Dr. Blanco on 05/09/2022 1:52 AM. I have personally reviewed the images and I agree with this report. WSN: [id number] Ordering Physician: Yaron Newton Dictated By: Paolo Blanco DO Dictated Date/Time: 05/09/22 7:32 am Reviewed By: Eloise Forrester MD Signed By: Eloise Forrester MD Signed Date/Time: 05/09/22 7:37 am Transcribed By: JASON Transcribed Date/Time: 05/09/22 2:[address] Abdomen and Pelvis W contrast IV [facility] , [facility] S: TRANSCRIBE Francis STEVE Paolo: SIGN Eloise Forrester MD O: VERIFY Event Display: Result: Authored Date: [id number] CT Chest W/ Contrast, CT Abd/Pelvis W/ IV Contrast Only, CT Thoracic Spine W/ Contrast, CT Lumbar Spine W/ Contrast INDICATION: Reason: Chest trauma, blunt; Clinical Question(s): Aortic hilar injury Other: TECHNIQUE: Helical CT scan of the chest, abdomen, and pelvis with IV contrast, formatted in 3 planes. The original dataset was reconstructed with a small field of view around the thoracic and lumbar spine utilizing soft tissue and bone algorithm reconstructions in 3 planes. 100 cc of Omnipaque 350 wasadministered intravenously. This study was performed without oral contrast. Weight-based protocol was performed using automatic exposure control. Weight-based protocol using automatic tube modulation was used to optimize exposure parameters. CTDIvol Body: 9.00 mGy, DLP Body: 614 mGy*cm. COMPARISON: None FINDINGS: Trachea and Airways: Patent without evidence of tracheal or endobronchial lesion. Lungs and Pleura: There are dependent subsegmental atelectatic changes in the lungs. There are extensive subpleural blebs in the upper symphysis is slightly right lung field. Thoracic aorta: No evidence of aortic injury or aneurysm. Mediastinum and Lymph nodes: There are mild coronary artery calcifications. The heart is within normal limits in size. There is no evidence of mediastinal or hilar adenopathy. There is no evidence of a mediastinal mass or hematoma. Chest wall and Soft tissues: Unremarkable. Liver: There is a subcentimeter calcification in the lateral right lobe of the liver compatible witha granuloma. Gallbladder: Cholelithiasis without acute cholecystitis. Bile ducts: No biliary ductal dilation. Spleen: Unremarkable. Pancreas: Unremarkable. Adrenal Glands: Unremarkable. Kidneys and Ureters: Unremarkable. Bladder: Mildly distended. Stomach, Small Bowel, and Large Bowel: Unremarkable. Appendix: Normal appendix. Omentum, peritoneum and mesentery: There is no evidence of free air or free fluid in the abdomen or pelvis. Discussed Lymph nodes: No pathologically enlarged lymph nodes. Abdominal blood Vessels: Moderate atherosclerotic vascular calcification. No aortic aneurysm. Abdominal wall: Moderate fat-containing umbilical hernia. Pelvic Organs: Unremarkable. Bones: No acute fracture. Minimal degenerative changes of the spine. IMPRESSION: 1. No evidence of aortic injury, hemorrhage, free air nor solid organ injury. 2. No evidence of acute bony fracture or dislocation. 3. Incidental findings as above. Results were relayed via CORTEXT by Dr. Blanco to Yaron MEREDITH on 05/09/2022 1:52 AM . Wet read provided via CIS by Dr. Blanco on 05/09/2022 1:52 AM. I have personally reviewed the images and I agree with this report. WSN: [id number] Ordering Physician: Yaron Newton Dictated By: Paolo Blanco DO Dictated Date/Time: 05/09/22 7:32 am Reviewed By: Eloise Forrester MD Signed By: Eloise Forrester MD Signed Date/Time: 05/09/22 7:37 am Transcribed By: JASON Transcribed Date/Time: 05/09/22 2:[address] Chest W contrast IV [facility] , [facility] S: TRANSCRIBE Paolo Blanco DO: SIGN Eloise Forrester MD: VERIFY Event Display: Result: Authored Date: [id number] CT Chest W/ Contrast, CT Abd/Pelvis W/ IV Contrast Only, CT Thoracic Spine W/ Contrast, CT Lumbar Spine W/ Contrast INDICATION: Reason: Chest trauma, blunt; Clinical Question(s): Aortic hilar injury Other: TECHNIQUE: Helical CT scan of the chest, abdomen, and pelvis with IV contrast, formatted in 3 planes. The original dataset was reconstructed with a small field of view around the thoracic and lumbar spine utilizing soft tissue and bone algorithm reconstructions in 3 planes. 100 cc of Omnipaque 350 wasadministered intravenously. This study was performed without oral contrast. Weight-based protocol was performed using automatic exposure control. Weight-based protocol using automatic tube modulation was used to optimize exposure parameters. CTDIvol Body: 9.00 mGy, DLP Body: 614 mGy*cm. COMPARISON: None FINDINGS: Trachea and Airways: Patent without evidence of tracheal or endobronchial lesion. Lungs and Pleura: There are dependent subsegmental atelectatic changes in the lungs. There are extensive subpleural blebs in the upper symphysis is slightly right lung field. Thoracic aorta: No evidence of aortic injury or aneurysm. Mediastinum and Lymph nodes: There are mild coronary artery calcifications. The heart is within normal limits in size. There is no evidence of mediastinal or hilar adenopathy. There is no evidence of a mediastinal mass or hematoma. Chest wall and Soft tissues: Unremarkable. Liver: There is a subcentimeter calcification in the lateral right lobe of the liver compatible witha granuloma. Gallbladder: Cholelithiasis without acute cholecystitis. Bile ducts: No biliary ductal dilation. Spleen: Unremarkable. Pancreas: Unremarkable. Adrenal Glands: Unremarkable. Kidneys and Ureters: Unremarkable. Bladder: Mildly distended. Stomach, Small Bowel, and Large Bowel: Unremarkable. Appendix: Normal appendix. Omentum, peritoneum and mesentery: There is no evidence of free air or free fluid in the abdomen or pelvis. Discussed Lymph nodes: No pathologically enlarged lymph nodes. Abdominal blood Vessels: Moderate atherosclerotic vascular calcification. No aortic aneurysm. Abdominal wall: Moderate fat-containing umbilical hernia. Pelvic Organs: Unremarkable. Bones: No acute fracture. Minimal degenerative changes of the spine. IMPRESSION: 1. No evidence of aortic injury, hemorrhage, free air nor solid organ injury. 2. No evidence of acute bony fracture or dislocation. 3. Incidental findings as above. Results were relayed via CORTEXT by Dr. Blanco to Yaron MEREDITH on 05/09/2022 1:52 AM . Wet read provided via CIS by Dr. Blanco on 05/09/2022 1:52 AM. I have personally reviewed the images and I agree with this report. WSN: [id number] Ordering Physician: Yaron Newton Dictated By: Paolo Blanco DO Dictated Date/Time: 05/09/22 7:32 am Reviewed By: Eloise Forrester MD Signed By: Eloise Forrester MD Signed Date/Time: 05/09/22 7:37 am Transcribed By: JASON Transcribed Date/Time: 05/09/22 2:34 am Patient Care team information Care Team PersonnelName: Avani Duarte Position: [facility] Outreach Member Role: PCP Address: Address: [address] [place] [address]- Name: Sri Garcia Position: [facility] RN Member Role: Primary Care Nurse Name: Aissatou Steiner RN Position: [facility] RN Member Role: Primary Care Nurse Name: Lexie Mercer RN Position: [facility] RN Member Role: Primary Care Nurse Name: Sylvia Barrios RN Position: [facility] RN Member Role: Primary Care Nurse Name: Felisha Dougherty Position: [facility] RN Member Role: Primary Care Nurse Name: Ailyn Mendoza Position: [facility] RN Member Role: Primary Care Nurse Name: Patric Stearns RN Position: [facility] RN Member Role: Primary Care Nurse Name: Rosie Bray Position: [facility] RN Member Role: Primary Care Nurse Name: Rina Mckeon RN Position: [facility] RN Member Role: Primary Care Nurse Name: Salinas Fulton RN Position: [facility] RN Member Role: Primary Care Nurse Name: Elvi Shah RN Position: [facility] RN Member Role: Primary Care Nurse Name: Clare Ayers RN Position: [facility] RN Member Role: Primary Care Nurse Name: Emeka Childs RN Position: [facility] RN Member Role: Primary Care Nurse Name: Nathalie Mcneal RN Position: [facility] RN Member Role: Primary Care Nurse Name: Josefina Jesus RN Position: [facility] RN Member Role: Primary Care Nurse Name: Virginia Campbell RN Position: [facility] RN Member Role: Primary Care Nurse Name: Concha Childs RN Position: [facility] RN Member Role: Primary Care Nurse Name: Carly Lester RN Position: [facility] RN Member Role: Primary Care Nurse Name: Yaron Licona Position: [facility] Associate Professional Member Role: ED Physician Rewinder Operator Helper Address: Address: [address] [place] [address]- Name: Jazmyne Garrison MD Position: [facility] ED Medicine MD Member Role: ED Attending Physician Address: Address: [address] [place] [address]- Name: Myrna English Position: [facility] ED RN W/OE and Tasks Member Role: Patient Care Provider Care Team Related PersonsName: ORI SOSA Address: home [address] [place] [address] Name: [facility] Address: home [address] [place] [id number]
--- OUTSIDE RECORDS SUMMARY | 2022-05-13 21:45 | XMS_ITS | Continuity of Care Document ---
:1965 Author Organization [facility] Address [address] [place] [address]- Care Team Providers Name Role Phone Avani Duarte Primary Care Physician [place] [facility] [place](s): 07/07/21 - 07/07/[address] [address]- Discharge Disposition: A-D/C Walkout Attending Physician: Not on Staff, Attending MD Admitting Physician: Not on Staff, Admitting MD Referring Physician: Not on Staff, Referring [...] Dry Weight Start Date: 04/14/21 Status: Orderedaspirin (OP) = 81 mg, Daily, 0 Refills, Maintenance, 2 Start Date: 05/01/20 Status: Orderedatorvastatin 80 mg oral tablet 1 tablet = 80 mg, By Mouth, Daily, # 30 tablet, 0 Refills, Maintenance, 04/14/21 10:20:00 EST, Tablet, [facility], Partial fill upon patient request if the prescription is for a schedule II opioid drug., 172, cm, 04/14/21 5:19:00 EST, He... Start Date: 04/14/21 Status: Orderedcyclobenzaprine 10 mg oral tablet 10 mg, 1, tablet, By Mouth, Daily at bedtime, # 14 tablet, Refills 5, Maintenance, 04/12/21 21:05:00EST, Partial fill upon patient request if the prescription is for a schedule II opioid drug. Start Date: 04/12/21 Status: Orderedgabapentin 300 mg oral capsule 300 mg, 1, capsule, By Mouth, 2 times a day, PRN, Refills 0, Maintenance, [...] Start Date: 04/14/21 Status: Orderedinsulin glargine 100 units/mL subcutaneous solution = 65 units, Subcutaneous Injection, Daily in AM, # 12 mL, 6 Refills, Maintenance, 05/27/21 11:36:00 EST, Injection, [facility], Partial fill upon patient request if the prescription is for a schedule II opioid drug., 172, cm, 05/27/21 11... Start Date: 05/27/21 Stop Date: 12/23/21 Status: Orderedinsulin lispro 100 u/ml subcutaneous injection 24-36 units, Subcutaneous Injection, 3 times a day before meals, << Sliding Scale Comments >> 100 - 149 24 units 150 - 199 26 units 200 - 249 28 units 250 - 299 30 units 300 - 349 32 units 350 - 399 34 units > 400 : 36 units, #... Start Date: 05/27/21 Stop Date: 12/23/21 Status: OrderedInsulin Syringes See Instructions, # 90 each, Maintenance, Freestyle if possible, 04/14/21 10:22:00 EST, Supply, 172,cm, 04/14/21 5:19:00 EST, Height, 80, kg, 04/13/21 0:09:00 EST, Dry Weight Start Date: 04/14/21 Status: OrderedJardiance 25 mg oral tablet 1 tablet = 25 mg, By Mouth, Daily in AM, # 30 tablet, 6 Refills, Maintenance, 05/27/21 11:39:00 EST,Tablet, [facility], Partial fill upon patient request if the prescription is for a schedule II opioid drug., 172, cm, 05/27/21 11:06:00... Start Date: 05/27/21 Stop Date: 12/23/21 Status: OrderedLancets See Instructions, # 90 each, Maintenance, Any, 04/14/21 10:22:00 EST, Supply, 172, cm, 04/14/21 5:19:00 EST, Height, 80, kg, 04/13/21 0:09:00 EST, Dry Weight Start Date: 04/14/21 Status: Orderedlisinopril 10 mg oral tablet 10 mg, 1, tablet, By Mouth, Daily, # 30 tablet, Refills 0, Tot. Refills 0, Maintenance, 04/14/21 10:21:00 EST, Route to Pharmacy Electronically, [facility], Partial fill upon patient request if the prescription is for a schedule II opioi... Start Date: 04/14/21 Status: OrderedmetFORMIN 750 mg oral tablet, extended release 1 tablet = 750 mg, By Mouth, 2 times a day, # 60 tablet, 0 Refills, Maintenance, 04/14/21 10:21:00 EST, ER Tablet, [facility], Partial fill upon patient request if the prescription is fora schedule II opioid drug., 172, cm, 04/14/21 5:1... Start Date: 04/14/21 Status: Orderedmetoprolol succinate 50 mg oral capsule, extended release 1 capsule = 50 mg, By Mouth, Daily, # 30 capsule, 0 Refills, Maintenance, 04/14/21 10:20:00 EST, ER Capsule, [facility], Partial fill upon patient request, 172, cm, 04/14/21 5:19:00 EST, Height, 80, kg, 04/13/21 0:09:00 EST, Dry Weight Start Date: 04/14/21 Status: Orderedomeprazole 40 mg oral enteric coated capsule 1 capsule = 40 mg, By Mouth, Daily, Maintenance, 04/13/21 17:12:00 EST, EC Capsule Start Date: 04/13/21 Status: OrderedPen needles 32x4 mm Pen needles 32x4 mm, See Instructions, # 1 pack/packet, Refills 6, Tot. Refills 6, Maintenance, Please dispense pen needles to be used 4 times a day , 30 days supply, 05/28/21 8:24:00 EST, Supply, 172,cm, 05/27/21 11:06:00 EST, Height, 80, kg, ... Start Date: 05/28/21 Status: OrderedTrelegy Ellipta 200 mcg-62.5 mcg-25 mcg/inh inhalation powder 1 puffs, Inhalation, Daily, at the same time every day, # 1 each, 0 Refills, Maintenance, 04/14/21 10:19:00 EST, Powder, [facility], Partial fill upon patient request if the prescription is for a schedule II opioid drug., 1 puffs Inhalat... Start Date: 04/14/21 Status: Ordered Vital Signs Most recent to oldest [Reference Range]: 1 Height 173 cm (07/07/21 6:07 PM) Weight 80.6 kg (07/07/21 6:07 PM) Oxygen Saturation [94-100 %] 100 % (07/07/21 6:07 PM) Pulse Rate [55-90 bpm] 82 bpm (07/07/21 6:07 PM) Body Mass Index [18.5-24.99] 26.93 *H* (07/07/21 6:07 PM) Blood Pressure [90-138/55-84 mm Hg] 146/68 mm Hg *H* (07/07/21 6:07 PM) Respiratory Rate [16-30 br/min] 16 br/min (07/07/21 6:07 PM) Temperature [96.8-100.4 DegF] 98.4 DegF (07/07/21 6:07 PM) Mode of Delivery (Oxygen) Room air (07/07/21 6:07 PM) Blood pressure sites Arm, right (07/07/21 6:07 PM) Temperature Route Oral (07/07/21 6:07 PM) Dry Weight 80.6 kg (07/07/21 6:07 PM) Weight Obtained Via Standing scale (07/07/21 6:07 PM) Dry Weight Obtained Via Standing scale (07/07/21 6:07 PM)
--- OUTSIDE RECORDS SUMMARY | 2022-05-13 21:45 | XMS_ITS | Continuity of Care Document ---
:1965 Author Organization [facility] Address [address] [place] [id number]- Care Team Providers Name Role Phone Yoana PRICE, Mike Primary Care Physician Encounter [facility] [place] Date(s): 04/12/21 - 04/14/[address] [address] Encounter Diagnosis Hyperosmolar hyperglycemic state (HHS) (Final) - 04/12/21 Discharge Disposition: A-D/C Home Attending Physician: Nelia Buchanan MD Admitting Physician: Jorge Cobos MD Referring Physician: Not on Staff, Referring [...] 0 Refills, Maintenance, 04/14/21 10:20:00 EST, Tablet, [facility], Partial fill upon patient [...] Orderedinsulin glargine 100 units/mL subcutaneous solution = 55 units, Subcutaneous Injection, Daily in AM, # 12 mL, 0 Refills, Maintenance, 04/14/21 10:19:00 EST, Injection, [facility], Partial fill upon patient request if the prescription is for a schedule II opioid drug., 172, cm, 04/14/21 5:... Start Date: 04/14/21 Stop Date: 05/14/21 Status: Orderedinsulin lispro 100 u/ml subcutaneous injection 14-20 units, Subcutaneous Injection, Daily before lunch, << Sliding Scale Comments >> 100 - 149 14 units 150 - 199 16 units 200 - 249 18 units 250 - 299 20 units 300 - 349 20 units 350 - 399 20 units, # 15 mL, 0 Refills, Mainten... Start Date: 04/14/21 Stop Date: 05/14/21 Status: OrderedInsulin Syringes See Instructions, # 90 each, Maintenance, Freestyle if possible, 04/14/21 10:22:00 EST, Supply, 172,cm, 04/14/21 5:19:00 EST, Height, 80, kg, 04/13/21 0:09:00 EST, Dry Weight Start Date: 04/14/21 Status: OrderedLancets See Instructions, # 90 each, Maintenance, Any, 04/14/21 10:22:00 EST, Supply, 172, cm, 04/14/21 5:19:00 EST, Height, 80, kg, 04/13/21 0:09:00 EST, Dry Weight Start Date: 04/14/21 Status: Orderedlisinopril 10 mg oral tablet 10 mg, 1, tablet, By Mouth, Daily, # 30 tablet, Refills 0, Tot. Refills 0, Maintenance, 04/14/21 10:21:00 EST, Route to Pharmacy Electronically, [facility], Partial fill upon patient request if the prescription is for a schedule II opioi... Start Date: 04/14/21 Status: OrderedmetFORMIN 750 mg oral tablet, extended release 1 tablet = 750 mg, By Mouth, 2 times a day, # 60 tablet, 0 Refills, Maintenance, 04/14/21 10:21:00 EST, ER Tablet, [facility], Partial fill upon patient request if the prescription is fora schedule II opioid drug., 172, cm, 04/14/21 5:1... Start Date: 04/14/21 Status: Orderedmetoprolol succinate 50 mg oral capsule, extended release 1 capsule = 50 mg, By Mouth, Daily, # 30 capsule, 0 Refills, Maintenance, 04/14/21 10:20:00 EST, ER Capsule, [facility], Partial fill upon patient request, 172, cm, 04/14/21 5:19:00 EST, Height, 80, kg, 04/13/21 0:09:00 EST, Dry Weight Start Date: 04/14/21 Status: Orderednicotine 4 mg oral transmucosal lozenge 1 lozenge = 4 mg, By Mouth, Every hour, PRN Other, for 6 week(s), Nicotine Withdrawal Symptoms (not to exceed 20 lozenges per day), # 132 lozenge, 0 Refills, Acute 05/26/21 10:21:00 EST, 04/14/21 10:21:00 EST, Lozenge, [facility], Partia... Start Date: 04/14/21 Stop Date: 05/26/21 Status: Orderedomeprazole 40 mg oral enteric coated capsule 1 capsule = 40 mg, By Mouth, Daily, Maintenance, 04/13/21 17:12:00 EST, EC Capsule Start Date: 04/13/21 Status: Orderedthiamine 100 mg oral tablet 100 mg, 1, tablet, By Mouth, Daily, for 30 days, # 30 tablet, Refills 0, Tot. Refills 0, Acute 05/14/21 10:18:00 EST, 04/14/21 10:18:00 EST, Route to Pharmacy Electronically, [facility], Partial fill upon patient request if the prescript... Start Date: 04/14/21 Stop Date: 05/14/21 Status: OrderedTrelegy Ellipta 200 mcg-62.5 mcg-25 mcg/inh inhalation powder 1 puffs, Inhalation, Daily, at the same time every day, # 1 each, 0 Refills, Maintenance, 04/14/21 10:19:00 EST, Powder, [facility], Partial fill upon patient request if the prescription is for a schedule II opioid drug., 1 puffs Inhalat... Start Date: 04/14/21 Status: Ordered Results Radiology Reports Exam Date Time Procedure Performing Provider Status 04/12/21 1:23 PM Chest Portable Moisés Stauffer (Verified ) Notes:(Chest Portable) Reason For Exam: Other:RESULT: Chest Portable Chest Portable INDICATION/CLINICAL QUESTION: Weakness. Hyperglycemia. Concern is pneumonia. TECHNIQUE: AP chest at 1304 hours 04/12/2021. COMPARISON: 05/01/2021. FINDINGS: LINES AND TUBES: Absent. LUNGS AND PLEURA: RIGHT CHEST: The lung is clear with no effusion. LEFT CHEST: The lung is clear with no effusion. HEART AND MEDIASTINAL CONTOURS: . BONES AND SOFT TISSUES: No acute abnormality.. IMPRESSION: 1. No abnormality seen. WSN: [id number] Ordering Physician: Stephanie Padilla Dictated By: Cameron Castrejon MD Dictated Date/Time: 04/12/21 1:46 pm Reviewed By: Cameron Castrejon MD Signed By: Cameron Castrejon MD Signed Date/Time: 04/12/21 1:46 pm Transcribed By: JASON Transcribed Date/Time: 04/12/21 1:46 pm Vital Signs Most recent to oldest 1 2 3 [Reference Range]: Height 172 cm 172 cm 172 cm (04/14/21 5:19 AM) (04/13/21 8:13 PM) (04/13/21 4:4 7 PM) Weight 80 kg (04/12/21 10:02 PM) Oxygen Saturation [94-100 93 % 100 % 97 % %] *L* (04/13/21 8:13 PM) (04/13/21 4:47 PM) (04/14/21 5:19 AM) Pulse Rate [55-90 bpm] 77 bpm 76 bpm 70 bpm (04/14/21 5:19 AM) (04/13/21 8:13 PM) (04/13/21 4:4 7 PM) Body Mass Index 27.04 [18.5-24.99] *H* (04/12/21 10:02 PM) Blood Pressure 116/51 mm Hg 114/64 mm Hg 106/66 mm Hg [90-138/55-84 mm Hg] (04/14/21 5:19 AM) (04/13/21 8:13 PM) ( 1 4:47 PM) Respiratory Rate [16-30 20 br/min 18 br/min 18 br/mi n br/min] (04/14/21 5:19 AM) (04/13/21 8:13 PM) (04/13/21 4:4 7 PM) Temperature [96.8-100.4 98.0 DegF 98.0 DegF 98.6 Deg F DegF] (04/14/21 5:19 AM) (04/13/21 8:13 PM) (04/13/21 4:4 7 PM) Mode of Delivery (Oxygen) Room air Room air Room a ir (04/14/21 5:19 AM) (04/13/21 8:13 PM) (04/13/21 4:4 7 PM) Blood pressure sites Arm, right Arm, left Leg, left (04/14/21 5:19 AM) (04/13/21 8:13 PM) (04/13/21 4:4 7 PM) Temperature Route Oral Temporal Oral (04/14/21 5:19 AM) (04/13/21 8:13 PM) (04/13/21 4:4 7 PM) Dry Weight 80 kg (04/12/21 10:02 PM) Weight Obtained Via Patient/family stated (04/12/21 10:02 PM)
--- OUTSIDE RECORDS SUMMARY | 2022-05-13 21:45 | XMS_ITS | Continuity of Care Document ---
:1965 Author Organization [facility] Address [address] [place] [address]- Care Team Providers Name Role Phone Avani Duarte Primary Care Physician [place] [facility] [place]s): 02/24/22 - 03/26/22 [facility] [address] [place] [id number] Allergies, Adverse Reactions, Alerts Substance Reaction Severity Status Bee Stings anaphalyxis Active Immunizations Given and Recorded Vaccine Date Status Refusal Reason SARS-CoV-2 mRNA ([id number]) vax 11/11/21 Recorde d influenza virus vaccine, [...] Vaccine Date Status Refusal Reason SARS-CoV-2 mRNA ([id number]) 01/15/22 Not Given Parent Or Guardian Refuses [...] 02/09/22 9:53:00 EDT, Route to Pharmacy Electronically, [facility], Partial fill upon patient request if the prescription is for a schedule II opioid drug., 173... Start Date: 02/09/22 Stop Date: 03/11/22 Status: Orderedatorvastatin 80 mg oral tablet 1 tablet = 80 mg, By Mouth, Daily at bedtime, # 30 tablet, 0 Refills, Maintenance, 02/09/22 9:53:00 EDT, Tablet, [facility], Partial fill upon patient request if the prescription is for aschedule II opioid drug., mari Chowdhury, 02/08/22 19:40... Start Date: 02/09/22 Status: Orderedcitalopram 20 mg oral tablet 1 tablet = 20 mg, By Mouth, Daily, # 30 tablet, 0 Refills, Maintenance, 02/09/22 9:53:00 EDT, Tablet, [facility], Partial fill upon patient request if the prescription is for a schedule II opioid drug., mari Chowdhury, 02/08/22 19:40:00 EDT, He... Start Date: 02/09/22 Status: Orderedcyclobenzaprine 10 mg oral tablet 10 mg, 1, tablet, By Mouth, 3 times a day, PRN, # 30 tablet, Refills 1, Tot. Refills 1, Maintenance,for spasm, 02/09/22 9:53:00 EDT, Route to Pharmacy Electronically, [facility], Partialfill upon patient request if the prescription is... Start Date: 02/09/22 Status: Ordereddivalproex sodium 250 mg oral tablet, extended release 5 tablet = 1,250 mg, By Mouth, Daily at bedtime, # 150 tablet, 0 Refills, Maintenance, 02/09/22 9:54:00 EDT, ER Tablet, [facility], Partial fill upon patient request if the prescription is for a schedule II opioid drug., mari Chowdhury, ... Start Date: 02/09/22 Status: Orderedfolic acid 1 mg oral tablet 1 mg, 1, tablet, By Mouth, Daily, # 30 tablet, Refills 0, Tot. Refills 0, Maintenance, 02/09/22 9:54:00 EDT, Route to Pharmacy Electronically, [facility], Partial fill upon patient request if [...] 02/09/22 9:54:00 EDT, Route to Pharmacy Electronically, [facility], Partial fill upon patient request if [...] mL, 0 Refills, Maintenance, 02/09/22 9:54:00EDT, Injection, [facility], Partial fill upon patient [...] tablet, 11 Refills, Maintenance, 02/23/22 9:24:00 EDT,Tablet, [facility], Partial fill upon patient [...] 02/09/22 9:54:00 EDT, Route to Pharmacy Electronically, [facility], Partial fill upon patient request if the prescription is for a schedule II opioid... Start Date: 02/09/22 Status: OrderedmetFORMIN 500 mg oral tablet 2 tablet = 1,000 mg, By Mouth, 2 times a day, # 120 tablet, 0 Refills, Maintenance, 02/09/22 9:54:00EDT, Tablet, [facility], Partial fill upon patient request if the prescription is for a schedule II opioid drug., 173, cm, 02/08/22 19:4... Start Date: 02/09/22 Status: Orderedmetoprolol 50 mg oral tablet, extended release 50 mg, 1, tablet, By Mouth, Daily, # 30 tablet, Refills 0, Tot. Refills 0, Maintenance, 02/09/22 9:54:00 EDT, Route to Pharmacy Electronically, [facility], Partial fill upon patient request if the prescription is for a schedule II opioid... Start Date: 02/09/22 Status: Orderedmultivitamin with minerals Multiple Vitamins with Minerals oral capsule 1 tablet, By Mouth, Daily, # 30 tablet, 0 Refills, Maintenance, 02/09/22 9:56:00 EDT, Capsule, [facility], Partial fill upon patient request if the prescription is for a schedule II opioid drug., 1 tablet By Mouth Daily, 173, cm, ... Start Date: 02/09/22 Status: OrderedNicoderm C-Q Clear 21 mg/24 hr transdermal film, extended release 1 patch, Topically, Daily, # 30 patch, 0 Refills, Maintenance, 02/09/22 9:55:00 EDT, [facility], Partial fill upon patient request if the prescription is for a schedule II opioid drug., 173, cm, 02/08/22 19:40:00 EDT, Height, 89.2... Start Date: 02/09/22 Status: Orderednicotine 4 mg oral transmucosal gum = 4 mg, Chew, Every hour, PRN Other, Nicotine Withdrawal Symptoms (NOT to exceed 24 pieces per day),# 160 each, 0 Refills, Maintenance, 02/09/22 9:55:00 EDT, Gum, [facility], Partial fill upon patient request if the prescription is for... Start Date: 02/09/22 Status: Orderedomeprazole 40 mg oral enteric coated capsule 1 capsule = 40 mg, By Mouth, Daily, # 30 capsule, 0 Refills, Maintenance, 02/09/22 9:53:00 EDT, Suspension, [facility], Partial fill upon patient [...] 02/09/22 9:54:00 EDT, Route to Pharmacy Electronically, [facility], Partial fill upon patient request if the prescription is for a schedu... Start Date: 02/09/22 Status: Orderedpyridoxine 50 mg oral tablet 50 mg, 1, tablet, By Mouth, Daily, # 30 tablet, Refills 0, Tot. Refills 0, Maintenance, 02/09/22 9:54:00 EDT, Route to Pharmacy Electronically, [facility], Partial fill upon patient request if the prescription is for a schedule II opioid... Start Date: 02/09/22 Status: Orderedthiamine 100 mg oral tablet 100 mg, 1, tablet, By Mouth, Daily, # 30 tablet, Refills 0, Tot. Refills 0, Maintenance, 02/09/22 9:54:00 EDT, Route to Pharmacy Electronically, [facility], Partial fill upon patient request if the prescription is for a schedule II opioi... Start Date: 02/09/22 Status: OrderedtraZODone 50 mg oral tablet 50 mg, 1, tablet, By Mouth, Daily at bedtime, # 30 tablet, Refills 0, Tot. Refills 0, Maintenance, 02/09/22 9:55:00 EDT, Route to Pharmacy Electronically, [facility], Partial fill upon patient request if the prescription is for a schedul... Start Date: 02/09/22 Status: OrderedTrelegy Ellipta 200 mcg-62.5 mcg-25 mcg/inh inhalation powder 1 puffs, Inhalation, Daily, at the same time every day, # 1 each, 0 Refills, Maintenance, 02/09/22 9:56:00 EDT, Powder, [facility], Partial fill upon patient [...] team information PersonnelName: Avani Duarte Address: Address: [address] [place] [address]
--- OUTSIDE RECORDS SUMMARY | 2022-05-13 21:45 | XMS_ITS | Continuity of Care Document ---
:1965 Author Organization [facility] Address [address] [place] [id number]- Care Team Providers Name Role Phone Yoana PRICE, Mike Primary Care Physician [place] [facility] [place]17[place] 01/02/21 [facility] [address] [place] [id number] Attending Physician: Boy Street MD Admitting Physician: Boy Street MD Referring Physician: Aylin Chu MD Allergies, Adverse Reactions, Alerts Substance Reaction Severity Status Bee Stings anaphalyxis Active Immunizations Not Given Vaccine Date Status Refusal Reason influenza virus vaccine, inactivated1 05/02/20 Not Given Patient Refuses 1Result Comment: pt does not ever get flu shot Medications aspirin (OP) = 81 mg, Daily, 0 Refills, Maintenance, 2 Start Date: 05/01/20 Status: Orderedatorvastatin 80 mg oral tablet 1 tablet = 80 mg, By Mouth, Daily, # 30 tablet, 0 Refills, Maintenance, 05/01/20 21:57:00 EST, Tablet, Partial fill upon patient request Start Date: 05/01/20 Status: OrderedGabapentin By Mouth, 0 Refills, Maintenance, 05/01/20 21:57:00 EST, Partial fill upon patient request Start Date: 05/01/20 Status: OrderedJardiance By Mouth, Daily in AM, 0 Refills, Maintenance, 05/01/20 21:57:00 EST, Partial fill upon patient request Start Date: 05/01/20 Status: OrderedLantus Inj See Instructions, 40 units in morning, 60 units in evening, 0 Refills, Maintenance, 05/01/20 18:10:00 EST, Partial fill upon patient request Start Date: 05/01/20 Status: Orderedlisinopril 10 mg oral tablet 10 mg, 1, tablet, By Mouth, Daily, Refills 0, Maintenance, 05/02/20 15:09:00 EST, Partial fill upon patient request Start Date: 05/02/20 Status: Orderedmetoprolol succinate 50 mg oral capsule, extended release 1 capsule = 50 mg, By Mouth, Daily, # 30 capsule, 0 Refills, Maintenance, 05/02/20 15:10:00 EST, ER Capsule, Partial fill upon patient request Start Date: 05/02/20 Status: OrderedPrilosec OTC = 20 mg, By Mouth, Daily, 0 Refills, Maintenance, 05/01/20 21:58:00 EST, Partial fill upon patient request Start Date: 05/01/20 Status: Ordered
--- OUTSIDE RECORDS SUMMARY | 2022-05-13 21:45 | XMS_ITS | Continuity of Care Document ---
:1965 Author Organization [facility] Address [address] [place] [address]- Care Team Providers Name Role Phone Avani Duarte Primary Care Physician Encounter [facility] Date(s): 06/26/21 - 07/26/21 [facility] [address] [place] [id number] Attending Physician: AdmBarbara valenzuela Admitting Physician: Admtr, [id number] Referring Physician: Admtr, [id number] Allergies, Adverse Reactions, [...] 0 Refills, Maintenance, 04/14/21 10:20:00 EST, Tablet, [facility], Partial fill upon patient request if the prescription is for a schedule II opioid drug., 172, cm, 04/14/21 5:19:00 EST, He... Start Date: 04/14/21 Status: Orderedcitalopram 40 mg oral tablet 40 mg, 1, tablet, By Mouth, Daily, # 30 tablet, Refills 0, Tot. Refills 0, Maintenance, 07/21/21 11:41:00 EST, Route to Pharmacy Electronically, [facility], Partial fill upon patient request if the prescription is for a schedule II opioi... Start Date: 07/21/21 Status: Orderedcyclobenzaprine 10 mg oral tablet 10 mg, 1, tablet, By Mouth, Daily at bedtime, # 14 tablet, Refills 5, Maintenance, 04/12/21 21:05:00EST, Partial fill upon patient request if the prescription is for a schedule II opioid drug. Start Date: 04/12/21 Status: Ordereddivalproex sodium 250 mg oral tablet, extended release 5 tablet = 1,250 mg, By Mouth, Daily at bedtime, # 150 tablet, 0 Refills, Maintenance, 07/21/21 11:19:00 EST, ER Tablet, [facility], Partial fill upon patient request if the prescription is for a schedule II opioid drug., 173, cm, ... Start Date: 07/21/21 Status: Orderedfolic acid 1 mg oral tablet 1 mg, 1, tablet, By Mouth, Daily, # 30 tablet, Refills 0, Tot. Refills 0, Maintenance, 07/21/21 11:19:00 EST, Route to Pharmacy Electronically, [facility], Partial fill upon patient request if the prescription is for a schedule II opioid... Start Date: 07/21/21 Status: Orderedgabapentin 300 mg oral capsule 300 [...] Date: 04/14/21 Status: OrderedInsulin Glargine Inj = 35 units, Subcutaneous Injection, Daily at bedtime, 0 Refills, Maintenance, 07/21/21 11:40:00 EST,Injection, Partial fill upon patient request if the prescription is for a schedule II opioid drug. Start Date: 07/21/21 Status: OrderedInsulin Glargine Inj = 20 units, Subcutaneous Injection, Daily in AM, 0 Refills, Maintenance, 07/21/21 11:40:00 EST, Injection, Partial fill upon patient request if the prescription is for a schedule II opioid drug. Start Date: 07/21/21 Status: OrderedInsulin Lispro 14-22 units, Subcutaneous Injection, 3 times a day before meals, << Sliding Scale Comments >> 100 - 149 14 units Call if less than 70 150 - 199 16 units 200 - 249 18 units 250 - 299 20 units 300 - 349 22 units Call if greater than 40... Start Date: 07/21/21 Status: OrderedInsulin Syringes See Instructions, # 90 each, Maintenance, Freestyle if possible, 04/14/21 10:22:00 EST, Supply, 172,cm, 04/14/21 5:19:00 EST, Height, 80, kg, 04/13/21 0:09:00 EST, Dry Weight Start Date: 04/14/21 Status: OrderedJardiance 25 mg oral tablet 1 tablet = 25 mg, By Mouth, Daily in AM, # 30 tablet, 6 Refills, Maintenance, 05/27/21 11:39:00 EST,Tablet, [facility], Partial fill upon patient [...] 04/14/21 10:21:00 EST, Route to Pharmacy Electronically, [facility], Partial fill upon patient request if the prescription is for a schedule II opioi... Start Date: 04/14/21 Status: OrderedmetFORMIN 750 mg oral tablet, extended release 1 tablet = 750 mg, By Mouth, 2 times a day, # 60 tablet, 0 Refills, Maintenance, 04/14/21 10:21:00 EST, ER Tablet, [facility], Partial fill upon patient request if the prescription is fora schedule II opioid drug., 172, cm, 04/14/21 5:1... Start Date: 04/14/21 Status: Orderedmetoprolol succinate 50 mg oral capsule, extended release 1 capsule = 50 mg, By Mouth, Daily, # 30 capsule, 0 Refills, Maintenance, 04/14/21 10:20:00 EST, ER Capsule, [facility], Partial fill upon patient request, 172, cm, 04/14/21 5:19:00 EST, Height, 80, kg, 04/13/21 0:09:00 EST, Dry Weight Start Date: 04/14/21 Status: Orderedmultivitamin with minerals Multiple Vitamins with Minerals oral capsule 1 tablet, By Mouth, Daily, # 30 tablet, 0 Refills, Maintenance, 07/21/21 11:19:00 EST, Capsule, [facility], Partial fill upon patient [...] 80, kg, ... Start Date: 05/28/21 Status: OrderedSEROquel 50 mg oral tablet 1 tablet = 50 mg, By Mouth, 2 times a day, PRN Other, Take 1 tablet as needed for anxiety or insomnia, # 60 tablet, 0 Refills, Maintenance, 07/21/21 11:21:00 EST, Tablet, [facility], Partial fill upon patient request if the prescription... Start Date: 07/21/21 Status: Orderedthiamine 100 mg oral tablet 100 mg, 1, tablet, By Mouth, Daily, # 30 tablet, Refills 0, Tot. Refills 0, Maintenance, 07/21/21 11:19:00 EST, Route to Pharmacy Electronically, [facility], Partial fill upon patient request if the prescription is for a schedule II opio... Start Date: 07/21/21 Status: OrderedtraZODone 50 mg oral tablet 50 mg, 1, tablet, By Mouth, Daily at bedtime, PRN, # 30 tablet, Refills 0, Tot. Refills 0, Maintenance, Insomnia, 07/21/21 11:20:00 EST, Route to Pharmacy Electronically, [facility], Partial fill upon patient request if the prescription... Start Date: 07/21/21 Status: OrderedTrelegy Ellipta 200 mcg-62.5 mcg-25 mcg/inh inhalation powder 1 puffs, Inhalation, Daily, at the same time every day, # 1 each, 0 Refills, Maintenance, 04/14/21 10:19:00 Sudheer DIAMOND, [facility], Partial fill upon patient request if the prescription is for a schedule II opioid drug., 1 puffs Inhalat... Start Date: 04/14/21 Status: Ordered
--- OUTSIDE RECORDS SUMMARY | 2022-05-13 21:45 | XMS_ITS | Continuity of Care Document ---
:1965 Author Organization [facility] Address [address] [place] [address]- Care Team Providers Name Role Phone Avani Duarte Primary Care Physician Encounter [facility] [place] Date(s[place] 01/10/22 - 01/11/[address] [address]- Encounter Diagnosis Depression (Final) - 01/10/22 Suicide attempt (Final) - 01/10/22 Discharge Disposition: A-D/C Home Attending Physician: Aakash Arellano MD Admitting Physician: Cameron Guo MD Referring Physician: Not on Staff, Referring [...] 12:02:00 EST, Route to Pharmacy Electronically, [facility], Partial fill upon patient request if the prescription is for a schedule II opioid drug., 17... Start Date: 08/10/21 Stop Date: 09/09/21 Status: Orderedatorvastatin 80 mg oral tablet 1 tablet = 80 mg, By Mouth, Daily, # 30 tablet, 0 Refills, Maintenance, 04/14/21 10:20:00 EST, Tablet, [facility], Partial fill upon patient request if the prescription is for a schedule II opioid drug., 172, cm, 04/14/21 5:19:00 EST, He... Start Date: 04/14/21 Status: OrderedcarBAMazepine 200 mg oral tablet TAKE 1 TABLET BY MOUTH TWICE A DAY Start Date: 12/07/21 Status: Ordereddivalproex sodium 250 mg oral tablet, extended release 5 tablet = 1,250 mg, By Mouth, Daily at bedtime, # 150 tablet, 0 Refills, Maintenance, 07/21/21 11:19:00 EST, ER Tablet, [facility], Partial fill upon patient request if [...] drug. Start Date: 01/11/22 Status: OrderedInsulin Lispro 2-10 units, Subcutaneous Injection, 3 times a day before meals, << Sliding Scale Comments >> 150 - 199 2 units Call if less than 70 200 - 249 4 units 250 - 299 6 units 300 - 349 8 units 350- 399 10 units Call if greater than 400 <<... Start Date: 01/11/22 Status: OrderedInsulin Syringes See Instructions, # 90 each, Maintenance, Freestyle if possible, 04/14/21 10:22:00 EST, Supply, 172,cm, 04/14/21 5:19:00 EST, Height, 80, kg, 04/13/21 0:09:00 EST, Dry Weight Start Date: 04/14/21 Status: OrderedJardiance 25 mg oral tablet 1 tablet = 25 mg, By Mouth, Daily in AM, # 30 tablet, 6 Refills, Maintenance, 08/27/21 10:53:00 EDT,Tablet, [facility], Partial fill upon patient request if [...] 04/14/21 10:21:00 EST, Route to Pharmacy Electronically, [facility], Partial fill upon patient request if the prescription is for a schedule II opioi... Start Date: 04/14/21 Status: Orderedlisinopril 10 mg oral tablet 10 mg, Tablet, By Mouth, 01/11/22 9:00:00 EDT Start Date: 01/11/22 Stop Date: 01/11/22 Status: CompletedmetFORMIN 750 mg oral tablet, extended release 1 tablet = 750 mg, By Mouth, 2 times a day, # 60 tablet, 0 Refills, Maintenance, 04/14/21 10:21:00 EST, ER Tablet, [facility], Partial fill upon patient request if the prescription is fora schedule II opioid drug., 172, cm, 04/14/21 5:1... Start Date: 04/14/21 Status: Orderedmetoprolol 50 mg oral tablet, extended release 50 mg, XL Tablet, By Mouth, 01/11/22 9:00:00 EDT Start Date: 01/11/22 Stop Date: 01/11/22 Status: Completedmetoprolol succinate 50 mg oral capsule, extended release [...] 0 Refills, Maintenance, 07/21/21 11:19:00 EST, Capsule, [facility], Partial fill upon patient [...] 1 tablet = 50 mg, By Mouth, Daily, PRN Other, Take 1 tablet as needed for anxiety or insomnia, # 30 tablet, 0 Refills, Maintenance, 08/10/21 10:53:00 EST, Tablet, [facility], Partial fillupon patient request if the prescription is for a... Start Date: 08/10/21 Stop Date: 09/09/21 Status: Orderedthiamine 100 mg oral tablet 100 mg, 1, tablet, By Mouth, Daily, # 30 tablet, Refills 0, Tot. Refills 0, Maintenance, 07/21/21 11:19:00 EST, Route to Pharmacy Electronically, [facility], Partial fill upon patient request if the prescription is for a schedule II opio... Start Date: 07/21/21 Status: OrderedtraZODone 50 mg oral tablet 50 mg, 1, tablet, By Mouth, Daily at bedtime, PRN, # 30 tablet, Refills 0, Tot. Refills 0, Maintenance, Insomnia, 07/21/21 11:20:00 EST, Route to Pharmacy Electronically, [facility], Partial fill upon patient request if the prescription... Start Date: 07/21/21 Status: OrderedTrelegy Ellipta 200 mcg-62.5 mcg-25 mcg/inh inhalation powder 1 puffs, Inhalation, Daily, at the same time every day, # 1 each, 0 Refills, Maintenance, 04/14/21 10:19:00 EST, Powder, [facility], Partial fill upon patient request if the prescription is for a schedule II opioid drug., 1 puffs Inhalat... Start Date: 04/14/21 Status: Ordered Problem List Condition Effective Dates Status Health Status Informant CVA (cerebrovascular Active accident)(Confirmed) CAD (coronary artery Active disease)(Confirmed) HTN (hypertension)(Confirmed) Active Polysubstance abuse(Confirmed) Active Type 2 diabetes mellitus(Confirmed) Active Vital Signs Most recent to oldest [Reference 1 2 3 Range]: Oxygen Saturation [94-100 %] 97 % 96 % 96 % (01/11/22 10:45 AM) (01/11/22 9:56 AM) (01/11/22 7:55 AM) Pulse Rate [55-90 bpm] 75 bpm 77 bpm 75 bpm (01/11/22 10:45 AM) (01/11/22 9:56 AM) (01/11/22 8:23 AM) Blood Pressure [90-138/55-84 mm 126/66 mm Hg 126/75 mm Hg 126/65 mm Hg Hg] (01/11/22 10:45 AM) (01/11/22 10:00 AM) (01/11/22 9:56 AM) Respiratory Rate [16-30 br/min] 18 br/min 18 br/min 16 br/min (01/11/22 10:45 AM) (01/11/22 9:56 AM) (01/11/22 7:55 AM) Temperature [96.8-100.4 DegF] 98.1 DegF 98.3 DegF 98 .3 DegF (01/11/22 9:56 AM) (01/11/22 5:25 AM) (01/11/22 2:20 A M) Mode of Delivery (Oxygen) Room air Room air Room a ir (01/11/22 10:45 AM) (01/11/22 9:56 AM) (01/11/22 7:55 AM) Blood pressure sites Arm, right Arm, right Arm, right (01/11/22 10:45 AM) (01/11/22 9:56 AM) (01/11/22 7:55 AM) Temperature Route Oral Oral Oral (01/11/22 9:56 AM) (01/11/22 5:25 AM) (01/11/22 2:20 A M) Social History Social History Type Response Smoking Status Smoker, current status unkno wn entered on: 07/31/21 Sex
--- OUTSIDE RECORDS SUMMARY | 2022-05-13 21:45 | XMS_ITS | Continuity of Care Document ---
:1965 Author Organization [facility] Address [address] [place] [address]- Care Team Providers Name Role Phone Avani Duarte Primary Care Physician Encounter [facility] [place](s[place] 02/19/22 - 03/21/22 [facility] [address] [place] [id number] Allergies, Adverse Reactions, Alerts Substance Reaction Severity Status Bee Stings anaphalyxis Active Immunizations Given and Recorded Vaccine Date Status Refusal Reason SARS-CoV-2 mRNA ([id number]) vax 11/11/21 Recorde d influenza virus vaccine, [...] Vaccine Date Status Refusal Reason SARS-CoV-2 mRNA ([id number]) 01/15/22 Not Given Parent Or Guardian Refuses [...] 02/09/22 9:53:00 EDT, Route to Pharmacy Electronically, [facility], Partial fill upon patient request if the prescription is for a schedule II opioid drug., 173... Start Date: 02/09/22 Stop Date: 03/11/22 Status: Orderedatorvastatin 80 mg oral tablet 1 tablet = 80 mg, By Mouth, Daily at bedtime, # 30 tablet, 0 Refills, Maintenance, 02/09/22 9:53:00 EDT, Tablet, [facility], Partial fill upon patient request if the prescription is for aschedule II opioid drug., 173, cm, 02/08/22 19:40... Start Date: 02/09/22 Status: Orderedcitalopram 20 mg oral tablet 1 tablet = 20 mg, By Mouth, Daily, # 30 tablet, 0 Refills, Maintenance, 02/09/22 9:53:00 EDT, Tablet, [facility], Partial fill upon patient request if the prescription is for a schedule II opioid drug., 173 cm, 02/08/22 19:40:00 EDT, He... Start Date: 02/09/22 Status: Orderedcyclobenzaprine 10 mg oral tablet 10 mg, 1, tablet, By Mouth, 3 times a day, PRN, # 30 tablet, Refills 1, Tot. Refills 1, Maintenance,for spasm, 02/09/22 9:53:00 EDT, Route to Pharmacy Electronically, [facility], Partialfill upon patient request if the prescription is... Start Date: 02/09/22 Status: Ordereddivalproex sodium 250 mg oral tablet, extended release 5 tablet = 1,250 mg, By Mouth, Daily at bedtime, # 150 tablet, 0 Refills, Maintenance, 02/09/22 9:54:00 EDT, ER Tablet, [facility], Partial fill upon patient request if the prescription is for a schedule II opioid drug., 173, cm, ... Start Date: 02/09/22 Status: Orderedfolic acid 1 mg oral tablet 1 mg, 1, tablet, By Mouth, Daily, # 30 tablet, Refills 0, Tot. Refills 0, Maintenance, 02/09/22 9:54:00 EDT, Route to Pharmacy Electronically, [facility], Partial fill upon patient request [...] 02/09/22 9:54:00 EDT, Route to Pharmacy Electronically, [facility], Partial fill upon patient request [...] mL, 0 Refills, Maintenance, 02/09/22 9:54:00EDT, Injection, [facility], Partial fill upon patient request [...] tablet, 11 Refills, Maintenance, 02/23/22 9:24:00 EDT,Tablet, [facility], Partial fill upon patient request [...] 02/09/22 9:54:00 EDT, Route to Pharmacy Electronically, [facility], Partial fill upon patient request if the prescription is for a schedule II opioid... Start Date: 02/09/22 Status: OrderedmetFORMIN 500 mg oral tablet 2 tablet = 1,000 mg, By Mouth, 2 times a day, # 120 tablet, 0 Refills, Maintenance, 02/09/22 9:54:00EDT, Tablet, [facility], Partial fill upon patient request if the prescription is for a schedule II opioid drug., 173, cm, 02/08/22 19:4... Start Date: 02/09/22 Status: Orderedmetoprolol 50 mg oral tablet, extended release 50 mg, 1, tablet, By Mouth, Daily, # 30 tablet, Refills 0, Tot. Refills 0, Maintenance, 02/09/22 9:54:00 EDT, Route to Pharmacy Electronically, [facility], Partial fill upon patient request if the prescription is for a schedule II opioid... Start Date: 02/09/22 Status: Orderedmultivitamin with minerals Multiple Vitamins with Minerals oral capsule 1 tablet, By Mouth, Daily, # 30 tablet, 0 Refills, Maintenance, 02/09/22 9:56:00 EDT, Capsule, [facility], Partial fill upon patient request if the prescription is for a schedule II opioid drug., 1 tablet By Mouth Daily, 173, cm, ... Start Date: 02/09/22 Status: OrderedNicoderm C-Q Clear 21 mg/24 hr transdermal film, extended release 1 patch, Topically, Daily, # 30 patch, 0 Refills, Maintenance, 02/09/22 9:55:00 EDT, Patch, [facility], Partial fill upon patient request if the prescription is for a schedule II opioid drug., 173, cm, 02/08/22 19:40:00 EDT, Height, 89.2... Start Date: 02/09/22 Status: Orderednicotine 4 mg oral transmucosal gum = 4 mg, Chew, Every hour, PRN Other, Nicotine Withdrawal Symptoms (NOT to exceed 24 pieces per day),# 160 each, 0 Refills, Maintenance, 02/09/22 9:55:00 EDT, Gum, [facility], Partial fill upon patient request if the prescription is for... Start Date: 02/09/22 Status: Orderedomeprazole 40 mg oral enteric coated capsule 1 capsule = 40 mg, By Mouth, Daily, # 30 capsule, 0 Refills, Maintenance, 02/09/22 9:53:00 EDT, Suspension, [facility], Partial fill upon patient request [...] 02/09/22 9:54:00 EDT, Route to Pharmacy Electronically, [facility], Partial fill upon patient request if the prescription is for a schedu... Start Date: 02/09/22 Status: Orderedpyridoxine 50 mg oral tablet 50 mg, 1, tablet, By Mouth, Daily, # 30 tablet, Refills 0, Tot. Refills 0, Maintenance, 02/09/22 9:54:00 EDT, Route to Pharmacy Electronically, [facility], Partial fill upon patient request if the prescription is for a schedule II opioid... Start Date: 02/09/22 Status: Orderedthiamine 100 mg oral tablet 100 mg, 1, tablet, By Mouth, Daily, # 30 tablet, Refills 0, Tot. Refills 0, Maintenance, 02/09/22 9:54:00 EDT, Route to Pharmacy Electronically, [facility], Partial fill upon patient request if the prescription is for a schedule II opioi... Start Date: 02/09/22 Status: OrderedtraZODone 50 mg oral tablet 50 mg, 1, tablet, By Mouth, Daily at bedtime, # 30 tablet, Refills 0, Tot. Refills 0, Maintenance, 02/09/22 9:55:00 EDT, [facility] fill upon patient request if the prescription is for a schedul... Start Date: 02/09/22 Status: OrderedTrelegy Ellipta 200 mcg-62.5 mcg-25 mcg/inh inhalation powder 1 puffs, Inhalation, Daily, at the same time every day, # 1 each, 0 Refills, Maintenance, 02/09/22 9:56:00 EDT, Powder, [facility], Partial fill upon patient request [...] information PersonnelName: Avani Duarte Address: Address: [address] [place] [address]
--- OUTSIDE RECORDS SUMMARY | 2022-05-13 21:45 | XMS_ITS | Continuity of Care Document ---
:1965 Author Organization [facility] Address [address] [place] [address]- Care Team Providers Name Role Phone Avani Duarte Primary Care Physician [place] [facility] [place]22 - 02/04/[address] [address]- Encounter Diagnosis Overdose (Final) - 01/31/22 Discharge Disposition: Transfer to Psych Facility Attending Physician: Ruben PRABHAKAR, Priya Villareal Admitting Physician: Papito Jones MD Referring Physician: Not on Staff, Referring MD Allergies, Adverse Reactions, Alerts Substance Reaction Severity Status Bee Stings anaphalyxis Active Immunizations Given and Recorded Vaccine Date Status Refusal Reason SARS-CoV-2 mRNA ([id number]) vax 11/11/21 Recorde d influenza virus vaccine, [...] Vaccine Date Status Refusal Reason SARS-CoV-2 mRNA ([id number]) 01/15/22 Not Given Parent Or Guardian Refuses [...] 08/10/21 12:02:00 EST, Route to Pharmacy Electronically, [facility], Partial fill upon patient request if the prescription is for a schedule II opioid drug., 17... Start Date: 08/10/21 Stop Date: 09/09/21 Status: Orderedatorvastatin 80 mg oral tablet 1 tablet = 80 mg, By Mouth, Daily at bedtime, # 30 tablet, 0 Refills, Maintenance, 04/14/21 10:20:00EST, Tablet, [facility], Partial fill upon patient request if [...] Refills, Maintenance, 07/21/21 11:19:00 EST, ER Tablet, [facility], Partial fill upon patient request if the prescription is for a schedule II opioid drug., 173, cm, ... Start Date: 07/21/21 Status: Orderedfolic acid 1 mg oral tablet 1 mg, 1, tablet, By Mouth, Daily, Refills 0, Maintenance, 02/03/22 11:54:00 EDT, Partial fill upon patient request if the prescription is for a schedule II opioid drug. Start Date: 02/03/22 Status: OrderedFreestyle lite test strips Freestyle lite [...] Start Date: 04/14/21 Status: OrderedInsulin Glargine Inj 0.26 mL = 26 units, Subcutaneous Injection, 2 times a day, 0 Refills, Maintenance, 02/03/22 11:54:00EDT, Injection, Partial fill upon patient request if the prescription is for a schedule II opioid drug. Start Date: 02/03/22 Status: Orderedinsulin lispro 100 u/ml subcutaneous injection 3-11 units, Subcutaneous Injection, 3 times a day before meals, 0 Refills, Maintenance, 02/03/22 11:54:00 EDT, Injection, Partial fill upon patient request if the prescription is for a schedule II opioid drug. Start Date: 02/03/22 Status: OrderedInsulin Syringes See Instructions, # 90 each, Maintenance, Freestyle if possible, 04/14/21 10:22:00 EST, Supply, 172,cm, 04/14/21 5:19:00 EST, Height, 80, kg, 04/13/21 0:09:00 EST, Dry Weight Start Date: 04/14/21 Status: OrderedJardiance 25 mg oral tablet 1 tablet = 25 mg, By Mouth, Daily in AM, # 30 tablet, 6 Refills, Maintenance, 08/27/21 10:53:00 EDT,Tablet, [facility], Partial fill upon patient [...] 04/14/21 10:21:00 EST, Route to Pharmacy Electronically, [facility], Partial fill upon patient request if the prescription is for a schedule II opioi... Start Date: 04/14/21 Status: Orderedlisinopril 10 mg oral tablet 10 mg, Tablet, By Mouth, 02/04/22 9:00:00 EDT Start Date: 02/04/22 Stop Date: 02/04/22 Status: CompletedLORazepam 1 mg oral tablet 1 tablet = 1 mg, By Mouth, Every 2 hours, PRN Other, CIWA-AR Score 9-11, 0 Refills, Maintenance, 02/03/22 11:54:00 EDT, Tablet, Partial fill upon patient request if the prescription is for a schedule II opioid drug. Start Date: 02/03/22 Status: OrderedmetFORMIN 750 mg oral tablet, extended release 1 tablet = 750 mg, By Mouth, 2 times a day, # 60 tablet, 0 Refills, Maintenance, 04/14/21 10:21:00 EST, ER Tablet, [facility], Partial fill upon patient request if the prescription is fora schedule II opioid drug., 172, cm, 04/14/21 5:1... Start Date: 04/14/21 Status: Orderedmetoprolol 50 mg oral tablet, extended release 50 mg, XL Tablet, By Mouth, 02/04/22 9:00:00 EDT Start Date: 02/04/22 Stop Date: 02/04/22 Status: Completedmetoprolol succinate 50 mg oral capsule, [...] 0 Refills, Maintenance, 07/21/21 11:19:00 EST, Capsule, [facility], Partial fill upon patient request if the prescription is for a schedule II opioid drug., 1 tablet By Mouth Daily, 173, cm, 07/20/... Start Date: 07/21/21 Status: Orderedomeprazole 40 mg [...] II opioid drug. Start Date: 12/07/21 Status: OrderedPyridoxine Tablet 50 mg, By Mouth, Daily, Refills 0, Maintenance, 02/03/22 11:55:00 EDT, Partial fill upon patient request if the prescription is for a schedule II opioid drug. Start Date: 02/03/22 Status: OrderedSEROquel 50 mg oral tablet 1 tablet = 50 mg, By Mouth, Daily at bedtime, PRN Other, Take 1 tablet as needed for anxiety or insomnia, # 1 tablet, 0 Refills, Maintenance, 08/10/21 10:53:00 EST, Tablet, [facility], Partial fill upon patient request if the prescriptio... Start Date: 08/10/21 Stop Date: 09/09/21 Status: Orderedsimethicone 80 mg oral tablet, chewable 80 mg, Chew, 3 times a day, PRN, Refills 0, Maintenance, Gas, 02/03/22 11:55:00 EDT, Partial fill upon patient request if the prescription is for a schedule II opioid drug. Start Date: 02/03/22 Status: Orderedthiamine 100 mg oral tablet 100 mg, 1, tablet, By Mouth, Daily, # 30 tablet, Refills 0, Tot. Refills 0, Maintenance, 07/21/21 11:19:00 EST, Route to Pharmacy Electronically, [facility], Partial fill upon patient request if the prescription is for a schedule II opio... Start Date: 07/21/21 Status: OrderedtraZODone 50 mg oral tablet 50 mg, 1, tablet, By Mouth, Daily at bedtime, PRN, # 30 tablet, Refills 0, Tot. Refills 0, Maintenance, Insomnia, 07/21/21 11:20:00 EST, Route to Pharmacy Electronically, [facility], Partial fill upon patient request if the prescription... Start Date: 07/21/21 Status: OrderedTrelegy Ellipta 200 mcg-62.5 mcg-25 mcg/inh inhalation powder 1 puffs, Inhalation, Daily, at the same time every day, # 1 each, 0 Refills, Maintenance, 04/14/21 10:19:00 EST, Powder, [facility], Partial fill upon patient request if the prescription is for a schedule II opioid drug., 1 puffs Inhalat... Start Date: 04/14/21 Status: Ordered Problem List Condition Effective Dates Status Health Status Informant CVA (cerebrovascular Active accident)(Confirmed) CAD (coronary artery Active disease)(Confirmed) HTN (hypertension)(Confirmed) Active Polysubstance abuse(Confirmed) Active Type 2 diabetes mellitus(Confirmed) Active Results Radiology Reports Exam Date Time Procedure Performing Provider Status 01/31/22 4:20 AM Chest 2 Views Frontal and Lat Amandeep Carmona (Verified) Notes:(Chest 2 Views Frontal and Lat) Reason For Exam: overdose;Other:RESULT: Chest 2 Views Frontal and Lat Chest 2 Views Frontal and Lat Hx of Present Illness: Reports overdosed tonight around 1a on trazadone 50mg, seroquel 50mg, metoprolol, and beers in an attempt to end it all . cas has no interest in living. [place] found sitting up on a bench by police.; Reason: Other:; overdose; Clinical Question(s): Aspiration / Aspiration COMPARISON: 01/06/2022 FINDINGS: LINES AND TUBES: None. LUNGS AND PLEURA: Low lung volumes with mild basilar atelectasis. Lungs are otherwise clear with no definite consolidation. No pleural effusion. No pneumothorax. HEART, MEDIASTINUM AND SINDY: Heart is normal in size. Normal mediastinal and hilar contour. BONES AND SOFT TISSUES: No acute abnormality. IMPRESSION: Low lung volumes but no definite acute abnormality. WSN: [id number] Ordering Physician: Yvette Stoner Dictated By: Siddhartha Hdz MD Dictated Date/Time: 01/31/22 7:43 am Reviewed By: Siddhartha Hdz MD Signed By: Siddhartha Hdz MD Signed Date/Time: 01/31/22 7:43 am Transcribed By: JASON Transcribed Date/Time: 01/31/22 7:42 am Vital Signs Most recent to oldest 1 2 3 [Reference Range]: Height 172 cm 172 cm 172 cm (02/03/22 11:51 PM) (02/03/22 8:45 PM) (02/03/22 12 :13 AM) Weight 89 kg 89 kg 89 kg (01/31/22 2:16 PM) (01/31/22 4:37 AM) (01/31/22 2:3 9 AM) Oxygen Saturation [94-100 %] 97 % 95 % 100 % (02/04/22 7:00 AM) (02/03/22 11:51 PM) (02/03/22 8:4 5 PM) Pulse Rate [55-90 bpm] 69 bpm 69 bpm 74 bpm (02/04/22 8:10 AM) (02/04/22 7:00 AM) (02/03/22 11:51 PM) Body Mass Index [18.5-24.99] 30.08 30.08 *>HHI* *>HHI* (01/31/22 2:16 PM) (01/31/22 4:37 AM) Blood Pressure [90-138/55-84 130/68 mm Hg 130/68 mm Hg 130 /68 mm Hg mm Hg] (02/04/22 8:10 AM) (02/04/22 8:10 AM) (02/04/22 7:00 A M) Respiratory Rate [16-30 18 br/min 20 br/min 19 br/mi n br/min] (02/04/22 7:00 AM) (02/03/22 11:51 PM) (02/03/22 8:4 5 PM) Temperature [96.8-100.4 97.7 DegF 98.2 DegF 97.5 Deg F DegF] (02/04/22 7:00 AM) (02/03/22 11:51 PM) (02/03/22 8:4 5 PM) Mode of Delivery (Oxygen) Room air Room air Room a ir (02/04/22 7:00 AM) (02/03/22 11:51 PM) (02/03/22 8:4 5 PM) Blood pressure sites Arm, left Arm, left Arm, left (02/04/22 7:00 AM) (02/03/22 11:51 PM) (02/03/22 8:4 5 PM) Temperature Route Oral Oral Oral (02/04/22 7:00 AM) (02/03/22 11:51 PM) (02/03/22 8:4 5 PM) Dry Weight 89 kg 89 kg 89 kg (01/31/22 2:16 PM) (01/31/22 4:37 AM) (01/31/22 2:3 9 AM) Social History Social History Type Response Smoking Status 10 or more cigarettes (1/2 p ack or more)/day in last 30 days; Interested in cessation: No; Patient wants NRT during admission Yes entered on: 02/04/22 Sex Note BHSPowerscribe , CIS S: TRANSCRIBE Siddhartha Hdz MD: VERIFY Event Display: Result: Authored Date: [id number] Chest 2 Views Frontal and Lat Hx of Present Illness: Reports overdosed tonight around 1a on trazadone 50mg, seroquel 50mg, metoprolol, and beers in an attempt to end it all . cas has no interest in living. [place] found sitting up on a bench by police.; Reason: Other:; overdose; Clinical Question(s): Aspiration / Aspiration COMPARISON: 01/06/2022 FINDINGS: LINES AND TUBES: None. LUNGS AND PLEURA: Low lung volumes with mild basilar atelectasis. Lungs are otherwise clear with no definite consolidation. No pleural effusion. No pneumothorax. HEART, MEDIASTINUM AND SINDY: Heart is normal in size. Normal mediastinal and hilar contour. BONES AND SOFT TISSUES: No acute abnormality. IMPRESSION: Low lung volumes but no definite acute abnormality. WSN: [id number] Ordering Physician: Yvette Stoner Dictated By: Siddhartha Hdz MD Dictated Date/Time: 01/31/22 7:43 am Reviewed By: Siddhartha Hdz MD Signed By: Siddhartha Hdz MD Signed Date/Time: 01/31/22 7:43 am Transcribed By: JASON Transcribed Date/Time: 08/28/22 7:42 am Care Team PersonnelName: Avani Duarte Address: [address] [place] [id number]
--- OUTSIDE RECORDS SUMMARY | 2022-05-13 21:46 | XMS_ITS | Continuity of Care Document ---
:1965 Author Organization [facility] Address [address] [place] [address]- Care Team Providers Name Role Phone Avani Duarte Primary Care Physician Encounter [facility] [place] Date(s): 01/06/22 - 01/09/[address] [address]- Encounter Diagnosis Crack cocaine use (Final) - 01/06/22 Suicidal ideation (Final) - 01/06/22 Discharge Disposition: A-D/C Home Attending Physician: Siddhartha Pandey MD Admitting Physician: Ld Sandhu MD Referring Physician: Not on Staff, Referring [...] 08/10/21 12:02:00 EST, Route to Pharmacy Electronically, [facility], Partial fill upon patient request if the prescription is for a schedule II opioid drug., 17... Start Date: 08/10/21 Stop Date: 09/09/21 Status: Orderedatorvastatin 80 mg oral tablet 1 tablet = 80 mg, By Mouth, Daily, # 30 tablet, 0 Refills, Maintenance, 04/14/21 10:20:00 EST, Tablet, [facility], Partial fill upon patient request if the prescription is for a schedule II opioid drug., 172, cm, 04/14/21 5:19:00 EST, He... Start Date: 04/14/21 Status: OrderedcarBAMazepine 200 mg oral tablet TAKE 1 TABLET BY MOUTH TWICE A DAY Start Date: 12/07/21 Status: Orderedcyclobenzaprine 10 mg oral tablet 10 mg, 1, tablet, By Mouth, 3 times a day, PRN, # 30 tablet, Refills 0, Maintenance, for spasm, 12/07/21 10:45:00 EDT, Partial fill upon patient request if the prescription is for a schedule II opioid drug. Start Date: 12/07/21 Status: Ordereddivalproex sodium 250 mg oral tablet, extended release 5 tablet = 1,250 mg, By Mouth, Daily at bedtime, # 150 tablet, 0 Refills, Maintenance, 07/21/21 11:19:00 EST, ER Tablet, [facility] 3, Partial fill upon patient [...] Dry Weight Start Date: 04/14/21 Status: OrderedInsulin Lispro KwikPen 100 units/mL injectable solution = 25 units, Subcutaneous Injection, 3 times a day before meals, rotate injection sites, # 30 mL, 5 Refills, Maintenance, 12/23/21 12:46:00 EDT, [facility] 3, Partial fill upon patient request if the prescription is for a schedule II opioid... Start Date: 12/23/21 Status: OrderedInsulin Syringes See Instructions, # 90 each, Maintenance, Freestyle if possible, 04/14/21 10:22:00 EST, Supply, 172,cm, 04/14/21 5:19:00 EST, Height, 80, kg, 04/13/21 0:09:00 EST, Dry Weight Start Date: 04/14/21 Status: OrderedJardiance 25 mg oral tablet 1 tablet = 25 mg, By Mouth, Daily in AM, # 30 tablet, 6 Refills, Maintenance, 08/27/21 10:53:00 EDT,Tablet, [facility] 3, Partial fill upon patient request if the prescription is for a schedule II opioid drug., 174, cm, 08/27/21 10:40:00... Start Date: 08/27/21 Stop Date: 03/25/22 Status: OrderedLancets See Instructions, # 90 each, Maintenance, Any, 04/14/21 10:22:00 EST, Supply, 172, cm, 04/14/21 5:19:00 EST, Height, 80, kg, 04/13/21 0:09:00 EST, Dry Weight Start Date: 04/14/21 Status: OrderedLantus Solostar Pen 100 units/mL subcutaneous solution = 40 units, Subcutaneous Injection, 2 times a day, # 75 mL, 6 Refills, Maintenance, 08/27/21 10:51:00 EDT, [facility], Partial fill upon patient request if the prescription is for a schedule II opioid drug., 174, cm, 08/27/21 10:40:00 ED... Start Date: 08/27/21 Stop Date: 03/25/22 Status: Orderedlisinopril 10 mg oral tablet 10 mg, 1, tablet, By Mouth, Daily, # 30 tablet, Refills 0, Tot. Refills 0, Maintenance, 04/14/21 10:21:00 EST, Route to Pharmacy Electronically, [facility], Partial fill upon patient request if the prescription is for a schedule II opioi... Start Date: 04/14/21 Status: OrderedmetFORMIN 750 mg oral tablet, extended release 1 tablet = 750 mg, By Mouth, 2 times a day, # 60 tablet, 0 Refills, Maintenance, 04/14/21 10:21:00 EST, ER Tablet, [facility], Partial fill upon patient [...] 0 Refills, Maintenance, 07/21/21 11:19:00 EST, Capsule, [facility], Partial fill upon patient [...] Orderedprazosin 1 mg oral capsule 1 mg, Capsule, By Mouth, 01/08/22 21:00:00 EDT Start Date: 01/08/22 Stop Date: 01/08/22 Status: Completedprazosin 1 mg oral capsule 1 mg, 1, [...] 0 Refills, Maintenance, 08/10/21 10:53:00 EST, Tablet, [facility], Partial fillupon patient request if the prescription is for a... Start Date: 08/10/21 Stop Date: 09/09/21 Status: Orderedthiamine 100 mg oral tablet 100 mg, 1, tablet, By Mouth, Daily, # 30 tablet, Refills 0, Tot. Refills 0, Maintenance, 07/21/21 11:19:00 EST, Route to Pharmacy Electronically, [facility], Partial fill upon patient request if the prescription is for a schedule II opio... Start Date: 07/21/21 Status: OrderedtraZODone 50 mg oral tablet 50 mg, 1, tablet, By Mouth, Daily at bedtime, PRN, # 30 tablet, Refills 0, Tot. Refills 0, Maintenance, Insomnia, 07/21/21 11:20:00 EST, Route to Pharmacy Electronically, [facility], Partial fill upon patient request if the prescription... Start Date: 07/21/21 Status: OrderedTrelegy Ellipta 200 mcg-62.5 mcg-25 mcg/inh inhalation powder 1 puffs, Inhalation, Daily, at the same time every day, # 1 each, 0 Refills, Maintenance, 04/14/21 10:19:00 EST, Powder, [facility], Partial fill upon patient request if the prescription is for a schedule II opioid drug., 1 puffs Inhalat... Start Date: 04/14/21 Status: Ordered Results Radiology Reports Exam Date Time Procedure Performing Provider Status 01/06/22 4:33 AM Chest 2 Views Frontal and Lat Bety Boyd; Au th (Verified) Notes:(Chest 2 Views Frontal and Lat) Reason For Exam: Chest Pain;Other:RESULT: Chest 2 Views Frontal and Lat Chest 2 Views Frontal and Lat Hx of Present Illness: SI + chest pain; Reason: Other:; Chest Pain; Clinical Question(s): CHF COMPARISON: 12/07/2021 FINDINGS: LINES AND TUBES: None. LUNGS AND PLEURA: Low lung volumes with mild basilar atelectasis. Lungs are otherwise clear with no consolidation. No pleural effusion. No pneumothorax. HEART, MEDIASTINUM AND SINDY: Heart is normal in size. Normal upper mediastinal and hilar contour. BONES AND SOFT TISSUES: No acute abnormality. IMPRESSION: No acute abnormality. Low lung volumes. WSN: [id number] Ordering Physician: Lui sFernando Mcdonnell Dictated By: Marlyn Santillan MD Dictated Date/Time: 01/06/22 8:13 am Reviewed By: Jacque PRABHAKAR , Arel Signed By: Jacque PRABHAKAR , Arel Signed Date/Time: 01/06/22 8:13 am Transcribed By: JASON Transcribed Date/Time: 01/06/22 8:12 am Vital Signs Most recent to oldest [Reference 1 2 3 Range]: Oxygen Saturation [94-100 %] 95 % 95 % 94 % (01/09/22 7:55 AM) (01/09/22 2:31 AM) (01/08/22 7:23 P M) Pulse Rate [55-90 bpm] 80 bpm 83 bpm 81 bpm (01/09/22 7:55 AM) (01/09/22 2:31 AM) (01/08/22 7:23 P M) Blood Pressure [90-138/55-84 mm 137/81 mm Hg 104/85 mm Hg 129/76 mm Hg Hg] (01/09/22 7:55 AM) (01/09/22 2:31 AM) (01/08/22 8:57 P M) Respiratory Rate [16-30 br/min] 19 br/min 20 br/min 20 br/min (01/09/22 7:55 AM) (01/09/22 2:31 AM) (01/08/22 7:23 P M) Temperature [96.8-100.4 DegF] 97.5 DegF 97.0 DegF 97 .0 DegF (01/09/22 7:55 AM) (01/09/22 2:31 AM) (01/08/22 7:23 P M) Mode of Delivery (Oxygen) Room air Room air Room a ir (01/09/22 7:55 AM) (01/09/22 2:31 AM) (01/08/22 7:23 P M) Blood pressure sites Arm, right Arm, left Arm, left (01/09/22 7:55 AM) (01/09/22 2:31 AM) (01/08/22 7:23 P M) Temperature Route Temporal Temporal Temporal (01/09/22 7:55 AM) (01/09/22 2:31 AM) (01/08/22 7:23 P M) Social History Social History Type Response Smoking Status Smoker, current status unkno wn entered on: 07/31/21 Sex
--- OUTSIDE RECORDS SUMMARY | 2022-05-13 21:46 | XMS_ITS | Continuity of Care Document ---
:1965 Author Organization [facility] Address [address] [place] [address]- Care Team Providers Name Role Phone Avani Duarte Primary Care Physician [place] [facility] [place]07[place] - 12/08/[address] [address]- Encounter Diagnosis Cocaine use (Final) - 12/07/21 Discharge Disposition: A-D/C Home Attending Physician: Krupa Jarrell MD Admitting Physician: Eber Garsia MD Referring Physician: Not on Staff, Referring [...] 08/10/21 12:02:00 EST, Route to Pharmacy Electronically, [facility], Partial fill upon patient request if the prescription is for a schedule II opioid drug., 17... Start Date: 08/10/21 Stop Date: 09/09/21 Status: Orderedatorvastatin 80 mg oral tablet 1 tablet = 80 mg, By Mouth, Daily, # 30 tablet, 0 Refills, Maintenance, 04/14/21 10:20:00 EST, Tablet, [facility], Partial fill upon patient request if the prescription is for a schedule II opioid drug., 172, cm, 04/14/21 5:19:00 EST, He... Start Date: 04/14/21 Status: OrderedcarBAMazepine 200 mg oral tablet TAKE 1 TABLET BY MOUTH TWICE A DAY Start Date: 12/07/21 Status: Orderedcitalopram 40 mg oral tablet 40 mg, 1, tablet, By Mouth, Daily, # 30 tablet, Refills 0, Tot. Refills 0, Maintenance, 07/21/21 11:41:00 EST, Route to Pharmacy Electronically, [facility], Partial fill upon [...] Refills, Maintenance, 07/21/21 11:19:00 EST, ER Tablet, [facility], Partial fill upon [...] Orderedgabapentin 300 mg oral capsule 300 mg, Capsule, By Mouth, 12/07/21 21:00:00 EDT Start Date: 12/07/21 Stop Date: 12/07/21 Status: Completedgabapentin 300 mg oral capsule 300 mg, Capsule, By Mouth, 12/08/21 9:00:00 EDT Start Date: 12/08/21 Stop Date: 12/08/21 Status: CompletedGlucose Monitor See Instructions, # 1 each, Maintenance, [...] Date: 04/14/21 Status: OrderedInsulin Glargine Inj = 40 units, Subcutaneous Injection, 2 times a day, 0 Refills, Maintenance, 07/21/21 11:40:00 EST, Injection, Partial fill upon patient request if the prescription is for a schedule II opioid drug. Start Date: 07/21/21 Status: OrderedInsulin Lispro KwikPen 100 units/mL injectable solution = 25 units, Subcutaneous Injection, 3 times a day before meals, rotate injection sites, # 15 mL, 5 Refills, Maintenance, 08/27/21 13:32:00 EDT, [facility], Partial fill upon patient request if the prescription is for a schedule II opioid... Start Date: 08/27/21 Status: OrderedInsulin Syringes See Instructions, # 90 each, Maintenance, Freestyle if possible, 04/14/21 10:22:00 EST, Supply, 172,cm, 04/14/21 5:19:00 EST, Height, 80, kg, 04/13/21 0:09:00 EST, Dry Weight Start Date: 04/14/21 Status: OrderedJardiance 25 mg oral tablet 1 tablet = 25 mg, By Mouth, Daily in AM, # 30 tablet, 6 Refills, Maintenance, 08/27/21 10:53:00 EDT,Tablet, [facility] 3, Partial fill upon patient request [...] mL, 6 Refills, Maintenance, 08/27/21 10:51:00 EDT, [facility], Partial fill upon patient request if the prescription is for a schedule II opioid drug., 174, cm, 08/27/21 10:40:00 ED... Start Date: 08/27/21 Stop Date: 03/25/22 Status: Orderedlisinopril 10 mg oral tablet 10 mg, 1, tablet, By Mouth, Daily, # 30 tablet, Refills 0, Tot. Refills 0, Maintenance, 04/14/21 10:21:00 EST, Route to Pharmacy Electronically, [facility], Partial fill upon patient request if the prescription is for a schedule II opioi... Start Date: 04/14/21 Status: Orderedlisinopril 10 mg oral tablet 10 mg, Tablet, By Mouth, 12/08/21 9:00:00 EDT Start Date: 12/08/21 Stop Date: 12/08/21 Status: CompletedmetFORMIN 750 mg oral tablet, extended release 1 tablet = 750 mg, By Mouth, 2 times a day, # 60 tablet, 0 Refills, Maintenance, 04/14/21 10:21:00 EST, ER Tablet, [facility], Partial fill upon patient request if the prescription is fora schedule II opioid drug., 172, cm, 04/14/21 5:1... Start Date: 04/14/21 Status: Orderedmultivitamin with minerals Multiple Vitamins with Minerals oral capsule 1 tablet, By Mouth, Daily, # 30 tablet, 0 Refills, Maintenance, 07/21/21 11:19:00 EST, Capsule, [facility], Partial fill upon [...] 80, kg, ... Start Date: 05/28/21 Status: Orderedprazosin 1 mg oral capsule 1 [...] 0 Refills, Maintenance, 08/10/21 10:53:00 EST, Tablet, [facility], Partial fillupon patient request if the prescription is for a... Start Date: 08/10/21 Stop Date: 09/09/21 Status: Orderedthiamine 100 mg oral tablet 100 mg, 1, tablet, By Mouth, Daily, # 30 tablet, Refills 0, Tot. Refills 0, Maintenance, 07/21/21 11:19:00 EST, Route to Pharmacy Electronically, [facility], Partial fill upon patient request if the prescription is for a schedule II opio... Start Date: 07/21/21 Status: OrderedtraZODone 50 mg oral tablet 50 mg, 1, tablet, By Mouth, Daily at bedtime, PRN, # 30 tablet, Refills 0, Tot. Refills 0, Maintenance, Insomnia, 07/21/21 11:20:00 EST, Route to Pharmacy Electronically, [facility], Partial fill upon patient request if the prescription... Start Date: 07/21/21 Status: OrderedTrelegy Ellipta 200 mcg-62.5 mcg-25 mcg/inh inhalation powder 1 puffs, Inhalation, Daily, at the same time every day, # 1 each, 0 Refills, Maintenance, 04/14/21 10:19:00 EST, Powder, [facility], Partial fill upon patient request if the prescription is for a schedule II opioid drug., 1 puffs Inhalat... Start Date: 04/14/21 Status: Ordered Results Radiology Reports Exam Date Time Procedure Performing Provider Status 12/07/21 4:59 AM Chest Portable Cain Roldan ([facility] ed) Notes:(Chest Portable) Reason For Exam: Shortness of BreathRESULT: Chest Portable Chest Portable Hx of Present Illness: Pt reports drinking beers and using cocaine, left the program he was in and now reports plan to commit suicide by overdosing on his pills.; Reason: Shortness of Breath; Clinical Question(s): CHF COMPARISON: X-ray 08/05/2021 FINDINGS: LINES AND TUBES: None. LUNGS AND PLEURA: Low lung volumes with mild basilar atelectasis. Lungs are otherwise clear with no consolidation. No pleural effusion. No pneumothorax. HEART, MEDIASTINUM AND SINDY: Heart is normal in size. Normal upper mediastinal and hilar contour. BONES AND SOFT TISSUES: No acute abnormality. IMPRESSION: No acute abnormality. Low lung volumes . WSN: [id number] Ordering Physician: Jered Marsh Dictated By: Siddhartha Quick MD Dictated Date/Time: 12/07/21 8:46 am Reviewed By: Siddhartha Quick MD Signed By: Siddhartha Quick MD Signed Date/Time: 12/07/21 8:46 am Transcribed By: JASON Transcribed Date/Time: 12/07/21 8:45 am Vital Signs Most recent to oldest [Reference 1 2 3 Range]: Oxygen Saturation [94-100 %] 100 % 94 % 97 % (12/08/21 12:40 PM) (12/08/21 5:56 AM) (12/07/21 9:15 PM) Pulse Rate [55-90 bpm] 82 bpm 71 bpm 71 bpm (12/08/21 12:40 PM) (12/08/21 5:56 AM) (12/07/21 9:15 PM) Blood Pressure [90-138/55-84 mm 116/78 mm Hg 130/77 mm Hg 115/66 mm Hg Hg] (12/08/21 12:40 PM) (12/08/21 8:23 AM) (12/07/21 9:15 PM) Respiratory Rate [16-30 br/min] 18 br/min 18 br/min 14 br/min (12/08/21 12:40 PM) (12/08/21 8:30 AM) *L* (12/07/21 10:07 PM ) Temperature [96.8-100.4 DegF] 98.5 DegF 98.1 DegF (12/07/21 5:41 PM) (12/07/21 1:33 AM) Liters per Minute 2 L/min (12/07/21 3:41 AM) Mode of Delivery (Oxygen) Room air Room air Room a ir (12/08/21 12:40 PM) (12/08/21 5:56 AM) (12/07/21 9:15 PM) Blood pressure sites Arm, right (12/08/21 12:40 PM) Temperature Route Oral Oral (12/07/21 5:41 PM) (12/07/21 1:33 AM) Social History Social History Type Response Smoking Status Smoker, current status unkno wn entered on: 07/31/21 Sex
--- OUTSIDE RECORDS SUMMARY | 2022-05-13 21:46 | XMS_ITS | Continuity of Care Document ---
:1965 Author Organization [facility] Address [address] [place] [address]- Care Team Providers Name Role Phone Avani Duarte Primary Care Physician Encounter [facility] Date(s): 05/05/22 - 05/06/[address] [address]- Encounter Diagnosis Suicidal risk (Final) - 05/05/22 Discharge Disposition: A-D/C Home Attending Physician: Salinas Lopez MD Admitting Physician: Salinas Lopez MD Referring Physician: Not on Staff, Referring MD Allergies, Adverse Reactions, Alerts Substance Reaction Severity Status Bee Stings anaphalyxis Active Immunizations Given and Recorded Vaccine Date Status Refusal Reason SARS-CoV-2 mRNA ([id number]-[id number]) vax 11/11/21 Recorde d influenza virus vaccine, [...] Vaccine Date Status Refusal Reason SARS-CoV-2 mRNA (gwofzwa-oylm-[id number]) 01/15/22 Not Given Parent Or Guardian Refuses [...] 02/09/22 9:53:00 EDT, Route to Pharmacy Electronically, [facility], Partial fill upon patient request if the prescription is for a schedule II opioid drug., 173... Start Date: 02/09/22 Stop Date: 03/11/22 Status: Orderedatorvastatin 80 mg oral tablet 1 tablet = 80 mg, By Mouth, Daily at bedtime, # 30 tablet, 0 Refills, Maintenance, 02/09/22 9:53:00 EDT, Tablet, [facility], Partial fill upon patient request if the prescription is for aschedule II opioid drug., 173, cm, 02/08/22 19:40... Start Date: 02/09/22 Status: Orderedatorvastatin 80 mg oral tablet 1 tablet = 80 mg, By Mouth, Daily at bedtime, # 30 tablet, 5 Refills, Maintenance, 05/06/22 6:02:00 EST, Tablet, [facility], Partial fill upon patient request if the prescription is for aschedule II opioid drug., 172, cm, 03/26/22 18:09... Start Date: 05/06/22 Status: Orderedcitalopram 20 mg oral tablet 1 tablet = 20 mg, By Mouth, Daily, # 30 tablet, 0 Refills, Maintenance, 02/09/22 9:53:00 EDT, [facility], Partial fill upon patient request if the prescription is for a schedule II opioid drug., 173, cm, 02/08/22 19:40:00 EDT, He... Start Date: 02/09/22 Status: Orderedcitalopram 20 mg oral tablet 20 mg, 1, tablet, By Mouth, Daily, # 30 tablet, Refills 0, Tot. Refills 0, Maintenance, 05/06/22 6:03:00 EST, Route to Pharmacy Electronically, [facility], Partial fill upon patient request if the prescription is for a schedule II opioid... Start Date: 05/06/22 Status: Orderedcyclobenzaprine 10 mg oral tablet 10 mg, 1, tablet, By Mouth, 3 times a day, PRN, # 30 tablet, Refills 1, Tot. Refills 1, Maintenance,for spasm, 02/09/22 9:53:00 EDT, Route to Pharmacy Electronically, [facility], Partialfill upon patient request if the prescription is... Start Date: 02/09/22 Status: Ordereddivalproex sodium 250 mg oral tablet, extended release 5 tablet = 1,250 mg, By Mouth, Daily at bedtime, # 150 tablet, 0 Refills, Maintenance, 02/09/22 9:54:00 EDT, ER Tablet, [facility], Partial fill upon patient request if the prescription is for a schedule II opioid drug., 173, cm, ... Start Date: 02/09/22 Status: Ordereddivalproex sodium 250 mg oral tablet, extended release 5 tablet = 1,250 mg, By Mouth, Daily at bedtime, # 150 tablet, 0 Refills, Maintenance, 05/06/22 6:03:00 EST, ER Tablet, [facility], Partial fill upon patient request if the prescription is for a schedule II opioid drug., 172, cm, 2... Start Date: 05/06/22 Stop Date: 06/05/22 Status: Orderedfolic acid 1 mg oral tablet 1 mg, 1, tablet, By Mouth, Daily, # 30 tablet, Refills 0, Tot. Refills 0, Maintenance, 02/09/22 9:54:00 EDT, Route to Pharmacy Electronically, [facility], Partial fill upon patient request if [...] 02/09/22 9:54:00 EDT, Route to Pharmacy Electronically, [facility], Partial fill upon patient request if the prescription is for a schedul... Start Date: 02/09/22 Status: Orderedgabapentin 300 mg oral capsule 300 mg, 1, capsule, By Mouth, 3 times a day, # 90 capsule, Refills 5, Tot. Refills 5, Maintenance, 05/06/22 6:04:00 EST, Route to Pharmacy Electronically, [facility], Partial fill upon patient [...] mL, 0 Refills, Maintenance, 02/09/22 9:54:00EDT, Injection, [facility], Partial fill upon patient [...] tablet, 11 Refills, Maintenance, 02/23/22 9:24:00 EDT,Tablet, [facility], Partial fill upon patient [...] 02/09/22 9:54:00 EDT, Route to Pharmacy Electronically, [facility], Partial fill upon patient request if the prescription is for a schedule II opioid... Start Date: 02/09/22 Status: Orderedlisinopril 10 mg oral tablet 10 mg, 1, tablet, By Mouth, Daily at bedtime, # 30 tablet, Refills 0, Tot. Refills 0, Maintenance, 05/06/22 6:05:00 EST, Route to Pharmacy Electronically, [facility], Partial fill upon patient request if the prescription is for a schedul... Start Date: 05/06/22 Status: OrderedmetFORMIN 500 mg oral tablet 2 tablet = 1,000 mg, By Mouth, 2 times a day, # 120 tablet, 0 Refills, Maintenance, 02/09/22 9:54:00EDT, Tablet, [facility], Partial fill upon patient request if the prescription is for a schedule II opioid drug., 173, cm, 02/08/22 19:4... Start Date: 02/09/22 Status: Orderedmetoprolol 50 mg oral tablet, extended release 50 mg, 1, tablet, By Mouth, Daily, # 30 tablet, Refills 0, Tot. Refills 0, Maintenance, 02/09/22 9:54:00 EDT, Route to Pharmacy Electronically, [facility], Partial fill upon patient request if the prescription is for a schedule II opioid... Start Date: 02/09/22 Status: Orderedmetoprolol 50 mg oral tablet, extended release 50 mg, 1, tablet, By Mouth, Daily, # 30 tablet, Refills 0, Tot. Refills 0, Maintenance, 05/06/22 6:05:00 EST, Route to Pharmacy Electronically, [facility], Partial fill upon patient request if the prescription is for a schedule II opioid... Start Date: 05/06/22 Status: Orderedmultivitamin with minerals Multiple Vitamins with Minerals oral capsule 1 tablet, By Mouth, Daily, # 30 tablet, 0 Refills, Maintenance, 02/09/22 9:56:00 EDT, Capsule, [facility], Partial fill upon patient request if the prescription is for a schedule II opioid drug., 1 tablet By Mouth Daily, 173, cm, 2... Start Date: 02/09/22 Status: OrderedNicoderm C-Q Clear 21 mg/24 hr transdermal film, extended release 1 patch, Topically, Daily, # 30 patch, 0 Refills, Maintenance, 02/09/22 9:55:00 EDT, Patch, [facility], Partial fill upon patient request if the prescription is for a schedule II opioid drug., 173, cm, 02/08/22 19:40:00 EDT, Height, 89.2... Start Date: 02/09/22 Status: Orderednicotine 4 mg oral transmucosal gum = 4 mg, Chew, Every hour, PRN Other, Nicotine Withdrawal Symptoms (NOT to exceed 24 pieces per day),# 160 each, 0 Refills, Maintenance, 02/09/22 9:55:00 EDT, Gum, [facility], Partial fill upon patient request if the prescription is for... Start Date: 02/09/22 Status: Orderedomeprazole 40 mg oral enteric coated capsule 1 capsule = 40 mg, By Mouth, Daily, # 30 capsule, 0 Refills, Maintenance, 02/09/22 9:53:00 EDT, Suspension, [facility], Partial fill upon patient request [...] 02/09/22 9:54:00 EDT, Route to Pharmacy Electronically, [facility], Partial fill upon patient request if the prescription is for a schedu... Start Date: 02/09/22 Status: Orderedpyridoxine 50 mg oral tablet 50 mg, 1, tablet, By Mouth, Daily, # 30 tablet, Refills 0, Tot. Refills 0, Maintenance, 02/09/22 9:54:00 EDT, Route to Pharmacy Electronically, [facility], Partial fill upon patient request if the prescription is for a schedule II opioid... Start Date: 02/09/22 Status: Orderedthiamine 100 mg oral tablet 100 mg, 1, tablet, By Mouth, Daily, # 30 tablet, Refills 0, Tot. Refills 0, Maintenance, 02/09/22 9:54:00 EDT, Route to Pharmacy Electronically, [facility], Partial fill upon patient request if the prescription is for a schedule II opioi... Start Date: 02/09/22 Status: OrderedtraZODone 50 mg oral tablet 50 mg, 1, tablet, By Mouth, Daily at bedtime, # 30 tablet, Refills 0, Tot. Refills 0, Maintenance, 02/09/22 9:55:00 EDT, Route to Pharmacy Electronically, [facility], Partial fill upon patient request if the prescription is for a schedul... Start Date: 02/09/22 Status: OrderedtraZODone 50 mg oral tablet 50 mg, 1, tablet, By Mouth, Daily at bedtime, # 30 tablet, Refills 0, Tot. Refills 0, Maintenance, 05/06/22 6:06:00 EST, Route to Pharmacy Electronically, [facility], Partial fill upon patient request if the prescription is for a schedul... Start Date: 05/06/22 Status: OrderedTrelegy Ellipta 200 mcg-62.5 mcg-25 mcg/inh inhalation powder 1 puffs, Inhalation, Daily, at the same time every day, # 1 each, 0 Refills, Maintenance, 02/09/22 9:56:00 EDT, Powder, [facility], Partial fill upon patient request [...] Exam Date Time Procedure Performing Provider Status 05/05/22 4:28 AM Chest 2 Views Frontal and Lat Carlos Carmona (Verified) Notes:(Chest 2 Views Frontal and Lat) Reason For Exam: Shortness of Breath RESULT: Chest 2 Views Frontal and Lat Chest 2 Views Frontal and Lat Hx of Present Illness: SI; Reason: Shortness of Breath; Clinical Question(s): CHF COMPARISON: 01/31/2022 FINDINGS: LINES AND TUBES: None. LUNGS AND PLEURA: Clear lungs. Normal pulmonary vascularity. No pleural effusion. No pneumothorax. HEART, MEDIASTINUM AND SINDY: Heart is normal in size. Normal mediastinal and hilar contour. Mild prominence of the central vascular markings. BONES AND SOFT TISSUES: No acute abnormality. IMPRESSION: No acute abnormality. WSN: [id number] Ordering Physician: Maryana Best Dictated By: Marlyn Santillan MD Dictated Date/Time: 05/05/22 7:52 am Reviewed By: Jacque PRABHAKAR Areian Signed By: Marlyn Santillan MD Signed Date/Time: 05/05/22 7:52 am Transcribed By: JASON Transcribed Date/Time: 05/05/22 7:51 am Vital Signs Most recent to oldest 1 2 3 [Reference Range]: Oxygen Saturation [94-100 %] 95 % 93 % 93 % (05/06/22 6:13 AM) *L* *L* (05/06/22 2:58 AM) (05/06/22 12:00 AM) Pulse Rate [55-90 bpm] 73 bpm 72 bpm 84 bpm (05/06/22 6:13 AM) (05/06/22 2:58 AM) (05/06/22 12: 39 AM) Blood Pressure [90-138/55-84 110/71 mm Hg 95/63 mm Hg 109 /58 mm Hg mm Hg] (05/06/22 6:13 AM) (05/06/22 2:58 AM) (05/06/22 12: 39 AM) Respiratory Rate [16-30 12 br/min 16 br/min 17 br/mi n br/min] *L* (05/06/22 2:58 AM) (05/06/22 12:39 AM) (05/06/22 6:13 AM) Temperature [96.8-100.4 98.2 DegF 97.7 DegF 99.3 Deg F DegF] (05/06/22 6:13 AM) (05/05/22 7:03 PM) (05/05/22 5 :18 AM) Mode of Delivery (Oxygen) Room air Room air Room a ir (05/06/22 6:13 AM) (05/06/22 2:58 AM) (05/06/22 12: 00 AM) Blood pressure sites Arm, left (05/05/22 2:31 AM) Temperature Route Oral Oral Oral (05/06/22 6:13 AM) (05/05/22 7:03 PM) (05/05/22 5 :18 AM) Social History Social History Type Response Smoking Status 10 or more cigarettes (1/2 p ack or more)/day in last 30 days; Interested in cessation: No; Patient wants NRT during admission Yes entered on: 02/04/22 Sex EKG study Event Display: EKG Authored Date: Event Display: ECG 12-Lead Authored Date: Please click on pdf link to open report Event Display: ECG 12-Lead Authored Date: Ventricular Rate: 76 BPM Atrial Rate: 76 BPM P-R Interval: 174 ms QRS Duration: 104 ms Q-T Interval: 376 ms QTC Calculation(Bazett): 423 ms P Andrews: 45 degrees R Andrews: 6 degrees T Andrews: 42 degrees Normal sinus rhythm Minimal voltage criteria for LVH, may be normal variant Septal infarct , age undetermined Abnormal ECG When compared with ECG of 31-JAN-2022 08:09, No significant change was found Confirmed by ALIYA JACKSON MD ([id number]) on 05/05/2022 7:14:39 PM [place]: ALIYA JACKSON MD, MD, Michele M: PERFORM Event Display: Patient Education Leaflets Authored Date: Multiple Documents ?? [id number] Drug Abuse Use and abuse of drugs or medicines may lead to addiction or dependence. You may hear drug abuse oraddiction called substance use disorder (NUSRAT). Examples of illegal drugs include amphetamines (also known as speed or crank), methamphetamines (meth), cocaine, heroin, bath salts, and hallucinogens (such as MDMA, ecstasy, PCP, mescaline, and LSD). In some states, marijuana is an illegal drug. Medicines include prescription medicines, sedatives, and sleeping pills. Once addiction or dependence happens, you are at greater risk for the problems below. Social and personal problems ??? Craving for the drug and not being able to stop using even though you think you want to stop (psychological addiction) ??? Drug withdrawal symptoms if you stop taking the drug (physical dependence) ??? Loss of friends and family ??? School or work problems ??? Arrest,conviction, and care home sentence for possession of an illegal substance or for driving under the influence ?? Health problems ??? Stroke, heart attack, heart failure, and kidney failure ??? Accidental injuriesto yourself or others while you are under the influence of a drug (in a car or at home) ??? HIV infection. This is a much greater risk if you use IV drugs. ??? Skin infections ??? Other sexually transmitted infections (STIs), such as herpes, chlamydia, and gonorrhea ??? Severe and fatal infection of the heart valves if you use IV drugs ??? Hepatitis B or C ??? Dementia, mood disorders, persistent hallucinations (particularly with hallucinogens) ??? Dental problems from methamphetamine abuse ??? from overdose ?? Home care The following suggestions can help you care for yourself at home: ??? Admit you have a drug problem. Ask for help from your family and close friends. ??? Seek professional help. This could be one-on-one therapy or counseling. There are also outpatient, inpatient, and residential drug treatment programs. ??? Join a self-help group for drug abuse. ??? Stay away from friends who abuse drugs or tempt you to continue abusing drugs. ??? Eat a balanced diet and start a regular exercise program. ?? Follow-up care Follow up with your healthcare provider, or as advised. Contact 1 of the resources below for help: ??? Substance Abuse and Mental Health Services Administration (SAMHSA) at www.samhsa.gov/findtreatment ??? National [place] on Alcoholism and Drug Dependence at www.ncadd.org ??? Narcotics Anonymous at w ww.na.org ?? Call 911 Call 911 right away if any of these occur: ??? Seizure ??? Hard time breathing or slow, irregular breathing ??? Chest pain ??? Sudden weakness on 1 side of your body or sudden trouble speaking ??? Very drowsy or trouble waking up ??? Fainting or loss of consciousness ??? Fast heart rate ??? Very slowheart rate ?? When to get medical care Call your healthcare provider if any of these occur: ??? Agitation, anxiety, or unable to sleep ???Unintended weight loss. This means more than 10 to 15 pounds over 3 months. ??? Fever of 100.4??F (38??C) or higher, or as advised by your provider ??? Shortness of breath ??? Cough with colored sputum??? Redness, swelling, or tenderness at an injection site ??? You think counseling or drug rehabilitation services are needed to prevent additional drug use ?? Last Reviewed Date: 2022 ?? [employer]. All rights reserved. This information is not intended as a substitute for professional medical care. Always follow your healthcare professional's instructions. ??Jessica PRABHAKAR, Sal[place] Araiza: PERFORM Event Display: Patient Education Leaflets Authored Date: Multiple Documents ?? [id number] Depression Depression is a very common mental health problem. It's not just a state of being unhappy or sad. It's a true disease. The cause seems to be linked to a change in chemicals that send signals in the brain. These things increase a person???s risk of depression: ??? A family history of depression, alcoholism, or suicide ??? Chronic illness ??? Chronic pain ???Migraine headaches ??? High emotional stress Depression may be easier to see in others. You may have a hard time seeing it in yourself. It can show in many physical and emotional ways. These include: ??? Loss of appetite ??? Overeating ??? Not being able to sleep ??? Sleeping too much ??? A lot of tiredness not linked to physical activity ??? Restlessness or irritability ??? Slowness of movement or speech ??? Feeling sad or withdrawn ??? Loss of interest in things you once enjoyed ??? Trouble??concentrating, remembering,??or making decisions ??? Thoughts of harming or killing yourself, or thoughts that life is not worth living ??? Low self-esteem The treatment for depression may include both medicine and psychotherapy. Antidepressants can ease symptoms. They can also make it easier for you to do daily tasks. Therapy can offer emotional support. It can also help you understand things that may be causing the depression. Home care ??? Ongoing care and support help people manage this disease. Find a healthcare provider and therapist who meet your needs. Get help when you feel like you may be getting ill. ??? Be kind toyourself. Make it a point to do things that you enjoy. This may be gardening, walking in nature, or going to a movie. Reward yourself for small successes. ??? Take care of your body. Eat a balanced diet. Eat foods low in saturated fat. Eat a lot of fruits and vegetables. Exercise at least 3 times a week for 30 minutes. Even mild to moderate exercise like brisk walking can make you feel better. ??? Take medicine as prescribed. Don't stop your medicine or change the dose unless you talk with your healthcare provider. ??? Once you start medicine, expect your symptoms to get better slowly. Depression will lift over time. It doesn't get better right away. Ask your healthcare provider how long it will take for a medicine to start working. ??? Don't share your medicine. Don???t use someone else's medicine. ??? Tell your healthcare providers all the medicines you take. This includes prescription and ubur-ibu-wuiikbs medicines. It includes vitamins and herbal supplements. Some supplements can interact with medicines. They can cause dangerous side effects. Ask your pharmacist about medicine interactionswhen you have questions. ??? Don't make major decisions until you feel better. This includes things such as a job change, a divorce, or a marriage. ??? Don't drink alcohol. It can make depression worse. ??? Talk with your family and??trusted friends??about your feelings and thoughts.??Ask them to helpyou notice behavior changes early. You can then get help and, if needed, your medicine can be changed. ??? Talk with your healthcare provider if you are not getting better. They may change your medicine or have you try another treatment. ?? Follow-up care Follow up with your healthcare provider as advised. ?? Crisis care Call 988 if you have thoughts of harming yourself or others. When you call or text [phone], you will beconnected to trained crisis counselors. An online chat option is also available. [employer] is free and available 27/12. 527 counselors will work with 911 to help you get the care you need. Call 988 if you: ??? Have suicidal thoughts, a suicide plan, and a way to carry out the plan ??? Have serious thoughts of hurting someone else ??? Have trouble breathing ??? Are??very confused ??? Feel very drowsy or have??trouble awakening ??? Faint ??? Have new chest pain that becomes more severe, lasts longer, or spreads into your shoulder, arm, neck, jaw, or back ?? When to get medical care Call your healthcare provider right away if any of these happen: ??? Your symptoms get worse ??? You have extreme depression, fear, anxiety, or anger toward yourself or others ??? You feel out of control ??? You feel that you may try to harm yourself or another ??? You hear voices other people don't hear ??? You see things other people don't see ??? You don't sleep or eat for 3 days in a row ??? Friends or family express concern over your behavior and ask you to get help ?? Last Reviewed Date: 2021 ?? [id number] [employer]. All rights reserved. This information is not intended as a substitute for professional medical care. Always follow your healthcare professional's instructions. ??Jessica PRABHAKAR, [place] Araiza: PERFORM Event Display: Patient Education Leaflets Authored Date: [id number] Multiple Documents ?? [id number] Diabetes with High Blood Sugar You have been treated for high blood sugar (hyperglycemia). This may be because of an infection or other illness. This may also be from eating too many sweets or starches. Or it may be from not takingenough insulin. Or not taking other diabetes medicine as prescribed. Home care Check your blood sugar level at least 2 times a day. Write down the results. Do this before breakfast. And do it again before dinner. If you take insulin, also write down your routine insulin dose. Note any other doses you needed based on your sliding scale. Or as advised by your healthcare provider.Do this for the next 3 to 5 days. High blood sugar may cause symptoms that you can learn to spot. These include: ??? Peeing often ??? Thirst ??? Headache ??? Breath that smells fruity ??? Upset stomach (nausea) or vomiting ??? Belly pain If you have symptoms of high blood sugar, use a blood test to find out what your blood sugar level is. If it is above your normal range, use the sliding scale regular insulin dose from your healthcareprovider. Call your provider for advice if you weren't given a range for your insulin dose. If your blood sugar is over 240 mg/dL, check your pee (urine) for ketones. ?? Follow-up care Follow up with your healthcare provider, or as advised. You may need to meet with your provider in the next week. You'll likely look at your blood sugar records together. You may need to change your dose of insulin or other diabetes medicine. You may also be advised to use a continuous glucose monitoring system. This is to help give you and your healthcare team a broader picture of your blood sugar control. ?? When to get medical advice Call your healthcare provider right away if these occur: ??? Symptoms of high blood sugar that don't get better with the treatment your provider advised. This is especially true if you also have ketones in your urine. ??? Blood sugar over 300 mg/dL. If you can???t reach your provider, go to a hospital emergency room or urgent care center. ?? Call 911 Call 911 if you have any of these: ??? Confusion ??? Dizziness, lightheadedness, or loss of consciousness ??? Shortness of breath ??? Chest pain ??? Weakness of an arm, leg, or 1 side of the face ??? Sudden trouble with speech or vision ?? Last Reviewed Date: 2022 ?? [employer]. All rights reserved. This information is not intended as a substitute for professional medical care. Always follow your healthcare professional's instructions. ??Jacque PRABHAKAR , Areian: VERIFY Jacque PRABHAKAR Areian: VERIFY Event Display: Result: Authored Date: [id number] Chest 2 Views Frontal and Lat Hx of Present Illness: SI; Reason: Shortness of Breath; Clinical Question(s): CHF COMPARISON: 01/31/2022 FINDINGS: LINES AND TUBES: None. LUNGS AND PLEURA: Clear lungs. Normal pulmonary vascularity. No pleural effusion. No pneumothorax. HEART, MEDIASTINUM AND SINDY: Heart is normal in size. Normal mediastinal and hilar contour. Mild prominence of the central vascular markings. BONES AND SOFT TISSUES: No acute abnormality. IMPRESSION: No acute abnormality. WSN: [id number] Ordering Physician: Maryana Best Dictated By: Marlyn Santillan MD Dictated Date/Time: 05/05/22 7:52 am Reviewed By: Jacque PRABHAKAR Areian Signed By: Marlyn Santillan MD Signed Date/Time: 05/05/22 7:52 am Transcribed By: JASON Transcribed Date/Time: 05/05/22 7:51 am Patient Care team information Care Team PersonnelName: Avani Duarte Position: [facility] Outreach Member Role: PCP Address: Address: [address] [place] [address] Name: Sri Garcia Position: S RN Member Role: Primary Care Nurse Name: Aissatou Steiner RN Position: [facility] RN Member Role: Primary Care Nurse Name: Lexie Mercer RN Position: [facility] RN Member Role: Primary Care Nurse Name: Sylvia Barrios RN Position: [facility] RN Member Role: Primary Care Nurse Name: Felisha Dougherty Position: [facility] RN Member Role: Primary Care Nurse Name: Ailyn Mendoza Position: [facility] RN Member Role: Primary Care Nurse Name: Patric Stearns RN Position: [facility] ED RN W/OE and Tasks Member Role: Primary Care Nurse Name: Rosie Bray Position: S RN Member Role: Primary Care Nurse Name: Rina Mckeon RN Position: S RN Member Role: Primary Care Nurse Name: Sailnas Fulton RN Position: [facility] RN Member Role: Primary Care Nurse Name: Elvi Shah RN Position: [facility] RN Member Role: Primary Care Nurse Name: Clare Ayers RN Position: [facility] RN Member Role: Primary Care Nurse Name: Emeka Childs RN Position: [facility] RN Member Role: Primary Care Nurse Name: Natahlie Mcneal RN Position: [facility] RN Member Role: Primary Care Nurse Name: Josefina Jesus RN Position: [facility] RN Member Role: Primary Care Nurse Name: Virginia Campbell RN Position: [facility] RN Member Role: Primary Care Nurse Name: Concha Childs RN Position: [facility] RN Member Role: Primary Care Nurse Name: Carly Lester RN Position: [facility] RN Member Role: Primary Care Nurse [facility] Attending Position: [facility] ED Attendings Patient Name: Rell Marilu Position: [facility] ED TA [facility] Member Role: Rope Cleaner Name: Shirley Quiñonez RN Position: [facility] ED RN W/OE and Tasks Member Role: Patient Care Provider Name: Salinas Lopez MD Position: [facility] ED Medicine MD Member Role: ED Attending Physician Address: Address: [address] [place] [address] [place] [address]- Care Team Related PersonsName: ADALID SOSAENDOLYN Address: home [address] [place] [id number] [facility]: [facility] Address: home [address] [place] [id number]
--- OUTSIDE RECORDS SUMMARY | 2022-05-13 21:46 | XMS_ITS | Continuity of Care Document ---
:1965 Author Organization [facility] Address [address] [place] [address]- Care Team Providers Name Role Phone Avani Duarte Primary Care Physician Encounter [facility] Date(s): 08/26/21 - 09/25/21 [facility] [address] [place] [id number] Referring Physician: Chary Jones Allergies, Adverse Reactions, Alerts Substance Reaction Severity [...] EST, Dry Weight Start Date: 04/14/21 Status: Orderedapixaban 5 mg oral tablet See Instructions, Take 2 tablets By Mouth 2 times a day until Friday 08/11. On Saturday 08/12 start taking 1 tablet by mouth 2 times a day., # 66 tablet, 0 Refills, Maintenance, 08/10/21 10:50:00 EST, Tablet, [facility], Partial fill upon... Start Date: 08/10/21 Status: Orderedaspirin 81 mg oral delayed release tablet 81 mg, By Mouth, Daily, # 30 tablet, Refills 0, Tot. Refills 0, Maintenance, 08/10/21 12:02:00 EST, Route to Pharmacy Electronically, [facility], Partial fill upon patient request if the prescription is for a schedule II opioid drug., 17... Start Date: 08/10/21 Stop Date: 09/09/21 Status: Orderedatorvastatin 80 mg oral tablet 1 tablet = 80 mg, By Mouth, Daily, # 30 tablet, 0 Refills, Maintenance, 04/14/21 10:20:00 EST, Tablet, [facility] 3, Partial fill upon patient request if the prescription is for a schedule II opioid drug., 172, cm, 04/14/21 5:19:00 EST, He... Start Date: 04/14/21 Status: Orderedcitalopram 40 mg oral tablet 40 mg, 1, tablet, By Mouth, Daily, # 30 tablet, Refills 0, Tot. Refills 0, Maintenance, 07/21/21 11:41:00 EST, Route to Pharmacy Electronically, [facility] 3, Partial fill upon patient request [...] Maintenance, 07/21/21 11:19:00 EST, ER Tablet, [facility] 3, Partial fill upon patient request if the prescription is for a schedule II opioid drug., 173, cm, ... Start Date: 07/21/21 Status: Orderedfolic acid 1 mg oral tablet 1 mg, 1, tablet, By Mouth, Daily, # 30 tablet, Refills 0, Tot. Refills 0, Maintenance, 07/21/21 11:19:00 EST, Route to Pharmacy Electronically, [facility], Partial fill upon patient request if the prescription is for a schedule II opioid... Start Date: 07/21/21 Status: OrderedFreestyle lite test [...] Date: 04/14/21 Status: OrderedInsulin Glargine Inj = 20 units, [...] than 40... Start Date: 07/21/21 Status: OrderedInsulin Lispro KwikPen 100 units/mL injectable solution = 25 units, Subcutaneous Injection, 3 times a day before meals, rotate injection sites, # 15 mL, 5 Refills, Maintenance, 08/27/21 13:32:00 EDT, [facility], Partial fill upon patient request [...] tablet, 6 Refills, Maintenance, 08/27/21 10:53:00 EDT,Tablet, [facility], Partial fill upon patient request [...] mL, 6 Refills, Maintenance, 08/27/21 10:51:00 EDT, [facility], Partial fill upon patient request if the prescription is for a schedule II opioid drug., 174, cm, 08/27/21 10:40:00 ED... Start Date: 08/27/21 Stop Date: 03/25/22 Status: Orderedlisinopril 10 mg oral tablet 10 mg, 1, tablet, By Mouth, Daily, # 30 tablet, Refills 0, Tot. Refills 0, Maintenance, 04/14/21 10:21:00 EST, Route to Pharmacy Electronically, [facility], Partial fill upon patient request if the prescription is for a schedule II opioi... Start Date: 04/14/21 Status: OrderedmetFORMIN 750 mg oral tablet, extended release 1 tablet = 750 mg, By Mouth, 2 times a day, # 60 tablet, 0 Refills, Maintenance, 04/14/21 10:21:00 EST, ER Tablet, [facility], Partial fill upon patient request if the prescription is fora schedule II opioid drug., 172, cm, 04/14/21 5:1... Start Date: 04/14/21 Status: Orderedmetoprolol succinate 50 mg oral capsule, extended release 1 capsule = 50 mg, By Mouth, Daily, # 30 capsule, 0 Refills, Maintenance, 04/14/21 10:20:00 EST, [facility] upon patient request, 172, cm, 04/14/21 5:19:00 EST, Height, 80, kg, 04/13/21 0:09:00 EST, Dry Weight Start Date: 04/14/21 Status: Orderedmultivitamin with minerals Multiple Vitamins with Minerals oral capsule 1 tablet, By Mouth, Daily, # 30 tablet, 0 Refills, Maintenance, 07/21/21 11:19:00 EST, [facility], Partial fill upon patient request if [...] 0 Refills, Maintenance, 08/10/21 10:53:00 EST, Tablet, [facility], Partial fillupon patient request if the prescription is for a... Start Date: 08/10/21 Stop Date: 09/09/21 Status: Orderedthiamine 100 mg oral tablet 100 mg, 1, tablet, By Mouth, Daily, # 30 tablet, Refills 0, Tot. Refills 0, Maintenance, 07/21/21 11:19:00 EST, Route to Pharmacy Electronically, [facility], Partial fill upon patient request if the prescription is for a schedule II opio... Start Date: 07/21/21 Status: OrderedtraZODone 50 mg oral tablet 50 mg, 1, tablet, By Mouth, Daily at bedtime, PRN, # 30 tablet, Refills 0, Tot. Refills 0, Maintenance, Insomnia, 07/21/21 11:20:00 EST, Route to Pharmacy Electronically, [facility], Partial fill upon patient request if the prescription... Start Date: 07/21/21 Status: OrderedTrelegy Ellipta 200 mcg-62.5 mcg-25 mcg/inh inhalation powder 1 puffs, Inhalation, Daily, at the same time every day, # 1 each, 0 Refills, Maintenance, 04/14/21 10:19:00 EST, Powder, [facility], Partial fill upon patient request if the prescription is for a schedule II opioid drug., 1 puffs Inhalat... Start Date: 04/14/21 Status: Ordered Social History Social History Type Response Smoking Status Smoker, current status unkno wn entered on: 07/31/21 Sex
--- OUTSIDE RECORDS SUMMARY | 2022-05-13 21:46 | XMS_ITS | Continuity of Care Document ---
:1965 Author Organization [facility] Address [address] [place] [address]- Care Team Providers Name Role Phone Avani Duarte Primary Care Physician Encounter [facility] Date(s): 12/22/21 - 03/21/22 [facility] [address] [place] [id number] Attending Physician: Kandace Shaver MD Admitting Physician: Kandace Shaver MD Referring Physician: Avani Duarte Allergies, Adverse Reactions, Alerts Substance Reaction Severity Status Bee Stings anaphalyxis Active Immunizations Given and Recorded Vaccine Date Status Refusal Reason SARS-CoV-2 mRNA ([id number]) vax 11/11/21 Recorde d influenza virus vaccine, [...] Vaccine Date Status Refusal Reason SARS-CoV-2 mRNA ([id number]) 01/15/22 Not Given Parent Or Guardian Refuses [...] 02/09/22 9:53:00 EDT, Route to Pharmacy Electronically, [facility], Partial fill upon patient request if the prescription is for a schedule II opioid drug., 173... Start Date: 02/09/22 Stop Date: 03/11/22 Status: Orderedatorvastatin 80 mg oral tablet 1 tablet = 80 mg, By Mouth, Daily at bedtime, # 30 tablet, 0 Refills, Maintenance, 02/09/22 9:53:00 EDT, Tablet, [facility], Partial fill upon patient request if the prescription is for aschedule II opioid drug., 173, cm, 02/08/22 19:40... Start Date: 02/09/22 Status: Orderedcitalopram 20 mg oral tablet 1 tablet = 20 mg, By Mouth, Daily, # 30 tablet, 0 Refills, Maintenance, 02/09/22 9:53:00 EDT, [facility]t, [facility], Partial fill upon patient request if the prescription is for a schedule II opioid drug., 173, cm, 02/08/22 19:40:00 EDT, He... Start Date: 02/09/22 Status: Orderedcyclobenzaprine 10 mg oral tablet 10 mg, 1, tablet, By Mouth, 3 times a day, PRN, # 30 tablet, Refills 1, Tot. Refills 1, Maintenance,for spasm, 02/09/22 9:53:00 EDT, Route to Pharmacy Electronically, [facility], Partialfill upon patient request if the prescription is... Start Date: 02/09/22 Status: Ordereddivalproex sodium 250 mg oral tablet, extended release 5 tablet = 1,250 mg, By Mouth, Daily at bedtime, # 150 tablet, 0 Refills, Maintenance, 02/09/22 9:54:00 EDT, ER Tablet, [facility], Partial fill upon patient request if the prescription is for a schedule II opioid drug., 173, cm, ... Start Date: 02/09/22 Status: Orderedfolic acid 1 mg oral tablet 1 mg, 1, tablet, By Mouth, Daily, # 30 tablet, Refills 0, Tot. Refills 0, Maintenance, 02/09/22 9:54:00 EDT, Route to Pharmacy Electronically, [facility], Partial fill upon patient request if [...] 02/09/22 9:54:00 EDT, Route to Pharmacy Electronically, [facility], Partial fill upon patient request if [...] mL, 0 Refills, Maintenance, 02/09/22 9:54:00EDT, Injection, [facility], Partial fill upon patient [...] tablet, 11 Refills, Maintenance, 02/23/22 9:24:00 EDT,Tablet, [facility], Partial fill upon patient request [...] 02/09/22 9:54:00 EDT, Route to Pharmacy Electronically, [facility], Partial fill upon patient request if the prescription is for a schedule II opioid... Start Date: 02/09/22 Status: OrderedmetFORMIN 500 mg oral tablet 2 tablet = 1,000 mg, By Mouth, 2 times a day, # 120 tablet, 0 Refills, Maintenance, 02/09/22 9:54:00EDT, Tablet, [facility], Partial fill upon patient request if the prescription is for a schedule II opioid drug., 173, cm, 02/08/22 19:4... Start Date: 02/09/22 Status: Orderedmetoprolol 50 mg oral tablet, extended release 50 mg, 1, tablet, By Mouth, Daily, # 30 tablet, Refills 0, Tot. Refills 0, Maintenance, 02/09/22 9:54:00 EDT, Route to Pharmacy Electronically, [facility], Partial fill upon patient request if the prescription is for a schedule II opioid... Start Date: 02/09/22 Status: Orderedmultivitamin with minerals Multiple Vitamins with Minerals oral capsule 1 tablet, By Mouth, Daily, # 30 tablet, 0 Refills, Maintenance, 02/09/22 9:56:00 EDT, Capsule, [facility], Partial fill upon patient request if the prescription is for a schedule II opioid drug., 1 tablet By Mouth Daily, 173, cm, ... Start Date: 02/09/22 Status: OrderedNicoderm C-Q Clear 21 mg/24 hr transdermal film, extended release 1 patch, Topically, Daily, # 30 patch, 0 Refills, Maintenance, 02/09/22 9:55:00 EDT, Patch, [facility], Partial fill upon patient request if the prescription is for a schedule II opioid drug., 173, cm, 02/08/22 19:40:00 EDT, Height, 89.2... Start Date: 02/09/22 Status: Orderednicotine 4 mg oral transmucosal gum = 4 mg, Chew, Every hour, PRN Other, Nicotine Withdrawal Symptoms (NOT to exceed 24 pieces per day),# 160 each, 0 Refills, Maintenance, 02/09/22 9:55:00 EDT, Gum, [facility], Partial fill upon patient request if the prescription is for... Start Date: 02/09/22 Status: Orderedomeprazole 40 mg oral enteric coated capsule 1 capsule = 40 mg, By Mouth, Daily, # 30 capsule, 0 Refills, Maintenance, 02/09/22 9:53:00 EDT, Suspension, [facility], Partial fill upon patient request if [...] 02/09/22 9:54:00 EDT, Route to Pharmacy Electronically, [facility], Partial fill upon patient request if the prescription is for a schedu... Start Date: 02/09/22 Status: Orderedpyridoxine 50 mg oral tablet 50 mg, 1, tablet, By Mouth, Daily, # 30 tablet, Refills 0, Tot. Refills 0, Maintenance, 02/09/22 9:54:00 EDT, Route to Pharmacy Electronically, [facility], Partial fill upon patient request if the prescription is for a schedule II opioid... Start Date: 02/09/22 Status: Orderedthiamine 100 mg oral tablet 100 mg, 1, tablet, By Mouth, Daily, # 30 tablet, Refills 0, Tot. Refills 0, Maintenance, 02/09/22 9:54:00 EDT, Route to Pharmacy Electronically, [facility], Partial fill upon patient request if the prescription is for a schedule II opioi... Start Date: 02/09/22 Status: OrderedtraZODone 50 mg oral tablet 50 mg, 1, tablet, By Mouth, Daily at bedtime, # 30 tablet, Refills 0, Tot. Refills 0, Maintenance, 02/09/22 9:55:00 EDT, Route to Pharmacy Electronically, [facility], Partial fill upon patient request if the prescription is for a schedul... Start Date: 02/09/22 Status: OrderedTrelegy Ellipta 200 mcg-62.5 mcg-25 mcg/inh inhalation powder 1 puffs, Inhalation, Daily, at the same time every day, # 1 each, 0 Refills, Maintenance, 02/09/22 9:56:00 EDT, Powder, [facility], Partial fill upon patient [...] team information PersonnelName: Avani Duarte Address: Address: [address] [place] [address]
--- OUTSIDE RECORDS SUMMARY | 2022-05-13 21:46 | XMS_ITS | Continuity of Care Document ---
:1965 Author Organization [facility] Address [address] [place] [address]- Care Team Providers Name Role Phone Avani Duarte Primary Care Physician Encounter [facility] Date(s): 01/15/22 - 01/19/[address] [address]- Encounter Diagnosis Ingestion of toxic substance (Final) - 01/15/22 Suicide attempt (Final) - 01/15/22 Discharge Disposition: A-D/C Home Attending Physician: Verena Ramirez MD Admitting Physician: Gurinder PRABHAKAR, Liliana Referring Physician: Not on Staff, Referring MD [...] 05/02/20 Not Given Patient Refuses SARS-CoV-2 mRNA ([id number]-[id number]) 01/15/22 Not Given Parent Or Guardian Refuses [...] 08/10/21 12:02:00 EST, Route to Pharmacy Electronically, [facility], Partial fill upon patient request if the prescription is for a schedule II opioid drug., 17... Start Date: 08/10/21 Stop Date: 09/09/21 Status: Orderedatorvastatin 80 mg oral tablet 1 tablet = 80 mg, By Mouth, Daily at bedtime, # 30 tablet, 0 Refills, Maintenance, 04/14/21 10:20:00EST, Tablet, [facility], Partial fill upon patient request [...] Refills, Maintenance, 07/21/21 11:19:00 EST, ER Tablet, [facility], Partial fill upon patient request [...] tablet, 6 Refills, Maintenance, 08/27/21 10:53:00 EDT,Tablet, [facility], Partial fill upon patient [...] 04/14/21 10:21:00 EST, Route to Pharmacy Electronically, [facility], Partial fill upon patient request if the prescription is for a schedule II opioi... Start Date: 04/14/21 Status: Orderedlisinopril 10 mg oral tablet 10 mg, Tablet, By Mouth, 01/19/22 9:00:00 EDT Start Date: 01/19/22 Stop Date: 01/19/22 Status: CompletedmetFORMIN 750 mg oral tablet, extended release 1 tablet = 750 mg, By Mouth, 2 times a day, # 60 tablet, 0 Refills, Maintenance, 04/14/21 10:21:00 EST, ER Tablet, [facility], Partial fill upon patient [...] 0 Refills, Maintenance, 07/21/21 11:19:00 EST, Capsule, [facility], Partial fill upon patient [...] 0 Refills, Maintenance, 08/10/21 10:53:00 EST, Tablet, [facility], Partial fill upon patient request if the prescriptio... Start Date: 08/10/21 Stop Date: 09/09/21 Status: Orderedthiamine 100 mg oral tablet 100 mg, 1, tablet, By Mouth, Daily, # 30 tablet, Refills 0, Tot. Refills 0, Maintenance, 07/21/21 11:19:00 EST, Route to Pharmacy Electronically, [facility], Partial fill upon patient request if the prescription is for a schedule II opio... Start Date: 07/21/21 Status: OrderedtraZODone 50 mg oral tablet 50 mg, 1, tablet, By Mouth, Daily at bedtime, PRN, # 30 tablet, Refills 0, Tot. Refills 0, Maintenance, Insomnia, 07/21/21 11:20:00 EST, Route to Pharmacy Electronically, [facility], Partial fill upon patient request if the prescription... Start Date: 07/21/21 Status: OrderedTrelegy Ellipta 200 mcg-62.5 mcg-25 mcg/inh inhalation powder 1 puffs, Inhalation, Daily, at the same time every day, # 1 each, 0 Refills, Maintenance, 04/14/21 10:19:00 EST, Powder, [facility], Partial fill upon patient request if the prescription is for a schedule II opioid drug., 1 puffs Inhalat... Start Date: 04/14/21 Status: Ordered Problem List Condition Effective Dates Status Health Status Informant CVA (cerebrovascular Active accident)(Confirmed) CAD (coronary artery Active disease)(Confirmed) HTN (hypertension)(Confirmed) Active Polysubstance abuse(Confirmed) Active Type 2 diabetes mellitus(Confirmed) Active Vital Signs Most recent to oldest 1 2 3 [Reference Range]: Height 188 cm 188 cm 188 cm (01/19/22 8:49 AM) (01/18/22 7:58 PM) (01/18/22 3:2 2 AM) Weight 77.4 kg (01/15/22 4:28 PM) Oxygen Saturation [94-100 %] 95 % 95 % 98 % (01/19/22 8:49 AM) (01/18/22 7:58 PM) (01/18/22 3:2 0 PM) Pulse Rate [55-90 bpm] 71 bpm 80 bpm 73 bpm (01/19/22 8:49 AM) (01/18/22 7:58 PM) (8/15/22 3:3 6 PM) Body Mass Index [18.5-24.99] 21.9 (01/15/22 4:28 PM) Blood Pressure [90-138/55-84 115/75 mm Hg 115/75 mm Hg 132 /74 mm Hg mm Hg] (01/19/22 9:23 AM) (01/19/22 8:49 AM) (01/18/22 7:5 8 PM) Respiratory Rate [16-30 16 br/min 18 br/min 18 br/mi n br/min] (01/19/22 8:49 AM) (01/18/22 7:58 PM) (01/18/22 3:3 6 PM) Temperature [96.8-100.4 DegF] 98.3 DegF 98.6 DegF 98 .4 DegF (01/19/22 8:49 AM) (01/18/22 7:58 PM) (01/18/22 3:2 0 PM) Liters per Minute 2 L/min 2 L/min 2 L/min (01/15/22 11:22 PM) (01/15/22 8:03 PM) (01/15/22 4: 28 PM) Mode of Delivery (Oxygen) Room air Room air Room a ir (01/19/22 8:49 AM) (01/18/22 7:58 PM) (01/18/22 3:2 0 PM) Blood pressure sites Arm, right Arm, right Arm, right (01/19/22 8:49 AM) (01/18/22 7:58 PM) (01/18/22 3:2 0 PM) Temperature Route Oral Oral Oral (01/19/22 8:49 AM) (01/18/22 7:58 PM) (01/18/22 3:2 0 PM) Dry Weight 77.4 kg (01/15/22 4:28 PM) Weight Obtained Via Bed scale (01/15/22 4:28 PM) Social History Social History Type Response Smoking Status Smoker, current status unkno wn entered on: 07/31/21 Sex
--- OUTSIDE RECORDS SUMMARY | 2022-05-13 21:46 | XMS_ITS | Continuity of Care Document ---
:1965 Author Organization [facility] Address [address] [place] [address]- Care Team Providers Name Role Phone Avani Duarte Primary Care Physician [place] [facility] [place] 07/31/21 - 08/05/[address] [address]- Encounter Diagnosis Suicidal ideations (Final) - 07/31/21 Overdose of drug (Final) - 07/31/21 Lactic acidosis (Final) - 07/31/21 Pneumonia (Final) - 07/31/21 Suicidal ideations (Final) - 07/31/21 Suicide attempt (Final) - 07/31/21 Lactic acidosis (Final) - 07/31/21 Overdose of drug (Final) - 07/31/21 Pneumonia (Final) - 07/31/21 Poisoning by unspecified drugs, medicaments and biological substances, intentional self-harm, initial encounter (Final) - 07/31/21 Discharge Disposition: Transfer to Psych Facility Attending Physician: Hilton Mar DO Admitting Physician: Chuy Lieberman MD Referring Physician: Not on Staff, Referring [...] Dry Weight Start Date: 04/14/21 Status: Orderedapixaban = 10 mg, By Mouth, 2 times a day, 0 Refills, Maintenance, 08/05/21 18:01:00 EST, Tablet, Partial fill upon patient request if the prescription is for a schedule II opioid drug. Start Date: 08/05/21 Stop Date: 08/11/21 Status: Orderedapixaban = 5 mg, By Mouth, 2 times a day, 0 Refills, Maintenance, 08/11/21 18:01:00 EST, Tablet, Partial fillupon patient request if the prescription is for a schedule II opioid drug. Start Date: 08/11/21 Status: Orderedaspirin (OP) = 81 mg, Daily, 0 Refills, Maintenance, 2 Start Date: 05/01/20 Status: Orderedatorvastatin 80 mg oral tablet 1 tablet = 80 mg, By Mouth, Daily, # 30 tablet, 0 Refills, Maintenance, 04/14/21 10:20:00 EST, Tablet, [facility], Partial fill upon patient request if the prescription is for a schedule II opioid drug., 172, cm, 04/14/21 5:19:00 EST, He... Start Date: 04/14/21 Status: Orderedcitalopram 40 mg oral tablet 40 mg, 1, tablet, By Mouth, Daily, # 30 tablet, Refills 0, Tot. Refills 0, Maintenance, 07/21/21 11:41:00 EST, Route to Pharmacy Electronically, [facility], Partial fill upon patient [...] Refills, Maintenance, 07/21/21 11:19:00 EST, ER Tablet, [facility], Partial fill upon patient request if the prescription is for a schedule II opioid drug., 173, cm, ... Start Date: 07/21/21 Status: Orderedfolic acid 1 mg oral tablet 1 mg, 1, tablet, By Mouth, Daily, # 30 tablet, Refills 0, Tot. Refills 0, Maintenance, 07/21/21 11:19:00 EST, Route to Pharmacy Electronically, [facility], Partial fill upon patient request if [...] tablet, 6 Refills, Maintenance, 05/27/21 11:39:00 EST,Tablet, [facility], Partial fill upon patient [...] 04/14/21 10:21:00 EST, Route to Pharmacy Electronically, [facility], Partial fill upon patient request if the prescription is for a schedule II opioi... Start Date: 04/14/21 Status: OrderedmetFORMIN 750 mg oral tablet, extended release 1 tablet = 750 mg, By Mouth, 2 times a day, # 60 tablet, 0 Refills, Maintenance, 04/14/21 10:21:00 EST, ER Tablet, [facility], Partial fill upon patient request if the prescription is fora schedule II opioid drug., 172, cm, 04/14/21 5:1... Start Date: 04/14/21 Status: Orderedmetoprolol succinate 50 mg oral capsule, extended release 1 capsule = 50 mg, By Mouth, Daily, # 30 capsule, 0 Refills, Maintenance, 04/14/21 10:20:00 EST, ER Capsule, [facility], Partial fill upon patient request, 172, cm, 04/14/21 5:19:00 EST, Height, 80, kg, 04/13/21 0:09:00 EST, Dry Weight Start Date: 04/14/21 Status: Orderedmultivitamin with minerals Multiple Vitamins with Minerals oral capsule 1 tablet, By Mouth, Daily, # 30 tablet, 0 Refills, Maintenance, 07/21/21 11:19:00 EST, Capsule, [facility], Partial fill upon patient [...] 0 Refills, Maintenance, 07/21/21 11:21:00 EST, Tablet, [facility], Partial fill upon patient request if the prescription... Start Date: 07/21/21 Status: Orderedthiamine 100 mg oral tablet 100 mg, 1, tablet, By Mouth, Daily, # 30 tablet, Refills 0, Tot. Refills 0, Maintenance, 07/21/21 11:19:00 EST, Route to Pharmacy Electronically, [facility], Partial fill upon patient request if the prescription is for a schedule II opio... Start Date: 07/21/21 Status: OrderedtraZODone 50 mg oral tablet 50 mg, 1, tablet, By Mouth, Daily at bedtime, PRN, # 30 tablet, Refills 0, Tot. Refills 0, Maintenance, Insomnia, 07/21/21 11:20:00 EST, Route to Pharmacy Electronically, [facility], Partial fill upon patient request if the prescription... Start Date: 07/21/21 Status: OrderedTrelegy Ellipta 200 mcg-62.5 mcg-25 mcg/inh inhalation powder 1 puffs, Inhalation, Daily, at the same time every day, # 1 each, 0 Refills, Maintenance, 04/14/21 10:19:00 EST, Powder, [facility], Partial fill upon patient request if the prescription is for a schedule II opioid drug., 1 puffs Inhalat... Start Date: 04/14/21 Status: Ordered Results Radiology Reports Exam Date Time Procedure Performing Provider Status 08/05/21 9:56 AM Chest Portable Elisabeth Marks; Auth (Verified) Notes:(Chest Portable) Reason For Exam: Shortness of BreathRESULT: Chest Portable Chest Portable Reason: Shortness of Breath; Clinical Question(s): Aspiration COMPARISON: None. FINDINGS: LINES AND TUBES: None. LUNGS AND PLEURA: Clear lungs. Normal pulmonary vascularity. No pleural effusion. No pneumothorax. HEART, MEDIASTINUM AND SINDY: Heart is normal in size. Normal upper mediastinal and hilar contour. BONES AND SOFT TISSUES: No acute abnormality. IMPRESSION: No acute abnormality. WSN: [id number] Ordering Physician: Hilton Mar By: John Bolton MD Dictated Date/Time: 08/05/21 11:46 a Reviewed By: John Bolton MD Signed By: John Bolton MD Signed Date/Time: 08/05/21 11:46 am Transcribed By: JASON Transcribed Date/Time: 08/05/21 11:45 am Exam Date Time Procedure Performing Provider Status 07/30/21 11:16 PM Abdomen AP Baldo Mosley; Auth (Verified ) Notes:(Abdomen AP) Reason For Exam: Nausea/VomitingRESULT: XR Abdomen AP XR Abdomen AP 1 view INDICATION/CLINICAL QUESTION: Nausea, vomiting COMPARISON: None FINDINGS: Mild colonic stool retention but otherwise normal bowel gas pattern. No evidence of obstruction. No evidence of pneumoperitoneum on this supine radiograph. No organomegaly, masses or calcifications. No acute bone findings. IMPRESSION: Mild colonic stool retention. No evidence of bowel obstruction. I have personally reviewed the images and I agree with this report. WSN: [id number] Ordering Physician: El Albert Dictated By: Fredrick Cintron DO Dictated Date/Time: 07/30/21 11:25 p Reviewed By: Luis Carrizales MD Signed By: Luis Carrizales MD Signed Date/Time: 07/30/21 11:30 pm Transcribed By: JASON Transcribed Date/Time: 07/30/21 11:22 pm Exam Date Time Procedure Performing Provider Status 07/30/21 11:16 PM Chest Portable Baldo Mosley; Auth (Verified ) Notes:(Chest Portable) Reason For Exam: Shortness of BreathRESULT: Chest Portable Chest Portable Reason: Shortness of Breath; Clinical Question(s): Pneumonia COMPARISON: 04/12/2021 FINDINGS: LINES AND TUBES: None. LUNGS AND PLEURA: Low lung volumes. New bilateral central-predominant streaky/hazy airspace opacities. No pleural effusion. No pneumothorax. HEART, MEDIASTINUM AND SINDY: Heart is normal in size. Normal upper mediastinal and hilar contour. BONES AND SOFT TISSUES: No acute abnormality. IMPRESSION: New bilateral airspace opacities, which may represent moderate pulmonary edema or multifocal pneumonia. I have personally reviewed the images and I agree with this report. WSN: [id number] Ordering Physician: El Albert Dictated By: Fredrick Cintron DO Dictated Date/Time: 07/30/21 11:26 p Reviewed By: Luis Carrizales MD Signed By: Luis Carrizales MD Signed Date/Time: 07/30/21 11:31 pm Transcribed By: JASON Transcribed Date/Time: 07/30/21 11:21 pm Vital Signs Most recent to oldest 1 2 3 [Reference Range]: Height 173 cm (07/31/21 5:11 AM) Weight 78.4 kg (07/31/21 5:11 AM) Oxygen Saturation [94-100 %] 98 % 98 % 99 % (08/05/21 8:00 PM) (08/05/21 7:00 AM) (08/04/21 9:00 P M) Pulse Rate [55-90 bpm] 76 bpm 72 bpm 69 bpm (08/05/21 8:00 PM) (08/05/21 4:00 PM) (08/05/21 7:00 A M) Body Mass Index [18.5-24.99] 26.2 *H* (07/31/21 5:11 AM) Blood Pressure [90-138/55-84 140/84 mm Hg 155/85 mm Hg 135 /76 mm Hg mm Hg] *H* *H* (08/05/21 7:00 AM) (08/05/21 8:00 PM) (08/05/21 4:00 PM) Respiratory Rate [16-30 18 br/min 16 br/min 18 br/mi n br/min] (08/05/21 8:00 PM) (08/05/21 4:00 PM) (08/05/21 7:00 A M) Temperature [96.8-100.4 DegF] 98.6 DegF 97.4 DegF 98 .4 DegF (08/05/21 8:00 PM) (08/05/21 4:00 PM) (08/05/21 7:00 A M) Liters per Minute 2 L/min 2 L/min 2 L/min (08/01/21 9:00 PM) (08/01/21 3:00 PM) (08/01/21 11: 00 AM) Mode of Delivery (Oxygen) Room air Room air Room a ir (08/05/21 8:00 PM) (08/05/21 4:00 PM) (08/05/21 7:00 A M) Blood pressure sites Arm, left Arm, left Arm, left (08/05/21 8:00 PM) (08/05/21 4:00 PM) (08/05/21 7:00 A M) Temperature Route Oral Axillary Oral (08/05/21 8:00 PM) (08/05/21 4:00 PM) (08/05/21 7:00 A M) Dry Weight 76.9 kg (07/31/21 5:11 AM) Social History Social History Type Response Smoking Status Smoker, current status unkno wn entered on: 07/31/21 Sex
--- OUTSIDE RECORDS SUMMARY | 2022-05-13 21:46 | XMS_ITS | Continuity of Care Document ---
:1965 Author Organization [facility] Address [address] [place] [address]- Care Team Providers Name Role Phone Avani Duarte Primary Care Physician [place] [facility] [place](s[place] 12/31/21 - 01/01/[address] [address]- Discharge Disposition: A-D/C Home Attending Physician: Carlos Parker MD Admitting Physician: Carlos Parker MD Referring Physician: Not on Staff, Referring [...] 08/10/21 12:02:00 EST, Route to Pharmacy Electronically, [facility], Partial fill upon patient request if the prescription is for a schedule II opioid drug., 17... Start Date: 08/10/21 Stop Date: 09/09/21 Status: Orderedatorvastatin 80 mg oral tablet 1 tablet = 80 mg, By Mouth, Daily, # 30 tablet, 0 Refills, Maintenance, 04/14/21 10:20:00 EST, Tablet, [facility], Partial fill upon patient request if the prescription is for a schedule II opioid drug., 172, cm, 04/14/21 5:19:00 EST, He... Start Date: 04/14/21 Status: OrderedcarBAMazepine 200 mg oral tablet TAKE 1 TABLET BY MOUTH TWICE A DAY Start Date: 12/07/21 Status: Orderedcitalopram 20 mg oral tablet 20 mg, 1, tablet, By Mouth, Daily, # 30 tablet, Refills 0, Maintenance, 12/31/21 23:16:00 EDT, Partial fill upon patient request if the prescription is for a schedule II opioid drug. Start Date: 12/31/21 Status: Orderedcitalopram 40 mg oral tablet 40 mg, 1, tablet, By Mouth, Daily, # 30 tablet, Refills 0, Tot. Refills 0, Maintenance, 07/21/21 11:41:00 EST, Route to Pharmacy Electronically, [facility], Partial fill upon patient request [...] Refills, Maintenance, 07/21/21 11:19:00 EST, ER Tablet, [facility], Partial fill upon patient request if the prescription is for a schedule II opioid drug., 173, cm, ... Start Date: 07/21/21 Status: OrderedEPINEPHrine 0.3 mg injectable solution = 0.3 mg, Intramuscular, Once, 0 Refills, Maintenance, 12/31/21 23:25:00 EDT, Partial fill upon patient request if the prescription is for a schedule II opioid drug. Start Date: 12/31/21 Status: OrderedFreestyle lite test strips Freestyle lite [...] mL, 5 Refills, Maintenance, 12/23/21 12:46:00 EDT, [facility], Partial fill upon patient [...] tablet, 6 Refills, Maintenance, 08/27/21 10:53:00 EDT,Tablet, [facility], Partial fill upon patient request [...] mL, 6 Refills, Maintenance, 08/27/21 10:51:00 EDT, [facility], Partial fill upon patient request if the prescription is for a schedule II opioid drug., 174, cm, 08/27/21 10:40:00 ED... Start Date: 08/27/21 Stop Date: 03/25/22 Status: Orderedlisinopril 10 mg oral tablet 10 mg, 1, tablet, By Mouth, Daily, # 30 tablet, Refills 0, Tot. Refills 0, Maintenance, 04/14/21 10:21:00 EST, Route to Pharmacy Electronically, [facility], Partial fill upon patient request if the prescription is for a schedule II opioi... Start Date: 04/14/21 Status: Orderedlisinopril 10 mg oral tablet 10 mg, Tablet, By Mouth, 01/01/22 9:00:00 EDT Start Date: 01/01/22 Stop Date: 01/01/22 Status: CompletedmetFORMIN 750 mg oral tablet, extended release 1 tablet = 750 mg, By Mouth, 2 times a day, # 60 tablet, 0 Refills, Maintenance, 04/14/21 10:21:00 EST, ER Tablet, [facility], Partial fill upon patient request if the prescription is fora schedule II opioid drug., 172, cm, 04/14/21 5:1... Start Date: 04/14/21 Status: Orderedmetoprolol 50 mg oral tablet, extended release 50 mg, XL Tablet, By Mouth, 01/01/22 9:00:00 EDT Start Date: 01/01/22 Stop Date: 01/01/22 Status: Completedmetoprolol succinate 50 mg oral capsule, [...] 0 Refills, Maintenance, 07/21/21 11:19:00 EST, Capsule, [facility], Partial fill upon patient [...] 0 Refills, Maintenance, 08/10/21 10:53:00 EST, Tablet, [facility], Partial fillupon patient request if the prescription is for a... Start Date: 08/10/21 Stop Date: 09/09/21 Status: Orderedthiamine 100 mg oral tablet 100 mg, 1, tablet, By Mouth, Daily, # 30 tablet, Refills 0, Tot. Refills 0, Maintenance, 07/21/21 11:19:00 EST, Route to Pharmacy Electronically, [facility], Partial fill upon patient request if the prescription is for a schedule II opio... Start Date: 07/21/21 Status: OrderedtraZODone 50 mg oral tablet 50 mg, 1, tablet, By Mouth, Daily at bedtime, PRN, # 30 tablet, Refills 0, Tot. Refills 0, Maintenance, Insomnia, 07/21/21 11:20:00 EST, Route to Pharmacy Electronically, [facility], Partial fill upon patient request if the prescription... Start Date: 07/21/21 Status: OrderedTrelegy Ellipta 200 mcg-62.5 mcg-25 mcg/inh inhalation powder 1 puffs, Inhalation, Daily, at the same time every day, # 1 each, 0 Refills, Maintenance, 04/14/21 10:19:00 EST, Powder, [facility], Partial fill upon patient request if the prescription is for a schedule II opioid drug., 1 puffs Inhalat... Start Date: 04/14/21 Status: OrderedVitamin B1 100 mg oral tablet 100 mg, 1, tablet, By Mouth, Daily, Refills 0, Maintenance, 12/31/21 23:24:00 EDT, Partial fill uponpatient request if the prescription is for a schedule II opioid drug. Start Date: 12/31/21 Status: Ordered Vital Signs Most recent to oldest 1 2 3 4 [Reference Range]: Oxygen Saturation 100 % 93 % 95 % [94-100 %] (01/01/22 9:02 AM) *L* (01/01/22 5:42 AM) (01/01/22 8:39 AM) Pulse Rate [55-90 bpm] 73 bpm 73 bpm 75 bpm (01/01/22 9:02 AM) (01/01/22 8:39 AM) (01/01/22 8:34 AM) Blood Pressure 117/85 mm Hg 131/80 mm Hg 121/70 mm Hg 121/70 mm Hg [90-138/55-84 mm Hg] (01/01/22 9:02 AM) (01/01/22 8:39 AM) (01/01/22 8 :34 AM) (01/01/22 8:34 AM) Respiratory Rate 15 br/min 16 br/min 20 br/min [16-30 br/min] *L* (01/01/22 8:39 AM) (01/01/22 5:42 AM) (01/01/22 9:02 AM) Temperature 97.9 DegF 97.8 DegF 98.0 DegF [96.8-100.4 DegF] (01/01/22 9:02 AM) (01/01/22 8:39 AM) (01/01/22 1:29 AM) Mode of Delivery Room air Room air Room air (Oxygen) (01/01/22 9:02 AM) (01/01/22 8:39 AM) (01/01/22 5:42 AM) Blood pressure sites Arm, right Arm, left Arm, right (01/01/22 9:02 AM) (01/01/22 8:39 AM) (01/01/22 5:42 AM) Temperature Route Temporal Temporal Oral (01/01/22 9:02 AM) (01/01/22 8:39 AM) (01/01/22 1:29 AM) Social History Social History Type Response Smoking Status Smoker, current status unkno wn entered on: 07/31/21 Sex
--- OUTSIDE RECORDS SUMMARY | 2022-05-13 21:46 | XMS_ITS | Continuity of Care Document ---
:1965 Author Organization [facility] Address [address] [place] [id number]- Care Team Providers Name Role Phone Mike Lees NP [id number] [address] [address]- [facility] Attending Physician: Monserrat Escobedo NP Admitting Physician: Monserrat Escobedo NP Referring Physician: Mike Lees NP Allergies, Adverse Reactions, Alerts Substance Reaction Severity Status Bee Stings anaphalyxis Active Medications Percocet-5/325 325 mg-5 mg oral tablet See Instructions, 1-2 tablet By Mouth Every 4 hours, # 30 tablet, 0 Refills Start Date: 01/11/09 Stop Date: 01/18/09 Status: Ordered
[2022-05-13 21:59] LABS: Valproate < 2.0 mcg/mL (50.0-100.0)
[2022-05-13 22:02] LABS: Influenza A PCR NEGATIVE (Negative); Influenza B PCR NEGATIVE (Negative); Resp Syncy Virus RNA Qual PCR NEGATIVE (Negative); SARS COV2 PCR INHOUSE NEGATIVE (Negative)
[2022-05-13 22:48] VITALS: BP 137/67; PULSE 86; O2SAT 96
[2022-05-13 23:29] LABS: Glucose, Whole Blood 266 mg/dL (60-115)
[2022-05-13] MEDS: Divalproex Sodium 500 MG TABLET.DR 1000 MG PO (23:38)
--- NOTE | 2022-05-14 | ECG_ITS ---
Test Reason : COCAINE USE Blood Pressure : / mmHG Vent. Rate : 070 BPM Atrial Rate : 070 BPM P-R Int : 172 ms QRS Dur : 092 ms QT Int : 396 ms P-R-T Axes : 042 044 048 degrees QTc Int : 427 ms Sinus rhythm with Premature supraventricular complexes Minimal voltage criteria for LVH, may be normal variant ( Sokolow-Brownlee ) Borderline ECG When compared with ECG of 09-APR-2022 18:58, Premature supraventricular complexes are now Present Referred By: Katherine Aldrich Electronically Signed By:JESÚS VIVAR MD
[2022-05-14] MEDS: 0.9 % Sodium Chloride 1,000 ML 999 ML IVCONT (00:39)
[2022-05-14 01:34] LABS: Glucose, Whole Blood 329 mg/dL (60-115)
[2022-05-14] MEDS: Divalproex Sodium ER 250 MG TAB.ER.24H 1250 MG PO (01:46)
[2022-05-14] MEDS: traZODone HCL 50 MG TABLET PO (01:46)
[2022-05-14] MEDS: ARIPiprazole 5 MG TABLET PO (01:46)
[2022-05-14] MEDS: ARIPiprazole 2 MG TABLET PO (01:46)
[2022-05-14 02:36] VITALS: BP 136/68; PULSE 83; RESP 18; TEMP 37.1; O2SAT 96
[2022-05-14 02:44] LABS: Anion Gap 9 (12-20); Blood Urea Nitrogen 17 mg/dL (9-16); Carbon Dioxide 23 mmol/L (22-29); Chloride 105 mmol/L (96-108); Creatinine Clr Calc Pharmacy 72.8; Estimated Glomerular Filt Rate > 60; Glucose Random 352 mg/dL (60-115); Sodium 133 mmol/L (135-145)
--- NOTE | 2022-05-14 04:11 | PC.NURSE ---
[facility]
[2022-05-14 04:35] LABS: Appearance Urine Clear; Color Urine Yellow; Glucose Urine UA >=1000 mg/dL (Negative); Leukocyte Esterase Urine Negative (Negative); Nitrite Urine Negative (Negative); Specific Gravity - Urine >= 1.030 (1.005-1.025); UMIC TRIGGER UACC YES; Urine Blood Negative (Negative); Urine Ketones Negative (Negative); Urine Protein Negative (Neg-Trace)
[2022-05-14 04:40] LABS: Bacteria Urine None Seen (None Seen); Hyaline Casts Urine 0-2 /LPF (0-2); RBC Urine 0-2 /HPF (0-2); Squamous Epithelial Cell Urine 0-2 /HPF (0-2); WBC Urine 0-5 /HPF (0-5)
[2022-05-14 04:47] LABS: Amphetamine Screen Urine Not Detected (Not Detect); Barbiturates, Urine POSITIVE (Not Detect); Benzodiazepines Screen Urine Not Detected (Not Detect); Cannabinoid Screen Urine POSITIVE (Not Detect); Cocaine Screen Urine POSITIVE (Not Detect); Fentanyl, urine Not Detected (Not Detect); Opiate Screen Urine Not Detected (Not Detect); Phencyclidine Screen Urine Not Detected (Not Detect)
--- NOTE | 2022-05-14 05:53 | PC.NURSE ---
Patient was transferred from main ED at 0415 after clearing the patient medically, med rec completed/MAR active, behavior non concerning at this time, follows direction well, [facility] referral completed/pending ETA, VSS, safety check maintained on 15 minutes check, will continue to monitor.
--- NOTE | 2022-05-14 06:35 | PC.NURSE ---
Patient disposition per [facility] is section 12 inpatient bed search from the community, disposition clarified after speaking with care team
[2022-05-14 06:53] LABS: Glucose, Whole Blood 291 mg/dL (60-115)
--- NOTE | 2022-05-14 08:50 | PC.NURSE ---
Dr. Crenshaw instructed to start sliding scale with lunch.
[2022-05-14 09:01] VITALS: BP 168/88; PULSE 85; TEMP 36.4; O2SAT 98
[2022-05-14] MEDS: Omeprazole 20 MG CAPSULE.DR PO (09:07)
[2022-05-14] MEDS: Metoprolol Succinate ER 50 MG TAB.ER.24H PO (09:07)
[2022-05-14] MEDS: Gabapentin 300 MG CAPSULE PO ×2 (09:07→15:00)
[2022-05-14] MEDS: lisinopriL 10 MG TABLET PO (09:08)
[2022-05-14] MEDS: Escitalopram Oxalate 10 MG TABLET PO (09:08)
[2022-05-14] MEDS: Cyclobenzaprine HCl 10 MG TABLET PO ×2 (09:08→15:00)
[2022-05-14] MEDS: Empagliflozin 25 MG TABLET PO (09:35)
[2022-05-14] MEDS: metFORMIN HCl ER 750 MG TAB.ER.24H PO (09:35)
--- NOTE | 2022-05-14 10:00 | PC.NURSE ---
Dr. Crenshaw aware of patients BP
[2022-05-14 13:21] LABS: Glucose, Whole Blood 256 mg/dL (60-115)
[2022-05-14] MEDS: Insulin Lispro 100 UNIT/ML 3 ML VIAL SUBCUT (13:23)
[2022-05-14 16:41] LABS: Glucose, Whole Blood 181 mg/dL (60-115)
[2022-05-14] MEDS: LORazepam 1 MG TABLET PO (16:42)
[2022-05-14 18:00] VITALS: BP 119/72; PULSE 72; TEMP 36.6; O2SAT 99
--- NOTE | 2022-05-14 18:55 | PC.ADMIT ---
pt is a 57 year old male who presented to [facility] ED with HI and thoughts of harming others. pt tox screen was positive for alcohol and cocaine. pt has a PMH of COPD, diabetes type 2, alcohol use disorder, stimulant use disorder, and major depressive disorder. during admission, pt was tired and went to sleep as soon as the admission was over. pt has been to [facility] inpatient in the past.
[2022-05-15 07:40] VITALS: BP 142/75; PULSE 76; RESP 16; TEMP 36.8; O2SAT 100
[2022-05-15 08:21] LABS: Alanine Aminotransferase 21 U/L (0-40); Albumin Level 4.4 g/dL (3.5-5.0); Alkaline Phosphatase 88 U/L (39-117); Anion Gap 16 (12-20); Aspartate Amino Transferase 15 U/L (5-37); Blood Urea Nitrogen 9 mg/dL (9-16); Calcium 9.7 mg/dL (8.4-10.2); Carbon Dioxide 25 mmol/L (22-29); Chloride 104 mmol/L (96-108); Cholesterol 184 mg/dL; Creatinine Clr Calc Pharmacy 78.6; Estimated Glomerular Filt Rate > 60; Glucose Fasting 132 mg/dL (60-99); HDL Cholesterol 53 mg/dL; LDL Cholesterol Calculated 108 mg/dl; Potassium 4.5 mmol/L (3.3-5.1); Sodium 140 mmol/L (135-145); Total Protein 7.2 g/dL (6.5-8.0); Triglycerides 117 mg/dL
[2022-05-15] MEDS: Escitalopram Oxalate 10 MG TABLET PO (08:31)
[2022-05-15] MEDS: Metoprolol Succinate ER 50 MG TAB.ER.24H PO (08:31)
[2022-05-15] MEDS: Gabapentin 300 MG CAPSULE PO ×3 (08:31→20:29)
[2022-05-15] MEDS: lisinopriL 10 MG TABLET PO (08:31)
[2022-05-15] MEDS: Empagliflozin 25 MG TABLET PO (08:31)
[2022-05-15] MEDS: Omeprazole 20 MG CAPSULE.DR PO (08:31)
[2022-05-15] MEDS: metFORMIN HCl ER 750 MG TAB.ER.24H PO ×2 (08:31→20:29)
[2022-05-15 08:34] LABS: Estimated Average Glucose 289 mg/dL; Hemoglobin A1c % 11.7 %
[2022-05-15] MEDS: Cyclobenzaprine HCl 10 MG TABLET PO ×3 (08:34→20:29)
[2022-05-15 08:42] LABS: Bilirubin Total 0.4 mg/dL (0.0-1.0)
[2022-05-15] MEDS: LORazepam 1 MG TABLET PO ×3 (10:13→20:29)
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
[2022-05-15 20:25] VITALS: BP 144/79; PULSE 79; RESP 14; TEMP 36.1
[2022-05-15] MEDS: traZODone HCL 50 MG TABLET PO (20:28)
[2022-05-15] MEDS: Atorvastatin Calcium 80 MG TABLET PO (20:28)
[2022-05-15] MEDS: Divalproex Sodium ER 250 MG TAB.ER.24H 1250 MG PO (20:28)
[2022-05-15] MEDS: ARIPiprazole 5 MG TABLET PO (20:29)
[2022-05-15] MEDS: Prazosin HCL 1 MG CAPSULE PO (20:29)
[2022-05-15] MEDS: ARIPiprazole 2 MG TABLET PO (20:30)
[2022-05-15 20:42] LABS: Glucose, Whole Blood 508 mg/dL (60-115)
[2022-05-15] MEDS: Insulin Lispro 100 UNIT/ML 3 ML VIAL 12 UNIT SUBCUT (21:10)
--- NOTE | 2022-05-15 21:13 | PC.NURSE ---
PT diabetic, no POC's ordered at this time. PT states he takes his BS in the morning and evening and is insulin dependent. POC @ 20:38 508 build and deployment engineer notified and order obtained for 12U of Humalog and recheck BS in one hour - supervisor publications will add orders for POCs to continue.
[2022-05-15 22:20] LABS: Glucose, Whole Blood 487 mg/dL (60-115)
--- NOTE | 2022-05-15 22:30 | PC.NURSE ---
Recheck POC 487, Additional 10U of Humalog ordered, recheck POC in one hour.
[2022-05-15] MEDS: Insulin Lispro 100 UNIT/ML 3 ML VIAL 10 UNIT SUBCUT (22:42)
[2022-05-16 00:22] LABS: Glucose, Whole Blood 312 mg/dL (60-115)
[2022-05-16] MEDS: Insulin Lispro 100 UNIT/ML 3 ML VIAL SUBCUT ×5 (00:46→21:47)
[2022-05-16 07:45] VITALS: BP 108/59; PULSE 88; RESP 16; TEMP 36.6; O2SAT 94
[2022-05-16 08:05] LABS: Glucose, Whole Blood 243 mg/dL (60-115)
[2022-05-16] MEDS: Metoprolol Succinate ER 50 MG TAB.ER.24H PO (08:31)
[2022-05-16] MEDS: Gabapentin 300 MG CAPSULE PO ×3 (08:31→21:45)
[2022-05-16] MEDS: LORazepam 1 MG TABLET PO ×2 (08:31→21:43)
[2022-05-16] MEDS: Omeprazole 20 MG CAPSULE.DR PO (08:31)
[2022-05-16] MEDS: lisinopriL 10 MG TABLET PO (08:31)
[2022-05-16] MEDS: Escitalopram Oxalate 10 MG TABLET PO (08:31)
[2022-05-16] MEDS: metFORMIN HCl ER 750 MG TAB.ER.24H PO ×2 (08:31→21:44)
[2022-05-16] MEDS: Cyclobenzaprine HCl 10 MG TABLET PO ×3 (08:31→21:44)
[2022-05-16] MEDS: Empagliflozin 25 MG TABLET PO (08:36)
[2022-05-16 11:37] LABS: Glucose, Whole Blood 486 mg/dL (60-115)
--- NOTE | 2022-05-16 11:52 | PC.NURSE ---
hospitalist notified of POC 486; administered 10 units per sliding scale, no further orders.
[2022-05-16 12:40] VITALS: BP 110/74; PULSE 98; RESP 16; TEMP 36.7; O2SAT 98
--- NOTE | 2022-05-16 12:42 | PC.NURSE ---
pt has been incontinent of urine most of the day, most recently while attempting to provide UA. At that time pt had an unwitnessed fall, reports no pain but requests his knee brace from storage. will discuss with provider. Pt gave himself bed-bath, was assisted w/ clean attire and linen change.
--- NOTE | 2022-05-16 13:09 | HO.PSYCHPN ---
Subjective Subjective Date of Service: 05/16/22 Reason For Visit: HI Interim History: Blood sugars have been elevated yesterday. Reordered point of cares and sliding scale insulin. Has been adherent with blood sugar monitoring and insulin. Has notably been incontinent last night and also today. Patient reports this is new. He is alert and oriented. No concerns vitals orourke. Denies dysuria. Did agree to giving a urine sample to rule out a UTI. Otherwise still reports feeling depressed, hopeless and irritable. Medication Compliance: Yes Side effects from medications: No Attending Groups: No Review of Systems Acute medical concerns: No Review of Systems Review of Systems Has notably been incontinent last night and also today. Patient reports this is new. He is alert and oriented. No concerns vitals orourke. Denies dysuria. Did agree to giving a urine sample to rule out a UTI. Yes all other systems are reviewed and are negative Mental Status Exam Mental Status Exam Narrative: Self-care poor and malodorous. Engaged. Organized. Oriented. Depressed. Endorses thoughts of suicide but no plans or intent. No current HI. Denies any hallucinations. No paranoia noted. Insight and judgment fair Diagnostics Vital Signs (24Hr): Vital Signs - 24 hr 05/15/22 20:25 05/16/22 07:45 05/16/22 12:40 Temperature 97 F 97.9 F 98.1 F Pulse Rate 79 88 98 Respiratory Rate 14 16 16 Blood Pressure 144/79 H 108/59 L 110/74 Pulse Oximetry 94 98 Oxygen Delivery Method Room Air Room Air BMI result Body Mass Index 27.0 Labs Results: 05/13/22 21:10 05/15/22 07:14 Labs: Laboratory Results - last 48 hr 05/14/22 05/14/22 05/15/22 13:17 16:36 07:14 Sodium 140 Potassium 4.5 Chloride 104 Carbon Dioxide 25 Anion Gap 16 BUN 9 Creatinine 0.99 Estim Creat Clear Calc 78.6 Estimated GFR > 60 POC Glucose 256 H 181 H Fasting Glucose 132 H Estimat Average Glucose Hemoglobin A1c % Calcium 9.7 D Total Bilirubin 0.4 AST 15 ALT 21 Alkaline Phosphatase 88 Total Protein 7.2 Albumin 4.4 Triglycerides 117 Cholesterol 184 LDL Cholesterol, Calc 108 HDL Cholesterol 53 05/15/22 05/15/22 05/15/22 07:14 20:38 22:15 Sodium Potassium Chloride Carbon Dioxide Anion Gap BUN Creatinine Estim Creat Clear Calc Estimated GFR POC Glucose 508 H* 487 H* Fasting Glucose Estimat Average Glucose 289 Hemoglobin A1c % 11.7 Calcium Total Bilirubin AST ALT Alkaline Phosphatase Total Protein Albumin Triglycerides Cholesterol LDL Cholesterol, Calc HDL Cholesterol 05/16/22 05/16/22 05/16/22 00:19 07:58 11:34 Sodium Potassium Chloride Carbon Dioxide Anion Gap BUN Creatinine Estim Creat Clear Calc Estimated GFR POC Glucose 312 H 243 H 486 H* Fasting Glucose Estimat Average Glucose Hemoglobin A1c % Calcium Total Bilirubin AST ALT Alkaline Phosphatase Total Protein Albumin Triglycerides Cholesterol LDL Cholesterol, Calc HDL Cholesterol Medications Medications Current Medications Acetaminophen (Acetaminophen 325 Mg Tablet) 650 mg PO Q6H PRN PRN Reason: Headache/Pain Mild Scale (1-3) Al Hydroxide/Mg Hydroxide (Magnesium Hydrox/Alum Hydrox 30 Ml Oral.Susp) 30 ml PO Q6H PRN PRN Reason: Heartburn/Nausea Aripiprazole (Aripiprazole 2 Mg Tablet) 2 mg PO BEDTIME [facility] Last Admin: 05/15/22 20:30 Dose: 2 mg Aripiprazole (Aripiprazole 5 Mg Tablet) 5 mg PO BEDTIME [facility] Last Admin: 05/15/22 20:29 Dose: 5 mg Atorvastatin Calcium (Atorvastatin Calcium 80 Mg Tablet) 80 mg PO BEDTIME [facility] Last Admin: 05/15/22 20:28 Dose: 80 mg Cyclobenzaprine HCl (Cyclobenzaprine Hcl 10 Mg Tablet) 10 mg PO TID [facility] Last Admin: 05/16/22 08:31 Dose: 10 mg Dextrose (Dextrose 50 % 25 Gm/50 Ml Syringe) 25 gm IVPUSH Q15M PRN; Protocol PRN Reason: per Hypoglycemia Standing Ord. Divalproex Sodium (Divalproex Sodium Er 250 Mg Tab.Er.24h) 1,250 mg PO BEDTIME [facility] Last Admin: 05/15/22 20:28 Dose: 1,250 mg Empagliflozin (Empagliflozin 25 Mg Tablet) 25 mg PO DAILY [facility] Last Admin: 05/16/22 08:36 Dose: 25 mg Escitalopram Oxalate (Escitalopram Oxalate 10 Mg Tablet) 10 mg PO DAILY [facility] Last Admin: 05/16/22 08:31 Dose: 10 mg Gabapentin (Gabapentin 300 Mg Capsule) 300 mg PO TID [facility] Last Admin: 05/16/22 08:31 Dose: 300 mg Glucose (Glucose Gel 15 Gm Gel..Gram.) 15 gm PO Q15M PRN; Protocol PRN Reason: per Hypoglycemia Standing Ord. Insulin Human Lispro (Insulin Lispro 100 Unit/Ml 3 Ml Vial) 0 unit SUBCUT QIDACHS [facility]; Protocol Stop: 05/20/22 22:02 Last Admin: 05/16/22 11:52 Dose: 10 unit Lisinopril (Lisinopril 10 Mg Tablet) 10 mg PO DAILY [facility]; Protocol Last Admin: 05/16/22 08:31 Dose: 10 mg Lorazepam (Lorazepam 1 Mg Tablet) 1 mg PO TID [facility] Last Admin: 05/16/22 08:31 Dose: 1 mg Lorazepam (Lorazepam 1 Mg Tablet) 2 mg PO Q2H PRN PRN Reason: CIWA 11 and above Lorazepam (Lorazepam 1 Mg Tablet) 1 mg PO Q2H PRN PRN Reason: CIWA 6-10 Magnesium Hydroxide (Milk Of Magnesia 30 Ml Oral.Susp) 30 ml PO DAILY PRN PRN Reason: Constipation Metformin HCl (Metformin Hcl Er 750 Mg Tab.Er.24h) 750 mg PO BID [facility] Last Admin: 05/16/22 08:31 Dose: 750 mg Metoprolol Succinate (Metoprolol Succinate Er 50 Mg Tab.Er.24h) 50 mg PO DAILY [facility]; Protocol Last Admin: 05/16/22 08:31 Dose: 50 mg Nicotine (Nicotine 21 Mg Patch.Td24) 21 mg TRANSDERMA DAILY PRN PRN Reason: Nicotine Cravings Nicotine Polacrilex (Nicotine Polacrilex 2 Mg Gum) 4 mg BUCCAL Q2H PRN PRN Reason: Nicotine Cravings Olanzapine (Olanzapine 5 Mg Tablet) 5 mg PO TID PRN PRN Reason: agitation Omeprazole (Omeprazole 20 Mg Capsule.Dr) 20 mg PO DAILY [facility] Last Admin: 05/16/22 08:31 Dose: 20 mg Prazosin HCl (Prazosin Hcl 1 Mg Capsule) 1 mg PO BEDTIME [facility]; Protocol Last Admin: 05/15/22 20:29 Dose: 1 mg Trazodone HCl (Trazodone Hcl 50 Mg Tablet) 50 mg PO BEDTIME [facility] Last Admin: 05/15/22 20:28 Dose: 50 mg Trazodone HCl (Trazodone Hcl 50 Mg Tablet) 50 mg PO BEDTIME PRN PRN Reason: Insomnia Allergies Allergies Allergy/AdvReac Type Severity Reaction Status Date / Time No Known Allergies Allergy Verified 04/09/22 17:32 Assessment & Plan Assessment & Plan (1) Major depression: Status: Acute Code(s): F32.9 - Major depressive disorder, single episode, unspecified (2) Alcohol dependence: Status: Acute Code(s): F10.20 - Alcohol dependence, uncomplicated Plan restart medications Abilify 7 mg, Depakote 1250 mg, trazodone 50 mg, Lexapro 10 mg, gabapentin 300 mg 3 times per day, prazosin 1 mg. Also CIWA 05/16/2022: Reordered point of care is and sliding scale insulin, which orders had dropped off. Has notably been incontinent last night and also today. Patient reports this is new. He is alert and oriented. No concerns vitals orourke. Denies dysuria. Did agree to giving a urine sample to rule out a UTI. I spent minutes with the patient and/or on the patient floor today, greater than?50% of which was spent counseling/coordinating care. Reason for contiued inpatient stay Substantial Risk for: inability to function
[2022-05-16 13:53] LABS: Appearance Urine Clear; Color Urine Yellow; Glucose Urine UA >=1000 mg/dL (Negative); Leukocyte Esterase Urine Negative (Negative); Nitrite Urine Negative (Negative); PH 7.5 (5.0-9.0); Specific Gravity - Urine >= 1.030 (1.005-1.025); UMIC TRIGGER UACC YES; Urine Blood Negative (Negative); Urine Ketones Trace mg/dL (Negative); Urine Protein Negative (Neg-Trace)
[2022-05-16 13:58] LABS: Bacteria Urine None Seen (None Seen); Hyaline Casts Urine 0-2 /LPF (0-2); RBC Urine 0-2 /HPF (0-2); Squamous Epithelial Cell Urine 0-2 /HPF (0-2); WBC Urine 0-5 /HPF (0-5)
[2022-05-16 17:22] LABS: Glucose, Whole Blood 390 mg/dL (60-115)
[2022-05-16] MEDS: Acetaminophen 325 MG TABLET 650 MG PO (17:50)
[2022-05-16 21:36] LABS: Glucose, Whole Blood 247 mg/dL (60-115)
[2022-05-16 21:40] VITALS: BP 120/67; PULSE 81; TEMP 37
[2022-05-16] MEDS: ARIPiprazole 2 MG TABLET PO (21:43)
[2022-05-16] MEDS: Prazosin HCL 1 MG CAPSULE PO (21:43)
[2022-05-16] MEDS: ARIPiprazole 5 MG TABLET PO (21:44)
[2022-05-16] MEDS: Divalproex Sodium ER 250 MG TAB.ER.24H 1250 MG PO (21:45)
[2022-05-16] MEDS: Atorvastatin Calcium 80 MG TABLET PO (21:45)
[2022-05-16] MEDS: traZODone HCL 50 MG TABLET PO (21:45)
--- NOTE | 2022-05-17 00:18 | PC.NURSE ---
Pt had POC BS 390 at 1713 and was given 10 units lispro SC as per Sliding Scale. Jennifer Villalobos was informed and had no additional orders.
[2022-05-17 08:40] LABS: Ammonia 36 umol/L (13-55)
[2022-05-17 08:47] LABS: Alanine Aminotransferase 15 U/L (0-40); Albumin Level 4.2 g/dL (3.5-5.0); Alkaline Phosphatase 88 U/L (39-117); Aspartate Amino Transferase 11 U/L (5-37); Bilirubin Direct < 0.2 mg/dL (0.0-0.5); Bilirubin Total 0.3 mg/dL (0.0-1.0); Total Protein 6.9 g/dL (6.5-8.0)
[2022-05-17 10:16] LABS: Glucose, Whole Blood 345 mg/dL (60-115)
[2022-05-17] MEDS: Insulin Lispro 100 UNIT/ML 3 ML VIAL SUBCUT ×3 (10:24→22:07)
[2022-05-17] MEDS: Escitalopram Oxalate 10 MG TABLET PO (10:26)
[2022-05-17] MEDS: lisinopriL 10 MG TABLET PO (10:26)
[2022-05-17] MEDS: metFORMIN HCl ER 750 MG TAB.ER.24H PO (10:26)
[2022-05-17] MEDS: Metoprolol Succinate ER 50 MG TAB.ER.24H PO (10:26)
[2022-05-17] MEDS: Omeprazole 20 MG CAPSULE.DR PO (10:26)
[2022-05-17] MEDS: Cyclobenzaprine HCl 10 MG TABLET PO ×2 (10:26→15:50)
[2022-05-17] MEDS: LORazepam 1 MG TABLET PO ×2 (10:26→15:12)
[2022-05-17] MEDS: Gabapentin 300 MG CAPSULE PO ×2 (10:26→15:12)
[2022-05-17] MEDS: Empagliflozin 25 MG TABLET PO (10:30)
[2022-05-17 10:31] VITALS: BP 119/61; PULSE 103; RESP 18; TEMP 36.5; O2SAT 97
--- NOTE | 2022-05-17 12:16 | PM.EVENT ---
Event Note Date of Service: 05/17/22 Event Note: unwitnessed fall in shower; reports hit head at right temporal/parietal area; denies LOC. EOM impaired toward right side AMS, thinks month is January, drowsy, not answering questions fully sending for stat head CT Time Spent With Patient Time: Total time managing care of this patient today ____ minutes.
[2022-05-17 12:30] LABS: Glucose, Whole Blood 507 mg/dL (60-115)
[2022-05-17] MEDS: Insulin Lispro 100 UNIT/ML 3 ML VIAL 6 UNIT SUBCUT (13:06)
--- NOTE | 2022-05-17 14:54 | PC.NURSE ---
Pt had an unwitnessed fall when he went into the shower. Pt stated that he hit the right side of his head (temporal). No loss of consciousness. Pt was assessed and assisted back to his room where he was evaluated by MD. Patient was alert and oriented to person, place but not time, he believed that it was January 2022. Head Ct was ordered. Pt has had issues with incontinence since admission and had high blood glucose levels in which hospitalist was notified and supplemental insulin was ordered.
--- NOTE | 2022-05-17 17:06 | P.PNPSI_ITS ---
Subjective Subjective Date of Service: 05/17/22 Reason For Visit: HI Subjective Notes: Conditional Voluntary Healthcare Proxy: No Guardianship: No Medical Problems Affecting Mental Status: No Interim History: Sedate, slow to respond, anergic unsteady, urinary incontinence with fall in the shower this a.m. Labile blood sugars Pt reports his knee is unstable-brace in place, one to one for ligature risk and for unstable MSE and sedation. Poor interviewer due to sedation today. Several concerns team has identified. 1. Blood sugar-Labile, hyperglycemic, A1C 11.[address] Roblero reviewed and has adjusted medications. 2. History of emboli with knee brace- Discussed with [facility]. Pt reports hx of emboli August 2021. Eliquis Rx 10mg bid for one day then 5 mg bid for the remainder of Fernanda2021. Calls to [facility] . This Rx was stopped August 2021. Calls to [facility], [facility] and [facility]-Eliquis has never been prescribes not has any other anticoagulant except ASA. [facility] is not sure who follows pt for orthopedics at this time. Pt is also unsure. 3. Urinary Incontinence-?Infection, OAB, BPH, Prostatitis, DM. Of note, on 12/25/20 pt was seen for sx of ?syncope, TIA rule out. He presented with sx of bilateral lower extremity weakness, numbness, loss of bladder control, neuropathy. Neuroimaging negative for that event. MRI showed small vessel disease. Hx of mini-strokes in 2016. Seizure hx several years ago per [facility]. 4. Mental status decline-Decrease scheduled Lorazepam to 0.5 bid, continue prn to cover for withdrawal, Decrease Valproate to 750 mg HS with emergent level. Informed by team at 1750 that pt continued to decline and they request hospitalist consultation which was requested. Review with [facility] and Dr. Roblero. Medication Compliance: Yes Side effects from medications: Yes (possibly) Attending Groups: No Review of Systems Acute medical concerns: Yes as noted Medical Review of Systems: changed (evening team reports significant changes) Review of Systems Constitutional: Reports daytime sleepiness, Reports fatigue, Reports frequent falls (fall in the shower earlier today), Reports lethargy, Reports malaise and Reports weakness Eyes: Reports no additional eye complaints Reports system reviewed and no additional complaints, except as documented Genitourinary: Reports urinary frequency, Reports urinary incontinence and Reports urinary urgency Musculoskeletal: Reports abnormal gait and Reports other (hx of knee injury- [facility] and Pt do not have specifics on this injury) Reports abnormal gait, Reports behavioral changes, Reports confusion, Reports frequent falls (fall in the shower earlier today), Reports seizure-like activity (?) and Reports weakness Psychiatric: Reports behavioral changes, Reports confusion and Reports difficulty concentrating Endocrine: Reports fatigue Mental Status Exam Mental Status Exam Patient Appearance: Fatigued and Disheveled Patient Orientation: Person and Situation Level of Consciousness: Sedated Patient Behavior: Passive, Sedated, Avoidant, Fatigued and Poor Eye Contact Mood Description: Flat Affect Description: Flat Patient Cognition Impaired: No Ability to Follow Directions: Fair Speech Pattern: Slurred, Impoverished, Difficulty Finding Words, Spontaneous Speech, Soft-Spoken and Delayed Memory Description: Remote Impaired and Episodic Impaired Hallucinations: None Delusions: Not Present Thought Process: Confusion Thought Content: positive for Perseveration, positive for Poverty of Content, positive for Slowed Thinking and positive for Tangential Depressive Symptoms: Increased Fatigue, Loss of Energy and Difficulty Concentrating Judgement: Poor Diagnostics Vital Signs (24Hr): Vital Signs - 24 hr 05/16/22 21:40 05/17/22 10:31 Temperature 98.6 F 97.7 F Pulse Rate 81 103 H Respiratory Rate 18 Blood Pressure 120/67 119/61 Pulse Oximetry 97 Oxygen Delivery Method Room Air BMI result Body Mass Index 27.0 Labs Results: 05/13/22 21:10 05/15/22 07:14 Labs: Laboratory Results - last 48 hr 05/15/22 05/15/22 05/16/22 20:38 22:15 00:19 POC Glucose 508 H* 487 H* 312 H Total Bilirubin Direct Bilirubin AST ALT Alkaline Phosphatase Ammonia Total Protein Albumin Urine Color Urine Appearance Urine pH Ur Specific Achille Urine Protein Urine Glucose (UA) Urine Ketones Urine Blood Urine Nitrite Ur Leukocyte Esterase Urine RBC Urine WBC Ur Squamous Epith Cells Urine Bacteria Hyaline Casts 05/16/22 05/16/22 05/16/22 07:58 11:34 13:09 POC Glucose 243 H 486 H* Total Bilirubin Direct Bilirubin AST ALT Alkaline Phosphatase Ammonia Total Protein Albumin Urine Color Yellow Urine Appearance Clear Urine pH 7.5 Ur Specific Achille >= 1.030 H Urine Protein Negative Urine Glucose (UA) >=1000 H Urine Ketones Trace Urine Blood Negative Urine Nitrite Negative Ur Leukocyte Esterase Negative Urine RBC 0-2 Urine WBC 0-5 Ur Squamous Epith Cells 0-2 Urine Bacteria None Seen Hyaline Casts 0-2 05/16/22 05/16/22 05/17/22 17:13 21:32 08:08 POC Glucose 390 H* 247 H Total Bilirubin 0.3 Direct Bilirubin < 0.2 AST 11 ALT 15 Alkaline Phosphatase 88 Ammonia Total Protein 6.9 Albumin 4.2 Urine Color Urine Appearance Urine pH Ur Specific Achille Urine Protein Urine Glucose (UA) Urine Ketones Urine Blood Urine Nitrite Ur Leukocyte Esterase Urine RBC Urine WBC Ur Squamous Epith Cells Urine Bacteria Hyaline Casts 05/17/22 05/17/22 05/17/22 08:08 10:04 12:27 POC Glucose 345 H 507 H* Total Bilirubin Direct Bilirubin AST ALT Alkaline Phosphatase Ammonia 36 Total Protein Albumin Urine Color Urine Appearance Urine pH Ur Specific Achille Urine Protein Urine Glucose (UA) Urine Ketones Urine Blood Urine Nitrite Ur Leukocyte Esterase Urine RBC Urine WBC Ur Squamous Epith Cells Urine Bacteria Hyaline Casts Imaging Radiology Impressions: ITS Impressions Head CT 05/17/22 15:52 IMPRESSION: 1. No acute intracranial pathology. 2. Unchanged curvilinear calcification of the melissa, nonspecific possibly due to underlying vascular anomaly. Consider nonemergent brain MRI as previously suggested in the absence of earlier priors. Medications Medications Current Medications Acetaminophen (Acetaminophen 325 Mg Tablet) 650 mg PO Q6H PRN PRN Reason: Headache/Pain Mild Scale (1-3) Last Admin: 05/16/22 17:50 Dose: 650 mg Al Hydroxide/Mg Hydroxide (Magnesium Hydrox/Alum Hydrox 30 Ml Oral.Susp) 30 ml PO Q6H PRN PRN Reason: Heartburn/Nausea Aripiprazole (Aripiprazole 2 Mg Tablet) 2 mg PO BEDTIME [facility] Last Admin: 05/16/22 21:43 Dose: 2 mg Aripiprazole (Aripiprazole 5 Mg Tablet) 5 mg PO BEDTIME [facility] Last Admin: 05/16/22 21:44 Dose: 5 mg Atorvastatin Calcium (Atorvastatin Calcium 80 Mg Tablet) 80 mg PO BEDTIME [facility] Last Admin: 05/16/22 21:45 Dose: 80 mg Cyclobenzaprine HCl (Cyclobenzaprine Hcl 10 Mg Tablet) 10 mg PO TID [facility] Last Admin: 05/17/22 15:50 Dose: 10 mg Dextrose (Dextrose 50 % 25 Gm/50 Ml Syringe) 25 gm IVPUSH Q15M PRN; Protocol PRN Reason: per Hypoglycemia Standing Ord. Divalproex Sodium (Divalproex Sodium Er 250 Mg Tab.Er.24h) 750 mg PO BEDTIME [facility] Empagliflozin (Empagliflozin 25 Mg Tablet) 25 mg PO DAILY [facility] Last Admin: 05/17/22 10:30 Dose: 25 mg Escitalopram Oxalate (Escitalopram Oxalate 10 Mg Tablet) 10 mg PO DAILY [facility] Last Admin: 05/17/22 10:26 Dose: 10 mg Gabapentin (Gabapentin 300 Mg Capsule) 300 mg PO TID [facility] Last Admin: 05/17/22 15:12 Dose: 300 mg Glucose (Glucose Gel 15 Gm Gel..Gram.) 15 gm PO Q15M PRN; Protocol PRN Reason: per Hypoglycemia Standing Ord. Insulin Human Lispro (Insulin Lispro 100 Unit/Ml 3 Ml Vial) 0 unit SUBCUT QIDACHS [facility]; Protocol Stop: 05/20/22 22:02 Last Admin: 05/17/22 12:42 Dose: 1 unit Lisinopril (Lisinopril 10 Mg Tablet) 10 mg PO DAILY [facility]; Protocol Last Admin: 05/17/22 10:26 Dose: 10 mg Lorazepam (Lorazepam 1 Mg Tablet) 2 mg PO Q2H PRN PRN Reason: CIWA 11 and above Lorazepam (Lorazepam 1 Mg Tablet) 1 mg PO Q2H PRN PRN Reason: CIWA 6-10 Lorazepam (Lorazepam 0.5 Mg Tablet) 0.5 mg PO TID [facility] Magnesium Hydroxide (Milk Of Magnesia 30 Ml Oral.Susp) 30 ml PO DAILY PRN PRN Reason: Constipation Metformin HCl (Metformin Hcl Er 750 Mg Tab.Er.24h) 750 mg PO BID [facility] Last Admin: 05/17/22 10:26 Dose: 750 mg Metoprolol Succinate (Metoprolol Succinate Er 50 Mg Tab.Er.24h) 50 mg PO DAILY [facility]; Protocol Last Admin: 05/17/22 10:26 Dose: 50 mg Nicotine (Nicotine 21 Mg Patch.Td24) 21 mg TRANSDERMA DAILY PRN PRN Reason: Nicotine Cravings Nicotine Polacrilex (Nicotine Polacrilex 2 Mg Gum) 4 mg BUCCAL Q2H PRN PRN Reason: Nicotine Cravings Olanzapine (Olanzapine 5 Mg Tablet) 5 mg PO TID PRN PRN Reason: agitation Omeprazole (Omeprazole 20 Mg Capsule.) 20 mg PO DAILY [facility] Last Admin: 05/17/22 10:26 Dose: 20 mg Prazosin HCl (Prazosin Hcl 1 Mg Capsule) 1 mg PO BEDTIME [facility]; Protocol Last Admin: 05/16/22 21:43 Dose: 1 mg Trazodone HCl (Trazodone Hcl 50 Mg Tablet) 50 mg PO BEDTIME [facility] Last Admin: 05/16/22 21:45 Dose: 50 mg Trazodone HCl (Trazodone Hcl 50 Mg Tablet) 50 mg PO BEDTIME PRN PRN Reason: Insomnia Allergies Allergies Allergy/AdvReac Type Severity Reaction Status Date / Time No Known Allergies Allergy Verified 04/09/22 17:32 Assessment & Plan Assessment & Plan (1) Major depression: Status: Acute Code(s): F32.9 - Major depressive disorder, single episode, unspecified (2) Alcohol dependence: Status: Acute Code(s): F10.20 - Alcohol dependence, uncomplicated Plan restart medications Abilify 7 mg, Depakote 1250 mg, trazodone 50 mg, Lexapro 10 mg, gabapentin 300 mg 3 times per day, prazosin 1 mg. Also CIWA 05/16/2022: Reordered point of care is and sliding scale insulin, which orders had dropped off. Has notably been incontinent last night and also today. Patient reports this is new. He is alert and oriented. No concerns vitals orourke. Denies dysuria. Did agree to giving a urine sample to rule out a UTI. 05/17/22: Care discussed with Dr. Roblero. Brittanie presenting episode 12/2020 per [facility] reports 1. CBCD, CMP, TSH, B12, Folate, Urine Culture, Valproate Level, EKG 2. Decrease Depakote to 750 mg HS- rule out toxicity 3. Decrease scheduled Lorazepam to 0.5 mg bid with prn's-rule out benzodiazepine toxicity 4. MVI, Folate, B12 daily supplementation 5. Continue to monitor. I spent minutes with the patient and/or on the patient floor today, greater than?50% of which was spent counseling/coordinating care. Informed Consent: does not understand Reason for contiued inpatient stay Substantial Risk for: inability to function and med/psych decompensation Time Spent With Patient Time: Total time managing care of this patient today _90___ minutes.
[2022-05-17 17:08] LABS: Glucose, Whole Blood 149 mg/dL (60-115)
[2022-05-17 17:20] VITALS: BP 118/71; PULSE 85; TEMP 36.8; O2SAT 97
[2022-05-17 18:56] LABS: MANUAL DIFF FLAG NO
[2022-05-17 18:59] LABS: Basophils Percent Auto 0.3 % (0-2); Eosinophils Absolute Auto 0.1 X10*3/uL (0.0-0.4); Eosinophils Percent Auto 0.7 % (0-4); Hematocrit 46.3 % (42.0-52.0); Hemoglobin 15.9 g/dl (14.0-18.0); Imm Gran Abs Auto 0.05 X10*3/uL (0.00-0.03); Imm Gran Pct Auto 0.4 % (0.0-0.4); Lymphocytes Absolute Auto 3.6 X10*3/uL (1.2-4.9); Lymphocytes Percent Auto 27.6 % (20-40); Mean Corpuscular HGB Conc 34.3 g/dl (31.0-36.0); Mean Corpuscular Hemoglobin 33.6 pg (27.0-33.0); Mean Corpuscular Volume 97.9 fL (80.0-98.0); Mean Platelet Volume 9.1 fL (9.4-12.4); Monocytes Absolute Auto 0.9 X10*3/uL (0.1-1.2); Monocytes Percent Auto 6.7 % (2-11); Neutrophils Absolute Auto 8.4 x10*3/uL (2.0-8.3); Neutrophils Percent Auto 64.3 % (45-73); Platelet Count 363 X10*3/uL (160-400); Red Blood Count 4.73 X10*6/uL (4.60-5.80)
[2022-05-17 19:16] LABS: Alanine Aminotransferase 16 U/L (0-40); Albumin Level 4.7 g/dL (3.5-5.0); Alkaline Phosphatase 94 U/L (39-117); Anion Gap 17 (12-20); Aspartate Amino Transferase 11 U/L (5-37); Bilirubin Total 0.3 mg/dL (0.0-1.0); Blood Urea Nitrogen 19 mg/dL (9-16); Calcium 10.6 mg/dL (8.4-10.2); Carbon Dioxide 27 mmol/L (22-29); Chloride 95 mmol/L (96-108); Creatinine Clr Calc Pharmacy 67.1; Estimated Glomerular Filt Rate > 60; Glucose Random 154 mg/dL (60-115); Potassium 4.3 mmol/L (3.3-5.1); Sodium 135 mmol/L (135-145); Total Protein 7.8 g/dL (6.5-8.0)
[2022-05-17 19:24] LABS: Valproate 75.7 mcg/mL (50.0-100.0)
[2022-05-17 21:58] LABS: Glucose, Whole Blood 202 mg/dL (60-115)
--- NOTE | 2022-05-17 23:43 | PC.NURSE ---
nurse came to give night meds and the pt told her to go away .
[2022-05-18 08:21] LABS: Glucose, Whole Blood 257 mg/dL (60-115)
[2022-05-18 08:30] VITALS: BP 106/57; PULSE 88; RESP 18; TEMP 36.6; O2SAT 98
[2022-05-18] MEDS: Folic Acid 1 MG TABLET PO (08:43)
[2022-05-18] MEDS: Gabapentin 300 MG CAPSULE PO ×2 (08:43→15:09)
[2022-05-18] MEDS: Cyanocobalamin (Vitamin B-12) 100 MCG TABLET PO (08:43)
[2022-05-18] MEDS: Cyclobenzaprine HCl 10 MG TABLET PO ×2 (08:43→15:09)
[2022-05-18] MEDS: Escitalopram Oxalate 10 MG TABLET PO (08:44)
[2022-05-18] MEDS: metFORMIN HCl ER 750 MG TAB.ER.24H PO ×2 (08:44→22:23)
[2022-05-18] MEDS: LORazepam 0.5 MG TABLET PO ×3 (08:45→22:23)
[2022-05-18] MEDS: Aspirin 81 MG TAB.CHEW PO (08:45)
[2022-05-18] MEDS: Multivitamin TABLET 1 TAB PO (08:45)
[2022-05-18] MEDS: Insulin Lispro 100 UNIT/ML 3 ML VIAL SUBCUT ×3 (08:48→17:23)
[2022-05-18] MEDS: Empagliflozin 25 MG TABLET PO (08:56)
[2022-05-18] MEDS: Omeprazole 20 MG CAPSULE.DR PO (08:57)
[2022-05-18 09:19] VITALS: BP 106/57; PULSE 88; O2SAT 98
[2022-05-18 09:51] LABS: Thyroid Stimulating Hormone 2.11 uIU/mL (0.32-4.0)
[2022-05-18 10:05] LABS: Folate 13.7 ng/mL (> or = 4.0); Vitamin B12 501 pg/mL (200-900)
--- NOTE | 2022-05-18 12:01 | P.CNHOSGPS_ITS ---
History of Present Illness Data of Consult Service Date: 05/18/22 Primary Care Provider: Unknown Physician HPI Reason for consult: Mental status decline, lethargy, decreased responses Patient is a 49-year-old male with past medical history significant for homelessness, insulin dependent DM, HTN, GERD, alcohol dependence, and homicidal ideation who became sedate, slow to respond, unsteady on his feet, urinary inc ontinent, and had a fall in the shower yesterday. Consult is for medical evaluation for altered mental status and lethargy. Labs relatively unremarkable with a WBC elevated at 13.0, calcium mildly elevated at 10.6. CT of head clear for acute intracranial pathology. Urine clear for UTI. Hyperglycemic with an A1c of 11.7 and POC of 289. Patient's lorazepam was reduced to 0.5 b.i.d. valproate to 750 mg. Patient seen and evaluated in his room. Patient is awake and alert and complains of no acute concerns. States he is feeling much better and no longer disoriented. Patient says his ?feet feel like they want to move again.? Denies confusion, disorientation, unsteadiness on his feet. Denies headache, changes in vision, lightheadedness, or dizziness. No chest pain or pressure, SOB. D enies dysuria or flank pain. Patient states that he has incontinence was due to the fact that he was ?filled with alcohol? and waiting too long to go to the bathroom. Patient also notes that he has been off of all of his home meds for the past month or longer. Patient appears back to baseline, per patient himself and also his nurse. Review of Systems Review of Systems: Denies lightheadedness or dizziness No confusion No unsteadiness on feet No dysuria No chest pain or pressure Denies shortness of breath Yes all other systems are reviewed and are negative [facility] Social History Household Members: None Housing: Homeless Do you presently have visiting nurse or other home services: No Alcohol intake: current Alcohol intake frequency: other Alcohol type: hard liquor Patient Tobacco Use Status: Current everyday Tobacco user Tobacco use type: Cigarette Cigarette Packs Per Day: 1 Cigarettes Per Day: 20.0 Smoked in Last 30 Days: Yes e-Cigarette/Vaping Use: Never Used Patient Interested in Nicotine Replacement: No (pt was not interested in nicotine replacement) Patient Given Instructions on How to Stop Smoking: Yes Date Education Initiated: 05/14/22 Second Hand Smoke Exposure: No Use of substances other than those prescribed or required for medical reasons: Yes Substance Use Type: Crack/Cocaine and Marijuana Substance Use Frequency: Daily Last Used Substance: Just Prior to Admission Currently Displaying Signs/Symptoms of Drug Intoxication Withdrawal: No Any prior treatment program specific to substance use: Yes Have you been hit, kicked, punched, or otherwise hurt by someone within the past year? If so, by whom?: No Do you feel safe in your current relationship?: No Is there a partner from a previous relationship who is making you feel unsafe now?: No Are you made to feel afraid or neglected: No Advance Directives: No Advance Directives Information Provided: No Do you have thoughts of harming others: None Do you have a plan to hurt others: No Plan Recently lost weight without trying: No How much weight loss: Not applicable Eating poorly because of decreased appetite: No Nutrition screen score: 0 Nutrition Risks: No Nutritional Risk Poor oral hygiene: No service: No Sexual orientation: Straight/Heterosexual Meds Allergies Allergy/AdvReac Type Severity Reaction Status Date / Time No Known Allergies Allergy Verified 04/09/22 17:32 Active Medications: Current Medications Acetaminophen (Acetaminophen 325 Mg Tablet) 650 mg PO Q6H PRN PRN Reason: Headache/Pain Mild Scale (1-3) Last Admin: 05/16/22 17:50 Dose: 650 mg Al Hydroxide/Mg Hydroxide (Magnesium Hydrox/Alum Hydrox 30 Ml Oral.Susp) 30 ml PO Q6H PRN PRN Reason: Heartburn/Nausea Aripiprazole (Aripiprazole 2 Mg Tablet) 2 mg PO BEDTIME [facility] Last Admin: 05/17/22 23:41 Dose: Not Given Aripiprazole (Aripiprazole 5 Mg Tablet) 5 mg PO BEDTIME [facility] Last Admin: 05/17/22 23:41 Dose: Not Given Aspirin (Aspirin 81 Mg Tab.Chew) 81 mg PO DAILY [facility] Last Admin: 05/18/22 08:45 Dose: 81 mg Atorvastatin Calcium (Atorvastatin Calcium 80 Mg Tablet) 80 mg PO BEDTIME [facility] Last Admin: 05/17/22 23:41 Dose: Not Given Cyanocobalamin (Cyanocobalamin (Vitamin B-12) 100 Mcg Tablet) 100 mcg PO DAILY [facility] Last Admin: 05/18/22 08:43 Dose: 100 mcg Cyclobenzaprine HCl (Cyclobenzaprine Hcl 10 Mg Tablet) 10 mg PO TID [facility] Last Admin: 05/18/22 08:43 Dose: 10 mg Dextrose (Dextrose 50 % 25 Gm/50 Ml Syringe) 25 gm IVPUSH Q15M PRN; Protocol PRN Reason: per Hypoglycemia Standing Ord. Divalproex Sodium (Divalproex Sodium Er 250 Mg Tab.Er.24h) 750 mg PO BEDTIME [facility] Last Admin: 05/17/22 23:42 Dose: Not Given Empagliflozin (Empagliflozin 25 Mg Tablet) 25 mg PO DAILY [facility] Last Admin: 05/18/22 08:56 Dose: 25 mg Escitalopram Oxalate (Escitalopram Oxalate 10 Mg Tablet) 10 mg PO DAILY [facility] Last Admin: 05/18/22 08:44 Dose: 10 mg Folic Acid (Folic Acid 1 Mg Tablet) 1 mg PO DAILY [facility] Last Admin: 05/18/22 08:43 Dose: 1 mg Gabapentin (Gabapentin 300 Mg Capsule) 300 mg PO TID [facility] Last Admin: 05/18/22 08:43 Dose: 300 mg Glucose (Glucose Gel 15 Gm Gel..Gram.) 15 gm PO Q15M PRN; Protocol PRN Reason: per Hypoglycemia Standing Ord. Insulin Human Lispro (Insulin Lispro 100 Unit/Ml 3 Ml Vial) 0 unit SUBCUT QIDACHS [facility]; Protocol Stop: 05/20/22 22:02 Last Admin: 05/18/22 08:48 Dose: 10 unit Lisinopril (Lisinopril 10 Mg Tablet) 10 mg PO DAILY [facility]; Protocol Last Admin: 05/18/22 08:54 Dose: Not Given Lorazepam (Lorazepam 1 Mg Tablet) 2 mg PO Q2H PRN PRN Reason: CIWA 11 and above Lorazepam (Lorazepam 1 Mg Tablet) 1 mg PO Q2H PRN PRN Reason: CIWA 6-10 Lorazepam (Lorazepam 0.5 Mg Tablet) 0.5 mg PO TID [facility] Last Admin: 05/18/22 08:45 Dose: 0.5 mg Magnesium Hydroxide (Milk Of Magnesia 30 Ml Oral.Susp) 30 ml PO DAILY PRN PRN Reason: Constipation Metformin HCl (Metformin Hcl Er 750 Mg Tab.Er.24h) 750 mg PO BID [facility] Last Admin: 05/18/22 08:44 Dose: 750 mg Metoprolol Succinate (Metoprolol Succinate Er 50 Mg Tab.Er.24h) 50 mg PO DAILY [facility]; Protocol Last Admin: 05/18/22 08:54 Dose: Not Given Multivitamins/Vitamin C (Multivitamin Tablet) 1 tab PO DAILY [facility] Last Admin: 05/18/22 08:45 Dose: 1 tab Nicotine (Nicotine 21 Mg Patch.Td24) 21 mg TRANSDERMA DAILY PRN PRN Reason: Nicotine Cravings Nicotine Polacrilex (Nicotine Polacrilex 2 Mg Gum) 4 mg BUCCAL Q2H PRN PRN Reason: Nicotine Cravings Olanzapine (Olanzapine 5 Mg Tablet) 5 mg PO TID PRN PRN Reason: agitation Omeprazole (Omeprazole 20 Mg Capsule.Dr) 20 mg PO DAILY [facility] Last Admin: 05/18/22 08:57 Dose: 20 mg Prazosin HCl (Prazosin Hcl 1 Mg Capsule) 1 mg PO BEDTIME [facility]; Protocol Last Admin: 05/17/22 23:42 Dose: Not Given Trazodone HCl (Trazodone Hcl 50 Mg Tablet) 50 mg PO BEDTIME [facility] Last Admin: 05/17/22 23:42 Dose: Not Given Trazodone HCl (Trazodone Hcl 50 Mg Tablet) 50 mg PO BEDTIME PRN PRN Reason: Insomnia Home Medications Medication Instructions Recorded Confirmed Last Taken Type aripiprazole 2 mg tablet 1 tab PO BEDTIME 05/13/22 05/13/22 Unknown History aripiprazole 5 mg tablet 1 tab PO BEDTIME 05/13/22 05/13/22 Unknown History divalproex 250 mg tablet,extended 5 tab PO BEDTIME 05/13/22 05/13/22 Unknown History release 24 hr empagliflozin 25 mg tablet 1 tab PO QAM 05/13/22 05/13/22 Unknown History (Jardiance) pantoprazole 20 mg tablet,delayed 1 tab PO DAILY 05/13/22 05/13/22 Unknown History release trazodone 50 mg tablet 1 tab PO BEDTIME 05/13/22 05/13/22 Unknown History atorvastatin 80 mg tablet (Lipitor) 80 mg PO QPM 05/14/22 05/14/22 Unknown History citalopram 20 mg tablet 20 mg PO DAILY 05/14/22 05/14/22 Unknown History cyclobenzaprine 10 mg tablet 10 mg PO TID 05/14/22 05/14/22 Unknown History gabapentin 300 mg capsule 300 mg PO TID 05/14/22 05/14/22 Unknown History lisinopril 10 mg tablet 10 mg PO DAILY 05/14/22 05/14/22 Unknown History metformin 750 mg tablet,extended 750 mg PO BID 05/14/22 05/14/22 Unknown History release 24 hr metoprolol succinate 50 mg 50 mg PO DAILY 05/14/22 05/14/22 Unknown History tablet,extended release 24 hr prazosin 1 mg capsule 1 mg PO BEDTIME 05/14/22 05/14/22 Unknown History vitamin B complex 1 tab PO DAILY 05/14/22 05/14/22 Unknown History Results Labs CBC and Chem 7: 05/17/22 18:50 05/17/22 18:50 Labs: Laboratory Results - last 24 hr 05/17/22 05/17/22 05/17/22 12:27 17:03 18:50 MCV MCH MCHC RDW Plt Count MPV Immature Gran % (Auto) Neut % (Auto) Lymph % (Auto) Hanson % (Auto) Eos % (Auto) Baso % (Auto) Lymph # (Auto) Hanson # (Auto) Eos # (Auto) Baso # (Auto) Abs Immat Gran (auto) Absolute Neuts (auto) Absolute Nucleated RBC Nucleated RBC % (auto) Anion Gap Estim Creat Clear Calc Estimated GFR POC Glucose 507 H* 149 H Random Glucose Calcium Total Bilirubin AST ALT Alkaline Phosphatase Total Protein Albumin Vitamin B12 Folate TSH Valproic Acid 75.7 05/17/22 05/17/22 05/17/22 18:50 18:50 21:53 MCV 97.9 MCH 33.6 H MCHC 34.3 RDW 13.0 Plt Count 363 MPV 9.1 L Immature Gran % (Auto) 0.4 Neut % (Auto) 64.3 Lymph % (Auto) 27.6 Hanson % (Auto) 6.7 Eos % (Auto) 0.7 Baso % (Auto) 0.3 Lymph # (Auto) 3.6 Hanson # (Auto) 0.9 Eos # (Auto) 0.1 Baso # (Auto) 0.0 Abs Immat Gran (auto) 0.05 H Absolute Neuts (auto) 8.4 H Absolute Nucleated RBC 0.000 Nucleated RBC % (auto) 0.0 Anion Gap 17 Estim Creat Clear Calc 67.1 Estimated GFR > 60 POC Glucose 202 H Random Glucose 154 H Calcium 10.6 H D Total Bilirubin 0.3 AST 11 ALT 16 Alkaline Phosphatase 94 Total Protein 7.8 Albumin 4.7 Vitamin B12 Folate TSH Valproic Acid 05/18/22 05/18/22 05/18/22 08:07 08:07 08:18 MCV MCH MCHC RDW Plt Count MPV Immature Gran % (Auto) Neut % (Auto) Lymph % (Auto) Hanson % (Auto) Eos % (Auto) Baso % (Auto) Lymph # (Auto) Hanson # (Auto) Eos # (Auto) Baso # (Auto) Abs Immat Gran (auto) Absolute Neuts (auto) Absolute Nucleated RBC Nucleated RBC % (auto) Anion Gap Estim Creat Clear Calc Estimated GFR POC Glucose 257 H Random Glucose Calcium Total Bilirubin AST ALT Alkaline Phosphatase Total Protein Albumin Vitamin B12 501 Folate 13.7 TSH 2.11 Valproic Acid Imaging Radiologist's Impressions: Impressions Head CT 05/17/22 15:52 IMPRESSION: 1. No acute intracranial pathology. 2. Unchanged curvilinear calcification of the melissa, nonspecific possibly due to underlying vascular anomaly. Consider nonemergent brain MRI as previously suggested in the absence of earlier priors. Assessment and Plan (1) Alcohol dependence: Status: Acute (2) Major depression: Status: Acute Plan Patient is a 49-year-old male with past medical history significant for homelessness, insulin dependent DM, HTN, GERD, alcohol dependence, and homicidal ideation who became sedate, slow to respond, unsteady on his feet, urinary incontinent, and had a fall in the shower yesterday. Consult is for medical evaluation for altered mental status and lethargy. # acute toxic encephalopathy likely secondary to restarting psychotropic medications, now resolved -- patient appears back to baseline per patient himself and also his nurse -- states he has been off his home meds for around a month -- no clear infectious source -- UA clear -- TSH WNL -- CT of head clear -- lorazepam and valproate reduced -- valproate levels WNL Thank you for allowing us to participate in the care of this patient. The pt appears back to baseline and there does not appear a medical cause for his prior condition. Signing off for now. Please feel free to call for further c onsultation should the need arise. Time Spent With Patient Time: Total time managing care of this patient today ____ minutes. Physical Exam Vital Signs: Last Vital Signs Temp 97.9 F 05/18/22 08:30 Pulse 88 05/18/22 09:19 Resp 18 05/18/22 08:30 BP 106/57 L 05/18/22 09:19 Pulse Ox 98 05/18/22 09:19 O2 Del Method 05/18/22 08:30 BMI result Body Mass Index 27.0 General: AOx3, no acute distress Resp: CTA bilaterally CVS: S1, S2, RRR GI: +BS, NT, no distention Skin: No rash Neuro: Motor grossly intact Psych: Appropriate affect Neuro General: CN's II-XI intact bilaterally Cranial nerves: Yes CN's II-XII intact bilaterally
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
[2022-05-18 12:35] LABS: Glucose, Whole Blood 295 mg/dL (60-115)
--- NOTE | 2022-05-18 15:56 | MHC.CLN ---
RE: CONSULT FOR LACK OF MOBILITY HT 68 WT 177# IBW 154#+/-10% PT IS 115% IBW INDICATES OVER WT FOR HT; BMI 27 ESTIMATED NUTRITION NEEDS: 1840KCALS, 80G PROTEIN, 2400CC H20 PO INTAKE GOOD DIET RX: 2000DM-APPROPRIATE PT USES CRACK/COCAINE AND ETOH WITH HOMELESSNESS MAY INCREASE NUTRITION RISK AT THIS TIME, PT IS LOW NUTRITION RISK CONTINUE CURRENT PLAN OF CARE MONITOR PO INTAKE CLOSELY
[2022-05-18 16:50] LABS: Glucose, Whole Blood 181 mg/dL (60-115)
--- NOTE | 2022-05-18 17:08 | HO.PSYCHPN ---
Subjective Subjective Date of Service: 05/18/22 Reason For Visit: HI Subjective Notes: Conditional Voluntary Healthcare Proxy: No Guardianship: No Medical Problems Affecting Mental Status: No Interim History: Some improvement in his clarity as the day progressed. Less sedate, however napping much of the time Irritable when awake, wanting to leave Confusion is still present Seen by urology, episodes of incontinence are decreasing however present urine culture pending, wbc 13, bun 19 ca 10.6, b12 501, folate 13.7, tsh 2.11, glucose levels 257, 295, 187-improving Medication Compliance: Intermittent Side effects from medications: No Attending Groups: No Review of Systems Acute medical concerns: No appears to be improving Medical Review of Systems: unchanged Mental Status Exam Mental Status Exam Patient Appearance: Fatigued Patient Orientation: Person Level of Consciousness: Sedated and Alert Patient Behavior: Talkative, Suspicious, Avoidant, Confused, Isolative and Poor Eye Contact Mood Description: Withdrawn and Hostile Affect Description: Flat Patient Cognition Impaired: Yes Speech Pattern: Spontaneous Speech Memory Description: Remote Impaired and Episodic Impaired Hallucinations: None Delusions: Not Present Thought Process: Confusion Thought Content: positive for Circumstantial Depressive Symptoms: Sleeping More Than Usual, Increased Fatigue and Loss of Energy Judgement: Poor Diagnostics Vital Signs (24Hr): Vital Signs - 24 hr 05/17/22 17:20 05/18/22 08:30 05/18/22 09:19 Temperature 98.2 F 97.9 F Pulse Rate 85 88 88 Respiratory Rate 18 Blood Pressure 118/71 106/57 L 106/57 L Pulse Oximetry 97 98 98 Oxygen Delivery Method Room Air Room Air BMI result Body Mass Index 27.0 Labs Results: 05/17/22 18:50 05/17/22 18:50 Labs: Laboratory Results - last 48 hr 05/16/22 05/16/22 05/17/22 17:13 21:32 08:08 WBC RBC Hgb Hct MCV MCH MCHC RDW Plt Count MPV Immature Gran % (Auto) Neut % (Auto) Lymph % (Auto) [place] % (Auto) Eos % (Auto) Baso % (Auto) Lymph # (Auto) [place] # (Auto) Eos # (Auto) Baso # (Auto) Abs Immat Gran (auto) Absolute Neuts (auto) Absolute Nucleated RBC Nucleated RBC % (auto) Sodium Potassium Chloride Carbon Dioxide Anion Gap BUN Creatinine Estim Creat Clear Calc Estimated GFR POC Glucose 390 H* 247 H Random Glucose Calcium Total Bilirubin 0.3 Direct Bilirubin < 0.2 AST 11 ALT 15 Alkaline Phosphatase 88 Ammonia Total Protein 6.9 Albumin 4.2 Vitamin B12 Folate TSH Valproic Acid 05/17/22 05/17/22 05/17/22 08:08 10:04 12:27 WBC RBC Hgb Hct MCV MCH MCHC RDW Plt Count MPV Immature Gran % (Auto) Neut % (Auto) Lymph % (Auto) [place] % (Auto) Eos % (Auto) Baso % (Auto) Lymph # (Auto) [place] # (Auto) Eos # (Auto) Baso # (Auto) Abs Immat Gran (auto) Absolute Neuts (auto) Absolute Nucleated RBC Nucleated RBC % (auto) Sodium Potassium Chloride Carbon Dioxide Anion Gap BUN Creatinine Estim Creat Clear Calc Estimated GFR POC Glucose 345 H 507 H* Random Glucose Calcium Total Bilirubin Direct Bilirubin AST ALT Alkaline Phosphatase Ammonia 36 Total Protein Albumin Vitamin B12 Folate TSH Valproic Acid 05/17/22 05/17/22 05/17/22 17:03 18:50 18:50 WBC 13.0 H RBC 4.73 Hgb 15.9 Hct 46.3 MCV 97.9 MCH 33.6 H MCHC 34.3 RDW 13.0 Plt Count 363 MPV 9.1 L Immature Gran % (Auto) 0.4 Neut % (Auto) 64.3 Lymph % (Auto) 27.6 [place] % (Auto) 6.7 Eos % (Auto) 0.7 Baso % (Auto) 0.3 Lymph # (Auto) 3.6 [place] # (Auto) 0.9 Eos # (Auto) 0.1 Baso # (Auto) 0.0 Abs Immat Gran (auto) 0.05 H Absolute Neuts (auto) 8.4 H Absolute Nucleated RBC 0.000 Nucleated RBC % (auto) 0.0 Sodium Potassium Chloride Carbon Dioxide Anion Gap BUN Creatinine Estim Creat Clear Calc Estimated GFR POC Glucose 149 H Random Glucose Calcium Total Bilirubin Direct Bilirubin AST ALT Alkaline Phosphatase Ammonia Total Protein Albumin Vitamin B12 Folate TSH Valproic Acid 75.7 05/17/22 05/17/22 05/18/22 18:50 21:53 08:07 WBC RBC Hgb Hct MCV MCH MCHC RDW Plt Count MPV Immature Gran % (Auto) Neut % (Auto) Lymph % (Auto) [place] % (Auto) Eos % (Auto) Baso % (Auto) Lymph # (Auto) [place] # (Auto) Eos # (Auto) Baso # (Auto) Abs Immat Gran (auto) Absolute Neuts (auto) Absolute Nucleated RBC Nucleated RBC % (auto) Sodium 135 Potassium 4.3 Chloride 95 L Carbon Dioxide 27 Anion Gap 17 BUN 19 H Creatinine 1.16 Estim Creat Clear Calc 67.1 Estimated GFR > 60 POC Glucose 202 H Random Glucose 154 H Calcium 10.6 H D Total Bilirubin 0.3 Direct Bilirubin AST 11 ALT 16 Alkaline Phosphatase 94 Ammonia Total Protein 7.8 Albumin 4.7 Vitamin B12 501 Folate 13.7 TSH Valproic Acid 05/18/22 05/18/22 05/18/22 08:07 08:18 12:30 WBC RBC Hgb Hct MCV MCH MCHC RDW Plt Count MPV Immature Gran % (Auto) Neut % (Auto) Lymph % (Auto) [place] % (Auto) Eos % (Auto) Baso % (Auto) Lymph # (Auto) [place] # (Auto) Eos # (Auto) Baso # (Auto) Abs Immat Gran (auto) Absolute Neuts (auto) Absolute Nucleated RBC Nucleated RBC % (auto) Sodium Potassium Chloride Carbon Dioxide Anion Gap BUN Creatinine Estim Creat Clear Calc Estimated GFR POC Glucose 257 H 295 H Random Glucose Calcium Total Bilirubin Direct Bilirubin AST ALT Alkaline Phosphatase Ammonia Total Protein Albumin Vitamin B12 Folate TSH 2.11 Valproic Acid 05/18/22 16:42 WBC RBC Hgb Hct MCV MCH MCHC RDW Plt Count MPV Immature Gran % (Auto) Neut % (Auto) Lymph % (Auto) [place] % (Auto) Eos % (Auto) Baso % (Auto) Lymph # (Auto) [place] # (Auto) Eos # (Auto) Baso # (Auto) Abs Immat Gran (auto) Absolute Neuts (auto) Absolute Nucleated RBC Nucleated RBC % (auto) Sodium Potassium Chloride Carbon Dioxide Anion Gap BUN Creatinine Estim Creat Clear Calc Estimated GFR POC Glucose 181 H Random Glucose Calcium Total Bilirubin Direct Bilirubin AST ALT Alkaline Phosphatase Ammonia Total Protein Albumin Vitamin B12 Folate TSH Valproic Acid Imaging Radiology Impressions: ITS Impressions Head CT 05/17/22 15:52 IMPRESSION: 1. No acute intracranial pathology. 2. Unchanged curvilinear calcification of the melissa, nonspecific possibly due to underlying vascular anomaly. Consider nonemergent brain MRI as previously suggested in the absence of earlier priors. Medications Medications Current Medications Acetaminophen (Acetaminophen 325 Mg Tablet) 650 mg PO Q6H PRN PRN Reason: Headache/Pain Mild Scale (1-3) Last Admin: 05/16/22 17:50 Dose: 650 mg Al Hydroxide/Mg Hydroxide (Magnesium Hydrox/Alum Hydrox 30 Ml Oral.Susp) 30 ml PO Q6H PRN PRN Reason: Heartburn/Nausea Aripiprazole (Aripiprazole 2 Mg Tablet) 2 mg PO BEDTIME COUNT INCLUDES THE [facility] Last Admin: 05/17/22 23:41 Dose: Not Given Aripiprazole (Aripiprazole 5 Mg Tablet) 5 mg PO BEDTIME [facility] Last Admin: 05/17/22 23:41 Dose: Not Given Aspirin (Aspirin 81 Mg Tab.Chew) 81 mg PO DAILY COUNT INCLUDES THE [facility] Last Admin: 05/18/22 08:45 Dose: 81 mg Atorvastatin Calcium (Atorvastatin Calcium 80 Mg Tablet) 80 mg PO BEDTIME [facility] Last Admin: 05/17/22 23:41 Dose: Not Given Cyanocobalamin (Cyanocobalamin (Vitamin B-12) 100 Mcg Tablet) 100 mcg PO DAILY COUNT INCLUDES THE [facility] Last Admin: 05/18/22 08:43 Dose: 100 mcg Cyclobenzaprine HCl (Cyclobenzaprine Hcl 10 Mg Tablet) 10 mg PO TID COUNT INCLUDES THE [facility] Last Admin: 05/18/22 15:09 Dose: 10 mg Dextrose (Dextrose 50 % 25 Gm/50 Ml Syringe) 25 gm IVPUSH Q15M PRN; Protocol PRN Reason: per Hypoglycemia Standing Ord. Divalproex Sodium (Divalproex Sodium Er 250 Mg Tab.Er.24h) 750 mg PO BEDTIME COUNT INCLUDES THE [facility] Last Admin: 05/17/22 23:42 Dose: Not Given Empagliflozin (Empagliflozin 25 Mg Tablet) 25 mg PO DAILY COUNT INCLUDES THE [facility] Last Admin: 05/18/22 08:56 Dose: 25 mg Escitalopram Oxalate (Escitalopram Oxalate 10 Mg Tablet) 10 mg PO DAILY [facility] Last Admin: 05/18/22 08:44 Dose: 10 mg Folic Acid (Folic Acid 1 Mg Tablet) 1 mg PO DAILY COUNT INCLUDES THE [facility] Last Admin: 05/18/22 08:43 Dose: 1 mg Gabapentin (Gabapentin 300 Mg Capsule) 300 mg PO TID COUNT INCLUDES THE [facility] Last Admin: 05/18/22 15:09 Dose: 300 mg Glucose (Glucose Gel 15 Gm Gel..Gram.) 15 gm PO Q15M PRN; Protocol PRN Reason: per Hypoglycemia Standing Ord. Insulin Human Lispro (Insulin Lispro 100 Unit/Ml 3 Ml Vial) 0 unit SUBCUT QIDACHS COUNT INCLUDES THE [facility]; Protocol Stop: 05/20/22 22:02 Last Admin: 05/18/22 12:40 Dose: 10 unit Lisinopril (Lisinopril 10 Mg Tablet) 10 mg PO DAILY COUNT INCLUDES THE [facility]; Protocol Last Admin: 05/18/22 08:54 Dose: Not Given Lorazepam (Lorazepam 1 Mg Tablet) 2 mg PO Q2H PRN PRN Reason: CIWA 11 and above Lorazepam (Lorazepam 1 Mg Tablet) 1 mg PO Q2H PRN PRN Reason: CIWA 6-10 Lorazepam (Lorazepam 0.5 Mg Tablet) 0.5 mg PO TID COUNT INCLUDES THE [facility] Last Admin: 05/18/22 15:09 Dose: 0.5 mg Magnesium Hydroxide (Milk Of Magnesia 30 Ml Oral.Susp) 30 ml PO DAILY PRN PRN Reason: Constipation Metformin HCl (Metformin Hcl Er 750 Mg Tab.Er.24h) 750 mg PO BID COUNT INCLUDES THE [facility] Last Admin: 05/18/22 08:44 Dose: 750 mg Metoprolol Succinate (Metoprolol Succinate Er 50 Mg Tab.Er.24h) 50 mg PO DAILY COUNT INCLUDES THE [facility]; Protocol Last Admin: 05/18/22 08:54 Dose: Not Given Multivitamins/Vitamin C (Multivitamin Tablet) 1 tab PO DAILY COUNT INCLUDES THE [facility] Last Admin: 05/18/22 08:45 Dose: 1 tab Nicotine (Nicotine 21 Mg Patch.Td24) 21 mg TRANSDERMA DAILY PRN PRN Reason: Nicotine Cravings Nicotine Polacrilex (Nicotine Polacrilex 2 Mg Gum) 4 mg BUCCAL Q2H PRN PRN Reason: Nicotine Cravings Olanzapine (Olanzapine 5 Mg Tablet) 5 mg PO TID PRN PRN Reason: agitation Omeprazole (Omeprazole 20 Mg Capsule.Dr) 20 mg PO DAILY COUNT INCLUDES THE [facility] Last Admin: 05/18/22 08:57 Dose: 20 mg Prazosin HCl (Prazosin Hcl 1 Mg Capsule) 1 mg PO BEDTIME COUNT INCLUDES THE [facility]; Protocol Last Admin: 05/17/22 23:42 Dose: Not Given Trazodone HCl (Trazodone Hcl 50 Mg Tablet) 50 mg PO BEDTIME COUNT INCLUDES THE [facility] Last Admin: 05/17/22 23:42 Dose: Not Given Trazodone HCl (Trazodone Hcl 50 Mg Tablet) 50 mg PO BEDTIME PRN PRN Reason: Insomnia Allergies Allergies Allergy/AdvReac Type Severity Reaction Status Date / Time No Known Allergies Allergy Verified 04/09/22 17:32 Assessment & Plan Assessment & Plan (1) Alcohol dependence: Status: Acute Code(s): F10.20 - Alcohol dependence, uncomplicated Assessment and Plan: 05/18/22- Continue current regime and plan. Allow pt to clear and stabilize from recent episode (2) Major depression: Status: Acute Code(s): F32.9 - Major depressive disorder, single episode, unspecified Plan Patient is a 49-year-old male with past medical history significant for homelessness, insulin dependent DM, HTN, GERD, alcohol dependence, and homicidal ideation who became sedate, slow to respond, unsteady on his feet, urinary incontinent, and had a fall in the shower yesterday. Consult is for medical evaluation for altered mental status and lethargy. # acute toxic encephalopathy likely secondary to restarting psychotropic medications, now resolved -- patient appears back to baseline per patient himself and also his nurse -- states he has been off his home meds for around a month -- no clear infectious source -- UA clear -- TSH WNL -- CT of head clear -- lorazepam and valproate reduced -- valproate levels WNL Thank you for allowing us to participate in the care of this patient. The pt appears back to baseline and there does not appear a medical cause for his prior condition. Signing off for now. Please feel free to call for further consultation should the need arise. I spent minutes with the patient and/or on the patient floor today, greater than?50% of which was spent counseling/coordinating care. Informed Consent: does not understand Reason for contiued inpatient stay Substantial Risk for: harm to others and med/psych decompensation Time Spent With Patient Time: Total time managing care of this patient today _30_ minutes.
[2022-05-18 18:00] VITALS: BP 130/71; PULSE 83; TEMP 36.2; O2SAT 96
[2022-05-18 22:20] LABS: Glucose, Whole Blood 142 mg/dL (60-115)
[2022-05-19 06:00] VITALS: BP 115/78; PULSE 100; TEMP 36.6; O2SAT 97
[2022-05-19 08:40] LABS: Glucose, Whole Blood 156 mg/dL (60-115)
[2022-05-19] MEDS: Insulin Lispro 100 UNIT/ML 3 ML VIAL SUBCUT ×5 (09:12→22:20)
[2022-05-19] MEDS: Gabapentin 300 MG CAPSULE PO ×3 (09:13→22:23)
[2022-05-19] MEDS: Cyanocobalamin (Vitamin B-12) 100 MCG TABLET PO (09:13)
[2022-05-19] MEDS: Multivitamin TABLET 1 TAB PO (09:13)
[2022-05-19] MEDS: metFORMIN HCl ER 750 MG TAB.ER.24H PO ×2 (09:13→22:17)
[2022-05-19] MEDS: Escitalopram Oxalate 10 MG TABLET PO (09:13)
[2022-05-19] MEDS: Omeprazole 20 MG CAPSULE.DR PO (09:13)
[2022-05-19] MEDS: Aspirin 81 MG TAB.CHEW PO (09:13)
[2022-05-19] MEDS: Empagliflozin 25 MG TABLET PO (09:13)
[2022-05-19] MEDS: Folic Acid 1 MG TABLET PO (09:13)
[2022-05-19] MEDS: Metoprolol Succinate ER 50 MG TAB.ER.24H PO (09:13)
[2022-05-19] MEDS: LORazepam 0.5 MG TABLET PO ×3 (09:14→22:17)
[2022-05-19] MEDS: Cyclobenzaprine HCl 10 MG TABLET PO ×3 (09:14→22:19)
[2022-05-19] MEDS: lisinopriL 10 MG TABLET PO (09:14)
[2022-05-19 11:39] LABS: Glucose, Whole Blood 455 mg/dL (60-115)
--- NOTE | 2022-05-19 13:54 | PC.NURSE ---
pt had POC of 455, hospitalist was called, hospitalist ordered 2 extra units of insulin. pt got 16 units of insulin. pt reported no distress/discomfort. pt ate lunch.
--- NOTE | 2022-05-19 17:07 | P.PNPSI_ITS ---
Subjective Subjective Date of Service: 05/19/22 Reason For Visit: HI Subjective Notes: Conditional Voluntary Healthcare Proxy: No Guardianship: No Medical Problems Affecting Mental Status: Yes Interim History: Presents with improved clarity, physical strength, improved orientation, decrease in urinary incontinence and improved blood sugar levels. When can I leave? Discussed what work we may want to focus on prior to discharge. Asked pt if he felt he was well enough to discharge outright as he is refusing placement options. He agrees he is not ready to leave at this time. Medication Compliance: Yes Side effects from medications: No Attending Groups: Intermittent Review of Systems Acute medical concerns: No Medical Review of Systems: unchanged Mental Status Exam Mental Status Exam Patient Appearance: Appropriate Patient Orientation: Person and Place Level of Consciousness: Alert Patient Behavior: Talkative, Confused and Good Eye Contact Mood Description: Blunted Affect Description: Blunted Patient Cognition Impaired: Yes Ability to Follow Directions: Fair Speech Pattern: Spontaneous Speech Memory Description: Remote Impaired and Episodic Impaired Hallucinations: None Delusions: Not Present Thought Process: Confusion Thought Content: positive for Circumstantial Depressive Symptoms: Sleeping More Than Usual Judgement: Fair Diagnostics Vital Signs (24Hr): Vital Signs - 24 hr 05/18/22 18:00 05/19/22 06:00 Temperature 97.2 F 97.8 F Pulse Rate 83 100 Blood Pressure 130/71 115/78 Pulse Oximetry 96 97 Oxygen Delivery Method Room Air Room Air BMI result Body Mass Index 27.0 Labs Results: 05/17/22 18:50 05/17/22 18:50 Labs: Laboratory Results - last 48 hr 05/17/22 05/17/22 05/17/22 17:03 18:50 18:50 WBC 13.0 H RBC 4.73 Hgb 15.9 Hct 46.3 MCV 97.9 MCH 33.6 H MCHC 34.3 RDW 13.0 Plt Count 363 MPV 9.1 L Immature Gran % (Auto) 0.4 Neut % (Auto) 64.3 Lymph % (Auto) 27.6 [place] % (Auto) 6.7 Eos % (Auto) 0.7 Baso % (Auto) 0.3 Lymph # (Auto) 3.6 [place] # (Auto) 0.9 Eos # (Auto) 0.1 Baso # (Auto) 0.0 Abs Immat Gran (auto) 0.05 H Absolute Neuts (auto) 8.4 H Absolute Nucleated RBC 0.000 Nucleated RBC % (auto) 0.0 Sodium Potassium Chloride Carbon Dioxide Anion Gap BUN Creatinine Estim Creat Clear Calc Estimated GFR POC Glucose 149 H Random Glucose Calcium Total Bilirubin AST ALT Alkaline Phosphatase Total Protein Albumin Vitamin B12 Folate TSH Valproic Acid 75.7 05/17/22 05/17/22 05/18/22 18:50 21:53 08:07 WBC RBC Hgb Hct MCV MCH MCHC RDW Plt Count MPV Immature Gran % (Auto) Neut % (Auto) Lymph % (Auto) [place] % (Auto) Eos % (Auto) Baso % (Auto) Lymph # (Auto) [place] # (Auto) Eos # (Auto) Baso # (Auto) Abs Immat Gran (auto) Absolute Neuts (auto) Absolute Nucleated RBC Nucleated RBC % (auto) Sodium 135 Potassium 4.3 Chloride 95 L Carbon Dioxide 27 Anion Gap 17 BUN 19 H Creatinine 1.16 Estim Creat Clear Calc 67.1 Estimated GFR > 60 POC Glucose 202 H Random Glucose 154 H Calcium 10.6 H D Total Bilirubin 0.3 AST 11 ALT 16 Alkaline Phosphatase 94 Total Protein 7.8 Albumin 4.7 Vitamin B12 501 Folate 13.7 TSH Valproic Acid 05/18/22 05/18/22 05/18/22 08:07 08:18 12:30 WBC RBC Hgb Hct MCV MCH MCHC RDW Plt Count MPV Immature Gran % (Auto) Neut % (Auto) Lymph % (Auto) [place] % (Auto) Eos % (Auto) Baso % (Auto) Lymph # (Auto) [place] # (Auto) Eos # (Auto) Baso # (Auto) Abs Immat Gran (auto) Absolute Neuts (auto) Absolute Nucleated RBC Nucleated RBC % (auto) Sodium Potassium Chloride Carbon Dioxide Anion Gap BUN Creatinine Estim Creat Clear Calc Estimated GFR POC Glucose 257 H 295 H Random Glucose Calcium Total Bilirubin AST ALT Alkaline Phosphatase Total Protein Albumin Vitamin B12 Folate TSH 2.11 Valproic Acid 05/18/22 05/18/22 05/19/22 16:42 22:15 08:18 WBC RBC Hgb Hct MCV MCH MCHC RDW Plt Count MPV Immature Gran % (Auto) Neut % (Auto) Lymph % (Auto) [place] % (Auto) Eos % (Auto) Baso % (Auto) Lymph # (Auto) [place] # (Auto) Eos # (Auto) Baso # (Auto) Abs Immat Gran (auto) Absolute Neuts (auto) Absolute Nucleated RBC Nucleated RBC % (auto) Sodium Potassium Chloride Carbon Dioxide Anion Gap BUN Creatinine Estim Creat Clear Calc Estimated GFR POC Glucose 181 H 142 H 156 H Random Glucose Calcium Total Bilirubin AST ALT Alkaline Phosphatase Total Protein Albumin Vitamin B12 Folate TSH Valproic Acid 05/19/22 11:28 WBC RBC Hgb Hct MCV MCH MCHC RDW Plt Count MPV Immature Gran % (Auto) Neut % (Auto) Lymph % (Auto) [place] % (Auto) Eos % (Auto) Baso % (Auto) Lymph # (Auto) [place] # (Auto) Eos # (Auto) Baso # (Auto) Abs Immat Gran (auto) Absolute Neuts (auto) Absolute Nucleated RBC Nucleated RBC % (auto) Sodium Potassium Chloride Carbon Dioxide Anion Gap BUN Creatinine Estim Creat Clear Calc Estimated GFR POC Glucose 455 H* Random Glucose Calcium Total Bilirubin AST ALT Alkaline Phosphatase Total Protein Albumin Vitamin B12 Folate TSH Valproic Acid Imaging Radiology Impressions: ITS Impressions Head CT 05/17/22 15:52 IMPRESSION: 1. No acute intracranial pathology. 2. Unchanged curvilinear calcification of the melissa, nonspecific possibly due to underlying vascular anomaly. Consider nonemergent brain MRI as previously suggested in the absence of earlier priors. Medications Medications Current Medications Acetaminophen (Acetaminophen 325 Mg Tablet) 650 mg PO Q6H PRN PRN Reason: Headache/Pain Mild Scale (1-3) Last Admin: 05/16/22 17:50 Dose: 650 mg Al Hydroxide/Mg Hydroxide (Magnesium Hydrox/Alum Hydrox 30 Ml Oral.Susp) 30 ml PO Q6H PRN PRN Reason: Heartburn/Nausea Aripiprazole (Aripiprazole 2 Mg Tablet) 2 mg PO BEDTIME [facility] Last Admin: 05/18/22 22:29 Dose: Not Given Aripiprazole (Aripiprazole 5 Mg Tablet) 5 mg PO BEDTIME [facility] Last Admin: 05/18/22 22:29 Dose: Not Given Aspirin (Aspirin 81 Mg Tab.Chew) 81 mg PO DAILY [facility] Last Admin: 05/19/22 09:13 Dose: 81 mg Atorvastatin Calcium (Atorvastatin Calcium 80 Mg Tablet) 80 mg PO BEDTIME [facility] Last Admin: 05/18/22 22:29 Dose: Not Given Cyanocobalamin (Cyanocobalamin (Vitamin B-12) 100 Mcg Tablet) 100 mcg PO DAILY [facility] Last Admin: 05/19/22 09:13 Dose: 100 mcg Cyclobenzaprine HCl (Cyclobenzaprine Hcl 10 Mg Tablet) 10 mg PO TID [facility] Last Admin: 05/19/22 14:25 Dose: 10 mg Dextrose (Dextrose 50 % 25 Gm/50 Ml Syringe) 25 gm IVPUSH Q15M PRN; Protocol PRN Reason: per Hypoglycemia Standing Ord. Divalproex Sodium (Divalproex Sodium Er 250 Mg Tab.Er.24h) 750 mg PO BEDTIME [facility] Last Admin: 05/18/22 22:29 Dose: Not Given Empagliflozin (Empagliflozin 25 Mg Tablet) 25 mg PO DAILY [facility] Last Admin: 05/19/22 09:13 Dose: 25 mg Escitalopram Oxalate (Escitalopram Oxalate 10 Mg Tablet) 10 mg PO DAILY [facility] Last Admin: 05/19/22 09:13 Dose: 10 mg Folic Acid (Folic Acid 1 Mg Tablet) 1 mg PO DAILY [facility] Last Admin: 05/19/22 09:13 Dose: 1 mg Gabapentin (Gabapentin 300 Mg Capsule) 300 mg PO TID [facility] Last Admin: 05/19/22 14:25 Dose: 300 mg Glucose (Glucose Gel 15 Gm Gel..Gram.) 15 gm PO Q15M PRN; Protocol PRN Reason: per Hypoglycemia Standing Ord. Insulin Human Lispro (Insulin Lispro 100 Unit/Ml 3 Ml Vial) 0 unit SUBCUT QIDACHS [facility]; Protocol Stop: 05/20/22 22:02 Last Admin: 05/19/22 13:15 Dose: 14 unit Lisinopril (Lisinopril 10 Mg Tablet) 10 mg PO DAILY [facility]; Protocol Last Admin: 05/19/22 09:14 Dose: 10 mg Lorazepam (Lorazepam 0.5 Mg Tablet) 0.5 mg PO TID [facility] Last Admin: 05/19/22 14:26 Dose: 0.5 mg Magnesium Hydroxide (Milk Of Magnesia 30 Ml Oral.Susp) 30 ml PO DAILY PRN PRN Reason: Constipation Metformin HCl (Metformin Hcl Er 750 Mg Tab.Er.24h) 750 mg PO BID [facility] Last Admin: 05/19/22 09:13 Dose: 750 mg Metoprolol Succinate (Metoprolol Succinate Er 50 Mg Tab.Er.24h) 50 mg PO DAILY [facility]; Protocol Last Admin: 05/19/22 09:13 Dose: 50 mg Multivitamins/Vitamin C (Multivitamin Tablet) 1 tab PO DAILY [facility] Last Admin: 05/19/22 09:13 Dose: 1 tab Nicotine (Nicotine 21 Mg Patch.Td24) 21 mg TRANSDERMA DAILY PRN PRN Reason: Nicotine Cravings Nicotine Polacrilex (Nicotine Polacrilex 2 Mg Gum) 4 mg BUCCAL Q2H PRN PRN Reason: Nicotine Cravings Olanzapine (Olanzapine 5 Mg Tablet) 5 mg PO TID PRN PRN Reason: agitation Omeprazole (Omeprazole 20 Mg Capsule.Dr) 20 mg PO DAILY [facility] Last Admin: 05/19/22 09:13 Dose: 20 mg Prazosin HCl (Prazosin Hcl 1 Mg Capsule) 1 mg PO BEDTIME [facility]; Protocol Last Admin: 05/18/22 23:19 Dose: Not Given Trazodone HCl (Trazodone Hcl 50 Mg Tablet) 50 mg PO BEDTIME [facility] Last Admin: 05/18/22 23:19 Dose: Not Given Trazodone HCl (Trazodone Hcl 50 Mg Tablet) 50 mg PO BEDTIME PRN PRN Reason: Insomnia Allergies Allergies Allergy/AdvReac Type Severity Reaction Status Date / Time No Known Allergies Allergy Verified 04/09/22 17:32 Assessment & Plan Assessment & Plan (1) Alcohol dependence: Status: Acute Code(s): F10.20 - Alcohol dependence, uncomplicated Assessment and Plan: 05/18/22- Continue current regime and plan. Allow pt to clear and stabilize from recent episode 05/19/22- Continue current regime and plan Gradual improvement noted (2) Major depression: Status: Acute Code(s): F32.9 - Major depressive disorder, single episode, unspecified Plan Patient is a 49-year-old male with past medical history significant for homelessness, insulin dependent DM, HTN, GERD, alcohol dependence, and homicidal ideation who became sedate, slow to respond, unsteady on his feet, urinary incontinent, and had a fall in the shower yesterday. Consult is for medical evaluation for altered mental status and lethargy. # acute toxic encephalopathy likely secondary to restarting psychotropic medicat ions, now resolved -- patient appears back to baseline per patient himself and also his nurse -- states he has been off his home meds for around a month -- no clear infectious source -- UA clear -- TSH WNL -- CT of head clear -- lorazepam and valproate reduced -- valproate levels WNL Thank you for allowing us to participate in the care of this patient. The pt appears back to baseline and there does not appear a medical cause for his prior condition. Signing off for now. Please feel free to call for further consultation should the need arise. I spent minutes with the patient and/or on the patient floor today, greater than?50% of which was spent counseling/coordinating care. Patient educated on: therapeutic strategies Informed Consent: further education needed Reason for contiued inpatient stay Substantial Risk for: harm to self, harm to others, inability to function and med/psych decompensation Time Spent With Patient Time: Total time managing care of this patient today __15__ minutes.
[2022-05-19 17:11] LABS: Glucose, Whole Blood 309 mg/dL (60-115)
[2022-05-19 22:00] VITALS: BP 121/74; PULSE 80; TEMP 36.6
[2022-05-19 22:06] LABS: Glucose, Whole Blood 200 mg/dL (60-115)
[2022-05-19] MEDS: ARIPiprazole 5 MG TABLET PO (22:16)
[2022-05-19] MEDS: ARIPiprazole 2 MG TABLET PO (22:16)
[2022-05-19] MEDS: Atorvastatin Calcium 80 MG TABLET PO (22:17)
[2022-05-19] MEDS: Divalproex Sodium ER 250 MG TAB.ER.24H 750 MG PO (22:18)
[2022-05-19] MEDS: Prazosin HCL 1 MG CAPSULE PO (22:19)
[2022-05-19] MEDS: traZODone HCL 50 MG TABLET PO (22:20)
[2022-05-20 08:12] VITALS: BP 110/57; PULSE 86; RESP 16; TEMP 36.9; O2SAT 96
[2022-05-20 08:20] LABS: Glucose, Whole Blood 218 mg/dL (60-115)
[2022-05-20] MEDS: Gabapentin 300 MG CAPSULE PO ×3 (08:49→20:35)
[2022-05-20] MEDS: Multivitamin TABLET 1 TAB PO (08:49)
[2022-05-20] MEDS: Insulin Lispro 100 UNIT/ML 3 ML VIAL SUBCUT ×4 (08:49→21:01)
[2022-05-20] MEDS: Cyclobenzaprine HCl 10 MG TABLET PO ×3 (08:49→20:34)
[2022-05-20] MEDS: Metoprolol Succinate ER 50 MG TAB.ER.24H PO (08:49)
[2022-05-20] MEDS: metFORMIN HCl ER 750 MG TAB.ER.24H PO ×2 (08:49→20:34)
[2022-05-20] MEDS: LORazepam 0.5 MG TABLET PO ×3 (08:49→20:34)
[2022-05-20] MEDS: lisinopriL 10 MG TABLET PO (08:49)
[2022-05-20] MEDS: Empagliflozin 25 MG TABLET PO (08:50)
[2022-05-20] MEDS: Folic Acid 1 MG TABLET PO (08:50)
[2022-05-20] MEDS: Escitalopram Oxalate 10 MG TABLET PO (08:50)
[2022-05-20] MEDS: Aspirin 81 MG TAB.CHEW PO (08:50)
[2022-05-20] MEDS: Cyanocobalamin (Vitamin B-12) 100 MCG TABLET PO (08:50)
[2022-05-20] MEDS: Omeprazole 20 MG CAPSULE.DR PO (10:03)
[2022-05-20] MEDS: Acetaminophen 325 MG TABLET 650 MG PO ×3 (10:04→20:54)
--- NOTE | 2022-05-20 10:04 | PC.NURSE ---
pt complaining of throat pain 10/13. 650mg Tylenol administered. will discuss w/ provider
[2022-05-20] MEDS: Throat Lozenge, Medicated LOZENGE 1 LOZENGE MUCOUS MEM ×2 (11:13→15:19)
[2022-05-20 11:55] LABS: Glucose, Whole Blood 285 mg/dL (60-115)
--- NOTE | 2022-05-20 14:37 | PC.NURSE ---
pt has been continent of urine for duration of shift. able to ambulate to restroom as needed w/o incident.
[2022-05-20 15:00] LABS: COVID-19 Test Negative (Negative); IDNOW Serial# BCCEAD1C
--- NOTE | 2022-05-20 15:51 | PC.NURSE ---
Pt participated in [facility] screen on this date, scored 19/30, indicating mild cognitive impairment. IT SPECIALIST aware.
[2022-05-20 16:26] LABS: Glucose, Whole Blood 235 mg/dL (60-115)
[2022-05-20 16:29] VITALS: BP 105/68; PULSE 81; RESP 16; TEMP 36.4; O2SAT 99
--- NOTE | 2022-05-20 16:36 | P.PNPSI_ITS ---
Subjective Subjective Date of Service: 05/20/22 Reason For Visit: HI Subjective Notes: Conditional Voluntary Healthcare Proxy: No Guardianship: No Medical Problems Affecting Mental Status: No Interim History: Decrease in confusion. Improvement in blood sugar levels. I dont want 22 pills a day When I walk sometimes I am dizzy-I can't get up too fast I don't want a detention-you drink all day then go there at night. I don't want a program-they don't let you smoke The street is the place for me . They told me my kidney is slowing-that makes me nervous . Discussion of all of the above. Medication Compliance: Yes Side effects from medications: No Attending Groups: Intermittent Review of Systems Acute medical concerns: No Medical Review of Systems: unchanged Mental Status Exam Mental Status Exam Patient Appearance: Appropriate Patient Orientation: Person, Place, Time and Situation Level of Consciousness: Alert Patient Behavior: Talkative and Good Eye Contact Mood Description: Blunted Affect Description: Blunted Patient Cognition Impaired: Yes Ability to Follow Directions: Fair Speech Pattern: Spontaneous Speech Memory Description: Remote Impaired and Episodic Impaired Hallucinations: None Delusions: Not Present Thought Content: positive for Circumstantial Depressive Symptoms: Sleeping More Than Usual Judgement: Fair Diagnostics Vital Signs (24Hr): Vital Signs - 24 hr 05/19/22 22:00 05/20/22 08:12 05/20/22 16:29 Temperature 97.9 F 98.5 F 97.6 F Pulse Rate 80 86 81 Respiratory Rate 16 16 Blood Pressure 121/74 110/57 L 105/68 Pulse Oximetry 96 99 Oxygen Delivery Method Room Air Room Air BMI result Body Mass Index 27.0 Labs Results: 05/17/22 18:50 05/17/22 18:50 Labs: Laboratory Results - last 48 hr 05/18/22 05/18/22 05/19/22 16:42 22:15 08:18 POC Glucose 181 H 142 H 156 H COVID-19 ([facility]) COVID-19 Clin Com 05/19/22 05/19/22 05/19/22 11:28 17:03 22:00 POC Glucose 455 H* 309 H 200 H COVID-19 ([facility]) COVID-19 Clin Com 05/20/22 05/20/22 05/20/22 08:16 11:51 14:15 POC Glucose 218 H 285 H COVID-19 ([facility]) Negative COVID-19 Clin Com See Note 05/20/22 16:22 POC Glucose 235 H COVID-19 ([facility]) COVID-19 Clin Com Imaging Radiology Impressions: ITS Impressions Head CT 05/17/22 15:52 IMPRESSION: 1. No acute intracranial pathology. 2. Unchanged curvilinear calcification of the melissa, nonspecific possibly due to underlying vascular anomaly. Consider nonemergent brain MRI as previously suggested in the absence of earlier priors. Medications Medications Current Medications Acetaminophen (Acetaminophen 325 Mg Tablet) 650 mg PO Q6H PRN PRN Reason: Headache/Pain Mild Scale (1-3) Last Admin: 05/20/22 15:19 Dose: 650 mg Al Hydroxide/Mg Hydroxide (Magnesium Hydrox/Alum Hydrox 30 Ml Oral.Susp) 30 ml PO Q6H PRN PRN Reason: Heartburn/Nausea Aripiprazole (Aripiprazole 2 Mg Tablet) 2 mg PO BEDTIME [facility] Last Admin: 05/19/22 22:16 Dose: 2 mg Aripiprazole (Aripiprazole 5 Mg Tablet) 5 mg PO BEDTIME [facility] Last Admin: 05/19/22 22:16 Dose: 5 mg Aspirin (Aspirin 81 Mg Tab.Chew) 81 mg PO DAILY [facility] Last Admin: 05/20/22 08:50 Dose: 81 mg Atorvastatin Calcium (Atorvastatin Calcium 80 Mg Tablet) 80 mg PO BEDTIME [facility] Last Admin: 05/19/22 22:17 Dose: 80 mg Benzocaine (Throat Lozenge, Medicated Lozenge) 1 lozenge MUCOUS MEM Q2H PRN PRN Reason: Sore Throat Last Admin: 05/20/22 15:19 Dose: 1 lozenge Cyanocobalamin (Cyanocobalamin (Vitamin B-12) 100 Mcg Tablet) 100 mcg PO DAILY [facility] Last Admin: 05/20/22 08:50 Dose: 100 mcg Cyclobenzaprine HCl (Cyclobenzaprine Hcl 10 Mg Tablet) 10 mg PO TID [facility] Last Admin: 05/20/22 14:50 Dose: 10 mg Dextrose (Dextrose 50 % 25 Gm/50 Ml Syringe) 25 gm IVPUSH Q15M PRN; Protocol PRN Reason: per Hypoglycemia Standing Ord. Divalproex Sodium (Divalproex Sodium Er 250 Mg Tab.Er.24h) 750 mg PO BEDTIME [facility] Last Admin: 05/19/22 22:18 Dose: 750 mg Empagliflozin (Empagliflozin 25 Mg Tablet) 25 mg PO DAILY [facility] Last Admin: 05/20/22 08:50 Dose: 25 mg Escitalopram Oxalate (Escitalopram Oxalate 10 Mg Tablet) 10 mg PO DAILY [facility] Last Admin: 05/20/22 08:50 Dose: 10 mg Folic Acid (Folic Acid 1 Mg Tablet) 1 mg PO DAILY [facility] Last Admin: 05/20/22 08:50 Dose: 1 mg Gabapentin (Gabapentin 300 Mg Capsule) 300 mg PO TID [facility] Last Admin: 05/20/22 14:50 Dose: 300 mg Glucose (Glucose Gel 15 Gm Gel..Gram.) 15 gm PO Q15M PRN; Protocol PRN Reason: per Hypoglycemia Standing Ord. Insulin Human Lispro (Insulin Lispro 100 Unit/Ml 3 Ml Vial) 0 unit SUBCUT QIDACHS [facility]; Protocol Stop: 05/20/22 22:02 Last Admin: 05/20/22 12:09 Dose: 10 unit Lisinopril (Lisinopril 10 Mg Tablet) 10 mg PO DAILY [facility]; Protocol Last Admin: 05/20/22 08:49 Dose: 10 mg Lorazepam (Lorazepam 0.5 Mg Tablet) 0.5 mg PO TID [facility] Last Admin: 05/20/22 14:50 Dose: 0.5 mg Magnesium Hydroxide (Milk Of Magnesia 30 Ml Oral.Susp) 30 ml PO DAILY PRN PRN Reason: Constipation Metformin HCl (Metformin Hcl Er 750 Mg Tab.Er.24h) 750 mg PO BID [facility] Last Admin: 05/20/22 08:49 Dose: 750 mg Metoprolol Succinate (Metoprolol Succinate Er 50 Mg Tab.Er.24h) 50 mg PO DAILY [facility]; Protocol Last Admin: 05/20/22 08:49 Dose: 50 mg Multivitamins/Vitamin C (Multivitamin Tablet) 1 tab PO DAILY [facility] Last Admin: 05/20/22 08:49 Dose: 1 tab Nicotine (Nicotine 21 Mg Patch.Td24) 21 mg TRANSDERMA DAILY PRN PRN Reason: Nicotine Cravings Nicotine Polacrilex (Nicotine Polacrilex 2 Mg Gum) 4 mg BUCCAL Q2H PRN PRN Reason: Nicotine Cravings Olanzapine (Olanzapine 5 Mg Tablet) 5 mg PO TID PRN PRN Reason: agitation Omeprazole (Omeprazole 20 Mg Capsule.Dr) 20 mg PO DAILY [facility] Last Admin: 05/20/22 10:03 Dose: 20 mg Prazosin HCl (Prazosin Hcl 1 Mg Capsule) 1 mg PO BEDTIME [facility]; Protocol Last Admin: 05/19/22 22:19 Dose: 1 mg Trazodone HCl (Trazodone Hcl 50 Mg Tablet) 50 mg PO BEDTIME [facility] Last Admin: 05/19/22 22:20 Dose: 50 mg Trazodone HCl (Trazodone Hcl 50 Mg Tablet) 50 mg PO BEDTIME PRN PRN Reason: Insomnia Allergies Allergies Allergy/AdvReac Type Severity Reaction Status Date / Time No Known Allergies Allergy Verified 04/09/22 17:32 Assessment & Plan Assessment & Plan (1) Alcohol dependence: Status: Acute Code(s): F10.20 - Alcohol dependence, uncomplicated Assessment and Plan: 05/18/22- Continue current regime and plan. Allow pt to clear and stabilize from recent episode 05/20/22- Continues to improve. (2) Major depression: Status: Acute Code(s): F32.9 - Major depressive disorder, single episode, unspecified Plan Patient is a 49-year-old male with past medical history significant for homelessness, insulin dependent DM, HTN, GERD, alcohol dependence, and homicidal ideation who became sedate, slow to respond, unsteady on his feet, urinary incontinent, and had a fall in the shower yesterday. Consult is for medical evaluation for altered mental status and lethargy. # acute toxic encephalopathy likely secondary to restarting psychotropic medications, now resolved -- patient appears back to baseline per patient himself and also his nurse -- states he has been off his home meds for around a month -- no clear infectious source -- UA clear -- TSH WNL -- CT of head clear -- lorazepam and valproate reduced -- valproate levels WNL Thank you for allowing us to participate in the care of this patient. The pt appears back to baseline and there does not appear a medical cause for his prior condition. Signing off for now. Please feel free to call for further consultation should the need arise. I spent minutes with the patient and/or on the patient floor today, greater than?50% of which was spent counseling/coordinating care. Patient educated on: medication risk/benefits, therapeutic strategies and medical condition Informed Consent: understands and further education needed Reason for contiued inpatient stay Substantial Risk for: med/psych decompensation Time Spent With Patient Time: Total time managing care of this patient today __20__ minutes.
[2022-05-20] MEDS: ARIPiprazole 5 MG TABLET PO (20:34)
[2022-05-20] MEDS: Atorvastatin Calcium 80 MG TABLET PO (20:34)
[2022-05-20] MEDS: Prazosin HCL 1 MG CAPSULE PO (20:35)
[2022-05-20] MEDS: ARIPiprazole 2 MG TABLET PO (20:35)
[2022-05-20] MEDS: traZODone HCL 50 MG TABLET PO (20:35)
[2022-05-20] MEDS: Divalproex Sodium ER 250 MG TAB.ER.24H 750 MG PO (20:35)
[2022-05-20 21:01] LABS: Glucose, Whole Blood 198 mg/dL (60-115)
[2022-05-21] MEDS: Acetaminophen 325 MG TABLET 650 MG PO (06:36)
[2022-05-21] MEDS: Throat Lozenge, Medicated LOZENGE 1 LOZENGE MUCOUS MEM (06:36)
[2022-05-21] MEDS: Aspirin 81 MG TAB.CHEW PO (08:10)
[2022-05-21] MEDS: metFORMIN HCl ER 750 MG TAB.ER.24H PO ×2 (08:10→19:44)
[2022-05-21] MEDS: lisinopriL 10 MG TABLET PO (08:10)
[2022-05-21] MEDS: Escitalopram Oxalate 10 MG TABLET PO (08:10)
[2022-05-21] MEDS: Cyanocobalamin (Vitamin B-12) 100 MCG TABLET PO (08:10)
[2022-05-21] MEDS: LORazepam 0.5 MG TABLET PO ×3 (08:10→19:44)
[2022-05-21] MEDS: Omeprazole 20 MG CAPSULE.DR PO (08:10)
[2022-05-21] MEDS: Empagliflozin 25 MG TABLET PO (08:10)
[2022-05-21] MEDS: Multivitamin TABLET 1 TAB PO (08:10)
[2022-05-21] MEDS: Cyclobenzaprine HCl 10 MG TABLET PO ×3 (08:10→19:45)
[2022-05-21] MEDS: Metoprolol Succinate ER 50 MG TAB.ER.24H PO (08:10)
[2022-05-21] MEDS: Folic Acid 1 MG TABLET PO (08:10)
[2022-05-21] MEDS: Gabapentin 300 MG CAPSULE PO ×3 (08:11→19:43)
[2022-05-21 08:22] LABS: Glucose, Whole Blood 221 mg/dL (60-115)
[2022-05-21 08:27] VITALS: BP 122/73; PULSE 89; RESP 16; TEMP 36.2; O2SAT 97
[2022-05-21] MEDS: Insulin Lispro 100 UNIT/ML 3 ML VIAL SUBCUT ×4 (08:58→20:35)
[2022-05-21 11:41] LABS: Glucose, Whole Blood 311 mg/dL (60-115)
[2022-05-21] MEDS: Amoxicillin 500 MG CAPSULE PO ×2 (11:51→19:45)
[2022-05-21 16:35] LABS: Glucose, Whole Blood 392 mg/dL (60-115)
--- NOTE | 2022-05-21 17:15 | HO.PSYCHPN ---
Subjective Subjective Date of Service: 05/21/22 Reason For Visit: HI Subjective Notes: Conditional Voluntary Healthcare Proxy: No Guardianship: No Medical Problems Affecting Mental Status: No Interim History: MOCA 20/30 indicating [facility]. Pt had a throat culture last evening for c/o sore throat. +Strep A. Reports not feeling well today-not wanting to discuss aftercare planning-wanting to rest. Medication Compliance: Yes Side effects from medications: No Attending Groups: No Review of Systems Acute medical concerns: No Medical Review of Systems: unchanged Mental Status Exam Mental Status Exam Patient Appearance: Appropriate Patient Orientation: Person, Place, Time and Situation Level of Consciousness: Alert Patient Behavior: Talkative and Good Eye Contact Mood Description: Blunted Affect Description: Blunted Patient Cognition Impaired: Yes Ability to Follow Directions: Fair Speech Pattern: Spontaneous Speech Memory Description: Remote Impaired and Episodic Impaired Hallucinations: None Delusions: Not Present Thought Content: positive for Circumstantial Depressive Symptoms: Sleeping More Than Usual Judgement: Fair Diagnostics Vital Signs (24Hr): Vital Signs - 24 hr 05/21/22 08:27 Temperature 97.1 F Pulse Rate 89 Respiratory Rate 16 Blood Pressure 122/73 Pulse Oximetry 97 Oxygen Delivery Method Room Air BMI result Body Mass Index 27.0 Labs Results: 05/17/22 18:50 05/17/22 18:50 Labs: Laboratory Results - last 48 hr 05/19/22 05/20/22 05/20/22 22:00 08:16 11:51 POC Glucose 200 H 218 H 285 H COVID-19 ([facility]) COVID-19 Clin Com 05/20/22 05/20/22 05/20/22 14:15 16:22 20:46 POC Glucose 235 H 198 H COVID-19 ([facility]) Negative COVID-19 Clin Com See Note 05/21/22 05/21/22 05/21/22 07:55 11:37 16:30 POC Glucose 221 H 311 H 392 H* COVID-19 ([facility]) COVID-19 Clin Com Imaging Radiology Impressions: ITS Impressions Head CT 05/17/22 15:52 IMPRESSION: 1. No acute intracranial pathology. 2. Unchanged curvilinear calcification of the melissa, nonspecific possibly due to underlying vascular anomaly. Consider nonemergent brain MRI as previously suggested in the absence of earlier priors. Medications Medications Current Medications Acetaminophen (Acetaminophen 325 Mg Tablet) 650 mg PO Q6H PRN PRN Reason: Headache/Pain Mild Scale (1-3) Last Admin: 05/21/22 06:36 Dose: 650 mg Al Hydroxide/Mg Hydroxide (Magnesium Hydrox/Alum Hydrox 30 Ml Oral.Susp) 30 ml PO Q6H PRN PRN Reason: Heartburn/Nausea Amoxicillin (Amoxicillin 500 Mg Capsule) 500 mg PO BID [facility] Last Admin: 05/21/22 11:51 Dose: 500 mg Aripiprazole (Aripiprazole 2 Mg Tablet) 2 mg PO BEDTIME [facility] Last Admin: 05/20/22 20:35 Dose: 2 mg Aripiprazole (Aripiprazole 5 Mg Tablet) 5 mg PO BEDTIME [facility] Last Admin: 05/20/22 20:34 Dose: 5 mg Aspirin (Aspirin 81 Mg Tab.Chew) 81 mg PO DAILY [facility] Last Admin: 05/21/22 08:10 Dose: 81 mg Atorvastatin Calcium (Atorvastatin Calcium 80 Mg Tablet) 80 mg PO BEDTIME [facility] Last Admin: 05/20/22 20:34 Dose: 80 mg Benzocaine (Throat Lozenge, Medicated Lozenge) 1 lozenge MUCOUS MEM Q2H PRN PRN Reason: Sore Throat Last Admin: 05/21/22 06:36 Dose: 1 lozenge Cyanocobalamin (Cyanocobalamin (Vitamin B-12) 100 Mcg Tablet) 100 mcg PO DAILY [facility] Last Admin: 05/21/22 08:10 Dose: 100 mcg Cyclobenzaprine HCl (Cyclobenzaprine Hcl 10 Mg Tablet) 10 mg PO TID [facility] Last Admin: 05/21/22 14:19 Dose: 10 mg Dextrose (Dextrose 50 % 25 Gm/50 Ml Syringe) 25 gm IVPUSH Q15M PRN; Protocol PRN Reason: per Hypoglycemia Standing Ord. Divalproex Sodium (Divalproex Sodium Er 250 Mg Tab.Er.24h) 750 mg PO BEDTIME [facility] Last Admin: 05/20/22 20:35 Dose: 750 mg Empagliflozin (Empagliflozin 25 Mg Tablet) 25 mg PO DAILY [facility] Last Admin: 05/21/22 08:10 Dose: 25 mg Escitalopram Oxalate (Escitalopram Oxalate 10 Mg Tablet) 10 mg PO DAILY [facility] Last Admin: 05/21/22 08:10 Dose: 10 mg Folic Acid (Folic Acid 1 Mg Tablet) 1 mg PO DAILY [facility] Last Admin: 05/21/22 08:10 Dose: 1 mg Gabapentin (Gabapentin 300 Mg Capsule) 300 mg PO TID [facility] Last Admin: 05/21/22 14:19 Dose: 300 mg Glucose (Glucose Gel 15 Gm Gel..Gram.) 15 gm PO Q15M PRN; Protocol PRN Reason: per Hypoglycemia Standing Ord. Insulin Human Lispro (Insulin Lispro 100 Unit/Ml 3 Ml Vial) 0 unit SUBCUT QIDACHS [facility]; Protocol Last Admin: 05/21/22 12:46 Dose: 12 unit Lisinopril (Lisinopril 10 Mg Tablet) 10 mg PO DAILY [facility]; Protocol Last Admin: 05/21/22 08:10 Dose: 10 mg Lorazepam (Lorazepam 0.5 Mg Tablet) 0.5 mg PO TID [facility] Last Admin: 05/21/22 14:19 Dose: 0.5 mg Magnesium Hydroxide (Milk Of Magnesia 30 Ml Oral.Susp) 30 ml PO DAILY PRN PRN Reason: Constipation Metformin HCl (Metformin Hcl Er 750 Mg Tab.Er.24h) 750 mg PO BID [facility] Last Admin: 05/21/22 08:10 Dose: 750 mg Metoprolol Succinate (Metoprolol Succinate Er 50 Mg Tab.Er.24h) 50 mg PO DAILY [facility]; Protocol Last Admin: 05/21/22 08:10 Dose: 50 mg Multivitamins/Vitamin C (Multivitamin Tablet) 1 tab PO DAILY [facility] Last Admin: 05/21/22 08:10 Dose: 1 tab Nicotine (Nicotine 21 Mg Patch.Td24) 21 mg TRANSDERMA DAILY PRN PRN Reason: Nicotine Cravings Nicotine Polacrilex (Nicotine Polacrilex 2 Mg Gum) 4 mg BUCCAL Q2H PRN PRN Reason: Nicotine Cravings Olanzapine (Olanzapine 5 Mg Tablet) 5 mg PO TID PRN PRN Reason: agitation Omeprazole (Omeprazole 20 Mg Capsule.Dr) 20 mg PO DAILY [facility] Last Admin: 05/21/22 08:10 Dose: 20 mg Prazosin HCl (Prazosin Hcl 1 Mg Capsule) 1 mg PO BEDTIME [facility]; Protocol Last Admin: 05/20/22 20:35 Dose: 1 mg Trazodone HCl (Trazodone Hcl 50 Mg Tablet) 50 mg PO BEDTIME [facility] Last Admin: 05/20/22 20:35 Dose: 50 mg Trazodone HCl (Trazodone Hcl 50 Mg Tablet) 50 mg PO BEDTIME PRN PRN Reason: Insomnia Allergies Allergies Allergy/AdvReac Type Severity Reaction Status Date / Time No Known Allergies Allergy Verified 04/09/22 17:32 Assessment & Plan Assessment & Plan (1) Alcohol dependence: Status: Acute Code(s): F10.20 - Alcohol dependence, uncomplicated Assessment and Plan: 05/18/22- Continue current regime and plan. Allow pt to clear and stabilize from recent episode 05/20/22- Continues to improve. 05/21/22- + Strep A. Amoxicillin 500 mg bid (2) Major depression: Status: Acute Code(s): F32.9 - Major depressive disorder, single episode, unspecified Plan Patient is a 49-year-old male with past medical history significant for homelessness, insulin dependent DM, HTN, GERD, alcohol dependence, and homicidal ideation who became sedate, slow to respond, unsteady on his feet, urinary incontinent, and had a fall in the shower yesterday. Consult is for medical evaluation for altered mental status and lethargy. # acute toxic encephalopathy likely secondary to restarting psychotropic medications, now resolved -- patient appears back to baseline per patient himself and also his nurse -- states he has been off his home meds for around a month -- no clear infectious source -- UA clear -- TSH WNL -- CT of head clear -- lorazepam and valproate reduced -- valproate levels WNL Thank you for allowing us to participate in the care of this patient. The pt appears back to baseline and there does not appear a medical cause for his prior condition. Signing off for now. Please feel free to call for further consultation should the need arise. I spent minutes with the patient and/or on the patient floor today, greater than?50% of which was spent counseling/coordinating care. Patient educated on: therapeutic strategies and medical condition Informed Consent: understands and further education needed Reason for contiued inpatient stay Substantial Risk for: med/psych decompensation Time Spent With Patient Time: Total time managing care of this patient today ___10_ minutes.
[2022-05-21 18:00] VITALS: BP 136/75; PULSE 78; RESP 16; TEMP 36.6; O2SAT 100
[2022-05-21] MEDS: ARIPiprazole 2 MG TABLET PO (19:43)
[2022-05-21] MEDS: traZODone HCL 50 MG TABLET PO (19:44)
[2022-05-21] MEDS: Divalproex Sodium ER 250 MG TAB.ER.24H 750 MG PO (19:44)
[2022-05-21] MEDS: ARIPiprazole 5 MG TABLET PO (19:44)
[2022-05-21] MEDS: Prazosin HCL 1 MG CAPSULE PO (19:45)
[2022-05-21] MEDS: Atorvastatin Calcium 80 MG TABLET PO (19:46)
--- NOTE | 2022-05-21 19:49 | PC.NURSE ---
Pt recorded POC of 391 at 1600, Provider notified 14units given per sliding scale.
[2022-05-21 20:11] LABS: Glucose, Whole Blood 383 mg/dL (60-115)
[2022-05-22 07:59] LABS: Glucose, Whole Blood 181 mg/dL (60-115)
[2022-05-22] MEDS: Cyclobenzaprine HCl 10 MG TABLET PO ×3 (08:26→21:39)
[2022-05-22] MEDS: Escitalopram Oxalate 10 MG TABLET PO (08:26)
[2022-05-22] MEDS: Empagliflozin 25 MG TABLET PO (08:26)
[2022-05-22] MEDS: Amoxicillin 500 MG CAPSULE PO ×2 (08:27→21:39)
[2022-05-22] MEDS: Folic Acid 1 MG TABLET PO (08:27)
[2022-05-22] MEDS: Aspirin 81 MG TAB.CHEW PO (08:27)
[2022-05-22] MEDS: Gabapentin 300 MG CAPSULE PO ×3 (08:27→21:39)
[2022-05-22] MEDS: Metoprolol Succinate ER 50 MG TAB.ER.24H PO (08:27)
[2022-05-22] MEDS: Multivitamin TABLET 1 TAB PO (08:28)
[2022-05-22] MEDS: Omeprazole 20 MG CAPSULE.DR PO (08:28)
[2022-05-22] MEDS: LORazepam 0.5 MG TABLET PO ×3 (08:28→21:39)
[2022-05-22] MEDS: lisinopriL 10 MG TABLET PO (08:28)
[2022-05-22] MEDS: Cyanocobalamin (Vitamin B-12) 100 MCG TABLET PO (08:28)
[2022-05-22] MEDS: metFORMIN HCl ER 750 MG TAB.ER.24H PO ×2 (08:28→21:39)
[2022-05-22] MEDS: Insulin Lispro 100 UNIT/ML 3 ML VIAL SUBCUT ×4 (08:30→21:45)
[2022-05-22 08:34] VITALS: BP 111/64; PULSE 82; RESP 18; TEMP 36.2; O2SAT 100
--- NOTE | 2022-05-22 10:31 | HO.PSYCHPN ---
Subjective Subjective Date of Service: 05/22/22 Reason For Visit: HI Interim History: pt says he's feeling much better; throat no longer sore, mood is better; pt says he's now thinking about plans post-discharge. Mental Status Exam Mental Status Exam Patient Appearance: Appropriate Patient Orientation: Person, Place, Time and Situation Level of Consciousness: Alert Patient Behavior: Talkative and Good Eye Contact Mood Description: Calm and Relaxed Affect Description: Calm Patient Cognition Impaired: Yes Ability to Follow Directions: Fair Speech Pattern: Clear and Spontaneous Speech Memory Description: Remote Impaired and Episodic Impaired Hallucinations: None Delusions: Not Present Thought Process: Intact Thought Content: positive for Circumstantial, positive for Suicidal Ideation (denies) and positive for Homicidal Ideation (denies) Judgement: Fair Diagnostics Vital Signs (24Hr): Vital Signs - 24 hr 05/21/22 18:00 05/22/22 08:34 Temperature 97.8 F 97.1 F Pulse Rate 78 82 Respiratory Rate 16 18 Blood Pressure 136/75 111/64 Pulse Oximetry 100 100 Oxygen Delivery Method Room Air Room Air BMI result Body Mass Index 27.0 Labs Results: 05/17/22 18:50 05/17/22 18:50 Labs: Laboratory Results - last 48 hr 05/20/22 05/20/22 05/20/22 11:51 14:15 16:22 POC Glucose 285 H 235 H COVID-19 ([facility]) Negative COVID-19 Clin Com See Note 05/20/22 05/21/22 05/21/22 20:46 07:55 11:37 POC Glucose 198 H 221 H 311 H COVID-19 ([facility]) COVID-19 Clin Com 05/21/22 05/21/22 05/22/22 16:30 20:05 07:55 POC Glucose 392 H* 383 H* 181 H COVID-19 ([facility]) COVID-19 Clin Com Imaging Radiology Impressions: ITS Impressions Head CT 05/17/22 15:52 IMPRESSION: 1. No acute intracranial pathology. 2. Unchanged curvilinear calcification of the melissa, nonspecific possibly due to underlying vascular anomaly. Consider nonemergent brain MRI as previously suggested in the absence of earlier priors. Medications Medications Current Medications Acetaminophen (Acetaminophen 325 Mg Tablet) 650 mg PO Q6H PRN PRN Reason: Headache/Pain Mild Scale (1-3) Last Admin: 05/21/22 06:36 Dose: 650 mg Al Hydroxide/Mg Hydroxide (Magnesium Hydrox/Alum Hydrox 30 Ml Oral.Susp) 30 ml PO Q6H PRN PRN Reason: Heartburn/Nausea Amoxicillin (Amoxicillin 500 Mg Capsule) 500 mg PO BID [facility] Last Admin: 05/22/22 08:27 Dose: 500 mg Aripiprazole (Aripiprazole 2 Mg Tablet) 2 mg PO BEDTIME [facility] Last Admin: 05/21/22 19:43 Dose: 2 mg Aripiprazole (Aripiprazole 5 Mg Tablet) 5 mg PO BEDTIME [facility] Last Admin: 05/21/22 19:44 Dose: 5 mg Aspirin (Aspirin 81 Mg Tab.Chew) 81 mg PO DAILY [facility] Last Admin: 05/22/22 08:27 Dose: 81 mg Atorvastatin Calcium (Atorvastatin Calcium 80 Mg Tablet) 80 mg PO BEDTIME [facility] Last Admin: 05/21/22 19:46 Dose: 80 mg Benzocaine (Throat Lozenge, Medicated Lozenge) 1 lozenge MUCOUS MEM Q2H PRN PRN Reason: Sore Throat Last Admin: 05/21/22 06:36 Dose: 1 lozenge Cyanocobalamin (Cyanocobalamin (Vitamin B-12) 100 Mcg Tablet) 100 mcg PO DAILY [facility] Last Admin: 05/22/22 08:28 Dose: 100 mcg Cyclobenzaprine HCl (Cyclobenzaprine Hcl 10 Mg Tablet) 10 mg PO TID [facility] Last Admin: 05/22/22 08:26 Dose: 10 mg Dextrose (Dextrose 50 % 25 Gm/50 Ml Syringe) 25 gm IVPUSH Q15M PRN; Protocol PRN Reason: per Hypoglycemia Standing Ord. Divalproex Sodium (Divalproex Sodium Er 250 Mg Tab.Er.24h) 750 mg PO BEDTIME [facility] Last Admin: 05/21/22 19:44 Dose: 750 mg Empagliflozin (Empagliflozin 25 Mg Tablet) 25 mg PO DAILY [facility] Last Admin: 05/22/22 08:26 Dose: 25 mg Escitalopram Oxalate (Escitalopram Oxalate 10 Mg Tablet) 10 mg PO DAILY [facility] Last Admin: 05/22/22 08:26 Dose: 10 mg Folic Acid (Folic Acid 1 Mg Tablet) 1 mg PO DAILY [facility] Last Admin: 05/22/22 08:27 Dose: 1 mg Gabapentin (Gabapentin 300 Mg Capsule) 300 mg PO TID [facility] Last Admin: 05/22/22 08:27 Dose: 300 mg Glucose (Glucose Gel 15 Gm Gel..Gram.) 15 gm PO Q15M PRN; Protocol PRN Reason: per Hypoglycemia Standing Ord. Insulin Human Lispro (Insulin Lispro 100 Unit/Ml 3 Ml Vial) 0 unit SUBCUT QIDACHS [facility]; Protocol Last Admin: 05/22/22 08:30 Dose: 6 unit Lisinopril (Lisinopril 10 Mg Tablet) 10 mg PO DAILY [facility]; Protocol Last Admin: 05/22/22 08:28 Dose: 10 mg Lorazepam (Lorazepam 0.5 Mg Tablet) 0.5 mg PO TID [facility] Last Admin: 05/22/22 08:28 Dose: 0.5 mg Magnesium Hydroxide (Milk Of Magnesia 30 Ml Oral.Susp) 30 ml PO DAILY PRN PRN Reason: Constipation Metformin HCl (Metformin Hcl Er 750 Mg Tab.Er.24h) 750 mg PO BID [facility] Last Admin: 05/22/22 08:28 Dose: 750 mg Metoprolol Succinate (Metoprolol Succinate Er 50 Mg Tab.Er.24h) 50 mg PO DAILY [facility]; Protocol Last Admin: 05/22/22 08:27 Dose: 50 mg Multivitamins/Vitamin C (Multivitamin Tablet) 1 tab PO DAILY [facility] Last Admin: 05/22/22 08:28 Dose: 1 tab Nicotine (Nicotine 21 Mg Patch.Td24) 21 mg TRANSDERMA DAILY PRN PRN Reason: Nicotine Cravings Nicotine Polacrilex (Nicotine Polacrilex 2 Mg Gum) 4 mg BUCCAL Q2H PRN PRN Reason: Nicotine Cravings Olanzapine (Olanzapine 5 Mg Tablet) 5 mg PO TID PRN PRN Reason: agitation Omeprazole (Omeprazole 20 Mg Capsule.Dr) 20 mg PO DAILY [facility] Last Admin: 05/22/22 08:28 Dose: 20 mg Prazosin HCl (Prazosin Hcl 1 Mg Capsule) 1 mg PO BEDTIME [facility]; Protocol Last Admin: 05/21/22 19:45 Dose: 1 mg Trazodone HCl (Trazodone Hcl 50 Mg Tablet) 50 mg PO BEDTIME [facility] Last Admin: 05/21/22 19:44 Dose: 50 mg Trazodone HCl (Trazodone Hcl 50 Mg Tablet) 50 mg PO BEDTIME PRN PRN Reason: Insomnia Allergies Allergies Allergy/AdvReac Type Severity Reaction Status Date / Time No Known Allergies Allergy Verified 04/09/22 17:32 Assessment & Plan Assessment & Plan (1) Alcohol dependence: Status: Acute Code(s): F10.20 - Alcohol dependence, uncomplicated Assessment and Plan: 05/18/22- Continue current regime and plan. Allow pt to clear and stabilize from recent episode 05/20/22- Continues to improve. 05/21/22- + Strep A. Amoxicillin 500 mg bid 05/22/22 continue current regimen (2) Major depression: Status: Acute Code(s): F32.9 - Major depressive disorder, single episode, unspecified Plan Patient is a 49-year-old male with past medical history significant for homelessness, insulin dependent DM, HTN, GERD, alcohol dependence, and homicidal ideation who became sedate, slow to respond, unsteady on his feet, urinary incontinent, and had a fall in the shower yesterday. Consult is for medical evaluation for altered mental status and lethargy. # acute toxic encephalopathy likely secondary to restarting psychotropic medications, now resolved -- patient appears back to baseline per patient himself and also his nurse -- states he has been off his home meds for around a month -- no clear infectious source -- UA clear -- TSH WNL -- CT of head clear -- lorazepam and valproate reduced -- valproate levels WNL Thank you for allowing us to participate in the care of this patient. The pt appears back to baseline and there does not appear a medical cause for his prior condition. Signing off for now. Please feel free to call for further consultation should the need arise. I spent minutes with the patient and/or on the patient floor today, greater than?50% of which was spent counseling/coordinating care. Patient educated on: diagnosis Informed Consent: understands Reason for contiued inpatient stay Substantial Risk for: stable for discharge Time Spent With Patient Time: Total time managing care of this patient today ____ minutes.
[2022-05-22 12:36] LABS: Glucose, Whole Blood 276 mg/dL (60-115)
[2022-05-22 17:09] LABS: Glucose, Whole Blood 191 mg/dL (60-115)
[2022-05-22 21:23] VITALS: BP 116/77; PULSE 79; RESP 16; TEMP 36.3; O2SAT 95
[2022-05-22] MEDS: Divalproex Sodium ER 250 MG TAB.ER.24H 750 MG PO (21:38)
[2022-05-22] MEDS: ARIPiprazole 2 MG TABLET PO (21:38)
[2022-05-22] MEDS: Prazosin HCL 1 MG CAPSULE PO (21:38)
[2022-05-22 21:39] LABS: Glucose, Whole Blood 264 mg/dL (60-115)
[2022-05-22] MEDS: Atorvastatin Calcium 80 MG TABLET PO (21:39)
[2022-05-22] MEDS: ARIPiprazole 5 MG TABLET PO (21:39)
[2022-05-22] MEDS: traZODone HCL 50 MG TABLET PO (21:39)
[2022-05-23 08:04] LABS: Glucose, Whole Blood 217 mg/dL (60-115)
[2022-05-23] MEDS: Multivitamin TABLET 1 TAB PO (08:23)
[2022-05-23] MEDS: Gabapentin 300 MG CAPSULE PO ×3 (08:23→20:31)
[2022-05-23] MEDS: LORazepam 0.5 MG TABLET PO ×3 (08:23→20:32)
[2022-05-23] MEDS: Aspirin 81 MG TAB.CHEW PO (08:23)
[2022-05-23] MEDS: lisinopriL 10 MG TABLET PO (08:23)
[2022-05-23] MEDS: metFORMIN HCl ER 750 MG TAB.ER.24H PO ×2 (08:23→20:32)
[2022-05-23] MEDS: Empagliflozin 25 MG TABLET PO (08:24)
[2022-05-23] MEDS: Folic Acid 1 MG TABLET PO (08:24)
[2022-05-23] MEDS: Cyanocobalamin (Vitamin B-12) 100 MCG TABLET PO (08:24)
[2022-05-23] MEDS: Metoprolol Succinate ER 50 MG TAB.ER.24H PO (08:24)
[2022-05-23] MEDS: Omeprazole 20 MG CAPSULE.DR PO (08:24)
[2022-05-23] MEDS: Cyclobenzaprine HCl 10 MG TABLET PO ×3 (08:24→20:31)
[2022-05-23] MEDS: Escitalopram Oxalate 10 MG TABLET PO (08:24)
[2022-05-23] MEDS: Amoxicillin 500 MG CAPSULE PO ×2 (08:24→20:31)
[2022-05-23] MEDS: Insulin Lispro 100 UNIT/ML 3 ML VIAL SUBCUT ×4 (08:27→21:00)
[2022-05-23 08:32] VITALS: BP 110/67; PULSE 77; RESP 18; TEMP 36.6; O2SAT 98
[2022-05-23 11:45] LABS: Glucose, Whole Blood 346 mg/dL (60-115)
[2022-05-23 17:19] LABS: Glucose, Whole Blood 185 mg/dL (60-115)
--- NOTE | 2022-05-23 17:46 | P.PNPSI_ITS ---
Subjective Subjective Date of Service: 05/23/22 Reason For Visit: HI Interim History: says feels good, good mood; no SI, HI; feels ready for discharge Mental Status Exam Mental Status Exam Patient Appearance: Appropriate Patient Orientation: Person, Place, Time and Situation Level of Consciousness: Alert Patient Behavior: Talkative and Good Eye Contact Mood Description: Calm and Relaxed Affect Description: Calm Patient Cognition Impaired: Yes Ability to Follow Directions: Fair Speech Pattern: Clear and Spontaneous Speech Memory Description: Remote Impaired and Episodic Impaired Hallucinations: None Delusions: Not Present Thought Process: Intact Thought Content: positive for Circumstantial, positive for Suicidal Ideation (denies) and positive for Homicidal Ideation (denies) Judgement: Fair Diagnostics Vital Signs (24Hr): Vital Signs - 24 hr 05/22/22 21:23 05/23/22 08:32 Temperature 97.4 F 97.8 F Pulse Rate 79 77 Respiratory Rate 16 18 Blood Pressure 116/77 110/67 Pulse Oximetry 95 98 Oxygen Delivery Method Room Air Room Air BMI result Body Mass Index 27.0 Labs Results: 05/17/22 18:50 05/24/22 07:45 Labs: Laboratory Results - last 48 hr 05/21/22 05/22/22 05/22/22 20:05 07:55 12:31 POC Glucose 383 H* 181 H 276 H 05/22/22 05/22/22 05/23/22 17:04 21:35 08:00 POC Glucose 191 H 264 H 217 H 05/23/22 05/23/22 11:42 17:15 POC Glucose 346 H 185 H Imaging Radiology Impressions: ITS Impressions Head CT 05/17/22 15:52 IMPRESSION: 1. No acute intracranial pathology. 2. Unchanged curvilinear calcification of the melissa, nonspecific possibly due to underlying vascular anomaly. Consider nonemergent brain MRI as previously suggested in the absence of earlier priors. Medications Medications Current Medications Acetaminophen (Acetaminophen 325 Mg Tablet) 650 mg PO Q6H PRN PRN Reason: Headache/Pain Mild Scale (1-3) Last Admin: 05/21/22 06:36 Dose: 650 mg Al Hydroxide/Mg Hydroxide (Magnesium Hydrox/Alum Hydrox 30 Ml Oral.Susp) 30 ml PO Q6H PRN PRN Reason: Heartburn/Nausea Amoxicillin (Amoxicillin 500 Mg Capsule) 500 mg PO BID [facility] Last Admin: 05/23/22 08:24 Dose: 500 mg Aripiprazole (Aripiprazole 2 Mg Tablet) 2 mg PO BEDTIME [facility] Last Admin: 05/22/22 21:38 Dose: 2 mg Aripiprazole (Aripiprazole 5 Mg Tablet) 5 mg PO BEDTIME [facility] Last Admin: 05/22/22 21:39 Dose: 5 mg Aspirin (Aspirin 81 Mg Tab.Chew) 81 mg PO DAILY [facility] Last Admin: 05/23/22 08:23 Dose: 81 mg Atorvastatin Calcium (Atorvastatin Calcium 80 Mg Tablet) 80 mg PO BEDTIME [facility] Last Admin: 05/22/22 21:39 Dose: 80 mg Benzocaine (Throat Lozenge, Medicated Lozenge) 1 lozenge MUCOUS MEM Q2H PRN PRN Reason: Sore Throat Last Admin: 05/21/22 06:36 Dose: 1 lozenge Cyanocobalamin (Cyanocobalamin (Vitamin B-12) 100 Mcg Tablet) 100 mcg PO DAILY [facility] Last Admin: 05/23/22 08:24 Dose: 100 mcg Cyclobenzaprine HCl (Cyclobenzaprine Hcl 10 Mg Tablet) 10 mg PO TID [facility] Last Admin: 05/23/22 14:41 Dose: 10 mg Dextrose (Dextrose 50 % 25 Gm/50 Ml Syringe) 25 gm IVPUSH Q15M PRN; Protocol PRN Reason: per Hypoglycemia Standing Ord. Divalproex Sodium (Divalproex Sodium Er 250 Mg Tab.Er.24h) 750 mg PO BEDTIME [facility] Last Admin: 05/22/22 21:38 Dose: 750 mg Empagliflozin (Empagliflozin 25 Mg Tablet) 25 mg PO DAILY [facility] Last Admin: 05/23/22 08:24 Dose: 25 mg Escitalopram Oxalate (Escitalopram Oxalate 10 Mg Tablet) 10 mg PO DAILY [facility] Last Admin: 05/23/22 08:24 Dose: 10 mg Folic Acid (Folic Acid 1 Mg Tablet) 1 mg PO DAILY [facility] Last Admin: 05/23/22 08:24 Dose: 1 mg Gabapentin (Gabapentin 300 Mg Capsule) 300 mg PO TID [facility] Last Admin: 05/23/22 14:41 Dose: 300 mg Glucose (Glucose Gel 15 Gm Gel..Gram.) 15 gm PO Q15M PRN; Protocol PRN Reason: per Hypoglycemia Standing Ord. Insulin Human Lispro (Insulin Lispro 100 Unit/Ml 3 Ml Vial) 0 unit SUBCUT QIDACHS [facility]; Protocol Last Admin: 12/18/22 17:27 Dose: 6 unit Lisinopril (Lisinopril 10 Mg Tablet) 10 mg PO DAILY [facility]; Protocol Last Admin: 05/23/22 08:23 Dose: 10 mg Lorazepam (Lorazepam 0.5 Mg Tablet) 0.5 mg PO TID [facility] Last Admin: 05/23/22 14:41 Dose: 0.5 mg Magnesium Hydroxide (Milk Of Magnesia 30 Ml Oral.Susp) 30 ml PO DAILY PRN PRN Reason: Constipation Metformin HCl (Metformin Hcl Er 750 Mg Tab.Er.24h) 750 mg PO BID [facility] Last Admin: 05/23/22 08:23 Dose: 750 mg Metoprolol Succinate (Metoprolol Succinate Er 50 Mg Tab.Er.24h) 50 mg PO DAILY [facility]; Protocol Last Admin: 05/23/22 08:24 Dose: 50 mg Multivitamins/Vitamin C (Multivitamin Tablet) 1 tab PO DAILY [facility] Last Admin: 05/23/22 08:23 Dose: 1 tab Nicotine (Nicotine 21 Mg Patch.Td24) 21 mg TRANSDERMA DAILY PRN PRN Reason: Nicotine Cravings Nicotine Polacrilex (Nicotine Polacrilex 2 Mg Gum) 4 mg BUCCAL Q2H PRN PRN Reason: Nicotine Cravings Olanzapine (Olanzapine 5 Mg Tablet) 5 mg PO TID PRN PRN Reason: agitation Omeprazole (Omeprazole 20 Mg Capsule.Dr) 20 mg PO DAILY [facility] Last Admin: 05/23/22 08:24 Dose: 20 mg Prazosin HCl (Prazosin Hcl 1 Mg Capsule) 1 mg PO BEDTIME [facility]; Protocol Last Admin: 05/22/22 21:38 Dose: 1 mg Trazodone HCl (Trazodone Hcl 50 Mg Tablet) 50 mg PO BEDTIME [facility] Last Admin: 05/22/22 21:39 Dose: 50 mg Trazodone HCl (Trazodone Hcl 50 Mg Tablet) 50 mg PO BEDTIME PRN PRN Reason: Insomnia Allergies Allergies Allergy/AdvReac Type Severity Reaction Status Date / Time No Known Allergies Allergy Verified 04/09/22 17:32 Assessment & Plan Assessment & Plan (1) Alcohol dependence: Status: Acute Code(s): F10.20 - Alcohol dependence, uncomplicated Assessment and Plan: 05/18/22- Continue current regime and plan. Allow pt to clear and stabilize from recent episode 05/20/22- Continues to improve. 05/21/22- + Strep A. Amoxicillin 500 mg bid 05/22/22 continue current regimen 05/23/22 continue current regimen (2) Major depression: Status: Acute Code(s): F32.9 - Major depressive disorder, single episode, unspecified Plan Patient is a 49-year-old male with past medical history significant for homelessness, insulin dependent DM, HTN, GERD, alcohol dependence, and homicidal ideation who became sedate, slow to respond, unsteady on his feet, urinary incontinent, and had a fall in the shower yesterday. Consult is for medical evaluation for altered mental status and lethargy. # acute toxic encephalopathy likely secondary to restarting psychotropic medications, now resolved -- patient appears back to baseline per patient himself and also his nurse -- states he has been off his home meds for around a month -- no clear infectious source -- UA clear -- TSH WNL -- CT of head clear -- lorazepam and valproate reduced -- valproate levels WNL Thank you for allowing us to participate in the care of this patient. The pt appears back to baseline and there does not appear a medical cause for his prior condition. Signing off for now. Please feel free to call for further consultation should the need arise. I spent minutes with the patient and/or on the patient floor today, greater than?50% of which was spent counseling/coordinating care. Reason for contiued inpatient stay Substantial Risk for: stable for discharge Time Spent With Patient Time: Total time managing care of this patient today ____ minutes.
[2022-05-23 19:10] VITALS: BP 117/59; PULSE 91; RESP 6; TEMP 36.9; O2SAT 100
[2022-05-23] MEDS: Atorvastatin Calcium 80 MG TABLET PO (20:31)
[2022-05-23] MEDS: Divalproex Sodium ER 250 MG TAB.ER.24H 750 MG PO (20:32)
[2022-05-23] MEDS: ARIPiprazole 5 MG TABLET PO (20:32)
[2022-05-23] MEDS: Prazosin HCL 1 MG CAPSULE PO (20:32)
[2022-05-23] MEDS: ARIPiprazole 2 MG TABLET PO (20:32)
[2022-05-23] MEDS: traZODone HCL 50 MG TABLET PO (20:32)
[2022-05-23 20:40] VITALS: BP 111/63
[2022-05-23 20:56] LABS: Glucose, Whole Blood 246 mg/dL (60-115)
[2022-05-24 06:00] VITALS: BP 102/55; PULSE 87; RESP 16; TEMP 36.3; O2SAT 98
[2022-05-24 08:13] LABS: Glucose, Whole Blood 243 mg/dL (60-115)
[2022-05-24 08:19] LABS: Valproate 48.9 mcg/mL (50.0-100.0)
[2022-05-24 08:31] LABS: Creatinine Clr Calc Pharmacy 81.1; Estimated Glomerular Filt Rate > 60
[2022-05-24] MEDS: Insulin Lispro 100 UNIT/ML 3 ML VIAL SUBCUT ×2 (08:52→11:55)
[2022-05-24] MEDS: Gabapentin 300 MG CAPSULE PO (08:53)
[2022-05-24] MEDS: Multivitamin TABLET 1 TAB PO (08:53)
[2022-05-24] MEDS: Cyclobenzaprine HCl 10 MG TABLET PO (08:53)
[2022-05-24] MEDS: metFORMIN HCl ER 750 MG TAB.ER.24H PO (08:53)
[2022-05-24] MEDS: Omeprazole 20 MG CAPSULE.DR PO (08:53)
[2022-05-24] MEDS: Amoxicillin 500 MG CAPSULE PO (08:53)
[2022-05-24] MEDS: Escitalopram Oxalate 10 MG TABLET PO (08:53)
[2022-05-24] MEDS: LORazepam 0.5 MG TABLET PO (08:53)
[2022-05-24] MEDS: Metoprolol Succinate ER 50 MG TAB.ER.24H PO (08:53)
[2022-05-24] MEDS: Cyanocobalamin (Vitamin B-12) 100 MCG TABLET PO (08:53)
[2022-05-24] MEDS: Aspirin 81 MG TAB.CHEW PO (08:53)
[2022-05-24] MEDS: Folic Acid 1 MG TABLET PO (08:54)
[2022-05-24] MEDS: Empagliflozin 25 MG TABLET PO (08:54)
[2022-05-24] MEDS: lisinopriL 10 MG TABLET PO (08:54)
[2022-05-24 11:41] LABS: Glucose, Whole Blood 466 mg/dL (60-115)
--- NOTE | 2022-05-24 11:55 | PC.NURSE ---
[facility]B notified of POC 466. Administered 14 units, no additional orders given
--- NOTE | 2022-05-24 15:27 | PM.PSYDC ---
DS: Providers Provider Date of Service: 05/24/22 Date of admission: 05/14/22 14:55 Date of discharge: 05/24/22 Primary care physician: Unknown Physician Admitting clinician: Vitaliy Salgado Attending physician on admission: Vitaliy Salgado Consults: 05/17/22 17:40 Consult to Hospitalist Stat Consulting Provider: Hospitalist Reason For Exam: per team-MSE decline,lethargy, decreased responses 05/18/22 10:36 Consult to Urology Routine Consulting Provider: [facility] Reason for consultation: sudden loss of continence, DM, Detox Has provider been notified: Yes Attending physician on discharge: Man Mahan Discharging clinician: Rani Smart DS: Diagnosis Discharge Diagnosis (1) Alcohol dependence: Status: Inactive (2) Major depression: Status: Inactive DS: Medications Discharge Medications Home Medications: Previous Rx's Medication Instructions Recorded alcohol swabs (Alcohol Prep Pads) 1 pad topical TID #200 ea 05/24/22 amoxicillin 500 mg capsule 500 mg PO BID #16 caps 05/24/22 aripiprazole 2 mg tablet 1 tab PO BEDTIME #30 tabs 05/24/22 aripiprazole 5 mg tablet 1 tab PO BEDTIME #30 tabs 05/24/22 aspirin 81 mg chewable tablet 81 mg PO DAILY #30 tabs 05/24/22 atorvastatin 80 mg tablet (Lipitor) 80 mg PO QPM #30 tabs 05/24/22 citalopram 20 mg tablet 20 mg PO DAILY #30 tabs 05/24/22 cyanocobalamin (vitamin B-12) 100 100 mcg PO DAILY #30 tabs 05/24/22 mcg tablet (Vitamin B-12) cyclobenzaprine 10 mg tablet 10 mg PO TID #21 tabs 05/24/22 divalproex 250 mg tablet,extended 750 mg PO BEDTIME #90 tabs 05/24/22 release 24 hr empagliflozin 25 mg tablet 1 tab PO QAM #30 tabs 05/24/22 (Jardiance) folic acid 1 mg tablet 1 mg PO DAILY #30 tabs 05/24/22 gabapentin 300 mg capsule 300 mg PO TID #90 caps 05/24/22 lancets 28 gauge (FreeStyle #100 ea 05/24/22 Lancets) lisinopril 10 mg tablet 10 mg PO DAILY #30 tabs 05/24/22 metformin 750 mg tablet,extended 750 mg PO BID #60 tabs 05/24/22 release 24 hr metoprolol succinate 50 mg 50 mg PO DAILY #30 tabs 05/24/22 tablet,extended release 24 hr multivitamin (Daily-Keith tablet) 1 tab PO DAILY #30 tabs 05/24/22 nicotine (polacrilex) 2 mg gum 4 mg buccal Q2H PRN Nicotine 05/24/22 Cravings #60 ea nicotine 21 mg/24 hr daily 21 mg transdermal DAILY PRN 05/24/22 transdermal patch Nicotine Cravings #30 ea pantoprazole 20 mg tablet,delayed 1 tab PO DAILY #30 tabs 05/24/22 release prazosin 1 mg capsule 1 mg PO BEDTIME #30 caps 05/24/22 trazodone 50 mg tablet 1 tab PO BEDTIME #30 tabs 05/24/22 vitamin B complex 1 tab PO DAILY #30 tabs 05/24/22 Mental Status Exam Mental Status Exam Patient Appearance: Appropriate Patient Orientation: Person, Place, Time and Situation Level of Consciousness: Alert Patient Behavior: Talkative and Good Eye Contact Mood Description: Blunted Affect Description: Blunted Patient Cognition Impaired: Yes Ability to Follow Directions: Fair Speech Pattern: Spontaneous Speech Memory Description: Remote Impaired and Episodic Impaired Hallucinations: None Delusions: Not Present Thought Content: positive for Circumstantial Depressive Symptoms: Sleeping More Than Usual Judgement: Fair Data Data Completed and Pending Completed studies during hospitalization [Text1]: 05/17/22 05/17/22 05/17/22 17:03 18:50 18:50 WBC 13.0 H RBC 4.73 Hgb 15.9 Hct 46.3 MCV 97.9 MCH 33.6 H MCHC 34.3 RDW 13.0 Plt Count 363 MPV 9.1 L Immature Gran % (Auto) 0.4 Neut % (Auto) 64.3 Lymph % (Auto) 27.6 [place] % (Auto) 6.7 Eos % (Auto) 0.7 Baso % (Auto) 0.3 Lymph # (Auto) 3.6 [place] # (Auto) 0.9 Eos # (Auto) 0.1 Baso # (Auto) 0.0 Abs Immat Gran (auto) 0.05 H Absolute Neuts (auto) 8.4 H Absolute Nucleated RBC 0.000 Nucleated RBC % (auto) 0.0 Sodium Potassium Chloride Carbon Dioxide Anion Gap BUN Creatinine Estim Creat Clear Calc Estimated GFR POC Glucose 149 H Random Glucose Calcium Total Bilirubin AST ALT Alkaline Phosphatase Total Protein Albumin Vitamin B12 Folate TSH Valproic Acid 75.7 COVID-19 (ONEYDA) COVID-19 [employer] 05/17/22 05/17/22 05/18/22 18:50 21:53 08:07 WBC RBC Hgb Hct MCV MCH MCHC RDW Plt Count MPV Immature Gran % (Auto) Neut % (Auto) Lymph % (Auto) [place] % (Auto) Eos % (Auto) Baso % (Auto) Lymph # (Auto) [place] # (Auto) Eos # (Auto) Baso # (Auto) Abs Immat Gran (auto) Absolute Neuts (auto) Absolute Nucleated RBC Nucleated RBC % (auto) Sodium 135 Potassium 4.3 Chloride 95 L Carbon Dioxide 27 Anion Gap 17 BUN 19 H Creatinine 1.16 Estim Creat Clear Calc 67.1 Estimated GFR > 60 POC Glucose 202 H Random Glucose 154 H Calcium 10.6 H D Total Bilirubin 0.3 AST 11 ALT 16 Alkaline Phosphatase 94 Total Protein 7.8 Albumin 4.7 Vitamin B12 501 Folate 13.7 TSH Valproic Acid COVID-19 (ONEYDA) COVID-19 [employer] [place] 05/18/22 05/18/22 05/18/22 08:07 08:18 12:30 WBC RBC Hgb Hct MCV MCH MCHC RDW Plt Count MPV Immature Gran % (Auto) Neut % (Auto) Lymph % (Auto) [place] % (Auto) Eos % (Auto) Baso % (Auto) Lymph # (Auto) [place] # (Auto) Eos # (Auto) Baso # (Auto) Abs Immat Gran (auto) Absolute Neuts (auto) Absolute Nucleated RBC Nucleated RBC % (auto) Sodium Potassium Chloride Carbon Dioxide Anion Gap BUN Creatinine Estim Creat Clear Calc Estimated GFR POC Glucose 257 H 295 H Random Glucose Calcium Total Bilirubin AST ALT Alkaline Phosphatase Total Protein Albumin Vitamin B12 Folate TSH 2.11 Valproic Acid COVID-19 (ONEYDA) COVID-19 [employer] [place] 05/18/22 05/18/22 05/19/22 16:42 22:15 08:18 WBC RBC Hgb Hct MCV MCH MCHC RDW Plt Count MPV Immature Gran % (Auto) Neut % (Auto) Lymph % (Auto) [place] % (Auto) Eos % (Auto) Baso % (Auto) Lymph # (Auto) [place] # (Auto) Eos # (Auto) Baso # (Auto) Abs Immat Gran (auto) Absolute Neuts (auto) Absolute Nucleated RBC Nucleated RBC % (auto) Sodium Potassium Chloride Carbon Dioxide Anion Gap BUN Creatinine Estim Creat Clear Calc Estimated GFR POC Glucose 181 H 142 H 156 H Random Glucose Calcium Total Bilirubin AST ALT Alkaline Phosphatase Total Protein Albumin Vitamin B12 Folate TSH Valproic Acid COVID-19 (ONEYDA) COVID-19 [place] 05/19/22 05/19/22 05/19/22 11:28 17:03 22:00 WBC RBC Hgb Hct MCV MCH MCHC RDW Plt Count MPV Immature Gran % (Auto) Neut % (Auto) Lymph % (Auto) [place] % (Auto) Eos % (Auto) Baso % (Auto) Lymph # (Auto) [place] # (Auto) Eos # (Auto) Baso # (Auto) Abs Immat Gran (auto) Absolute Neuts (auto) Absolute Nucleated RBC Nucleated RBC % (auto) Sodium Potassium Chloride Carbon Dioxide Anion Gap BUN Creatinine Estim Creat Clear Calc Estimated GFR POC Glucose 455 H* 309 H 200 H Random Glucose Calcium Total Bilirubin AST ALT Alkaline Phosphatase Total Protein Albumin Vitamin B12 Folate TSH Valproic Acid COVID-19 (ONEYDA) COVID-[employer] 05/20/22 05/20/22 05/20/22 08:16 11:51 14:15 WBC RBC Hgb Hct MCV MCH MCHC RDW Plt Count MPV Immature Gran % (Auto) Neut % (Auto) Lymph % (Auto) [place] % (Auto) Eos % (Auto) Baso % (Auto) Lymph # (Auto) [place] # (Auto) Eos # (Auto) Baso # (Auto) Abs Immat Gran (auto) Absolute Neuts (auto) Absolute Nucleated RBC Nucleated RBC % (auto) Sodium Potassium Chloride Carbon Dioxide Anion Gap BUN Creatinine Estim Creat Clear Calc Estimated GFR POC Glucose 218 H 285 H Random Glucose Calcium Total Bilirubin AST ALT Alkaline Phosphatase Total Protein Albumin Vitamin B12 Folate TSH Valproic Acid COVID-19 (ONEYDA) Negative COVID-[employer] See Note 05/20/22 05/20/22 05/21/22 16:22 20:46 07:55 WBC RBC Hgb Hct MCV MCH MCHC RDW Plt Count MPV Immature Gran % (Auto) Neut % (Auto) Lymph % (Auto) [place] % (Auto) Eos % (Auto) Baso % (Auto) Lymph # (Auto) [place] # (Auto) Eos # (Auto) Baso # (Auto) Abs Immat Gran (auto) Absolute Neuts (auto) Absolute Nucleated RBC Nucleated RBC % (auto) Sodium Potassium Chloride Carbon Dioxide Anion Gap BUN Creatinine Estim Creat Clear Calc Estimated GFR POC Glucose 235 H 198 H 221 H Random Glucose Calcium Total Bilirubin AST ALT Alkaline Phosphatase Total Protein Albumin Vitamin B12 Folate TSH Valproic Acid COVID-19 (ONEYDA) COVID-19 [employer] [place] 05/21/22 05/21/22 05/21/22 11:37 16:30 20:05 WBC RBC Hgb Hct MCV MCH MCHC RDW Plt Count MPV Immature Gran % (Auto) Neut % (Auto) Lymph % (Auto) [place] % (Auto) Eos % (Auto) Baso % (Auto) Lymph # (Auto) [place] # (Auto) Eos # (Auto) Baso # (Auto) Abs Immat Gran (auto) Absolute Neuts (auto) Absolute Nucleated RBC Nucleated RBC % (auto) Sodium Potassium Chloride Carbon Dioxide Anion Gap BUN Creatinine Estim Creat Clear Calc Estimated GFR POC Glucose 311 H 392 H* 383 H* Random Glucose Calcium Total Bilirubin AST ALT Alkaline Phosphatase Total Protein Albumin Vitamin B12 Folate TSH Valproic Acid COVID-19 (ONEYDA) COVID-19 [employer] 05/22/22 05/22/22 05/22/22 07:55 12:31 17:04 WBC RBC Hgb Hct MCV MCH MCHC RDW Plt Count MPV Immature Gran % (Auto) Neut % (Auto) Lymph % (Auto) [place] % (Auto) Eos % (Auto) Baso % (Auto) Lymph # (Auto) [place] # (Auto) Eos # (Auto) Baso # (Auto) Abs Immat Gran (auto) Absolute Neuts (auto) Absolute Nucleated RBC Nucleated RBC % (auto) Sodium Potassium Chloride Carbon Dioxide Anion Gap BUN Creatinine Estim Creat Clear Calc Estimated GFR POC Glucose 181 H 276 H 191 H Random Glucose Calcium Total Bilirubin AST ALT Alkaline Phosphatase Total Protein Albumin Vitamin B12 Folate TSH Valproic Acid COVID-19 (ONEYDA) COVID-19 [employer] [place] 05/22/22 05/23/22 05/23/22 21:35 08:00 11:42 WBC RBC Hgb Hct MCV MCH MCHC RDW Plt Count MPV Immature Gran % (Auto) Neut % (Auto) Lymph % (Auto) [place] % (Auto) Eos % (Auto) Baso % (Auto) Lymph # (Auto) [place] # (Auto) Eos # (Auto) Baso # (Auto) Abs Immat Gran (auto) Absolute Neuts (auto) Absolute Nucleated RBC Nucleated RBC % (auto) Sodium Potassium Chloride Carbon Dioxide Anion Gap BUN Creatinine Estim Creat Clear Calc Estimated GFR POC Glucose 264 H 217 H 346 H Random Glucose Calcium Total Bilirubin AST ALT Alkaline Phosphatase Total Protein Albumin Vitamin B12 Folate TSH Valproic Acid COVID-19 (ONEYDA) COVID-[employer] 05/23/22 05/23/22 05/24/22 17:15 20:53 07:45 WBC RBC Hgb Hct MCV MCH MCHC RDW Plt Count MPV Immature Gran % (Auto) Neut % (Auto) Lymph % (Auto) [place] % (Auto) Eos % (Auto) Baso % (Auto) Lymph # (Auto) [place] # (Auto) Eos # (Auto) Baso # (Auto) Abs Immat Gran (auto) Absolute Neuts (auto) Absolute Nucleated RBC Nucleated RBC % (auto) Sodium Potassium Chloride Carbon Dioxide Anion Gap BUN Creatinine Estim Creat Clear Calc Estimated GFR POC Glucose 185 H 246 H Random Glucose Calcium Total Bilirubin AST ALT Alkaline Phosphatase Total Protein Albumin Vitamin B12 Folate TSH Valproic Acid 48.9 L COVID-19 (ONEYDA) COVID-19 [employer] [place] 05/24/22 05/24/22 05/24/22 07:45 08:07 11:38 WBC RBC Hgb Hct MCV MCH MCHC RDW Plt Count MPV Immature Gran % (Auto) Neut % (Auto) Lymph % (Auto) [place] % (Auto) Eos % (Auto) Baso % (Auto) Lymph # (Auto) [place] # (Auto) Eos # (Auto) Baso # (Auto) Abs Immat Gran (auto) Absolute Neuts (auto) Absolute Nucleated RBC Nucleated RBC % (auto) Sodium Potassium Chloride Carbon Dioxide Anion Gap BUN Creatinine 0.96 Estim Creat Clear Calc 81.1 Estimated GFR > 60 POC Glucose 243 H 466 H* Random Glucose Calcium Total Bilirubin AST ALT Alkaline Phosphatase Total Protein Albumin Vitamin B12 Folate TSH Valproic Acid COVID-19 (ONEYDA) COVID-19 Clin Com 05/20/22 14:15 Throat Throat Culture - Final Streptococcus pyogenes (Grp A) 05/17/22 Unknown Urine clean catch - Clean Catch Midstream Urine Culture - Final Imaging Diagnostic Imaging Impressions Head CT 05/17/22 15:52 IMPRESSION: 1. No acute intracranial pathology. 2. Unchanged curvilinear calcification of the melissa, nonspecific possibly due to underlying vascular anomaly. Consider nonemergent brain MRI as previously suggested in the absence of earlier priors. DS: Summary Hospital Course Hospital Course: Admission to adult psychiatry for exacerbation of symptoms of alcohol use disorder, non compliance with psychiatric and medical treatment and resulting exacerbation of sx of depression, diabetes, BPH and overall decline and decreased ability to provide self care. Pt was detoxed, medical care and treatment were provided and pt was able to re-establish baseline health and level of functioning. Education was provided regarding the importance of following a plan of care for diabetes, BPH and medical issues as well as abstinence and medication compliance. Placement with [facility] was offered, however, pt declined, citing the smoking restrictions these programs have and his disagreement with this policy. Abilify, Citalopram, Valproate and Gabapentin were re-enstated. Time spent discussing smoking cessation with patient: 3 to 10 minutes Status at Discharge Functional status at discharge: independent ambulation Overall status at discharge: patient is back to baseline Time Spent with Patient Time attestation: Total time managing care of this patient today ____ minutes. 40 Time spent: Greater than 30 minutes Discharge Plan Discharge Anticipated Discharge Date/Time: 05/24/22 13:01 Patient Disposition: Residential Discharge Diagnosis: Alcohol Use Disorder Recurrent Major Depression, Severe Diabetes Referrals: [facility] [Other] - 1 Week (Referral for the Department of Mental Health ) [facility] [Other] - 05/26/22 2:00 pm (Follow-up discharge appointment with therapist) [facility] [Other] - 06/17/22 1:00 pm (Follow-up discharge appointment with psychiatrist) [facility] [Other] - 1 Week (LEFT MESSAGE TO CALL US BACK FOR F/U SHAKEEL) Discharge Medications: Discontinued trazodone 50 mg tablet 1 tab PO BEDTIME pantoprazole 20 mg tablet,delayed release (DR/EC) 1 tab PO DAILY divalproex 250 mg tablet extended release 24 hr 5 tab PO BEDTIME aripiprazole 5 mg tablet 1 tab PO BEDTIME aripiprazole 2 mg tablet 1 tab PO BEDTIME Jardiance 25 mg tablet 1 tab PO QAM atorvastatin [Lipitor] 80 mg Tablet 80 mg PO QPM metoprolol succinate 50 mg Tablet Extended Release 24 Hr 50 mg PO DAILY citalopram 20 mg Tablet 20 mg PO DAILY lisinopril 10 mg Tablet 10 mg PO DAILY metformin 750 mg Tablet Extended Release 24 Hr 750 mg PO BID gabapentin 300 mg Capsule 300 mg PO TID vitamin B complex 1 tab PO DAILY prazosin 1 mg Capsule 1 mg PO BEDTIME cyclobenzaprine 10 mg Tablet 10 mg PO TID No Action atorvastatin 80 mg tablet 1 tab PO BEDTIME trazodone 50 mg tablet 1 tab PO BEDTIME nicotine (polacrilex) 2 mg gum 2 gum PO Q2H PRN (Reason: nicotine cravings) metoprolol succinate 50 mg tablet extended release 24 hr 1 tab PO DAILY prazosin 1 mg capsule 1 cap PO BEDTIME pantoprazole 20 mg tablet,delayed release (DR/EC) 1 tab PO DAILY citalopram 20 mg tablet 1 tab PO DAILY lisinopril 10 mg tablet 1 tab PO DAILY nicotine 21 mg/24 hr patch 24 hour 1 patch topical DAILY gabapentin 300 mg capsule 1 cap PO TID aspirin 81 mg tablet,chewable 1 tab PO DAILY folic acid 1 mg tablet 1 tab PO DAILY divalproex 250 mg tablet extended release 24 hr 5 tab PO BEDTIME metformin 750 mg tablet extended release 24 hr 1 tab PO BID aripiprazole 5 mg tablet 1 tab PO BEDTIME aripiprazole 2 mg tablet 1 tab PO BEDTIME multivitamin with folic acid [Daily-Keith (with folic acid)] 400 mcg tablet 1 tab PO DAILY Jardiance 25 mg tablet 1 tab PO QAM (DME) pen needle, diabetic [BD Ultra-Fine Cris Pen Needle] 32 gauge x 5/32 needle MISCELLANEOUS Discharge Orders: Discharge Order (Routine); Ordered 05/24/22 Ordered By: Rani Smart Diet: Diabetic diet Activity on Discharge: As tolerated Stand Alone Forms: Patient Portal Discharge page, Community Support Care Plan Goals: Maintain mood and safe behaviors Take medications as directed Practice coping skills Follow up with assigned out patient providers Health Concerns: Stable mood and behaviors Plan of Treatment: Follow up with out patient providers Take medications as directed Pt declines placement services due to their smoking restrictions at this time We have coordinated your diabetic testing supplies with [facility] at [facility]. --You have refills for test strips --Lancets Rx was sent --Alcohol Prep Pads were sent Assessment: Pt is fully oriented and without SI/HI. Pt has insight and demonstrates reasonable judgment in terms of wanting to pursue treatment and maintain medication schedule. Pt is not in imminent risk of harm to self or others and has a safety plan that includes presenting to the closest ER or calling 911 if feeling unsafe. Pt has been observed closely by nursing and unit staff throughout admission Pt has not engaged in any behaviors which suggest dangerousness to self or others and has demonstrated appropriate behaviors and impulse control Discharge Date/Time: 05/24/22 13:13
== END 2022-05-24 13:13 | disposition home or self-care (01) | DRG 751 ==
LOC: HO.ED 05-14 04:15 → HO.PM5 05-14 14:58
PROVIDERS: Nurse Practitioner Family; Psychiatry & Neurology Psychiatry; Admitting Provider Psychiatry & Neurology Psychiatry; Emergency Provider Internal Medicine; Visit Provider Clinical Nurse Specialist Psychiatric/Mental Health, Adult
DX: F33.2 Major depressive disorder, recurrent severe without psychotic features (principal); G92.8 Other toxic encephalopathy; R45.850 Homicidal ideations; F10.20 Alcohol dependence, uncomplicated; F17.210 Nicotine dependence, cigarettes, uncomplicated; E11.65 Type 2 diabetes mellitus with hyperglycemia; R32 Unspecified urinary incontinence; I10 Essential (primary) hypertension; K21.9 Gastro-esophageal reflux disease without esophagitis; Z20.822 Contact with and (suspected) exposure to COVID-19; Z59.02 Unsheltered homelessness; Z71.6 Tobacco abuse counseling; Z79.82 Long term (current) use of aspirin; Z79.84 Long term (current) use of oral hypoglycemic drugs; Z79.899 Other long term (current) drug therapy; T43.95XA Adverse effect of unspecified psychotropic drug, initial encounter
CPT/HCPCS: 0241U; 36415; 70450; 80048; 80053; 80061; 80076; 80164; 80307; 81001; 82077; 82140; 82565; 82607; 82746; 82947; 83036; 84443; 85025; 87070; 87086; 87147; 87635; 92950; 93005; 97162; 99285

== ENCOUNTER 2022-06-08 09:48 | Emergency (ER) | payer OTHER, SELFPAY ==
[2022-06-08 09:55] VITALS: BP 153/78; PULSE 75; RESP 18; TEMP 36.6; O2SAT 97; BMI 21.2
--- NOTE | 2022-06-08 10:01 | ED.PSYCH ---
HPI - Psych General Chief Complaint: Psychiatric Symptoms Stated Complaint: SEC 12, SI Time Seen by Provider: 06/08/22 09:50 Source: patient Mode of arrival: EMS Limitations: no limitations History of Present Illness HPI Narrative: S12 from [facility] community plans to cut wrist bed search already, homeless MD complaint: suicidal ideation and feels depressed Onset (ago): week(s) Duration: getting worse History of same: Yes Relieving factors: none Exacerbating factors: alcohol and drug use Context: recent alcohol abuse, recent drug abuse, not taking psychiatric medications and significant life stressor Associated psychiatric symptoms: depression and suicidal ideation Associated symptoms: denies other symptoms Treatments prior to arrival: placed on mental health hold If self harm: admits thoughts of self harm and has plan Related Data Previous Rx's Medication Instructions Recorded alcohol swabs (Alcohol Prep Pads) 1 pad topical TID #200 ea 05/24/22 amoxicillin 500 mg capsule 500 mg PO BID #16 caps 05/24/22 aripiprazole 2 mg tablet 1 tab PO BEDTIME #30 tabs 05/24/22 aripiprazole 5 mg tablet 1 tab PO BEDTIME #30 tabs 05/24/22 aspirin 81 mg chewable tablet 81 mg PO DAILY #30 tabs 05/24/22 atorvastatin 80 mg tablet (Lipitor) 80 mg PO QPM #30 tabs 05/24/22 citalopram 20 mg tablet 20 mg PO DAILY #30 tabs 05/24/22 cyanocobalamin (vitamin B-12) 100 100 mcg PO DAILY #30 tabs 05/24/22 mcg tablet (Vitamin B-12) cyclobenzaprine 10 mg tablet 10 mg PO TID #21 tabs 05/24/22 divalproex 250 mg tablet,extended 750 mg PO BEDTIME #90 tabs 05/24/22 release 24 hr empagliflozin 25 mg tablet 1 tab PO QAM #30 tabs 05/24/22 (Jardiance) folic acid 1 mg tablet 1 mg PO DAILY #30 tabs 05/24/22 gabapentin 300 mg capsule 300 mg PO TID #90 caps 05/24/22 lancets 28 gauge (FreeStyle #100 ea 05/24/22 Lancets) lisinopril 10 mg tablet 10 mg PO DAILY #30 tabs 05/24/22 metformin 750 mg tablet,extended 750 mg PO BID #60 tabs 05/24/22 release 24 hr metoprolol succinate 50 mg 50 mg PO DAILY #30 tabs 05/24/22 tablet,extended release 24 hr multivitamin (Daily-Keith tablet) 1 tab PO DAILY #30 tabs 05/24/22 nicotine (polacrilex) 2 mg gum 4 mg buccal Q2H PRN Nicotine 05/24/22 Cravings #60 ea nicotine 21 mg/24 hr daily 21 mg transdermal DAILY PRN 05/24/22 transdermal patch Nicotine Cravings #30 ea pantoprazole 20 mg tablet,delayed 1 tab PO DAILY #30 tabs 05/24/22 release prazosin 1 mg capsule 1 mg PO BEDTIME #30 caps 05/24/22 trazodone 50 mg tablet 1 tab PO BEDTIME #30 tabs 05/24/22 vitamin B complex 1 tab PO DAILY #30 tabs 05/24/22 Allergies Allergy/AdvReac Type Severity Reaction Status Date / Time No Known Allergies Allergy Verified 04/09/22 17:32 Review of Systems Review of Systems: Constitutional : No Fever, No Chills ENT/Mouth : No Ear Pain, No Nasal Congestion, No sore throat Eyes: No Eye Pain, No Swelling, No Redness Cardiovascular : No Chest Pain, No SOB Respiratory : No Cough, No Sputum, No Dyspnea Gastrointestinal : No Nausea, No Vomiting, No Diarrhea, No Hematochezia, No Melena Genitourinary : No Dysuria, No Urinary Frequency, No Hematuria Musculoskeletal : No Myalgias Skin : No Skin Lesions, No rash Neuro : No Weakness, No Numbness, No Paresthesias, No Dizziness, No Headache Psych : positive Anxiety, positive Depression, positive SI no HI Heme/Lymph: No Lymphadenopathy Endocrine : No Polyuria, No Polydipsia All other systems reviewed and are negative [facility] Past Medical History Attestation statement: The following information was validated with the patient. Source: old records reviewed Medical History (Updated 06/08/22 @ 14:40 by Melody Moe DO) Alcohol dependence Hyperlipidemia Major depression Social History Social History Household Members: None Housing: Homeless Do you presently have visiting nurse or other home services: No Alcohol intake: current Alcohol intake frequency: other Alcohol type: hard liquor Patient Tobacco Use Status: Current everyday Tobacco user Tobacco use type: Cigarette Cigarette Packs Per Day: 1 Cigarettes Per Day: 20.0 e-Cigarette/Vaping Use: Never Used Second Hand Smoke Exposure: No Substance Use Type: Crack/Cocaine and Marijuana Advance Directives: No Advance Directives Information Provided: No service: No Sexual orientation: Straight/Heterosexual Physical Exam Vital Signs: Vital Signs: Last Vital Signs Temp 97.9 F 06/08/22 09:55 Pulse 75 06/08/22 09:55 Resp 18 06/08/22 09:55 BP 153/78 H 06/08/22 09:55 Pulse Ox 97 06/08/22 09:55 O2 Del Method 06/08/22 09:55 BMI result Body Mass Index 21.2 Appearance: Alert. Oriented X3. No acute distress. sleepy but easily woken Eyes: Pupils equal, round and reactive to light. ENT: Pharynx normal. Neck: Normal inspection. Neck supple. CVS: Normal heart rate and rhythm. Pulses normal. Respiratory: No respiratory distress. Breath sounds normal. Abdomen: Soft and nontender. Skin: Skin warm and dry. Normal skin color. Normal skin turgor. Extremities: No lower extremity edema. No calf ttp Neuro: Oriented X 3. No motor deficit. No sensory deficit. CN 2-12 intact Course Course Course Narrative: Physician observation started at 1107am. Patient placed in physician observation because the patient needed more time for inpatient bed search. At the time observation was started the patient's vitals were stable, patient is alert and oriented, Neuro: nonfocal, CV RRR, Lungs clear sliding scale insulin ordered Medications Administered Discontinued Medications Generic Name Dose Route Start Last Admin Trade Name Freq PRN Reason Stop Dose Admin Insulin Human Lispro 5 unit 06/08/22 13:49 06/08/22 14:28 Insulin Lispro 100 Unit/Ml 3 Ml Vial SUBCUT 06/08/22 13:50 5 unit ONCE ONE Administration Medical Decision Making Medical Decision Making MDM Narrative: 57 yo male with substance abuse, ETOH abuse, depression here wtih SI and plan to harm himself, S12 bed search from community - has no medical complaints will need screening labs and clearance. I have reviewed and interpreted the patient's labs done in the ED today Differential Diagnosis Differential Diagnoses: The differential diagnosis associated with the presentation includes depression, substance abuse Lab Data [facility] Lab Attestation statement: I reviewed the patient's lab results. Result Diagrams: 06/08/22 10:32 06/08/22 10:32 Labs: Lab Results 06/08/22 06/08/22 06/08/22 Range/Units 10:32 10:32 10:32 WBC 5.8 (4.8-10.8) X10*3/uL RBC 4.43 L (4.60-5.80) X10*6/uL Hgb 14.4 (14.0-18.0) g/dl Hct 42.1 (42.0-52.0) % MCV 95.0 (80.0-98.0) fL MCH 32.5 (27.0-33.0) pg MCHC 34.2 (31.0-36.0) g/dl RDW 12.7 (11.0-16.0) % Plt Count 321 (160-400) X10*3/uL MPV 9.1 L (9.4-12.4) fL Immature Gran % (Auto) 0.3 (0.0-0.4) % Neut % (Auto) 48.4 (45-73) % Lymph % (Auto) 41.7 H (20-40) % [place] % (Auto) 6.6 (2-11) % Eos % (Auto) 2.1 (0-4) % Baso % (Auto) 0.9 (0-2) % Lymph # (Auto) 2.4 (1.2-4.9) X10*3/uL [place] # (Auto) 0.4 (0.1-1.2) X10*3/uL Eos # (Auto) 0.1 (0.0-0.4) X10*3/uL Baso # (Auto) 0.1 (0.0-0.2) X10*3/uL Abs Immat Gran (auto) 0.02 (0.00-0.03) X10*3/uL Absolute Neuts (auto) 2.8 (2.0-8.3) x10*3/uL Absolute Nucleated RBC 0.000 (0.0-0.012) X10*3/uL Nucleated RBC % (auto) 0.0 (0.0-0.2) /100WBC Sodium 131 L (135-145) mmol/L Potassium 4.7 (3.3-5.1) mmol/L Chloride 97 (96-108) mmol/L Carbon Dioxide 25 (22-29) mmol/L Anion Gap 14 (12-20) BUN 10 (9-16) mg/dL Creatinine 1.30 (0.5-1.4) mg/dL Estim Creat Clear Calc 55.6 Estimated GFR 57 Random Glucose 541 H* (60-115) mg/dL Calcium 9.9 D (8.4-10.2) mg/dL Magnesium 2.1 (1.6-2.6) mg/dL Total Bilirubin 0.5 (0.0-1.0) mg/dL Direct Bilirubin 0.2 (0.0-0.5) mg/dL AST 15 (5-37) U/L ALT 15 (0-40) U/L Alkaline Phosphatase 82 (39-117) U/L Total Protein 7.3 (6.5-8.0) g/dL Albumin 4.3 (3.5-5.0) g/dL Valproic Acid (50.0-100.0) mcg/mL Ethyl Alcohol < 10 mg/dL COVID-19 ([facility]) Negative (Negative) COVID-19 Clin Com See Note 06/08/22 Range/Units 10:32 WBC (4.8-10.8) X10*3/uL RBC (4.60-5.80) X10*6/uL Hgb (14.0-18.0) g/dl Hct (42.0-52.0) % MCV (80.0-98.0) fL MCH (27.0-33.0) pg MCHC (31.0-36.0) g/dl RDW (11.0-16.0) % Plt Count (160-400) X10*3/uL MPV (9.4-12.4) fL Immature Gran % (Auto) (0.0-0.4) % Neut % (Auto) (45-73) % Lymph % (Auto) (20-40) % [place] % (Auto) (2-11) % Eos % (Auto) (0-4) % Baso % (Auto) (0-2) % Lymph # (Auto) (1.2-4.9) X10*3/uL [place] # (Auto) (0.1-1.2) X10*3/uL Eos # (Auto) (0.0-0.4) X10*3/uL Baso # (Auto) (0.0-0.2) X10*3/uL Abs Immat Gran (auto) (0.00-0.03) X10*3/uL Absolute Neuts (auto) (2.0-8.3) x10*3/uL Absolute Nucleated RBC (0.0-0.012) X10*3/uL Nucleated RBC % (auto) (0.0-0.2) /100WBC Sodium (135-145) mmol/L Potassium (3.3-5.1) mmol/L Chloride (96-108) mmol/L Carbon Dioxide (22-29) mmol/L Anion Gap (12-20) BUN (9-16) mg/dL Creatinine (0.5-1.4) mg/dL Estim Creat Clear Calc Estimated GFR Random Glucose (60-115) mg/dL Calcium (8.4-10.2) mg/dL Magnesium (1.6-2.6) mg/dL Total Bilirubin (0.0-1.0) mg/dL Direct Bilirubin (0.0-0.5) mg/dL AST (5-37) U/L ALT (0-40) U/L Alkaline Phosphatase (39-117) U/L Total Protein (6.5-8.0) g/dL Albumin (3.5-5.0) g/dL Valproic Acid < 2.0 L (50.0-100.0) mcg/mL Ethyl Alcohol mg/dL COVID-19 ([facility]) (Negative) COVID-19 Clin Com Independent Interpretation I performed an independent interpretation of an: EKG External Record Review External record reviewed: Inpatient record Social Determinants Patient?s care significantly limited by Social Determinants of Health including: Inadequate housing and Unemployment Discharge Plan Discharge Clinical Impression: Acute hyperglycemia Depression Qualifiers: Depression Type: unspecified Qualified Code(s): F32.A - Depression, unspecified Patient Disposition: Still a Patient Prescriptions: No Action amoxicillin 500 mg Capsule 500 mg PO BID Qty: 16 0RF nicotine (polacrilex) 2 mg Gum 4 mg buccal Q2H PRN (Reason: Nicotine Cravings) Qty: 60 0RF nicotine 21 mg/24 hr Patch 24 Hour 21 mg transdermal DAILY PRN (Reason: Nicotine Cravings) Qty: 30 0RF aspirin 81 mg Tablet,Chewable 81 mg PO DAILY Qty: 30 0RF divalproex 250 mg Tablet Extended Release 24 Hr 750 mg PO BEDTIME Qty: 90 0RF multivitamin [Daily-Keith] Tablet 1 tab PO DAILY Qty: 30 0RF cyanocobalamin (vitamin B-12) [Vitamin B-12] 100 mcg Tablet 100 mcg PO DAILY Qty: 30 0RF folic acid 1 mg Tablet 1 mg PO DAILY Qty: 30 0RF cyclobenzaprine 10 mg Tablet 10 mg PO TID Qty: 21 2RF atorvastatin [Lipitor] 80 mg Tablet 80 mg PO QPM Qty: 30 0RF trazodone 50 mg tablet 1 tab PO BEDTIME Qty: 30 0RF metoprolol succinate 50 mg Tablet Extended Release 24 Hr 50 mg PO DAILY Qty: 30 0RF prazosin 1 mg Capsule 1 mg PO BEDTIME Qty: 30 0RF pantoprazole 20 mg tablet,delayed release (DR/EC) 1 tab PO DAILY Qty: 30 0RF citalopram 20 mg Tablet 20 mg PO DAILY Qty: 30 0RF lisinopril 10 mg Tablet 10 mg PO DAILY Qty: 30 0RF gabapentin 300 mg Capsule 300 mg PO TID Qty: 90 0RF metformin 750 mg Tablet Extended Release 24 Hr 750 mg PO BID Qty: 60 0RF aripiprazole 5 mg tablet 1 tab PO BEDTIME Qty: 30 0RF aripiprazole 2 mg tablet 1 tab PO BEDTIME Qty: 30 0RF Jardiance 25 mg tablet 1 tab PO QAM Qty: 30 0RF vitamin B complex 1 tab PO DAILY Qty: 30 0RF (DME) lancets [FreeStyle Lancets] 28 gauge misc See Rx Instructions .Route Qty: 100 0RF Rx Instructions: As directed alcohol swabs [Alcohol Prep Pads] Pads, Medicated 1 pad topical TID Qty: 200 0RF Interventions: [place]-Suicide Risk Severity Scale Last Done: 06/08/22 09:58
--- NOTE | 2022-06-08 10:17 | ECG_ITS ---
Test Reason : MED CLEARANCE Blood Pressure : / mmHG Vent. Rate : 083 BPM Atrial Rate : 083 BPM P-R Int : 164 ms QRS Dur : 090 ms QT Int : 368 ms P-R-T Axes : 044 039 050 degrees QTc Int : 432 ms Normal sinus rhythm Minimal voltage criteria for LVH, may be normal variant ( Sokolow-Brownlee ) Septal infarct , age undetermined Abnormal ECG When compared with ECG of 14-MAY-2022 13:47, Premature supraventricular complexes are no longer Present Referred By: Melody Moe Electronically Signed By:FEDERICO JUNIOR
[2022-06-08 10:38] LABS: MANUAL DIFF FLAG NO
[2022-06-08 10:41] LABS: Basophils Absolute Auto 0.1 X10*3/uL (0.0-0.2); Basophils Percent Auto 0.9 % (0-2); Eosinophils Absolute Auto 0.1 X10*3/uL (0.0-0.4); Eosinophils Percent Auto 2.1 % (0-4); Hematocrit 42.1 % (42.0-52.0); Hemoglobin 14.4 g/dl (14.0-18.0); Imm Gran Abs Auto 0.02 X10*3/uL (0.00-0.03); Imm Gran Pct Auto 0.3 % (0.0-0.4); Lymphocytes Absolute Auto 2.4 X10*3/uL (1.2-4.9); Lymphocytes Percent Auto 41.7 % (20-40); Mean Corpuscular HGB Conc 34.2 g/dl (31.0-36.0); Mean Corpuscular Hemoglobin 32.5 pg (27.0-33.0); Mean Platelet Volume 9.1 fL (9.4-12.4); Monocytes Absolute Auto 0.4 X10*3/uL (0.1-1.2); Monocytes Percent Auto 6.6 % (2-11); Neutrophils Absolute Auto 2.8 x10*3/uL (2.0-8.3); Neutrophils Percent Auto 48.4 % (45-73); Platelet Count 321 X10*3/uL (160-400); Red Blood Count 4.43 X10*6/uL (4.60-5.80); Red Cell Distribution Width 12.7 % (11.0-16.0); White Blood Count 5.8 X10*3/uL (4.8-10.8)
[2022-06-08 10:55] LABS: COVID-19 Test Negative (Negative); IDNOW Serial# BCCEAD1C
[2022-06-08 11:05] LABS: Valproate < 2.0 mcg/mL (50.0-100.0)
[2022-06-08 11:15] LABS: Alanine Aminotransferase 15 U/L (0-40); Albumin Level 4.3 g/dL (3.5-5.0); Alkaline Phosphatase 82 U/L (39-117); Anion Gap 14 (12-20); Aspartate Amino Transferase 15 U/L (5-37); Bilirubin Direct 0.2 mg/dL (0.0-0.5); Bilirubin Total 0.5 mg/dL (0.0-1.0); Blood Urea Nitrogen 10 mg/dL (9-16); Calcium 9.9 mg/dL (8.4-10.2); Carbon Dioxide 25 mmol/L (22-29); Chloride 97 mmol/L (96-108); Creatinine Clr Calc Pharmacy 55.6; Estimated Glomerular Filt Rate 57; Ethanol < 10 mg/dL; Glucose Random 541 mg/dL (60-115); Magnesium 2.1 mg/dL (1.6-2.6); Potassium 4.7 mmol/L (3.3-5.1); Sodium 131 mmol/L (135-145); Total Protein 7.3 g/dL (6.5-8.0)
[2022-06-08] MEDS: Insulin Lispro 100 UNIT/ML 3 ML VIAL SUBCUT ×3 (14:28→20:17)
[2022-06-08 15:55] LABS: Glucose, Whole Blood 306 mg/dL (60-115)
[2022-06-08 16:11] LABS: Amphetamine Screen Urine Not Detected (Not Detect); Barbiturates, Urine Not Detected (Not Detect); Benzodiazepines Screen Urine Not Detected (Not Detect); Cannabinoid Screen Urine POSITIVE (Not Detect); Cocaine Screen Urine POSITIVE (Not Detect); Fentanyl, urine Not Detected (Not Detect); Opiate Screen Urine Not Detected (Not Detect); Phencyclidine Screen Urine Not Detected (Not Detect)
[2022-06-08 18:30] LABS: Glucose, Whole Blood 379 mg/dL (60-115)
--- NOTE | 2022-06-08 18:42 | PC.NURSE ---
POC 379, 10 units given per sliding scale, Dr. Cardona aware.
[2022-06-08 20:10] LABS: Glucose, Whole Blood 269 mg/dL (60-115)
[2022-06-08] MEDS: ARIPiprazole 5 MG TABLET PO (22:03)
[2022-06-08] MEDS: Prazosin HCL 1 MG CAPSULE PO (22:03)
[2022-06-08] MEDS: Divalproex Sodium ER 250 MG TAB.ER.24H 1250 MG PO (22:04)
[2022-06-08] MEDS: traZODone HCL 50 MG TABLET PO (22:14)
[2022-06-08] MEDS: Atorvastatin Calcium 80 MG TABLET PO (22:14)
[2022-06-08] MEDS: ARIPiprazole 2 MG TABLET PO (22:15)
[2022-06-08] MEDS: Empagliflozin 25 MG TABLET PO (22:16)
[2022-06-08 22:20] VITALS: BP 124/72; PULSE 91; RESP 16; O2SAT 94
[2022-06-09 06:38] VITALS: BP 123/82; PULSE 88; TEMP 36.8; O2SAT 96
--- NOTE | 2022-06-09 06:40 | PC.NURSE ---
Patient slept though the night, no distress observed/reported, behavior non concerning and isolative, medication compliant, disposition per [facility] is section 12 inpatient bed search, however, patient will be reevaluated by care team, patient contracted for the safety, POC at 0636 was 229, VSS, will continue to monitor.
[2022-06-09 06:41] LABS: Glucose, Whole Blood 229 mg/dL (60-115)
[2022-06-09] MEDS: Insulin Lispro 100 UNIT/ML 3 ML VIAL SUBCUT ×2 (07:11→12:41)
[2022-06-09] MEDS: Folic Acid 1 MG TABLET PO (08:28)
[2022-06-09] MEDS: Omeprazole 20 MG CAPSULE.DR PO (08:28)
[2022-06-09] MEDS: Nicotine 21 MG PATCH.TD24 TRANSDERMA (08:28)
[2022-06-09] MEDS: Gabapentin 300 MG CAPSULE PO (08:28)
[2022-06-09] MEDS: Escitalopram Oxalate 10 MG TABLET PO (08:29)
[2022-06-09] MEDS: Metoprolol Succinate ER 50 MG TAB.ER.24H PO (08:29)
[2022-06-09] MEDS: lisinopriL 10 MG TABLET PO (08:29)
[2022-06-09] MEDS: Multivitamin TABLET 1 TAB PO (08:29)
[2022-06-09] MEDS: Aspirin 81 MG TAB.CHEW PO (08:30)
[2022-06-09 08:34] VITALS: BP 100/64; PULSE 90; RESP 16; TEMP 36.8; O2SAT 96
[2022-06-09] MEDS: metFORMIN HCl ER 750 MG TAB.ER.24H PO (09:32)
[2022-06-09] MEDS: Empagliflozin 25 MG TABLET PO (09:32)
[2022-06-09 12:34] LABS: Glucose, Whole Blood 214 mg/dL (60-115)
--- NOTE | 2022-06-09 12:39 | MHC.CARE ---
CARE Team referred pt to the Recovery Team for substance use treatment. Pt was advised that a ride could be provided at the time of discharge should he require one.
--- NOTE | 2022-06-09 13:18 | PC.NURSE ---
Per jasmyn from Recovery, Refused all services.
--- NOTE | 2022-06-09 13:21 | MHC.RECOVRN ---
Met with pt in 4 to discuss desire for NUSRAT tx. Pt immediately informs t/w that he does not need NUSRAT tx, he needs mental health tx. Pt reports using substances because he has nothing. Pt is experiencing homelessness and is looking for help. T/w informed pt we could not help with housing, however, we would be able to assist him in placement at [facility]. Pt states I tried a couple months ago and they wouldn't let me in. T/w offered many times to send referrals and speak with [facility] facilities, pt declines. Pt states If you let me go I'm going to jump off a bridge. I guess I have to do something drastic to get help. Again, t/w offered NUSRAT tx and pt declines. Pt provided with written recovery resources and supports, including list of [facility] facilities. Discussed with CARE Team. RN aware.
== END 2022-06-09 13:47 | disposition home or self-care (01) ==
PROVIDERS: Emergency Medicine; Emergency Provider Emergency Medicine Emergency Medical Services
DX: F32.A Depression, unspecified (principal); R73.9 Hyperglycemia, unspecified; R45.851 Suicidal ideations; F19.10 Other psychoactive substance abuse, uncomplicated; F10.20 Alcohol dependence, uncomplicated; Y90.0 Blood alcohol level of less than 20 mg/100 ml; F12.90 Cannabis use, unspecified, uncomplicated; Z20.822 Contact with and (suspected) exposure to COVID-19; F17.210 Nicotine dependence, cigarettes, uncomplicated; E78.5 Hyperlipidemia, unspecified; Z59.00 Homelessness unspecified; Z79.82 Long term (current) use of aspirin; Z79.02 Long term (current) use of antithrombotics/antiplatelets; Z79.899 Other long term (current) drug therapy; Z79.84 Long term (current) use of oral hypoglycemic drugs
CPT/HCPCS: 36415; 80048; 80076; 80164; 80307; 82077; 82947; 83735; 85025; 87635; 93005; 99285; S9485